=== PATIENT | male | born 1965 | race Caucasian/White ===

== ENCOUNTER 2019-11-11 22:00 | Emergency (ER) | payer MEDICAID, SELFPAY ==
[2019-11-11 22:01] VITALS: BP 131/78; PULSE 96; RESP 18; TEMP 36.6; O2SAT 98; BMI 27.3
[2019-11-11 22:26] VITALS: BP 113/76; PULSE 88; RESP 16; TEMP 36.8; O2SAT 99
--- NOTE | 2019-11-11 22:40 | ED.VIS.GEN ---
History of Present Illness Chief Complaint: Cellulitis Detail of Chief Complaint: Left leg wound Informant: Patient, Family Onset: Days Context: Gradual Onset Current Severity: Moderate Maximum Severity: Moderate Narrative: Patient presents secondary to left leg wound. He had a mechanical fall on November 07. He states he has a bad left hip and uses crutches to get around. He caught his foot on the carpet and fell. He had a large contusion with swelling to the medial left lower leg. This formed a blister that then popped today. He has 2 areas of skin sloughing. No significant erythema. He states the fluid that drained out of the blister was clear and water like. He denies fever or chills. - Past Medical History (1) GERD (gastroesophageal reflux disease) Status: Chronic (2) Gouty arthritis Status: Chronic Past Medical History - Allergies and Home Meds Allergies/Adverse Reactions: Allergies No Known Allergies Allergy (Verified 11/11/19 22:04) Prior records reviewed: Yes Surgical History: - - Recent debridement of a nonhealing wound on his left lower extremity at the [facility] with placement of wound VAC. Lives: Spouse/ Significant Other Smoking Status: Never smoker - Family History Maternal Family History: Reports: - - His mother has rheumatoid arthritis.cancer Review of Systems General: Denies: Chills, Fever Eyes: Denies: Visual changes - bilaterally ENT: Denies: Bilateral ear pain Cardiovascular: Denies: Chest pain Respiratory: Denies: Dyspnea, Cough Gastrointestinal: Denies: Abdominal pain, Nausea, Vomiting, Diarrhea Genitourinary: Denies: Dysuria Musculoskeletal: Reports: Extremity Pain Skin: Reports: Wounds Neurological: Denies: Headache Hematologic: Reports: Easy bruising. Denies: Easy bleeding Allergy: Denies: Uticaria Physical Exam Vital Signs/Narrative: Vital Signs Temp Pulse Resp BP Pulse Ox 11/11/19 22:26 98.3 F 88 16 113/76 99 11/11/19 22:01 97.9 F 96 18 131/78 H 98 Inital Vital Signs reviewed: Yes General: Well nourished, Well developed Head: Normocephalic ENT: Moist mucous membranes Neck: Supple Cardiovascular: Regular rate, Regular rhythm Respiratory: No distress, CTA bilaterally Abdomen: Soft, Nontender Extremities: - - Hematoma noted to the medial left calf. 2 areas of skin sloughing from prior blister are noted. The more proximal wound is 2 x 5 cm, the more distal wound is 4 x 7 cm. No sign of cellulitis or surrounding infection at this time. Strong distal pulses are noted. Neurological: Alert, Oriented x3 Psychological: Normal affect Diagnostic/Tx/Re-eval - Medical Decision Making We discussed appropriate wound care. Wound will be cleansed and dressed here. He will be referred to wound center for follow-up. I will go ahead and start him on Bactrim and Keflex to help prevent infection. ED Disposition - Plan for ED Patient: Disposition: Home or Assisted Living Diagnosis: Hematoma, Skin avulsion Instructions: ED Hematoma, ED AVULSION LACERATION Prescriptions: Smz/Tmp Ds [Bactrim Ds] 1 tab PO BID #14 tab Transmission Status: Pending to [facility] #[facility] Cephalexin [Keflex] 500 mg PO Q6 #40 cap Transmission Status: Pending to [facility] Referrals: Kana Davis MD [STAFF PHYSICIAN] - Additional Instructions: Please follow-up at the wound center as discussed - [phone]
[2019-11-11] MEDS: Cephalexin 250 MG Capsule 500 MG PO (22:50)
[2019-11-11] MEDS: Smz/Tmp Ds Tablet 1 TABLET PO (22:50)
== END 2019-11-11 23:05 | disposition home or self-care (01) ==
LOC: ED 22:48
PROVIDERS: Emergency Provider Emergency Medicine
DX: S80.12XA Contusion of left lower leg, initial encounter (principal); S81.802A Unspecified open wound, left lower leg, initial encounter; W18.09XA Striking against other object with subsequent fall, initial encounter; Y93.9 Activity, unspecified; Y92.9 Unspecified place or not applicable; Y99.9 Unspecified external cause status; M10.9 Gout, unspecified; K21.9 Gastro-esophageal reflux disease without esophagitis; Z79.899 Other long term (current) drug therapy
CPT/HCPCS: 99283

== ENCOUNTER 2019-12-06 21:43 | Inpatient (IN) | payer MEDICAID, SELFPAY ==
[2019-12-06] VITALS (7 sets, daily range): BP systolic 102–113; BP diastolic 59–80; PULSE 96–117; RESP 16–20; TEMP 36.6–37.1; O2SAT 96–100; BMI 27.3
--- NOTE | 2019-12-06 22:10 | EKG12_ITS ---
Test Reason : WOUND Blood Pressure : / mmHG Vent. Rate : 098 BPM Atrial Rate : 098 BPM P-R Int : 144 ms QRS Dur : 082 ms QT Int : 376 ms P-R-T Axes : 042 -11 048 degrees QTc Int : 480 ms Normal sinus rhythm Nonspecific T wave abnormality Prolonged QT Abnormal ECG Confirmed by MIGUEL A LAFLEUR, GATITO ([id number]), television news video editor FLORIAN CRUZ ([id number]) on 12/08/2019 1:55:22 PM Referred By: FERCHO Confirmed By:ARSENIO GRADY MD
[2019-12-06 22:44] LABS: Absolute Lymphocyte Count 1.13 X10^3/uL (0.83-4.51); Absolute Neutrophil Count 11.1 X10^3/uL (2.0-7.7); Basophil# 0.06 X10^3/uL; Basophil% 0.4 % (0-1); Eosinophil# 0.08 X10^3/uL; Eosinophils% 0.6 % (0-5); Hematocrit 34.2 % (40-54); Hemoglobin 11.2 g/dL (13.0-16.5); Lymphocyte # 1.13 X10^3/ul (4.0); Lymphocyte % 8.4 % (19-41); Mean Corp Hgb Conc 32.7 g/dL (32-36); Mean Corpuscular Hgb 31.5 pg (27.0-32.0); Mean Corpuscular Volume 96.3 fL (80-94); Mean Platelet Vol. 10.3 fl (6.2-12.0); Monocyte# 0.97 X10^3/uL; Monocyte% 7.2 % (0-10); NRBC Flagged by Analyzer 0 % (0-5); Neutrophil # 11.08 X10^3/uL (2.7-7.7); Neutrophil % 82.7 % (47-70); Platelet Count 211 K/mm3 (150-450); RBC Distribution Width CV 15.4 % (11.6-14.6); RBC Distribution Width SD 55.2 fl (35.1-43.9); Red Blood Count 3.55 M/mm3 (4.6-6.2); White Blood Count 13.4 K/mm3 (4.4-11.0)
[2019-12-06 22:51] LABS: International Normalized Ratio 1.2
[2019-12-06 22:53] LABS: Partial Thromboplast Time 48.9 Seconds (24.1-36.2)
[2019-12-06 23:09] LABS: ALB/GLOB Ratio 0.6 RATIO (0.9-2.4); AST(SGOT) 10 U/L (15-37); Alanine Aminotransfer ALT/SGPT 9 U/L (16-61); Albumin, Serum 2.7 g/dL (3.2-5.0); Alkaline Phosphatase 78 U/L (45-117); Anion Gap 9 (5-15); BUN 23 mg/dL (7-18); BUN/Creat Ratio 8.6 RATIO (10-20); Calcium,Total 8.6 mg/dL (8.5-10.1); Chloride 105 mmol/L (98-107); Creatinine, Serum 2.67 mg/dL (0.70-1.30); EST Glomerular Filtration Rate 27 mL/min (>60); Est Glom Filt Rate - Afr Amer 32 mL/min (>60); Estimated Creatinine Clearance 31.26 ml/min; Globulin 4.5 g/dL (2.2-4.2); Glucose 110 mg/dL (74-106); Potassium 3.3 mmol/L (3.5-5.1); Protein, Total 7.2 g/dL (6.4-8.2); Sodium Level 135 mmol/L (136-145)
[2019-12-06 23:15] LABS: Lactic Acid 2.5 mmol/L (0.4-1.9)
[2019-12-06 23:16] LABS: Reflex Lactate? Y
--- NOTE | 2019-12-06 23:18 | HP.PCM_ITS ---
History of Present Illness Date of Admission: 12/06/19 Chief Complaint: left leg ulcer The patient is a 54 year old M with a past medical history of gout and arthritis of the hip. He was admitted through the ED on 12/06/2019 with a complaint of left leg ulcer. Patient states he fell off his wheelchair and injured his left leg about 3 weeks ago. He sustained a small bruise and came to the ED afterwards when he became a small ulcer. He states he was given oral antibiotics and sent home. However wound has progressively been getting bigger and formed a huge black eschar which he states has been breaking off and oozing pus. He has had swelling and pain of his right lower extremity. He denies any fever or chills, cough, chest pain, palpitations, dizziness, nausea vomiting. Review systems otherwise negative. He scheduled an appointment with the wound clinic for next week but said the pain was too severe so he decided to come in. In the ED, vitals showed temperature of 98.6 Fahrenheit with blood pressure of 106/80, pulse rate of 99 respiratory rate of 18. Pulse ox was 100% on room air. Chemis try showed sodium of 135 with potassium of 3.3 and creatinine of 2.67 with lactic acid of 2.5. Total bilirubin was 1.2 with AST and ALT of 10 and 9 respectively. CBC showed hemoglobin of 11.2 with WBC of 13.4 and platelets of 211. CT of the lower extremity without contrast was ordered and was pending. He has been admitted to be managed for cellulitis of the left lower extremity as well as YAHAIRA and lactic acidosis. [] Past Medical History Past Medical History (Chronic Problems): Chronic Problems GERD (gastroesophageal reflux disease) (Chronic) Anasarca (Chronic) Renal failure (Chronic) Hyperuricemia (Chronic) Non-healing wound of lower extremity (Chronic) Anemia (Chronic) History of hemorrhoids (Chronic) Obesity (BMI 30.0-34.9) (Chronic) Gouty arthritis (Chronic) Allergies No Known Allergies Allergy (Verified 11/11/19 22:04) Home Medications: Ambulatory Orders Medication Instructions Recorded Colchicine 0.6 mg PO X1 12/26/13 Gabapentin [Neurontin] 400 mg PO TIDCM 12/26/13 predniSONE tablet 10 mg PO BID 12/26/13 Cephalexin [Keflex] 500 mg PO Q6 #40 cap 11/11/19 Surgical History: - - Recent debridement of a nonhealing wound on his left lower extremity at the [facility] with placement of wound VAC. Psychiatric History: No pertinent psych hx Lives: Spouse/ Significant Other Smoking Status: Never smoker Tobacco Use: Non-smoker Alcohol: Occasional Drugs: None - *Family History Maternal History Items: - - His mother has rheumatoid arthritis.cancer Review of Systems Constitutional: Denies: Chills, Fever, Malaise, Weight Change, Fatigue Eyes: Denies: Blurred vision HEENT: Denies: Head Aches, Sinus Congestion, Sinus Drainage Cardiovascular: Denies: Chest Pain, Chest Pressure, Palpitations Respiratory: Denies: Cough, Shortness of Breath, Shortness of breath at rest, Shortness of breath upon exertion, Sputum production Gastrointestinal: Denies: Abdominal Pain, Nausea, Vomiting Genitourinary: Denies: Dysuria Musculoskeletal: Reports: Leg Pain. Denies: Joint Pain, Joint Tenderness Skin: Reports: Skin Changes, Wounds, - - ulcer of left lower extremity Neurological: Denies: Numbness, Tingling, Focal weakness Psychiatric: Denies: Anxiety, Depression, Homicidal Ideations, Suicidal Ideations Hematologic/ Lymphatic: Denies: Easy Bruising, Easy Bleeding VTE Information - Inpt Only VTE Present on Admission: No VTE Pharm Prophylaxis ordered?: Yes - Physical Exam Vitals/I&O's: Vital Signs Temp Pulse Resp BP Pulse Ox 98 F 98 20 H 106/80 100 12/06/19 22:46 12/06/19 23:15 12/06/19 23:15 12/06/19 23:15 12/06/19 23:15 Oxygen Delivery Method Room Air Weight: 185 lb Body Mass Index (BMI) 27.3 Intake and Output for Last 24 Hours 12/04/19 12/05/19 12/06/19 23:59 23:59 23:59 Intake Total 500 / 500 Balance 500 / 500 General: Alert, Oriented x3, Cooperative, No apparent distress HEENT: Atraumatic, PERRLA, EOMI, Normocephalic Oral: Dry Mucosa Neck: Supple, No JVD, Negative Carotid Bruits Lungs: Clear to auscultation, Normal air movement, No rhonchi, No wheeze, No rales Cardiovascular: Regular rate, Regular Rhythm, Normal S1, Normal S2, No murmurs Abdomen: Bowel Sounds Present, Soft, Non Tender, Non-Distended, No Hepato- splenomegaly Extremities: No edema, Capillary Refill Less than 3 Seconds Skin: - - left leg ulceration, measuring ~ 10cm x 10cm, swollen, with a huge thick black escar over ulcer. oozing pus. leg swollen Lymphatic: No Cervical, Supraclavicular, or Inguinal Adenopathy Neurological: Cranial nerves II-XII grossly intact, Neuro grossly intact, Motor Exam 5/5 strength throughout Psych/Mental Status: Normal Affect, Appropriate, Alert and oriented to time, place, person, mood and affect Laboratory Results 12/06/19 22:30: WBC 13.4 H, RBC 3.55 L, Hgb 11.2 L, Hct 34.2 L, MCV 96.3 H, MCH 31.5, MCHC 32.7, RDW Std Deviation 55.2 H, RDW Coeff of Estella 15.4 H, Plt Count 211, MPV 10.3, Immature Gran % (Auto) 0.700, Neut % (Auto) 82.7 H, Lymph % (Auto) 8.4 L, [place] % (Auto) 7.2, Eos % (Auto) 0.6, Baso % (Auto) 0.4, Absolute Neuts (auto) 11.1 H, Absolute Lymphs (auto) 1.13, Nucleated RBC % 0 12/06/19 22:30: PT 15.0 H, INR 1.2, APTT 48.9 H 12/06/19 22:30: Sodium 135 L, Potassium 3.3 L, Chloride 105, Carbon Dioxide 2 1.0, Anion Gap 9, BUN 23 H, Creatinine 2.67 H, Estim Creat Clear Calc 31.26, Est GFR (MDRD) Af Amer 32 L, Est GFR (MDRD) Non-Af 27 L, BUN/Creatinine Ratio 8.6 L , Glucose 110 H, Calcium 8.6, Total Bilirubin 1.20 H, AST 10 L, ALT 9 L, Alkaline Phosphatase 78, Total Protein 7.2, Albumin 2.7 L, Globulin 4.5 H, [place] min/Globulin Ratio 0.6 L 12/06/19 22:30: Lactic Acid 2.5 H* Assessment/Plan All Active Problems Heme + stool (Acute) Rheumatoid arthritis (Ruled-out) 54 y/o admitted with a complaitn of left leg swelling and ulceration 1. Sepsis due to LLE ulceration * Admit to PCU with telemetry. * Leg is necrotic with a thick black eschar and draining pus. * WBC is 13.4 with lactic acid of 2.5. He was not tachycardic or tachypneic at time of review though he had been earlier. * Get blood cultures and wound cultures. * Consult wound care and consult plastic surgery. * Start on IV vancomycin and Zosyn. * PT OT consults. CT of the lower extremity without contrast ordered and reading is pending. * 2. YAHAIRA: Creatinine is 2.67. Baseline is not known. Will check renal ultrasound and Samia. Hydrate gently with IV fluid normal saline. 3. Hypokalemia: Potassium is 3.3. Will replace and monitor. 4. Deranged liver enzymes: Total bilirubin is 1.2. AST and ALT are low at 10 and 9 respectively. Will trend. 5. History of gout: On colchicine. DVT prophylaxis: Lovenox Code Status: Full code * Patient counseled extensively about different types of CODE STATUS including full code, DNR CCA and DNR CCA. Patient elects to be full code. * Total [id number] time 17 minutes. * Inpatient E&M: 21661 Init Hosp L3 Procedures: 19139 Advncd Care Plan 30 Min
--- NOTE | 2019-12-06 23:32 | ED.DCSUM_ITS ---
- ER Visit Summary Date of Service: 12/06/19 Chief Complaint: Leg wound History of Present Illness: The patient is a 54 M with a leg wound on his left calf for several weeks. He tripped on his carpet and caught his leg open. He was planning to follow-up with wound care, but he is having a lot of drainage and the dressings are sticking. Physical Examination: Afebrile and vital signs unremarkable except for heart rate of 98 and a respiratory rate of 20. He has a large wound on his left calf. There is an area of palm sized necrosis with surrounding pus and foul-smelling discharge. No active bleeding. No tracking or streaking. He is neurovascular intact distally. Test Results: EKG showed sinus rhythm at a rate of 98 with nonspecific T wave changes. White count 13.4, hemoglobin 11.2. Sodium 135, potassium 3.3, glucose 110, BUN 23, creatinine 2.67, total bilirubin 1.2. Lactate 2.5. Cultures pending. Emergency Department Course and Treatment: Patient has a large wound which appears to be infected with some flap necrosis. Patient will need inpatient care for this. He does meet sepsis criteria. He was started on Zosyn and vancomycin. He has remained hemodynamically stable. The hospitalist was co ntacted for inpatient care. Admitting doctor requested a CT. Because of the patient's kidney function, this was performed without contrast. Results are pending. Treatment Plan: As above Disposition: Admission Impression: Left leg wound, sepsis This note was generated with [employer] dictation software. It may contain incorrect words, spelling, and punctuation that were not noted in review of the chart prior to signing ED Disposition - Plan for ED Patient: Referrals: Care Physician,No Primary [Primary Care Provider] -
[2019-12-07] VITALS (22 sets, daily range): BP systolic 94–116; BP diastolic 60–86; PULSE 73–102; RESP 16–18; TEMP 36.3–37; O2SAT 96–100; BMI 27.3
--- NOTE | 2019-12-07 00:05 | CT_ITS ---
STUDY: CT LEFT TIB-FIB WITHOUT CONTRAST REASON FOR EXAM: Male, 54 years old. RADIATION DOSAGE (If Supplied By Facility): CTDIvol = ( 15.35 ) mGy, DLP = ( 821.97 ) mGycm TECHNIQUE: Thin section transaxial imaging of the hip was obtained, with sagittal and coronal reconstructed images. Individualized dose optimization techniques were used for this CT. COMPARISON: None. FINDINGS: There is subcutaneous fluid collection at the medial aspect of the left calf measures 9 x 2.5 x 18 cm suggesting an abscess. There is no evidence of osteomyelitis. Degenerative disease about the knee and ankle joints. There is moderate atrophy of the calf muscles. CT/Extremity Lower without Contra IMPRESSION: There is subcutaneous fluid collection at the medial aspect of the left calf measures 9 x 2.5 x 18 cm suggesting an abscess. Electronically Signed: Maren Osei, at 1:44 EDT Tel , Service support ,
[2019-12-07] MEDS: Morphine 2 MG/ML Syringe IV ×3 (01:42→11:12)
--- NOTE | 2019-12-07 01:49 | PCM.RX.CS ---
Consult Pharmacy has been consulted to manage selected antiobiotic: Vancomycin Type of Consult: New start Suspected Infection: Sepsis Prior Doses of Antibiotics Received/Current Regimen: Medications Vancomycin HCl 1,250 mg/ (Sodium Chloride) 275 mls @ 167 mls/hr IV Q24H NEIL start 12/07/19 2100 Discontinued Medications given in ED Vancomycin HCl 1,250 mg/ (Dextrose) 275 mls @ 250 mls/hr IV X1 ONE Stop: 12/06/19 23:15 Last Admin: 12/06/19 23:21 Dose: 250 mls/hr Documented by: Labs: Sodium 135 mmol/L (136-145) L 12/06/19 22:30 Potassium 3.3 mmol/L (3.5-5.1) L 12/06/19 22:30 Chloride 105 mmol/L (98-107) 12/06/19 22:30 Carbon Dioxide 21.0 mmol/L (21.0-32.0) 12/06/19 22:30 Anion Gap 9 (5-15) 12/06/19 22:30 BUN 23 mg/dL (7-18) H 12/06/19 22:30 Creatinine 2.67 mg/dL (0.70-1.30) H 12/06/19 22:30 Est GFR (MDRD) Af Amer 32 mL/min (>60) L 12/06/19 22:30 Est GFR (MDRD) Non-Af 27 mL/min (>60) L 12/06/19 22:30 BUN/Creatinine Ratio 8.6 RATIO (10-20) L 12/06/19 22:30 Glucose 110 mg/dL (74-106) H 12/06/19 22:30 Weight used for dosin kg Estimated Creatinine Clearance: 31.2ml/min Goal Trough: 15-20 mcg/mL Pharmacy Plan for Drug Dosing: Pharmacy Service will continue to monitor and adjust dosing as required. Follow-Up Labs: Trough Vancomycin - draw 30 minutes before 3rd dose Labs to be done on [date and time ordered]: 12/08/19 7153
[2019-12-07] MEDS: 0.9% Normal Saline 1,000 ML 999 ML IV ×3 (01:51→04:05)
[2019-12-07] MEDS: oxyCODONE 5 MG Tablet 10 MG PO ×4 (02:47→22:40)
[2019-12-07 03:14] LABS: Absolute Neutrophil Count 7.6 X10^3/uL (2.0-7.7); Basophil# 0.03 X10^3/uL; Basophil% 0.3 % (0-1); Eosinophil# 0.08 X10^3/uL; Eosinophils% 0.9 % (0-5); Hematocrit 27.7 % (40-54); Hemoglobin 8.9 g/dL (13.0-16.5); Lymphocyte % 8.5 % (19-41); Mean Corp Hgb Conc 32.1 g/dL (32-36); Mean Corpuscular Hgb 31.2 pg (27.0-32.0); Mean Corpuscular Volume 97.2 fL (80-94); Mean Platelet Vol. 10.2 fl (6.2-12.0); Monocyte# 0.79 X10^3/uL; Monocyte% 8.4 % (0-10); NRBC Flagged by Analyzer 0 % (0-5); Neutrophil # 7.64 X10^3/uL (2.7-7.7); Neutrophil % 81.4 % (47-70); Platelet Count 157 K/mm3 (150-450); RBC Distribution Width CV 15.6 % (11.6-14.6); Red Blood Count 2.85 M/mm3 (4.6-6.2); White Blood Count 9.4 K/mm3 (4.4-11.0)
[2019-12-07 03:26] LABS: Anion Gap 7 (5-15); BUN 23 mg/dL (7-18); BUN/Creat Ratio 9.7 RATIO (10-20); Calcium,Total 7.6 mg/dL (8.5-10.1); Chloride 106 mmol/L (98-107); Creatinine, Serum 2.37 mg/dL (0.70-1.30); EST Glomerular Filtration Rate 30 mL/min (>60); Est Glom Filt Rate - Afr Amer 37 mL/min (>60); Estimated Creatinine Clearance 35.22 ml/min; Glucose 103 mg/dL (74-106); Potassium 3.2 mmol/L (3.5-5.1); Sodium Level 135 mmol/L (136-145)
[2019-12-07 03:38] LABS: Lactic Acid 0.9 mmol/L (0.4-1.9)
--- NOTE | 2019-12-07 03:52 | NURSING ---
Confirmed with hospitalist to perform basic dressing changes vs leaving wound open to air until Dr. Milton and wound care nurse can see pt. Verified adaptic and basic dressing change on admit. Change as necessary until dressing change orders placed by consulted physician.
--- NOTE | 2019-12-07 04:21 | NURSING ---
Wound measurements roughly 12cm in length. Width at top of wound 6cm and at bottom of wound 11cm
--- NOTE | 2019-12-07 05:59 | NURSING ---
Per hospitalist ok to go off of VSA for vitals at this point
--- NOTE | 2019-12-07 07:00 | US_ITS ---
STUDY: RENAL ULTRASOUND - COMPLETE REASON FOR EXAM: Male, 54 years old. YAHAIRA TECHNIQUE: Ultrasound evaluation of the kidneys was performed with real-time and static aparicio-scale imaging. COMPARISON: None. FINDINGS: RIGHT KIDNEY: Normal location of the right kidney, which is normal in size. The right kidney measures 11.4 cm x 5.2 cm x 4.6 cm. There is a normal cortex of the right kidney. The renal cortex measures 1.2 cm. There is no right renal mass or cyst. There are no right renal calculi. There is no right hydronephrosis. DISTAL RIGHT URETER: There is non-visualization of the distal right ureter. There is no demonstrated right ureterovesical junction calculus. There is a visualized right ureteral jet. LEFT KIDNEY: Normal location of the left kidney, which is normal in size. The left kidney measures 11.2 cm x 5.1 cm x 5.0 cm. There is a normal cortex of the left kidney. The renal cortex measures 1.1 cm. There is no left renal mass or cyst. There are no left renal calculi. There is no left hydronephrosis. DISTAL LEFT URETER: There is non-visualization of the distal left ureter. There is no demonstrated left ureterovesical junction calculus. There is a visualized left ureteral jet. Incidental note is made of splenomegaly. The spleen measures 15.6 cm x 5.5 cm x 5.6 cm. BLADDER: The distended urinary bladder has a volume of 81.8 ml. Bladder wall thickening measuring 6 mm. There is no demonstrated mass within the urinary bladder. There are no demonstrated bladder calculi. US/Kidney and Bladder IMPRESSION: Normal ultrasound of the kidneys. Bladder wall thickening although the bladder is not adequately distended. Incidental note is made of moderate degree of splenomegaly. Electronically Signed: Prasad Palomino, at 8:20 EDT , Service support ,
--- NOTE | 2019-12-07 07:39 | PCM.PN.HOSP ---
Vitals/I&O's: Vital Signs Temp Pulse Resp BP Pulse Ox 97.9 F 82 16 105/63 99 12/07/19 05:17 12/07/19 07:38 12/07/19 05:17 12/07/19 05:17 12/07/19 05:37 Oxygen Delivery Method Room Air Weight: 185 lb 3.013 oz Body Mass Index (BMI) 27.3 Intake and Output for Last 24 Hours 12/05/19 12/06/19 12/07/19 23:59 23:59 23:59 Intake Total 600 / 600 3675 / 3675 Output Total 700 / 700 Balance 600 / 600 2975 / 2975 Laboratory Results 12/06/19 22:30: WBC 13.4 H, RBC 3.55 L, Hgb 11.2 L, Hct 34.2 L, MCV 96.3 H, MCH 31.5, MCHC 32.7, RDW Std Deviation 55.2 H, RDW Coeff of Estella 15.4 H, Plt Count 211, MPV 10.3, Immature Gran % (Auto) 0.700, Neut % (Auto) 82.7 H, Lymph % (Auto) 8.4 L, [place] % (Auto) 7.2, Eos % (Auto) 0.6, Baso % (Auto) 0.4, Absolute Neuts (auto) 11.1 H, Absolute Lymphs (auto) 1.13, Nucleated RBC % 0 12/06/19 22:30: PT 15.0 H, INR 1.2, APTT 48.9 H 12/06/19 22:30: Sodium 135 L, Potassium 3.3 L, Chloride 105, Carbon Dioxide 21.0, Anion Gap 9, BUN 23 H, Creatinine 2.67 H, Estim Creat Clear Calc 31.26, Est GFR (MDRD) Af Amer 32 L, Est GFR (MDRD) Non-Af 27 L, BUN/Creatinine Ratio 8.6 L, Glucose 110 H, Calcium 8.6, Total Bilirubin 1.20 H, AST 10 L, ALT 9 L, Alkaline Phosphatase 78, Total Protein 7.2, Albumin 2.7 L, Globulin 4.5 H, Albumin/Globulin Ratio 0.6 L 12/06/19 22:30: Lactic Acid 2.5 H* 12/07/19 03:05: Lactic Acid 0.9 12/07/19 03:05: WBC 9.4, RBC 2.85 L, Hgb 8.9 L, Hct 27.7 L, MCV 97.2 H, MCH 31.2, MCHC 32.1, RDW Std Deviation 56.0 H, RDW Coeff of Estella 15.6 H, Plt Count 157, MPV 10.2, Immature Gran % (Auto) 0.500, Neut % (Auto) 81.4 H, Lymph % (Auto) 8.5 L, [place] % (Auto) 8.4, Eos % (Auto) 0.9, Baso % (Auto) 0.3, Absolute Neuts (auto) 7.6, Absolute Lymphs (auto) 0.80 L, Nucleated RBC % 0 12/07/19 03:05: Sodium 135 L, Potassium 3.2 L, Chloride 106, Carbon Dioxide 22.0, Anion Gap 7, BUN 23 H, Creatinine 2.37 H, Estim Creat Clear Calc 35.22, Est GFR (MDRD) Af Amer 37 L, Est GFR (MDRD) Non-Af 30 L, BUN/Creatinine Ratio 9.7 L, Glucose 103, Calcium 7.6 L Current Medications Acetaminophen (Tylenol) 650 mg PO Q6H PRN PRN PRN Reason: Pain Score 1-10/Temp > 100.7 F Colchicine (Colchicine) 0.6 mg PO Q2D [facility] Enoxaparin Sodium (Lovenox) 30 mg SC DAILY [facility] Gabapentin (Neurontin) 400 mg PO TIDCM [facility] Piperacillin Sod/Tazobactam (Sod 3.375 gm/ Sodium Chloride) 50 mls @ 12.5 mls/hr IV Q8 [facility] Last Admin: 12/07/19 05:28 Dose: 12.5 mls/hr Documented by: Vancomycin IV Pharmacy to Dose (1 ea/ Sodium Chloride) 500 mls @ 250 mls/hr IV X1 PRN; Protocol PRN Reason: Rx to Dose Sodium Chloride () 250 mls @ 15 mls/hr IV .[id number] PRN PRN Reason: Saline Flush Sodium Chloride () 250 mls @ 15 mls/hr IV .[id number] PRN PRN Reason: Additional IVPB Infusion Vancomycin HCl 1,250 mg/ (Sodium Chloride) 275 mls @ 167 mls/hr IV Q24H [facility] Morphine Sulfate () 2 mg IV Q3H PRN PRN PRN Reason: Pain Score 6-10/10 Last Admin: 12/07/19 05:11 Dose: 2 mg Documented by: Nutritional Formula (Lactose Free) (Ensure Enlive) 120 ml PO 4X/DAY NEIL Ondansetron HCl (Zofran) 4 mg IV Q8H PRN PRN PRN Reason: NAUSEA/VOMITING Oxycodone HCl (Oxyir) 10 mg PO Q4H PRN PRN PRN Reason: Pain Score 4-5/10 Last Admin: 12/07/19 06:47 Dose: 10 mg Documented by: Prednisone () 10 mg PO BIDCM [facility] Sodium Chloride () 10 - 40 ml IV UD PRN PRN Reason: SALINE FLUSH STROKE Vital Signs/Narrative: Vital Signs Temp Pulse Resp BP Pulse Ox 12/07/19 07:38 82 12/07/19 05:55 73 12/07/19 05:37 99 12/07/19 05:17 97.9 F 78 16 105/63 98 12/07/19 04:27 98 F 81 17 109/74 100 Medical Necessity - Tobacco Use Smoking Status: Never smoker Tobacco Use: Non-smoker Assessment/Plan All Active Problems Heme + stool (Acute) Rheumatoid arthritis (Ruled-out)
[2019-12-07 08:01] LABS: Magnesium 1.7 mg/dL (1.6-2.6); Phosphorus 2.9 mg/dL (2.5-4.9)
--- NOTE | 2019-12-07 11:02 | PCM.CONS.GEN ---
Problem List (1) Ulcer of left lower extremity with fat layer exposed Status: Acute (2) Cellulitis of left leg without foot Status: Acute (3) Sepsis Status: Acute (4) Eschar of lower leg Status: Acute (5) Peripheral vascular disease Status: Suspected Reason for Consult Date of Consultation: 12/07/19 Reason for Consultation: Left leg infected ulcer History of Present Illness: The patient is a 54 year old M was seen bedside today for a left leg infected eschar. Advanced imaging, CT scan, demonstrates a very large abscess and there is purulent drainage. This patient was septic upon admission. He relates he is slipped while he was using his crutches to ambulate in his home around November and scraped his leg on his wooden table. This was inflamed and turned into a draining wound with an ongoing scab. Part of the scab kept peeling back and he had drainage. This has progressively worsened over the last couple weeks and he started noticing some infection a couple days prior to coming to the hospital for admission. He was admitted and was found to be septic with elevated lactic acid. He was started on IV antibiotics. He has continued leg pain that is rated between an 8-10 out of 10. He feels fatigued and generally ill. He denies current nausea or vomiting. He does have a history of prior left foot wounds which was treated with infection management and a wound VAC. He is previously known to the wound care center setting. He denies claudication with ambulating however does not ambulate a significant degree. He denies rest burning, tingling, numbness. Past Medical History Past Medical History (Chronic Problems): Chronic Problems GERD (gastroesophageal reflux disease) (Chronic) Anasarca (Chronic) Renal failure (Chronic) Hyperuricemia (Chronic) Non-healing wound of lower extremity (Chronic) Anemia (Chronic) History of hemorrhoids (Chronic) Obesity (BMI 30.0-34.9) (Chronic) Gouty arthritis (Chronic) Allergies No Known Allergies Allergy (Verified 11/11/19 22:04) Home Medications: Ambulatory Orders Medication Instructions Recorded Colchicine 0.6 mg PO X1 12/26/13 Gabapentin [Neurontin] 400 mg PO TIDCM 12/26/13 predniSONE tablet 10 mg PO BID 12/26/13 Cephalexin [Keflex] 500 mg PO Q6 12/07/19 Surgical History: - - Recent debridement of a nonhealing wound on his left lower extremity at the [facility] with placement of wound VAC. Psychiatric History: No pertinent psych hx Lives: Spouse/ Significant Other Smoking Status: Never smoker Tobacco Use: Non-smoker Alcohol: Occasional Drugs: None - *Family History Maternal History Items: - - His mother has rheumatoid arthritis.cancer Review of Systems Constitutional: Denies: Chills, Fever Patient Problems: Active and Suspected Problems Ulcer of left lower extremity with fat layer exposed (Acute) Cellulitis of left leg without foot (Acute) Sepsis (Acute) Eschar of lower leg (Acute) Peripheral vascular disease (Suspected) - Physical Exam Vitals/I&O's: Vital Signs Temp Pulse Resp BP Pulse Ox 98.3 F 88 18 95/60 97 12/07/19 10:04 12/07/19 10:04 12/07/19 10:04 12/07/19 10:04 12/07/19 10:04 Oxygen Delivery Method Room Air Weight: 84 kg Body Mass Index (BMI) 27.3 Intake and Output for Last 24 Hours 12/05/19 12/06/19 12/07/19 23:59 23:59 23:59 Intake Total 600 / 600 3725 / 3725 Output Total 700 / 700 Balance 600 / 600 3025 / 3025 General: Alert, Oriented x3, Cooperative HEENT: Atraumatic Extremities: Capillary Refill Less than 3 Seconds - Left, Diminished Peripheral Pulses - Nonpalpable left DP and 1 out of 4 palpable PT, Edema, Tenderness - Pain with eschar and abscess manipulation left leg that is located to the medial head of the gastrocnemius muscle belly. This does not appear to extend into the popliteal space or distally into the ankle level. He has dorsal contraction of lesser toes and intrinsic minus muscle tone noted of the foot. The other compartments are soft to palpate. Negative Homans sign Skin: - - Large moist eschar with purulent drainage on expression and odor. The leg is warm to touch and there is edema and inflammation infection noted. There is deep probing not to bone. Musculoskeletal: Muscle Wasting, Tenderness Neurological: Sensory exam intact to light touch and pain Psych/Mental Status: Normal Affect, Appropriate Laboratory Results 12/06/19 22:30: WBC 13.4 H, RBC 3.55 L, Hgb 11.2 L, Hct 34.2 L, MCV 96.3 H, MCH 31.5, MCHC 32.7, RDW Std Deviation 55.2 H, RDW Coeff of Estella 15.4 H, Plt Count 211, MPV 10.3, Immature Gran % (Auto) 0.700, Neut % (Auto) 82.7 H, Lymph % (Auto) 8.4 L, [place] % (Auto) 7.2, Eos % (Auto) 0.6, Baso % (Auto) 0.4, Absolute Neuts (auto) 11.1 H, Absolute Lymphs (auto) 1.13, Nucleated RBC % 0 12/06/19 22:30: PT 15.0 H, INR 1.2, APTT 48.9 H 12/06/19 22:30: Sodium 135 L, Potassium 3.3 L, Chloride 105, Carbon Dioxide 21.0, Anion Gap 9, BUN 23 H, Creatinine 2.67 H, Estim Creat Clear Calc 31.26, Est GFR (MDRD) Af Amer 32 L, Est GFR (MDRD) Non-Af 27 L, BUN/Creatinine Ratio 8.6 L, Glucose 110 H, Calcium 8.6, Total Bilirubin 1.20 H, AST 10 L, ALT 9 L, Alkaline Phosphatase 78, Total Protein 7.2, Albumin 2.7 L, Globulin 4.5 H, Albumin/Globulin Ratio 0.6 L 12/06/19 22:30: Lactic Acid 2.5 H* 12/07/19 03:05: Lactic Acid 0.9 12/07/19 03:05: WBC 9.4, RBC 2.85 L, Hgb 8.9 L, Hct 27.7 L, MCV 97.2 H, MCH 31.2, MCHC 32.1, RDW Std Deviation 56.0 H, RDW Coeff of Estella 15.6 H, Plt Count 157, MPV 10.2, Immature Gran % (Auto) 0.500, Neut % (Auto) 81.4 H, Lymph % (Auto) 8.5 L, [place] % (Auto) 8.4, Eos % (Auto) 0.9, Baso % (Auto) 0.3, Absolute Neuts (auto) 7.6, Absolute Lymphs (auto) 0.80 L, Nucleated RBC % 0 12/07/19 03:05: Sodium 135 L, Potassium 3.2 L, Chloride 106, Carbon Dioxide 22.0, Anion Gap 7, BUN 23 H, Creatinine 2.37 H, Estim Creat Clear Calc 35.22, Est GFR (MDRD) Af Amer 37 L, Est GFR (MDRD) Non-Af 30 L, BUN/Creatinine Ratio 9.7 L, Glucose 103, Calcium 7.6 L 12/07/19 03:05: Phosphorus 2.9, Magnesium 1.7 Current Medications Acetaminophen (Tylenol) 650 mg PO Q6H PRN PRN PRN Reason: Pain Score 1-10/Temp > 100.7 F Al Hydroxide/Mg Hydroxide (Mylanta Ii) 30 ml PO Q4H PRN PRN PRN Reason: HEARTBURN Colchicine (Colchicine) 0.6 mg PO Q2D [facility] Enoxaparin Sodium (Lovenox) 30 mg SC DAILY [facility] Last Admin: 12/07/19 10:07 Dose: Not Given Documented by: Gabapentin (Neurontin) 400 mg PO TIDCM [facility] Piperacillin Sod/Tazobactam (Sod 3.375 gm/ Sodium Chloride) 50 mls @ 12.5 mls/hr IV Q8 [facility] Last Infusion: 12/07/19 09:30 Dose: Infused Documented by: Vancomycin IV Pharmacy to Dose (1 ea/ Sodium Chloride) 500 mls @ 250 mls/hr IV X1 PRN; Protocol PRN Reason: Rx to Dose Sodium Chloride () 250 mls @ 15 mls/hr IV .[id number] PRN PRN Reason: Saline Flush Sodium Chloride () 250 mls @ 15 mls/hr IV .[id number] PRN PRN Reason: Additional IVPB Infusion Vancomycin HCl 1,250 mg/ (Sodium Chloride) 275 mls @ 167 mls/hr IV Q24H [facility] Morphine Sulfate () 2 mg IV Q3H PRN PRN PRN Reason: Pain Score 6-10/10 Last Admin: 12/07/19 05:11 Dose: 2 mg Documented by: Nutritional Formula (Levi - [place] Flavor) 1 packet PO BIDCM [facility] Nutritional Formula (Lactose Free) (Ensure Enlive) 120 ml PO 4X/DAY [facility] Last Admin: 12/07/19 10:07 Dose: Not Given Documented by: Ondansetron HCl (Zofran) 4 mg IV Q8H PRN PRN PRN Reason: NAUSEA/VOMITING Oxycodone HCl (Oxyir) 10 mg PO Q4H PRN PRN PRN Reason: Pain Score 4-5/10 Last Admin: 12/07/19 06:47 Dose: 10 mg Documented by: Prednisone () 10 mg PO BIDCM [facility] Sodium Chloride () 10 - 40 ml IV UD PRN PRN Reason: SALINE FLUSH Assessment/Plan All Active Problems Ulcer of left lower extremity with fat layer exposed (Acute) Cellulitis of left leg without foot (Acute) Sepsis (Acute) Eschar of lower leg (Acute) Heme + stool (Acute) Rheumatoid arthritis (Ruled-out) Left leg abscess with infection Sepsis with elevated lactic acid Acute kidney injury Other comorbidities including gout, arthritis, obesity History of delayed healing Malnutrition suspected Peripheral vascular disease suspected I reviewed and discussed his case. He is afebrile. He had leukocytosis on admission of 13.4 which is decreased overnight. His lactic acid was 2.5 on admission. His x-rays did not demonstrate any osseous abnormalities or soft tissue emphysema. His CT of his leg did demonstrate a very large abscess measuring up to 18 cm in length. This is consistent with his clinical finding of moist bulky eschar with purulent drainage. I recommend surgically debriding this with incision and drainage and debridement of nonviable tissue. He last ate at 9:00 AM and this is considered an urgent case due to his constitutional findings on admission. The preoperative indication, planned procedure, possible benefits, risk, complications, and anticipated healing time management were discussed in detail with the patient. He understands and elects to proceed with surgery. He understands risk and complications may include but are not limited to following: Pain, swelling, scarring, need for further surgery, staged procedure, infection, delayed or nonhealing, loss of limb, function, life, blood clot, allergic reaction, chronic pain. No guarantees are made. Informed surgical consent need to be signed. He is n.p.o. at this time and his anticoagulation medication was already held this morning. I reviewed the case with anesthesiologist, Dr. Rahman. We will plan to do the surgery at 14 o'clock today. Case was discussed with Dr. Keita. Thank you for the consultation. Please do not hesitate to call if you have any questions. Hallie Pemberton DPM, [facility] [phone]
[2019-12-07] MEDS: Mag Hydrox/Al Hydrox/Simeth 30 ML UDC PO (11:11)
[2019-12-07] MEDS: predniSONE 10 MG Tablet PO ×2 (11:11→16:42)
[2019-12-07] MEDS: Gabapentin 400 MG Capsule PO ×2 (11:12→16:42)
[2019-12-07] MEDS: 0.9% Saline Lock 10 ML Syringe IV ×2 (11:15→20:55)
[2019-12-07 11:18] LABS: Urine Sodium 27 mmol/L (Not Establ.)
--- NOTE | 2019-12-07 12:18 | PCM.PROGNOTE ---
<Jania Mast - Last Filed: 12/07/19 12:44> Patient Problems: Active and Suspected Problems Ulcer of left lower extremity with fat layer exposed (Acute) Cellulitis of left leg without foot (Acute) Sepsis (Acute) Eschar of lower leg (Acute) Peripheral vascular disease (Suspected) Subjective: Patient seen and examined. Denies fever, chills. Complains of left lower extremity pain. Denies other current complaints. - Physical Exam Vitals/I&O's: Vital Signs Temp Pulse Resp BP Pulse Ox 98.3 F 88 18 95/60 97 12/07/19 10:04 12/07/19 10:04 12/07/19 10:04 12/07/19 10:04 12/07/19 10:04 Oxygen Delivery Method Room Air Weight: 185 lb 3.013 oz Body Mass Index (BMI) 27.3 Intake and Output for Last 24 Hours 12/05/19 12/06/19 12/07/19 23:59 23:59 23:59 Intake Total 600 / 600 4065 / 4065 Output Total 700 / 700 Balance 600 / 600 3365 / 3365 General: Alert, Oriented x3, Cooperative HEENT: Atraumatic, PERRLA, EOMI, Normocephalic Neck: Supple, No JVD, Negative Carotid Bruits Lungs: Clear to auscultation, Normal air movement Cardiovascular: Regular rate, No murmurs Abdomen: Bowel Sounds Present, Soft, Non Tender Extremities: No clubbing, No cyanosis, No edema, Capillary Refill Less than 3 Seconds Skin: No rashes, No breakdown, - - Left lower extremity abscess with surrounding cellulitis. Dressing intact. Musculoskeletal: No Tenderness to Palpation of Joints or Extremities Neurological: Cranial nerves II-XII grossly intact, Neuro grossly intact Psych/Mental Status: Normal Affect, Appropriate Laboratory Results 12/06/19 22:30: WBC 13.4 H, RBC 3.55 L, Hgb 11.2 L, Hct 34.2 L, MCV 96.3 H, MCH 31.5, MCHC 32.7, RDW Std Deviation 55.2 H, RDW Coeff of Estella 15.4 H, Plt Count 211, MPV 10.3, Immature Gran % (Auto) 0.700, Neut % (Auto) 82.7 H, Lymph % (Auto) 8.4 L, [place] % (Auto) 7.2, Eos % (Auto) 0.6, Baso % (Auto) 0.4, Absolute Neuts (auto) 11.1 H, Absolute Lymphs (auto) 1.13, Nucleated RBC % 0 12/06/19 22:30: PT 15.0 H, INR 1.2, APTT 48.9 H 12/06/19 22:30: Sodium 135 L, Potassium 3.3 L, Chloride 105, Carbon Dioxide 21.0, Anion Gap 9, BUN 23 H, Creatinine 2.67 H, Estim Creat Clear Calc 31.26, Est GFR (MDRD) Af Amer 32 L, Est GFR (MDRD) Non-Af 27 L, BUN/Creatinine Ratio 8.6 L, Glucose 110 H, Calcium 8.6, Total Bilirubin 1.20 H, AST 10 L, ALT 9 L, Alkaline Phosphatase 78, Total Protein 7.2, Albumin 2.7 L, Globulin 4.5 H, Albumin/Globulin Ratio 0.6 L 12/06/19 22:30: Lactic Acid 2.5 H* 12/07/19 03:05: Lactic Acid 0.9 12/07/19 03:05: WBC 9.4, RBC 2.85 L, Hgb 8.9 L, Hct 27.7 L, MCV 97.2 H, MCH 31.2, MCHC 32.1, RDW Std Deviation 56.0 H, RDW Coeff of Estella 15.6 H, Plt Count 157, MPV 10.2, Immature Gran % (Auto) 0.500, Neut % (Auto) 81.4 H, Lymph % (Auto) 8.5 L, [place] % (Auto) 8.4, Eos % (Auto) 0.9, Baso % (Auto) 0.3, Absolute Neuts (auto) 7.6, Absolute Lymphs (auto) 0.80 L, Nucleated RBC % 0 12/07/19 03:05: Sodium 135 L, Potassium 3.2 L, Chloride 106, Carbon Dioxide 22.0, Anion Gap 7, BUN 23 H, Creatinine 2.37 H, Estim Creat Clear Calc 35.22, Est GFR (MDRD) Af Amer 37 L, Est GFR (MDRD) Non-Af 30 L, BUN/Creatinine Ratio 9.7 L, Glucose 103, Calcium 7.6 L 12/07/19 03:05: Phosphorus 2.9, Magnesium 1.7 12/07/19 10:49: Urine Creatinine 94.80 12/07/19 10:49: Ur Random Sodium 27 12/07/19 11:31: MRSA (PCR) Pending 12/07/19 11:31: S.aureus Protein A PCR Pending, MRSA (PCR) Pending Current Medications Acetaminophen (Tylenol) 650 mg PO Q6H PRN PRN PRN Reason: Pain Score 1-10/Temp > 100.7 F Al Hydroxide/Mg Hydroxide (Mylanta Ii) 30 ml PO Q4H PRN PRN PRN Reason: HEARTBURN Last Admin: 12/07/19 11:11 Dose: 30 ml Documented by: Colchicine (Colchicine) 0.6 mg PO Q2D [facility] Enoxaparin Sodium (Lovenox) 30 mg SC DAILY [facility] Last Admin: 12/07/19 10:07 Dose: Not Given Documented by: Gabapentin (Neurontin) 400 mg PO TIDCM [facility] Last Admin: 12/07/19 11:12 Dose: 400 mg Documented by: Piperacillin Sod/Tazobactam (Sod 3.375 gm/ Sodium Chloride) 50 mls @ 12.5 mls/hr IV Q8 [facility] Last Infusion: 12/07/19 09:30 Dose: Infused Documented by: Vancomycin IV Pharmacy to Dose (1 ea/ Sodium Chloride) 500 mls @ 250 mls/hr IV X1 PRN; Protocol PRN Reason: Rx to Dose Sodium Chloride () 250 mls @ 15 mls/hr IV .[id number] PRN PRN Reason: Saline Flush Sodium Chloride () 250 mls @ 15 mls/hr IV .[id number] PRN PRN Reason: Additional IVPB Infusion Vancomycin HCl 1,250 mg/ (Sodium Chloride) 275 mls @ 167 mls/hr IV Q24H [facility] Morphine Sulfate () 2 mg IV Q3H PRN PRN PRN Reason: Pain Score 6-10/10 Last Admin: 12/07/19 11:12 Dose: 2 mg Documented by: Nutritional Formula (Levi - [place] Flavor) 1 packet PO BIDCM [facility] Nutritional Formula (Lactose Free) (Ensure Enlive) 120 ml PO 4X/DAY [facility] Last Admin: 12/07/19 10:07 Dose: Not Given Documented by: Ondansetron HCl (Zofran) 4 mg IV Q8H PRN PRN PRN Reason: NAUSEA/VOMITING Oxycodone HCl (Oxyir) 10 mg PO Q4H PRN PRN PRN Reason: Pain Score 4-5/10 Last Admin: 12/07/19 06:47 Dose: 10 mg Documented by: Prednisone () 10 mg PO BIDCM [facility] Last Admin: 12/07/19 11:11 Dose: 10 mg Documented by: Sodium Chloride () 10 - 40 ml IV UD PRN PRN Reason: SALINE FLUSH Last Admin: 12/07/19 11:15 Dose: 10 ml Documented by: Medical Necessity - Tobacco Use Smoking Status: Never smoker Tobacco Use: Non-smoker Assessment/Plan All Active Problems Ulcer of left lower extremity with fat layer exposed (Acute) Cellulitis of left leg without foot (Acute) Sepsis (Acute) Eschar of lower leg (Acute) Heme + stool (Acute) Rheumatoid arthritis (Ruled-out) 1. Sepsis secondary to left lower extremity abscess with cellulitis-failed outpatient treatment with oral antibiotic. Lower extremity CT showing left calf abscess. To undergo I&D by podiatry. Continue IV Zosyn and IV vancomycin. Blood cultures pending. Obtain culture from I&D. Wound RN consult. Leukocytosis resolved. Afebrile. 2. Acute kidney injury on chronic kidney disease stage III-IV fluids, trend BMP. Renal ultrasound pending. FENA 0.5%, suggesting prerenal. 3. Hypokalemia-replace per protocol, trend BMP. 4. History of gout- on colchicine DVT prophylaxis-Lovenox subcu This patient was seen by ANTONI Rutherford under the supervision of Dr. Keita. <Bobby Keita - Last Filed: 12/07/19 13:46> Subjective: Patient does not fever, chills, tachypnea or hypoxia. 3-week history of left calf ulcer which is gotten bigger. Blackish eschar and open area draining purulent and foul order. Objective: Physical exam General: Alert, Oriented x3, Cooperative HEENT: Atraumatic, PERRLA, EOMI, Normocephalic Oral: No Gingival or Mucosal Lesions/ Ulcerations Neck: Supple, No JVD, Negative Carotid Bruits Lungs: Air entry equal in bilateral lung bases. No crepitation/rhonchi Cardiovascular: Regular rate, Regular Rhythm, Normal S1, Normal S2, No murmurs Abdomen: Bowel Sounds Present, Soft, Non Tender, Non-Distended : No renal angle tenderness. No suprapubic tenderness. Extremities: No edema, Capillary Refill Less than 3 Seconds Skin: Large ulcer about 12 cm in length in the left posterior lateral leg. Of part of ulcer covered with black, necrotic eschar and part foul-smelling draining purulent material. Fluctuant on exam, suggestive of underlying abscess. Musculoskeletal: No Tenderness to Palpation of Joints or Extremities. Old scar in the left foot. Neurological: Cranial nerves II-XII grossly intact, Deep Tendon Reflexes 2+/4 and Symmetrical, Neuro grossly intact Psych/Mental Status: Normal Affect, Appropriate. - Physical Exam Vitals/I&O's: Vital Signs Temp Pulse Resp BP Pulse Ox 98.3 F 88 18 95/60 97 12/07/19 10:04 12/07/19 10:04 12/07/19 10:04 12/07/19 10:04 12/07/19 10:04 Oxygen Delivery Method Room Air Weight: 185 lb 3.013 oz Body Mass Index (BMI) 27.3 Intake and Output for Last 24 Hours 12/05/19 12/06/19 12/07/19 23:59 23:59 23:59 Intake Total 600 / 600 4065 / 4065 Output Total 700 / 700 Balance 600 / 600 3365 / 3365 Laboratory Results 12/06/19 22:30: WBC 13.4 H, RBC 3.55 L, Hgb 11.2 L, Hct 34.2 L, MCV 96.3 H, MCH 31.5, MCHC 32.7, RDW Std Deviation 55.2 H, RDW Coeff of Estella 15.4 H, Plt Count 211, MPV 10.3, Immature Gran % (Auto) 0.700, Neut % (Auto) 82.7 H, Lymph % (Auto) 8.4 L, [place] % (Auto) 7.2, Eos % (Auto) 0.6, Baso % (Auto) 0.4, Absolute Neuts (auto) 11.1 H, Absolute Lymphs (auto) 1.13, Nucleated RBC % 0 12/06/19 22:30: PT 15.0 H, INR 1.2, APTT 48.9 H 12/06/19 22:30: Sodium 135 L, Potassium 3.3 L, Chloride 105, Carbon Dioxide 21.0, Anion Gap 9, BUN 23 H, Creatinine 2.67 H, Estim Creat Clear Calc 31.26, Est GFR (MDRD) Af Amer 32 L, Est GFR (MDRD) Non-Af 27 L, BUN/Creatinine Ratio 8.6 L, Glucose 110 H, Calcium 8.6, Total Bilirubin 1.20 H, AST 10 L, ALT 9 L, Alkaline Phosphatase 78, Total Protein 7.2, Albumin 2.7 L, Globulin 4.5 H, Albumin/Globulin Ratio 0.6 L 12/06/19 22:30: Lactic Acid 2.5 H* 12/07/19 03:05: Lactic Acid 0.9 12/07/19 03:05: WBC 9.4, RBC 2.85 L, Hgb 8.9 L, Hct 27.7 L, MCV 97.2 H, MCH 31.2, MCHC 32.1, RDW Std Deviation 56.0 H, RDW Coeff of Estella 15.6 H, Plt Count 157, MPV 10.2, Immature Gran % (Auto) 0.500, Neut % (Auto) 81.4 H, Lymph % (Auto) 8.5 L, [place] % (Auto) 8.4, Eos % (Auto) 0.9, Baso % (Auto) 0.3, Absolute Neuts (auto) 7.6, Absolute Lymphs (auto) 0.80 L, Nucleated RBC % 0 12/07/19 03:05: Sodium 135 L, Potassium 3.2 L, Chloride 106, Carbon Dioxide 22.0, Anion Gap 7, BUN 23 H, Creatinine 2.37 H, Estim Creat Clear Calc 35.22, Est GFR (MDRD) Af Amer 37 L, Est GFR (MDRD) Non-Af 30 L, BUN/Creatinine Ratio 9.7 L, Glucose 103, Calcium 7.6 L 12/07/19 03:05: Phosphorus 2.9, Magnesium 1.7 12/07/19 03:21: Albumin 2.2 L 12/07/19 10:49: Urine Creatinine 94.80 12/07/19 10:49: Ur Random Sodium 27 12/07/19 11:31: MRSA (PCR) Negative 12/07/19 11:31: S.aureus Protein A PCR Pending, MRSA (PCR) Pending 12/07/19 12:25: COVID-19 (LILY) Negative Current Medications Acetaminophen (Tylenol) 650 mg PO Q6H PRN PRN PRN Reason: Pain Score 1-10/Temp > 100.7 F Al Hydroxide/Mg Hydroxide (Mylanta Ii) 30 ml PO Q4H PRN PRN PRN Reason: HEARTBURN Last Admin: 12/07/19 11:11 Dose: 30 ml Documented by: Colchicine (Colchicine) 0.6 mg PO Q2D [facility] Enoxaparin Sodium (Lovenox) 30 mg SC DAILY [facility] Last Admin: 12/07/19 10:07 Dose: Not Given Documented by: Gabapentin (Neurontin) 400 mg PO TIDCM [facility] Last Admin: 12/07/19 12:20 Dose: Not Given Documented by: Piperacillin Sod/Tazobactam (Sod 3.375 gm/ Sodium Chloride) 50 mls @ 12.5 mls/hr IV Q8 [facility] Last Infusion: 12/07/19 09:30 Dose: Infused Documented by: Vancomycin IV Pharmacy to Dose (1 ea/ Sodium Chloride) 500 mls @ 250 mls/hr IV X1 PRN; Protocol PRN Reason: Rx to Dose Sodium Chloride () 250 mls @ 15 mls/hr IV .[id number] PRN PRN Reason: Saline Flush Sodium Chloride () 250 mls @ 15 mls/hr IV .[id number] PRN PRN Reason: Additional IVPB Infusion Vancomycin HCl 1,250 mg/ (Sodium Chloride) 275 mls @ 167 mls/hr IV Q24H [facility] Morphine Sulfate () 2 mg IV Q3H PRN PRN PRN Reason: Pain Score 6-10/10 Last Admin: 12/07/19 11:12 Dose: 2 mg Documented by: Nutritional Formula (Levi - [place] Flavor) 1 packet PO BIDCM [facility] Nutritional Formula (Lactose Free) (Ensure Enlive) 120 ml PO 4X/DAY [facility] Last Admin: 12/07/19 10:07 Dose: Not Given Documented by: Ondansetron HCl (Zofran) 4 mg IV Q8H PRN PRN PRN Reason: NAUSEA/VOMITING Oxycodone HCl (Oxyir) 10 mg PO Q4H PRN PRN PRN Reason: Pain Score 4-5/10 Last Admin: 12/07/19 06:47 Dose: 10 mg Documented by: Prednisone () 10 mg PO BIDCM [facility] Last Admin: 12/07/19 11:11 Dose: 10 mg Documented by: Sodium Chloride () 10 - 40 ml IV UD PRN PRN Reason: SALINE FLUSH Last Admin: 12/07/19 11:15 Dose: 10 ml Documented by: Assessment/Plan This patient was seen in conjunction with Jania COLLIER. I have independently interviewed and examined the patient and reviewed pertinent history, examination findings, laboratory and plan of management. I have reviewed the note and agree with the documented findings with the few additional points. In brief, patient is 54 we will continue treatment with history of gout on colchicine admitted with sepsis secondary to left lower extremity abscess and cellulitis. CT of lower extremity shows 9 x 2.5 x 18 cm open abscess in left calf. No evidence of osteomyelitis. Degenerative disease left ankle and knee joints. Moderate atrophy of calf muscles. Plastic surgeon, Dr. Milton was consulted. I called but could not get the answer back. Due to the urgency of the incision and drainage, python developer, Dr. Pemberton consulted. Patient plan for I and D at 2 PM. Continue IV Zosyn and vancomycin. Leukocytosis and lactic acidosis resolved Acute kidney injury on CKD stage III: acute kidney resistive of prerenal. IV fluid. 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 I have discussed my assessment with Jania COLLIER and orders have been reviewed. Inpatient E&M: 57150 Subs Hosp L2
[2019-12-07 13:06] LABS: Albumin, Serum 2.2 g/dL (3.2-5.0)
[2019-12-07 13:34] LABS: Probe Check PASS; Specimen Processing Control PASS
[2019-12-07 13:35] LABS: M R Staph aureus DNA By PCR Negative (Negative); Probe Check PASS; Specimen Processing Control PASS
--- NOTE | 2019-12-07 15:06 | PCM.OPRPT ---
Problem List (1) Ulcer of left lower extremity with fat layer exposed Status: Acute (2) Cellulitis of left leg without foot Status: Acute (3) Sepsis Status: Acute (4) Eschar of lower leg Status: Acute (5) Peripheral vascular disease Status: Suspected Report of Operation Date of Procedure: 12/07/19 Pre-Operative Diagnosis: infected left leg ulcer with abscess Post-Operative Diagnosis: infected left leg ulcer with abscess / hematoma Surgery/Procedure Performed:: left leg ulcer excisional debridement of subcutaneous tissue and incision and drainage Description of Surgical Findings:: hemostatis: anatomic dissection, no tourniquet utilized cultures sent materials:3-0 silk complications: none The patient tolerated the procedure and anesthesia well. He was transported to the PACU with vitals stable and vascular status intact to the left lower extremity. After drainage and debridement, additional purulence or odor were not noted. Post operative orders were entered electronically. used car renovator: none - surgeon: Hallie Pemberton DPM Type of Anesthesia:: General Specimen's removed: microbiology soft tissue post debridement left leg: aerobic, anearobic, acid fast, fungal, MRSA PCR Estimated Blood Loss (mL): < 150 mL Description of Procedure: Indications: This 54-year-old male with significant past medical history of recurrent gout, chronic steroid use, obesity, h/o chronic wounds, acute kidney injury was admitted for infected left leg abscess and ulcer with sepsis. At the time of admission he had leukocytosis and elevated lactic acid. The onset of the ulcer was one month ago after he sustained a leg impact injury at his house when he lost his balance while walking with crutches and fell into his end table. It failed to get better, had a progressive scab formation, and he began developing generalized fatigue and illness three days ago. He has a necrotic eschar that is boggy, fluctuant, odorous, and with adjacent edema and calor. CT scan identifies an ulcer with abscess and fluid collection to the posterior medial leg that is superficial to the muscular compartment. He also had a previous recurrent left leg ulcer with delayed healing. He is on antibiotics and is in the progressive care unit at this time. His PT pulse is palpable and his DP is not palpable. The preoperative indications, planned procedure, possible benefits, risks, complications, and anticipated healing time and management were discussed in detail with the patient. No guarantees were made. He understands and elects to proceed with surgery at this time. Surgical consent and limb were signed. He understands complications may include the following but are not limited to: continued infection, pain, scar formation, chronic pain, delayed or non healing, loss of sensation, loss of function, loss of limb or life, allergic reaction, blood clot, need for further surgery. I answered all of his questions. He also understands there is an inherent risk of COVID-19 while having a procedure done at the hospital during this time of pandemic. He understands safety precautions will be maintained and the relative community risk is low however there is still a risk. The surgical consent and limb were signed. Preoperative optimization with hospitalist service is appreciated. Procedure in detail: The patient was transported to the operating room via cart and placed on the operating table in the supine position. Final verification of the patient, surgery, and limb designation was performed via the timeout procedure. Additional antibiotics were held until the culture was obtained post debridement. A tourniquet was placed in case needed, but was not utilized. Left lower extremity was prepped and draped in the usual aseptic manner. The procedure began in the following manner: Attention was first directed to the posterior medial leg. Clinically the ulcer measured 10 cm x 8.5 cm x 1 cm deep at proximal margin and was 85% moist boggy eschar. A fifteen blade scalpel was used to debride the eschar. Additional hand and instrument dissection was used to remove partially dried copious infected hematoma from the anterior and posterior subcutaneous layers of the leg. A versa jet on setting 8 was used at this time to perform subcutaneous excisional debridement to excise fibrous tissue, devitalized subcutaneous tissue, biofilm, and slough. Greater saphenous vein was encountered and tied with silk and electrocauterized. No pulsatile bleeding was noted. Copious saline irrigation was performed. At this time, clean instruments, adjacent drapes, and gloves were applied. A clean tissue sample was obtained and sent to microbiology for aerobic, anaerobic, acid-fast, fungal and mrsa pcr testing. Electrocauterization and pressure was used to control any remaining dermal bleeding. Post debridement measurement was 12 cm x 10 cm x 2.4 cm. There was no longer any purulence, hematoma, odor, or necrotic tissue. Capillary fill time was less than 3 seconds to all remaining digits of the left foot at the end of this case. Gel foam was applied. A dressing consisting of betadine soaked gauze, dry gauze, kerlix, abdominal pads, and SAGE wrap were applied. After procedure: The patient tolerated the procedure and anesthesia well. He was transported to recovery area in stable condition and with vascular status intact to the left lower extremity. To reduce excessive walking activity. Nutritional supplementation to optimize healing has been ordered. He was advised to keep his dressing clean and intact. He will intermittently elevate and ice for pain and edema management. Additional vascular screening will be implemented once he stabilizes and he will resume a comprehensive wound healing plan. He will continue IV antibiotics while on the floor; vancomycin and zosyn. I recommend holding his anticoagulation medication until dressing change with reevaluation. Additional wound care or a vac will be considered pending his continued progress. His post operative orders are entered electronically. Hallie Pemberton DPM, [facility] [place] Grafts/Implants Used: none - Complications none - Admit VTE Documentation VTE Present on Admission: No VTE Mechan Device Prophylaxis: SCD's VTE Pharm Prophylaxis ordered?: Yes
[2019-12-07] MEDS: Lactated Ringers 1,000 ML 40 ML IV (15:38)
[2019-12-07 16:34] LABS: M R Staph aureus DNA By PCR Negative (Negative); Probe Check PASS; Specimen Processing Control PASS; Staph aureus DNA By PCR NEGATIVE (Negative)
[2019-12-07] MEDS: Acetaminophen 325 MG Tablet 650 MG PO (22:40)
[2019-12-08] VITALS (9 sets, daily range): BP systolic 105–120; BP diastolic 70–79; PULSE 55–77; RESP 16; TEMP 36.6–36.8; O2SAT 94–98
[2019-12-08] MEDS: Acetaminophen 325 MG Tablet 650 MG PO (05:33)
[2019-12-08] MEDS: oxyCODONE 5 MG Tablet 10 MG PO ×3 (05:34→21:48)
[2019-12-08 05:37] LABS: Hematocrit 26.3 % (40-54); Hemoglobin 8.2 g/dL (13.0-16.5); Mean Corp Hgb Conc 31.2 g/dL (32-36); Mean Corpuscular Hgb 30.9 pg (27.0-32.0); Mean Corpuscular Volume 99.2 fL (80-94); Mean Platelet Vol. 10.5 fl (6.2-12.0); Platelet Count 165 K/mm3 (150-450); RBC Distribution Width CV 15.6 % (11.6-14.6); RBC Distribution Width SD 56.5 fl (35.1-43.9); Red Blood Count 2.65 M/mm3 (4.6-6.2)
[2019-12-08 05:52] LABS: Anion Gap 6 (5-15); BUN 27 mg/dL (7-18); BUN/Creat Ratio 14.8 RATIO (10-20); Calcium,Total 8.4 mg/dL (8.5-10.1); Chloride 113 mmol/L (98-107); Creatinine, Serum 1.83 mg/dL (0.70-1.30); EST Glomerular Filtration Rate 41 mL/min (>60); Est Glom Filt Rate - Afr Amer 50 mL/min (>60); Estimated Creatinine Clearance 45.61 ml/min; Glucose 183 mg/dL (74-106); Potassium 4.7 mmol/L (3.5-5.1); Sodium Level 138 mmol/L (136-145)
[2019-12-08] MEDS: Gabapentin 400 MG Capsule PO ×3 (08:47→17:09)
[2019-12-08] MEDS: predniSONE 10 MG Tablet PO ×2 (08:47→17:09)
[2019-12-08] MEDS: 0.9% Saline Lock 10 ML Syringe IV (11:48)
[2019-12-08] MEDS: Morphine 2 MG/ML Syringe 1 MG IV (11:49)
--- NOTE | 2019-12-08 12:08 | PCM.PROGNOTE ---
Patient Problems: Active and Suspected Problems Abscess of left leg (Acute) Ulcer of left lower extremity with fat layer exposed (Acute) Cellulitis of left leg without foot (Acute) Sepsis (Acute) Eschar of lower leg (Acute) Peripheral vascular disease (Suspected) Subjective: 54-year-old male was seen postoperative day #1 left leg incision and drainage with widespread debridement of infected hematoma/abscess. He reports he is feeling much better he denies fever, chill, nausea, vomiting. His calf pain is also decreased at the procedure site. - Physical Exam Vitals/I&O's: Vital Signs Temp Pulse Resp BP Pulse Ox 97.9 F 64 16 105/70 96 12/08/19 08:39 12/08/19 08:39 12/08/19 08:39 12/08/19 08:39 12/08/19 08:39 Oxygen Flow Rate (L/min) 2 Oxygen Delivery Method Room Air Weight: 84 kg Body Mass Index (BMI) 27.3 Intake and Output for Last 24 Hours 12/06/19 12/07/19 12/08/19 23:59 23:59 23:59 Intake Total 600 / 600 5328.67 / 5328.67 550 / 550 Output Total 1000 / 1000 Balance 600 / 600 4328.67 / 4328.67 550 / 550 General: Alert, Oriented x3, Cooperative HEENT: Atraumatic Extremities: No cyanosis, Capillary Refill Less than 3 Seconds, No Calf Tenderness - Negative Vega sign left, Diminished Peripheral Pulses, Edema - Decreased Skin: Ulcer/ Wound - Odor has resolved and there is no purulence, erythema, streaking noted. Upon dressing removal, removal of Gelfoam, and saline irrigation the wound bed is granular. There is no additional purulence or hematogenous dried coagulated material expressed from the wound margins and adjacent compartmental areas. His skin is atrophic and hairless adjacent. Musculoskeletal: Muscle Wasting, Tenderness - Tenderness with wound manipulation. The compartments are soft to palpation left lower extremity. Neurological: - - Normal epicritic sensation is not intact to light touch Psych/Mental Status: Normal Affect, Appropriate Microbiology Past 72 Hours 12/07/19 14:40 Tissue - Leg, Left Wound Culture - Preliminary No growth-Final to follow Laboratory Results 12/07/19 03:21: Albumin 2.2 L 12/07/19 11:31: MRSA (PCR) Negative 12/07/19 11:31: S.aureus Protein A PCR Cancelled, MRSA (PCR) Cancelled 12/07/19 12:25: COVID-19 (LILY) Negative 12/07/19 14:40: S.aureus Protein A PCR NEGATIVE, MRSA (PCR) Negative 12/08/19 05:20: WBC 4.0 L, RBC 2.65 L, Hgb 8.2 L, Hct 26.3 L, MCV 99.2 H, MCH 30.9, MCHC 31.2 L, RDW Std Deviation 56.5 H, RDW Coeff of Estella 15.6 H, Plt Count 165, MPV 10.5 12/08/19 05:20: Sodium 138, Potassium 4.7, Chloride 113 H, Carbon Dioxide 19.0 L, Anion Gap 6, BUN 27 H, Creatinine 1.83 H, Estim Creat Clear Calc 45.61, Est GFR (MDRD) Af Amer 50 L, Est GFR (MDRD) Non-Af 41 L, BUN/Creatinine Ratio 14.8, Glucose 183 H, Calcium 8.4 L Current Medications Acetaminophen (Tylenol) 650 mg PO Q6H PRN PRN PRN Reason: Pain Score 1-10/Temp > 100.7 F Last Admin: 12/08/19 05:33 Dose: 650 mg Documented by: Al Hydroxide/Mg Hydroxide (Mylanta Ii) 30 ml PO Q4H PRN PRN PRN Reason: HEARTBURN Last Admin: 12/07/19 11:11 Dose: 30 ml Documented by: Colchicine (Colchicine) 0.6 mg PO Q2D [facility] Last Admin: 12/08/19 08:47 Dose: 0.6 mg Documented by: Diphenhydramine HCl (Benadryl Liquid) 12.5 mg PO TID PRN PRN PRN Reason: ALLERGIES/ITCHING Gabapentin (Neurontin) 400 mg PO TIDCM [facility] Last Admin: 12/08/19 11:55 Dose: 400 mg Documented by: Piperacillin Sod/Tazobactam (Sod 3.375 gm/ Sodium Chloride) 50 mls @ 12.5 mls/hr IV Q8 [facility] Last Admin: 12/08/19 05:33 Dose: 12.5 mls/hr Documented by: Vancomycin IV Pharmacy to Dose (1 ea/ Sodium Chloride) 500 mls @ 250 mls/hr IV X1 PRN; Protocol PRN Reason: Rx to Dose Sodium Chloride () 250 mls @ 15 mls/hr IV .[id number] PRN PRN Reason: Saline Flush Sodium Chloride () 250 mls @ 15 mls/hr IV .[id number] PRN PRN Reason: Additional IVPB Infusion Vancomycin HCl 1,250 mg/ (Sodium Chloride) 275 mls @ 167 mls/hr IV Q24H [facility] Last Infusion: 12/07/19 22:40 Dose: Infused Documented by: Morphine Sulfate () 2 mg IV Q3H PRN PRN PRN Reason: Pain Score 6-10/10 Last Admin: 12/07/19 11:12 Dose: 2 mg Documented by: Nutritional Formula (Levi - [place] Flavor) [facility] Last Admin: 12/08/19 08:47 Dose: 1 packet Documented by: Nutritional Formula (Lactose Free) (Ensure Enlive) 120 ml PO 4X/DAY [facility] Last Admin: 12/08/19 08:58 Dose: 120 ml Documented by: Ondansetron HCl (Zofran) 4 mg IV Q8H PRN PRN PRN Reason: NAUSEA/VOMITING Oxycodone HCl (Oxyir) 10 mg PO Q4H PRN PRN PRN Reason: Pain Score 4-5/10 Last Admin: 12/08/19 05:34 Dose: 10 mg Documented by: [facility] () [facility] Last Admin: 12/08/19 08:47 Dose: 10 mg Documented by: Sodium Chloride () 10 - 40 ml IV UD PRN PRN Reason: SALINE FLUSH Last Admin: 12/08/19 11:48 Dose: 10 ml Documented by: Medical Necessity - Tobacco Use Smoking Status: Never smoker Tobacco Use: Non-smoker Assessment/Plan All Active Problems Abscess of left leg (Acute) Ulcer of left lower extremity with fat layer exposed (Acute) Cellulitis of left leg without foot (Acute) Sepsis (Acute) Eschar of lower leg (Acute) Heme + stool (Acute) Rheumatoid arthritis (Ruled-out) Post operative day #1 left leg incision and drainage of widespread debridement secondary to left leg abscess/infected hematoma Sepsis resolving Acute kidney injury improving Other comorbidities including gout, arthritis, obesity History of delayed healing Malnutrition suspected Peripheral vascular disease suspected I reviewed and discussed his case. He is afebrile. He had leukocytosis on admission of 13.4 and this is now resolved; white blood cell count 4.0. His post debridement culture results are pending. He is on vancomycin and Zosyn at this time and this will be narrowed as we get additional culture results. The dressing was reapplied with Adaptic, wet to dry gauze dressing, abdominal pad, Kerlix, and [place] wrap. A wound VAC will be initiated tomorrow; 150 mmHg continuous. It is okay for him to resume anticoagulation medication. To keep pressure directly off of the ulcer seat by being mindful of how he is laying in bed. To follow-up with the wound healing center after discharge. Medical management per primary team is appreciated. Podiatry will continue to follow him while in house. Please do not hesitate to call if you have any questions. Hallie Pemberton DPM, [facility] [phone]
--- NOTE | 2019-12-08 12:40 | PCM.PROGNOTE ---
<Jania Mast - Last Filed: 12/08/19 12:48> Patient Problems: Active and Suspected Problems Abscess of left leg (Acute) Ulcer of left lower extremity with fat layer exposed (Acute) Cellulitis of left leg without foot (Acute) Sepsis (Acute) Eschar of lower leg (Acute) Peripheral vascular disease (Suspected) Subjective: Patient seen and examined. Reports improvement in left lower extremity pain. Denies fever, chills. Denies other symptoms or complaints. - Physical Exam Vitals/I&O's: Vital Signs Temp Pulse Resp BP Pulse Ox 97.9 F 64 16 105/70 96 12/08/19 08:39 12/08/19 08:39 12/08/19 08:39 12/08/19 08:39 12/08/19 08:39 Oxygen Flow Rate (L/min) 2 Oxygen Delivery Method Room Air Weight: 185 lb 3.013 oz Body Mass Index (BMI) 27.3 Intake and Output for Last 24 Hours 12/06/19 12/07/19 12/08/19 23:59 23:59 23:59 Intake Total 600 / 600 5328.67 / 5328.67 550 / 550 Output Total 1000 / 1000 Balance 600 / 600 4328.67 / 4328.67 550 / 550 General: Alert, Oriented x3, Cooperative HEENT: Atraumatic, PERRLA, EOMI, Normocephalic Neck: Supple, No JVD, Negative Carotid Bruits Lungs: Clear to auscultation, Normal air movement Cardiovascular: Regular rate, Regular Rhythm, Normal S1, Normal S2, No murmurs Abdomen: Bowel Sounds Present, Soft, Non Tender, Non-Distended Extremities: No clubbing, No cyanosis, No edema, Capillary Refill Less than 3 Seconds Skin: - - Left lower extremity postop dressing intact Musculoskeletal: No Tenderness to Palpation of Joints or Extremities Neurological: Cranial nerves II-XII grossly intact, Neuro grossly intact Psych/Mental Status: Normal Affect, Appropriate Microbiology Past 72 Hours 12/07/19 14:40 Tissue - Leg, Left Wound Culture - Preliminary No growth-Final to follow Laboratory Results 12/07/19 03:21: Albumin 2.2 L 12/07/19 11:31: MRSA (PCR) Negative 12/07/19 11:31: S.aureus Protein A PCR Cancelled, MRSA (PCR) Cancelled 12/07/19 12:25: COVID-19 (LILY) Negative 12/07/19 14:40: S.aureus Protein A PCR NEGATIVE, MRSA (PCR) Negative 12/08/19 05:20: WBC 4.0 L, RBC 2.65 L, Hgb 8.2 L, Hct 26.3 L, MCV 99.2 H, MCH 30.9, MCHC 31.2 L, RDW Std Deviation 56.5 H, RDW Coeff of Estella 15.6 H, Plt Count 165, MPV 10.5 12/08/19 05:20: Sodium 138, Potassium 4.7, Chloride 113 H, Carbon Dioxide 19.0 L, Anion Gap 6, BUN 27 H, Creatinine 1.83 H, Estim Creat Clear Calc 45.61, Est GFR (MDRD) Af Amer 50 L, Est GFR (MDRD) Non-Af 41 L, BUN/Creatinine Ratio 14.8, Glucose 183 H, Calcium 8.4 L Current Medications Acetaminophen (Tylenol) 650 mg PO Q6H PRN PRN PRN Reason: Pain Score 1-10/Temp > 100.7 F Last Admin: 12/08/19 05:33 Dose: 650 mg Documented by: Al Hydroxide/Mg Hydroxide (Mylanta Ii) 30 ml PO Q4H PRN PRN PRN Reason: HEARTBURN Last Admin: 12/07/19 11:11 Dose: 30 ml Documented by: Colchicine (Colchicine) 0.6 mg PO Q2D [facility] Last Admin: 12/08/19 08:47 Dose: 0.6 mg Documented by: Diphenhydramine HCl (Benadryl Liquid) 12.5 mg PO TID PRN PRN PRN Reason: ALLERGIES/ITCHING Gabapentin (Neurontin) 400 mg PO TIDCM [facility] Last Admin: 12/08/19 11:55 Dose: 400 mg Documented by: Piperacillin Sod/Tazobactam (Sod 3.375 gm/ Sodium Chloride) 50 mls @ 12.5 mls/hr IV Q8 [facility] Last Admin: 12/08/19 05:33 Dose: 12.5 mls/hr Documented by: Vancomycin IV Pharmacy to Dose (1 ea/ Sodium Chloride) 500 mls @ 250 mls/hr IV X1 PRN; Protocol PRN Reason: Rx to Dose Sodium Chloride () 250 mls @ 15 mls/hr IV .[id number] PRN PRN Reason: Saline Flush Sodium Chloride () 250 mls @ 15 mls/hr IV .[id number] PRN PRN Reason: Additional IVPB Infusion Vancomycin HCl 1,250 mg/ (Sodium Chloride) 275 mls @ 167 mls/hr IV Q24H [facility] Last Infusion: 12/07/19 22:40 Dose: Infused Documented by: Morphine Sulfate () 2 mg IV Q3H PRN PRN PRN Reason: Pain Score 6-10/10 Last Admin: 12/07/19 11:12 Dose: 2 mg Documented by: Nutritional Formula ([facility]i - [place] Flavor) [facility] Last Admin: 12/08/19 08:47 Dose: 1 packet Documented by: Nutritional Formula (Lactose Free) (Ensure Enlive) 120 ml PO 4X/DAY [facility] Last Admin: 12/08/19 08:58 Dose: 120 ml Documented by: Ondansetron HCl (Zofran) 4 mg IV Q8H PRN PRN PRN Reason: NAUSEA/VOMITING Oxycodone HCl (Oxyir) 10 mg PO Q4H PRN PRN PRN Reason: Pain Score 4-5/10 Last Admin: 12/08/19 05:34 Dose: 10 mg Documented by: [facility] () [facility] Last Admin: 12/08/19 08:47 Dose: 10 mg Documented by: Sodium Chloride () 10 - 40 ml IV UD PRN PRN Reason: SALINE FLUSH Last Admin: 12/08/19 11:48 Dose: 10 ml Documented by: Medical Necessity - Tobacco Use Smoking Status: Never smoker Tobacco Use: Non-smoker Assessment/Plan All Active Problems Abscess of left leg (Acute) Ulcer of left lower extremity with fat layer exposed (Acute) Cellulitis of left leg without foot (Acute) Sepsis (Acute) Eschar of lower leg (Acute) Heme + stool (Acute) Rheumatoid arthritis (Ruled-out) 1. Sepsis secondary to left lower extremity abscess/infected hematoma with cellulitis-failed outpatient treatment with oral antibiotic. Lower extremity CT showing left calf abscess. Patient underwent I&D with excisional debridement 12/07/[address] Pemberton. Continue IV Zosyn and IV vancomycin. Blood cultures and wound cultures pending. Wound RN consult. Leukocytosis resolved. Afebrile. Plan for wound VAC placement tomorrow with outpatient follow-up at wound center. 2. Acute kidney injury on chronic kidney disease stage III- improving following IV fluids, trend BMP. FENA 0.5%, suggesting prerenal. Renal ultrasound normal. 3. Hypokalemia-replaced per protocol, trend BMP. 4. History of gout- on colchicine DVT prophylaxis-Lovenox subcu when ok per podiatry This patient was seen by ANTONI Rutherford under the supervision of Dr. Jessica. <Candelario Jessica - Last Filed: 12/08/19 14:13> Subjective: Feels much better. - Physical Exam Vitals/I&O's: Vital Signs Temp Pulse Resp BP Pulse Ox 36.8 C 68 16 109/73 97 12/08/19 13:55 12/08/19 13:55 12/08/19 13:55 12/08/19 13:55 12/08/19 13:55 Oxygen Flow Rate (L/min) 2 Oxygen Delivery Method Room Air Weight: 84 kg Body Mass Index (BMI) 27.3 Intake and Output for Last 24 Hours 12/06/19 12/07/19 12/08/19 23:59 23:59 23:59 Intake Total 600 / 600 5328.67 / 5328.67 600 / 600 Output Total 1000 / 1000 Balance 600 / 600 4328.67 / 4328.67 600 / 600 General: Alert, Cooperative HEENT: Atraumatic, Normocephalic Skin: - Neurological: Cranial nerves II-XII grossly intact, Neuro grossly intact Microbiology Past 72 Hours 12/07/19 14:40 Tissue - Leg, Left Gram Stain - Final 12/07/19 14:40 Tissue - Leg, Left Wound Culture - Preliminary No growth-Final to follow Laboratory Results 12/07/19 11:31: S.aureus Protein A PCR Cancelled, MRSA (PCR) Cancelled 12/07/19 14:40: S.aureus Protein A PCR NEGATIVE, MRSA (PCR) Negative 12/08/19 05:20: WBC 4.0 L, RBC 2.65 L, Hgb 8.2 L, Hct 26.3 L, MCV 99.2 H, MCH 30.9, MCHC 31.2 L, RDW Std Deviation 56.5 H, RDW Coeff of Estella 15.6 H, Plt Count 165, MPV 10.5 12/08/19 05:20: Sodium 138, Potassium 4.7, Chloride 113 H, Carbon Dioxide 19.0 L, Anion Gap 6, BUN 27 H, Creatinine 1.83 H, Estim Creat Clear Calc 45.61, Est GFR (MDRD) Af Amer 50 L, Est GFR (MDRD) Non-Af 41 L, BUN/Creatinine Ratio 14.8, Glucose 183 H, Calcium 8.4 L Current Medications Acetaminophen (Tylenol) 650 mg PO Q6H PRN PRN PRN Reason: Pain Score 1-10/Temp > 100.7 F Last Admin: 12/08/19 05:33 Dose: 650 mg Documented by: Al Hydroxide/Mg Hydroxide (Mylanta Ii) 30 ml PO Q4H PRN PRN PRN Reason: HEARTBURN Last Admin: 12/07/19 11:11 Dose: 30 ml Documented by: Colchicine (Colchicine) 0.6 mg PO Q2D [facility] Last Admin: 12/08/19 08:47 Dose: 0.6 mg Documented by: Diphenhydramine HCl (Benadryl Liquid) 12.5 mg PO TID PRN PRN PRN Reason: ALLERGIES/ITCHING Gabapentin (Neurontin) 400 mg PO TIDCM [facility] Last Admin: 12/08/19 11:55 Dose: 400 mg Documented by: Piperacillin Sod/Tazobactam (Sod 3.375 gm/ Sodium Chloride) 50 mls @ 12.5 mls/hr IV Q8 [facility] Last Admin: 12/08/19 14:01 Dose: 12.5 mls/hr Documented by: Vancomycin IV Pharmacy to Dose (1 ea/ Sodium Chloride) 500 mls @ 250 mls/hr IV X1 PRN; Protocol PRN Reason: Rx to Dose Sodium Chloride () 250 mls @ 15 mls/hr IV .[id number] PRN PRN Reason: Saline Flush Sodium Chloride () 250 mls @ 15 mls/hr IV .[id number] PRN PRN Reason: Additional IVPB Infusion Vancomycin HCl 1,250 mg/ (Sodium Chloride) 275 mls @ 167 mls/hr IV Q24H [facility] Last Infusion: 12/07/19 22:40 Dose: Infused Documented by: Morphine Sulfate () 2 mg IV Q3H PRN PRN PRN Reason: Pain Score 6-10/10 Last Admin: 12/07/19 11:12 Dose: 2 mg Documented by: Nutritional Formula (Levi - [place] Flavor) [facility] Last Admin: 12/08/19 08:47 Dose: 1 packet Documented by: Nutritional Formula (Lactose Free) (Ensure Enlive) 120 ml PO 4X/DAY [facility] Last Admin: 12/08/19 14:01 Dose: 120 ml Documented by: Ondansetron HCl (Zofran) 4 mg IV Q8H PRN PRN PRN Reason: NAUSEA/VOMITING Oxycodone HCl (Oxyir) 10 mg PO Q4H PRN PRN PRN Reason: Pain Score 4-5/10 Last Admin: 12/08/19 05:34 Dose: 10 mg Documented by: [facility] () [facility] Last Admin: 12/08/19 08:47 Dose: 10 mg Documented by: Sodium Chloride () 10 - 40 ml IV UD PRN PRN Reason: SALINE FLUSH Last Admin: 12/08/19 11:48 Dose: 10 ml Documented by: Assessment/Plan Patient seen and examined independently. Data reviewed. I agree with the above note by the nurse practitioner. 1. LLE cellulitis and abscess. S/P I+D on 12/06. Continue pip/tazo and vanc. Follow up cultures Inpatient E&M: 27329 Subs Hosp L2
--- NOTE | 2019-12-08 12:53 | DCINST_ITS ---
Discharge Activity: May Shower, - - shower bag, keep wound site dry and clean Weight Bearing Status: Weight bearing as tolerated - limit excessive ambulation Keep extremity elevated above heart level: Left Leg Call your doctor if your incision/area has: Continuous Slow Oozing, Sudden I ncreased Bleeding, Increased Pain/ Swelling, Increased Redness, Foul Smelling Discharge Call your doctor if you observe: Fever of 101 or Higher, Calf discomfort, Uncontrolled pain Cleanse incision/area with: Keep Dressing Clean & Dry Additional Dressing/Incision Instructions:: wound vac (150 mmHg) three times / week ; continuous Instructions: Sepsis, Understanding Sepsis Additional Instructions: You will need to have an updated non invasive vascular study completed in the outpatient setting. We will help you get this scheduled when you follow up at the wound care center. Allergies/Adverse Reactions: Allergies No Known Allergies Allergy (Verified 11/11/19 22:04) Medications to take at Discharge Colchicine 0.6 mg PO X1 12/26/13 Gabapentin [Neurontin] 400 mg PO TIDCM 12/26/13 predniSONE tablet 10 mg PO BID 12/26/13 Cephalexin [Keflex] 500 mg PO Q6 12/07/19 Primary Care Physician: Care Physician,No Primary [Primary Care Provider] - Test Results: Test results from this visit will be discussed in further detail at your follow- up appointment, if applicable. Please Follow Up With: Clinic,Wound - Call Dr. Pemberton soonyao if concerns at [phone] When: next week at Wound care center. [phone] Proposed Discharge Date: 12/09/19
--- NOTE | 2019-12-08 13:01 | NURSING ---
Dr Pemberton had been in to change post op dressing to the left lower leg. plan is for wound VAC placement tomorrow according to nursing note. will leave dressing in place and will most likely place the wound VAC tomorrow.
--- NOTE | 2019-12-08 15:33 | CASEMGMT ---
RN CM CHEMICAL ANALYTICAL SAMPLER CM to room to meet with patient for initial transition planning/care coordination assessment. RN EM introduced self and role at [facility]. Pt voices understanding and consents to assessment at this time. Pt resting in bed in no distress at this time. Pt is A/O at this time and answers all questions appropriately. Care providers, pharmacy, and demographics verified/updated at this time. PCP: No PCP. Provided w/list of local PCP's. States he would Dr Garcia. Coroner made aware to inquire if Dr Garcia is taking new pt's. Specialists: Dr Chávez for arthritis in [place]. Had an appt @ Wound clinic scheduled for tomorrow. States he was informed it was changed to 12/16. Preferred Pharmacy: [facility] Insurance: [employer] Prescription Benefit: Yes Living Will/HPOA: Does not have either. LNOK: , [employer] Living Arrangements: Lives w/his Ivelisse in mobile home. 5 steps to enter. Independent w/ADL's and IADL's prior to admission. works full-time. Transportation: DME: States has the following DME: crutches, walker. Pt states no need for further DME at this time. HHC/SNF: [facility] and has had HHC in the past about 6 yrs ago for wound vac care. Pt does not want to go to SNF, he wishes to have HHC for wound vac care. Provided w/list of local HHC agencies that are in Network w[facility]. Pt states he wishes to talk with his before deciding on what agency he wants. Pt wishes to return home w/HHC for Wound vac care and states has no concerns with going home at time of discharge. CM to follow for further discharge planning/needs. Pt did become tearful after assessment completed. Pt states he just found out there is a leak in his trailer and it is difficult to not be home to help take care of things. PLAN: Home w/[facility] for Wound vac care Tati COWART RN, CM
[2019-12-08 21:47] LABS: Vancomycin, Trough Level 10.5 ug/mL (5.0-15.0)
--- NOTE | 2019-12-08 22:19 | PCM.RX.CS ---
Consult Pharmacy has been consulted to manage selected antiobiotic: Vancomycin Type of Consult: Follow-up Labs: Sodium 138 mmol/L (136-145) 12/08/19 05:20 Potassium 4.7 mmol/L (3.5-5.1) 12/08/19 05:20 Chloride 113 mmol/L (98-107) H 12/08/19 05:20 Carbon Dioxide 19.0 mmol/L (21.0-32.0) L 12/08/19 05:20 Anion Gap 6 (5-15) 12/08/19 05:20 BUN 27 mg/dL (7-18) H 12/08/19 05:20 Creatinine 1.83 mg/dL (0.70-1.30) H 12/08/19 05:20 Est GFR (MDRD) Af Amer 50 mL/min (>60) L 12/08/19 05:20 Est GFR (MDRD) Non-Af 41 mL/min (>60) L 12/08/19 05:20 BUN/Creatinine Ratio 14.8 RATIO (10-20) 12/08/19 05:20 Glucose 183 mg/dL (74-106) H 12/08/19 05:20 Vancomycin Trough 10.5 ug/mL (5.0-15.0) 12/08/19 20:34 Microbiology: Microbiology 12/07/19 14:40 Tissue - Leg, Left Gram Stain - Final 12/07/19 14:40 Tissue - Leg, Left Wound Culture - Preliminary No growth-Final to follow 12/07/19 14:40 Tissue - Leg, Left Anaerobic Culture - Preliminary No growth in 48 hours. Goal Trough: 15-20 mcg/mL Pharmacy Plan for Drug Dosing: Pharmacy Service will continue to monitor and adjust dosing as required. TROUGH 10.5. NEW DOSE 1750MG Q24H Follow-Up Labs: Trough Vancomycin Labs to be done on [date and time ordered]: 12/09 @ 2200
[2019-12-09 03:04] VITALS: PULSE 89
[2019-12-09 03:31] VITALS: BP 121/77; PULSE 78; RESP 18; TEMP 36.8; O2SAT 98
[2019-12-09] MEDS: Morphine 2 MG/ML Syringe IV (03:34)
[2019-12-09] MEDS: 0.9% Saline Lock 10 ML Syringe IV (03:34)
[2019-12-09 05:57] LABS: Hematocrit 23.7 % (40-54); Hemoglobin 7.5 g/dL (13.0-16.5); Mean Corp Hgb Conc 31.6 g/dL (32-36); Mean Corpuscular Hgb 32.1 pg (27.0-32.0); Mean Corpuscular Volume 101.3 fL (80-94); Mean Platelet Vol. 10.8 fl (6.2-12.0); Platelet Count 138 K/mm3 (150-450); RBC Distribution Width CV 15.3 % (11.6-14.6); RBC Distribution Width SD 57.1 fl (35.1-43.9); Red Blood Count 2.34 M/mm3 (4.6-6.2); White Blood Count 4.2 K/mm3 (4.4-11.0)
[2019-12-09 06:08] LABS: Anion Gap 4 (5-15); BUN 31 mg/dL (7-18); Calcium,Total 8.5 mg/dL (8.5-10.1); Chloride 113 mmol/L (98-107); Creatinine, Serum 1.41 mg/dL (0.70-1.30); EST Glomerular Filtration Rate 55 mL/min (>60); Est Glom Filt Rate - Afr Amer 67 mL/min (>60); Glucose 128 mg/dL (74-106); Potassium 4.6 mmol/L (3.5-5.1); Sodium Level 141 mmol/L (136-145)
[2019-12-09 07:00] VITALS: PULSE 77
[2019-12-09] MEDS: predniSONE 10 MG Tablet PO (08:09)
[2019-12-09] MEDS: Gabapentin 400 MG Capsule PO ×2 (08:10→11:28)
[2019-12-09 09:30] VITALS: BP 110/70; PULSE 63; RESP 18; TEMP 37; O2SAT 100
--- NOTE | 2019-12-09 10:07 | PN_ITS ---
Subjective: Patient is a 54 year old male s/p left leg I&D POD2. Pt reports improvement in pain and application of wound vac without issue. Pt denies N/F/V/C/CP/SOB. - Physical Exam Vitals/I&O's: Vital Signs Temp Pulse Resp BP Pulse Ox 98.6 F 63 18 110/70 100 12/09/19 09:30 12/09/19 09:30 12/09/19 09:30 12/09/19 09:30 12/09/19 09:30 Oxygen Flow Rate (L/min) 2 Oxygen Delivery Method Room Air Weight: 84 kg Body Mass Index (BMI) 27.3 Intake and Output for Last 24 Hours 12/07/19 12/08/19 12/09/19 23:59 23:59 23:59 Intake Total 5328.67 / 5328.67 1679.25 / 1679.25 432.00 / 432.00 Output Total 1000 / 1000 200 / 200 900 / 900 Balance 4328.67 / 4328.67 1479.25 / 1479.25 -468.00 / -468.00 General: Alert, Oriented x3, Cooperative HEENT: Atraumatic Extremities: No cyanosis, Capillary Refill Less than 3 Seconds, No Calf Tenderness - negative rodger sign, Tenderness - decrease Skin: Ulcer/ Wound - left leg with wound vac on with good seal covered with compressive dressing Musculoskeletal: Muscle Wasting, Tenderness - at wound site Neurological: - - Normal epicritic sensation is not intact to light touch Psych/Mental Status: Normal Affect, Appropriate Microbiology Past 72 Hours 12/06/19 22:35 Blood Culture (Wb) - Anticubital Right Blood Culture - Preliminary No growth in 48 hours. 12/06/19 22:30 Blood Culture (Wb) - Right Wrist Blood Culture - Preliminary No growth in 48 hours. 12/07/19 14:40 Tissue - Leg, Left Gram Stain - Final 12/07/19 14:40 Tissue - Leg, Left Wound Culture - Preliminary No growth-Final to follow 12/07/19 14:40 Tissue - Leg, Left Anaerobic Culture - Preliminary No growth in 48 hours. Laboratory Results 12/08/19 20:34: Vancomycin Trough 10.5 12/09/19 05:45: WBC 4.2 L, RBC 2.34 L, Hgb 7.5 L, Hct 23.7 L, MCV 101.3 H, MCH 32.1 H, MCHC 31.6 L, RDW Std Deviation 57.1 H, RDW Coeff of Estella 15.3 H, Plt Count 138 L, MPV 10.8 12/09/19 05:45: Sodium 141, Potassium 4.6, Chloride 113 H, Carbon Dioxide 24.0, Anion Gap 4 L, BUN 31 H, Creatinine 1.41 H, Estim Creat Clear Calc 59.20, Est GFR (MDRD) Af Amer 67, Est GFR (MDRD) Non-Af 55 L, BUN/Creatinine Ratio 22.0 H, Glucose 128 H, Calcium 8.5 Current Medications Acetaminophen (Tylenol) 650 mg PO Q6H PRN PRN PRN Reason: Pain Score 1-10/Temp > 100.7 F Last Admin: 12/08/19 05:33 Dose: 650 mg Documented by: Al Hydroxide/Mg Hydroxide (Mylanta Ii) 30 ml PO Q4H PRN PRN PRN Reason: HEARTBURN Last Admin: 12/07/19 11:11 Dose: 30 ml Documented by: Colchicine (Colchicine) 0.6 mg PO Q2D [facility] Last Admin: 12/08/19 08:47 Dose: 0.6 mg Documented by: Diphenhydramine HCl (Benadryl Liquid) 12.5 mg PO TID PRN PRN PRN Reason: ALLERGIES/ITCHING Gabapentin (Neurontin) 400 mg PO TIDCM [facility] Last Admin: 12/09/19 08:10 Dose: 400 mg Documented by: Piperacillin Sod/Tazobactam (Sod 3.375 gm/ Sodium Chloride) 50 mls @ 12.5 mls/hr IV Q8 [facility] Last Infusion: 12/09/19 09:55 Dose: Infused Documented by: Vancomycin IV Pharmacy to Dose (1 ea/ Sodium Chloride) 500 mls @ 250 mls/hr IV X1 PRN; Protocol PRN Reason: Rx to Dose Sodium Chloride () 250 mls @ 15 mls/hr IV .[id number] PRN PRN Reason: Saline Flush Last Infusion: 12/09/19 02:49 Dose: 0 mls/hr Documented by: Sodium Chloride () 250 mls @ 15 mls/hr IV .[id number] PRN PRN Reason: Additional IVPB Infusion Vancomycin HCl 1,750 mg/ (Sodium Chloride) 535 mls @ 250 mls/hr IV Q24H [facility] Last Infusion: 12/09/19 00:41 Dose: Infused Documented by: Morphine Sulfate () 2 mg IV Q3H PRN PRN PRN Reason: Pain Score 6-10/10 Last Admin: 12/09/19 03:34 Dose: 2 mg Documented by: Nutritional Formula (Levi - [place] Flavor) 1 packet PO BIDCM [facility] Last Admin: 12/09/19 10:03 Dose: 1 packet Documented by: Nutritional Formula (Lactose Free) (Ensure Enlive) 120 ml PO 4X/DAY [facility] Last Admin: 12/09/19 10:03 Dose: 120 ml Documented by: Ondansetron HCl (Zofran) 4 mg IV Q8H PRN PRN PRN Reason: NAUSEA/VOMITING Oxycodone HCl (Oxyir) 10 mg PO Q4H PRN PRN PRN Reason: Pain Score 4-5/10 Last Admin: 12/08/19 21:48 Dose: 10 mg Documented by: Prednisone () 10 mg PO BIDCM [facility] Last Admin: 12/09/19 08:09 Dose: 10 mg Documented by: Sodium Chloride () 10 - 40 ml IV UD PRN PRN Reason: SALINE FLUSH Last Admin: 12/09/19 03:34 Dose: 20 ml Documented by: Medical Necessity - Tobacco Use Smoking Status: Never smoker Tobacco Use: Non-smoker Assessment/Plan All Active Problems Abscess of left leg (Acute) Ulcer of left lower extremity with fat layer exposed (Acute) Cellulitis of left leg without foot (Acute) Sepsis (Acute) Eschar of lower leg (Acute) Heme + stool (Acute) Rheumatoid arthritis (Ruled-out) I reviewed and discussed his case. He is afebrile. He had leukocytosis on admission of 13.4 and this is now resolved. His post debridement culture results are pending. He is on vancomycin and Zosyn at this time and this will be narrowed as we get additional culture results. The wound vac has been applied. Patient states he has had wound vac to this leg before and is familiar with the equipment and had no problems during the application. 150mmhg continuous. Patient is to keep pressure directly off of the ulcer/wound vac by being mindful of how he is laying in bed. To follow-up with the wound healing center after discharge. Medical management per primary team is appreciated. Podiatry will continue to follow him while in house. Please do not hesitate to call if you have any questions.
--- NOTE | 2019-12-09 10:08 | CASEMGMT ---
Addendum entered by Yasmin Osuna 12/09/19 12:49: 1230 Call back from [facility] and they state they can take pt at this time. [facility] updated on pt wound clinic appt on 12/17/2019 and voice no further questions/concerns/needs at this time. Pt/ updated on [facility] at this time, voice understanding. Pt/ voice no further questions/concerns/needs at this time. Pt is just waiting on wound vac approval at this time. Jose RAO updated on all, voices understanding. Daivd RAO CM Addendum entered by Yasmin Osuna 12/09/19 12:48: 1145 Message left with [facility] to see if they can accept pt at this time. David RAO CM Original Note: Per Naina, wound RN, pt states that he and his would like [place] for [facility] SN for wound vac/care at this time. Call to [place] to notify of referral and referral faxed at this time. Per therapy notes, therapy does not recommend therapy for pt at this time. David RAO CM
[2019-12-09 11:00] VITALS: PULSE 81
--- NOTE | 2019-12-09 11:13 | PCM.DC ---
- Discharge Diagnoses Current Active Problems: Current Active and Chronic Problems Abscess of left leg (Acute) Ulcer of left lower extremity with fat layer exposed (Acute) Cellulitis of left leg without foot (Acute) Sepsis (Acute) Eschar of lower leg (Acute) You will use the following diet at home:: No restrictions Discharge Activity: May Shower, - - shower bag, keep wound site dry and clean Weight Bearing Status: Weight bearing as tolerated - limit excessive ambulation Keep extremity elevated above heart level: Left Leg Call your doctor if your incision/area has: Continuous Slow Oozing, Sudden Increased Bleeding, Increased Pain/ Swelling, Increased Redness, Foul Smelling Discharge Call your doctor if you observe: Fever of 101 or Higher, Calf discomfort, Uncontrolled pain Cleanse incision/area with: Keep Dressing Clean & Dry Additional Dressing/Incision Instructions:: wound vac (150 mmHg) three times / week ; continuous Instructions: Sepsis, Understanding Sepsis Allergies/Adverse Reactions: Allergies No Known Allergies Allergy (Verified 11/11/19 22:04) Medications to take at Discharge Colchicine 0.6 mg PO X1 12/26/13 Gabapentin [Neurontin] 400 mg PO TIDCM 12/26/13 predniSONE tablet 10 mg PO BID 12/26/13 Amox/Clavulanate Tablet [Augmentin Tablet] 875 mg PO Q12H #14 tab 12/09/19 The following prescriptions were given: Amox/Clavulanate Tablet [Augmentin Tablet] 875 mg PO Q12H #14 tab Transmission Status: Sent to [facility] Primary Care Physician: Care Physician,No Primary [Primary Care Provider] - Please follow up with your Primary Care Physician in: 1 Week Test Results: Test results from this visit will be discussed in further detail at your follow-up appointment, if applicable. Please Follow Up With: Clinic,Wound - Call Dr. Pemberton sooner if concerns at [phone] When: next week at Wound care center. [phone] Proposed Discharge Date: 12/09/19
[2019-12-09 11:16] VITALS: BP 110/70; PULSE 63; RESP 18; TEMP 37; O2SAT 100
--- NOTE | 2019-12-09 11:16 | DS.PCM_ITS ---
<Jania Mast - Last Filed: 12/09/19 11:28> Discharge Date and Diagnosis Date of Admission: 12/06/19 Date of Discharge: 12/09/19 - Primary Discharge Diagnosis Acute Problems: Active Problems 1. Sepsis secondary to left lower extremity abscess/infected hematoma with cellulitis-failed outpatient treatment with oral antibiotic. 2. Acute kidney injury on chronic kidney disease stage III 3. Hypokalemia 4. History of gout 5. Chronic macrocytic anemia Suspected Problems: Suspected Problems Peripheral vascular disease (Suspected) - Secondary Discharge Diagnosis Chronic Problems: Chronic Problems GERD (gastroesophageal reflux disease) (Chronic) Anasarca (Chronic) Renal failure (Chronic) Hyperuricemia (Chronic) Non-healing wound of lower extremity (Chronic) Anemia (Chronic) History of hemorrhoids (Chronic) Obesity (BMI 30.0-34.9) (Chronic) Gouty arthritis (Chronic) Hospital Course and Treatment Imaging Results: Diagnostic Data Lower Extremity CT 12/07/19 00:05 IMPRESSION: There is subcutaneous fluid collection at the medial aspect of the left calf measures 9 x 2.5 x 18 cm suggesting an abscess. Electronically Signed: Maren Osei, at 1:44 EDT Tel , Service support , Renal Ultrasound 12/07/19 07:00 IMPRESSION: Normal ultrasound of the kidneys. Bladder wall thickening although the bladder is not adequately distended. Incidental note is made of moderate degree of splenomegaly. Electronically Signed: Prasad Palomino, at 8:20 EDT , Service support , Consultations 12/07/19 01:17 Consult: Onc/Wound/needle bar molder Routine Comment: Dr. Pemberton- podiatry Operations: - - I&D with excisional debridement 12/07/2019 Procedures: None Summary of Care Provided: The patient is a 54 year old M admitted 12/06/2019 due to left leg ulcer. 1. Sepsis secondary to left lower extremity abscess/infected hematoma with cellulitis-failed outpatient treatment with oral antibiotic. Lower extremity CT showing left calf abscess. Patient underwent I&D with excisional debridement 12/07/[address] Pemberton. IV Zosyn and IV vancomycin during admission. Wound and blood cultures show no growth. DC on Augmentin to complete course of antibiotic therapy. Follow at wound center for wound VAC/dressing changes. 2. Acute kidney injury on chronic kidney disease stage III- YAHAIRA resolved, renal function at baseline. FENA 0.5%, suggesting prerenal. Renal ultrasound normal. 3. Hypokalemia-replaced per protocol, trend BMP. 4. History of gout- on colchicine 5. Chronic macrocytic anemia-slightly below baseline, expected outcome secondary to surgery. Outpatient follow-up for chronic anemia work-up. General: Alert, Oriented x3, Cooperative HEENT: Atraumatic, PERRLA, EOMI, Normocephalic Neck: Supple, No JVD, Negative Carotid Bruits Lungs: Clear to auscultation, Normal air movement Cardiovascular: Regular rate, Regular Rhythm, Normal S1, Normal S2, No murmurs Abdomen: Bowel Sounds Present, Soft, Non Tender, Non-Distended Extremities: No clubbing, No cyanosis, No edema, Capillary Refill Less than 3 Seconds Skin: - - Left lower extremity postop dressing intact Musculoskeletal: No Tenderness to Palpation of Joints or Extremities Neurological: Cranial nerves II-XII grossly intact, Neuro grossly intact Psych/Mental Status: Normal Affect, Appropriate Patient seen and examined prior to discharge. Physical assessment as noted above. Patient is stable for discharge with follow up recommendations as noted above. This patient was seen by ANTONI Rutherford under the supervision of Dr. Jessica. - Physical Exam Vitals/I&O's: Vital Signs Temp Pulse Resp BP Pulse Ox 98.6 F 63 18 110/70 100 12/09/19 09:30 12/09/19 09:30 12/09/19 09:30 12/09/19 09:30 12/09/19 09:30 Oxygen Flow Rate (L/min) 2 Oxygen Delivery Method Room Air Weight: 185 lb 3.013 oz Body Mass Index (BMI) 27.3 Intake and Output for Last 24 Hours 12/07/19 12/08/19 12/09/19 23:59 23:59 23:59 Intake Total 5328.67 / 5328.67 1679.25 / 1679.25 432.00 / 432.00 Output Total 1000 / 1000 200 / 200 900 / 900 Balance 4328.67 / 4328.67 1479.25 / 1479.25 -468.00 / -468.00 Microbiology Past 72 Hours 12/06/19 22:35 Blood Culture (Wb) - Anticubital Right Blood Culture - Preliminary No growth in 48 hours. 12/06/19 22:30 Blood Culture (Wb) - Right Wrist Blood Culture - Preliminary No growth in 48 hours. 12/07/19 14:40 Tissue - Leg, Left Gram Stain - Final 12/07/19 14:40 Tissue - Leg, Left Wound Culture - Preliminary No growth-Final to follow 12/07/19 14:40 Tissue - Leg, Left Anaerobic Culture - Preliminary No growth in 48 hours. Laboratory Results 12/08/19 20:34: Vancomycin Trough 10.5 12/09/19 05:45: WBC 4.2 L, RBC 2.34 L, Hgb 7.5 L, Hct 23.7 L, MCV 101.3 H, MCH 32.1 H, MCHC 31.6 L, RDW Std Deviation 57.1 H, RDW Coeff of Estella 15.3 H, Plt Count 138 L, MPV 10.8 12/09/19 05:45: Sodium 141, Potassium 4.6, Chloride 113 H, Carbon Dioxide 24.0, Anion Gap 4 L, BUN 31 H, Creatinine 1.41 H, Estim Creat Clear Calc 59.20, Est GFR (MDRD) Af Amer 67, Est GFR (MDRD) Non-Af 55 L, BUN/Creatinine Ratio 22.0 H, Glucose 128 H, Calcium 8.5 Current Medications Acetaminophen (Tylenol) 650 mg PO Q6H PRN PRN PRN Reason: Pain Score 1-10/Temp > 100.7 F Last Admin: 12/08/19 05:33 Dose: 650 mg Documented by: Al Hydroxide/Mg Hydroxide (Mylanta Ii) 30 ml PO Q4H PRN PRN PRN Reason: HEARTBURN Last Admin: 12/07/19 11:11 Dose: 30 ml Documented by: Colchicine (Colchicine) 0.6 mg PO Q2D NEIL Last Admin: 12/08/19 08:47 Dose: 0.6 mg Documented by: Diphenhydramine HCl (Benadryl Liquid) 12.5 mg PO TID PRN PRN PRN Reason: ALLERGIES/ITCHING Gabapentin (Neurontin) 400 mg PO TIDCM [facility] Last Admin: 12/09/19 08:10 Dose: 400 mg Documented by: Piperacillin Sod/Tazobactam (Sod 3.375 gm/ Sodium Chloride) 50 mls @ 12.5 mls/hr IV Q8 [facility] Last Infusion: 12/09/19 09:55 Dose: Infused Documented by: Vancomycin IV Pharmacy to Dose (1 ea/ Sodium Chloride) 500 mls @ 250 mls/hr IV X1 PRN; Protocol PRN Reason: Rx to Dose Sodium Chloride () 250 mls @ 15 mls/hr IV .[id number] PRN PRN Reason: Saline Flush Last Infusion: 12/09/19 02:49 Dose: 0 mls/hr Documented by: Sodium Chloride () 250 mls @ 15 mls/hr IV .[id number] PRN PRN Reason: Additional IVPB Infusion Vancomycin HCl 1,750 mg/ (Sodium Chloride) 535 mls @ 250 mls/hr IV Q24H [facility] Last Infusion: 12/09/19 00:41 Dose: Infused Documented by: Morphine Sulfate () 2 mg IV Q3H PRN PRN PRN Reason: Pain Score 6-10/10 Last Admin: 12/09/19 03:34 Dose: 2 mg Documented by: Nutritional Formula (Levi - [place] Flavor) 1 packet PO BIDCM [facility] Last Admin: 12/09/19 10:03 Dose: 1 packet Documented by: Nutritional Formula (Lactose Free) (Ensure Enlive) 120 ml PO 4X/DAY [facility] Last Admin: 12/09/19 10:03 Dose: 120 ml Documented by: Ondansetron HCl (Zofran) 4 mg IV Q8H PRN PRN PRN Reason: NAUSEA/VOMITING Oxycodone HCl (Oxyir) 10 mg PO Q4H PRN PRN PRN Reason: Pain Score 4-5/10 Last Admin: 12/08/19 21:48 Dose: 10 mg Documented by: Prednisone () 10 mg PO BIDCM [facility] Last Admin: 12/09/19 08:09 Dose: 10 mg Documented by: Sodium Chloride () 10 - 40 ml IV UD PRN PRN Reason: SALINE FLUSH Last Admin: 12/09/19 03:34 Dose: 20 ml Documented by: Discharge Diet: No Restrictions Discharge Activity: May Shower, - - shower bag, keep wound site dry and clean Weight Bearing Status: Weight bearing as tolerated - limit excessive ambulation Keep extremity elevated above heart level: Left Leg Call your doctor if your incision/area has: Continuous Slow Oozing, Sudden Increased Bleeding, Increased Pain/ Swelling, Increased Redness, Foul Smelling Discharge Call your doctor if you observe: Fever of 101 or Higher, Calf discomfort, Uncontrolled pain Cleanse incision/area with: Keep Dressing Clean & Dry Additional Dressing/Incision Instructions:: wound vac (150 mmHg) three times / week ; continuous Home Medications: Medications to take at Discharge Colchicine 0.6 mg PO MOWE 12/26/13 Gabapentin [Neurontin] 400 mg PO TIDCM 12/26/13 predniSONE tablet 10 mg PO BID 12/26/13 Amox/Clavulanate Tablet [Augmentin Tablet] 875 mg PO Q12H #14 tab 12/09/19 Following Prescriptions Were Given to Patient: Amox/Clavulanate Tablet [Augmentin Tablet] 875 mg PO Q12H #14 tab Transmission Status: Received by Lydia #30 Primary Care Physician: Care Physician,No Primary [Primary Care Provider] - Please follow up with your Primary Care Physician in: 1 Week Please Follow Up With: Clinic,Wound - Call Dr. Pemberton sooner if concerns at [phone] When: next week at Wound care center. [phone] Patient Instructions: Sepsis, Understanding Sepsis Additional Instructions: You will need to have an updated non invasive vascular study completed in the outpatient setting. We will help you get this scheduled when you follow up at the wound care center. Disposition: Home with Home Health Minutes spent on discharge:: 35 Patient Condition:: Stable Medical Necessity - Tobacco Use Smoking Status: Never smoker Tobacco Use: Non-smoker Meaningful Use Info Meaningful Use Diagnoses (Choose all that apply): None applicable <Candelario Jessica - Last Filed: 12/09/19 14:12> Discharge Date and Diagnosis - Secondary Discharge Diagnosis Chronic Problems: Chronic Problems GERD (gastroesophageal reflux disease) (Chronic) Anasarca (Chronic) Renal failure (Chronic) Hyperuricemia (Chronic) Non-healing wound of lower extremity (Chronic) Anemia (Chronic) History of hemorrhoids (Chronic) Obesity (BMI 30.0-34.9) (Chronic) Gouty arthritis (Chronic) Hospital Course and Treatment Consultations 12/07/19 01:17 Consult: Onc/Wound/needle bar molder Routine Comment: Operations: - Procedures: None Summary of Care Provided: Patient seen and examined independently. Data reviewed. I agree with the above note by the nurse practitioner. The patient is a 54 year old M presents with sepsis and due to abscess and infected hematoma of left calf. I+D performed on 12/06. Wound vac initiated 12/08 and will continue with for 1 month. Patient to be discharged with 1 more week of amoxicillin/CA. [] - Physical Exam Vitals/I&O's: Vital Signs Temp Pulse Resp BP Pulse Ox 37.0 C 63 18 110/70 100 12/09/19 11:16 12/09/19 11:16 12/09/19 11:16 12/09/19 11:16 12/09/19 11:16 Oxygen Flow Rate (L/min) 2 Oxygen Delivery Method Room Air Weight: 84 kg Body Mass Index (BMI) 27.3 Intake and Output for Last 24 Hours 12/07/19 12/08/19 12/09/19 23:59 23:59 23:59 Intake Total 5328.67 / 5328.67 1679.25 / 1679.25 432.00 / 432.00 Output Total 1000 / 1000 200 / 200 900 / 900 Balance 4328.67 / 4328.67 1479.25 / 1479.25 -468.00 / -468.00 General: Alert, No apparent distress HEENT: Atraumatic, Normocephalic Microbiology Past 72 Hours 12/06/19 22:35 Blood Culture (Wb) - Anticubital Right Blood Culture - Preliminary No growth in 48 hours. 12/06/19 22:30 Blood Culture (Wb) - Right Wrist Blood Culture - Preliminary No growth in 48 hours. 12/07/19 14:40 Tissue - Leg, Left Gram Stain - Final 12/07/19 14:40 Tissue - Leg, Left Wound Culture - Preliminary No growth-Final to follow 12/07/19 14:40 Tissue - Leg, Left Anaerobic Culture - Preliminary No growth in 48 hours. Laboratory Results 12/08/19 20:34: Vancomycin Trough 10.5 12/09/19 05:45: WBC 4.2 L, RBC 2.34 L, Hgb 7.5 L, Hct 23.7 L, MCV 101.3 H, MCH 32.1 H, MCHC 31.6 L, RDW Std Deviation 57.1 H, RDW Coeff of Estella 15.3 H, Plt Count 138 L, MPV 10.8 12/09/19 05:45: Sodium 141, Potassium 4.6, Chloride 113 H, Carbon Dioxide 24.0, Anion Gap 4 L, BUN 31 H, Creatinine 1.41 H, Estim Creat Clear Calc 59.20, Est GFR (MDRD) Af Amer 67, Est GFR (MDRD) Non-Af 55 L, BUN/Creatinine Ratio 22.0 H, Glucose 128 H, Calcium 8.5 Current Medications Acetaminophen (Tylenol) 650 mg PO Q6H PRN PRN PRN Reason: Pain Score 1-10/Temp > 100.7 F Last Admin: 12/08/19 05:33 Dose: 650 mg Documented by: Al Hydroxide/Mg Hydroxide (Mylanta Ii) 30 ml PO Q4H PRN PRN PRN Reason: HEARTBURN Last Admin: 12/07/19 11:11 Dose: 30 ml Documented by: Colchicine (Colchicine) 0.6 mg PO Q2D [facility] Last Admin: 12/08/19 08:47 Dose: 0.6 mg Documented by: Diphenhydramine HCl (Benadryl Liquid) 12.5 mg PO TID PRN PRN PRN Reason: ALLERGIES/ITCHING Gabapentin (Neurontin) 400 mg PO TIDCM [facility] Last Admin: 12/09/19 11:28 Dose: 400 mg Documented by: Piperacillin Sod/Tazobactam (Sod 3.375 gm/ Sodium Chloride) 50 mls @ 12.5 mls/hr IV Q8 [facility] Last Infusion: 12/09/19 09:55 Dose: Infused Documented by: Vancomycin IV Pharmacy to Dose (1 ea/ Sodium Chloride) 500 mls @ 250 mls/hr IV X1 PRN; Protocol PRN Reason: Rx to Dose Sodium Chloride () 250 mls @ 15 mls/hr IV .[id number] PRN PRN Reason: Saline Flush Last Infusion: 12/09/19 02:49 Dose: 0 mls/hr Documented by: Sodium Chloride () 250 mls @ 15 mls/hr IV .[id number] PRN PRN Reason: Additional IVPB Infusion Vancomycin HCl 1,750 mg/ (Sodium Chloride) 535 mls @ 250 mls/hr IV Q24H [facility] Last Infusion: 12/09/19 00:41 Dose: Infused Documented by: Morphine Sulfate () 2 mg IV Q3H PRN PRN PRN Reason: Pain Score 6-10/10 Last Admin: 12/09/19 03:34 Dose: 2 mg Documented by: Nutritional Formula (Levi - [place] Flavor) 1 packet PO BIDCM [facility] Last Admin: 12/09/19 10:03 Dose: 1 packet Documented by: Nutritional Formula (Lactose Free) (Ensure Enlive) 120 ml PO 4X/DAY [facility] Last Admin: 12/09/19 10:03 Dose: 120 ml Documented by: Ondansetron HCl (Zofran) 4 mg IV Q8H PRN PRN PRN Reason: NAUSEA/VOMITING Oxycodone HCl (Oxyir) 10 mg PO Q4H PRN PRN PRN Reason: Pain Score 4-5/10 Last Admin: 12/08/19 21:48 Dose: 10 mg Documented [facility]: [facility] () [facility] Last Admin: 12/09/19 08:09 Dose: 10 mg Documented by: Sodium Chloride () 10 - 40 ml IV UD PRN PRN Reason: SALINE FLUSH Last Admin: 12/09/19 03:34 Dose: 20 ml Documented by: Discharge Diet: No Restrictions Discharge Activity: May Shower, - Weight Bearing Status: Weight bearing as tolerated Keep extremity elevated above heart level: Left Leg Call your doctor if your incision/area has: Continuous Slow Oozing, Sudden Increased Bleeding, Increased Pain/ Swelling, Increased Redness, Foul Smelling Discharge Call your doctor if you observe: Fever of 101 or Higher, Calf discomfort, Uncontrolled pain Cleanse incision/area with: Keep Dressing Clean & Dry Disposition: Home with Home Health Patient Condition:: Stable Medical Necessity - Tobacco Use Smoking Status: Never smoker Tobacco Use: Non-smoker Meaningful Use Info Meaningful Use Diagnoses (Choose all that apply): None applicable Inpatient E&M: 37400 Disch Hosp
--- NOTE | 2019-12-09 11:18 | NURSING ---
wound photo: left posteromedial lower leg
--- NOTE | 2019-12-09 12:09 | PHA.DC.MC ---
Pharmacy Service has performed discharge medication reconciliation and counseling for this patient. 1. AMOXICILLIN/CLAVULANATE 875/125MG PO Q12 X 7 DAYS The patient's discharge medication list was reviewed for discrepancies and discrepancies were resolved. Confirmed that the patient takes colchicine on Mondays and Wednesdays. Updated home medication list. Home Medications Colchicine 0.6 mg PO MOWE 12/26/13 Gabapentin [Neurontin] 400 mg PO TIDCM 12/26/13 predniSONE tablet 10 mg PO BID 12/26/13 Amox/Clavulanate Tablet [Augmentin Tablet] 875 mg PO Q12H #14 tab 12/09/19 The patient was counseled on the following discharge medications and changes in medications for homegoing were reviewed. The Reason for Use, instructions for use, and potential side effects were reviewed for all new medications. The patient's questions regarding all of their medications were answered. The patient was able to verbally demonstrate an understanding of their discharge medications.
--- NOTE | 2019-12-09 14:29 | NURSING ---
Pt switched over to the home VAC. proof of delivery form signed and sent back to [facility]. pt and deny questions. pt has had wound VAC in the past.
--- NOTE | 2019-12-10 16:00 | CASEMGMT ---
JALEN STRICKLAND Discharge Follow-up Phone Call: ALEXA: Tejas Strata: 3 Call Date: 12/10/19 Discharge Date: 12/09/19 Time of Call: 1600 Duration: 3 min Admitting Diagnosis: cellulitis LLE JALEN STRICKLAND completed follow-up phone call after recent hospitalization. Patient states he is doing fine. Patient had no questions regarding discharge instructions. Patient was able to fill prescription without any issues. Patient states [facility] called and will be out in the morning to change wound vac. Patient had no further questions or concerns at this time.
== END 2019-12-09 14:36 | disposition home health service (06) | DRG 720 ==
LOC: ED 22:32 → PCU 12-07 01:00
PROVIDERS: Anesthesiology; Internal Medicine; Nurse Practitioner Family; Podiatrist; Admitting Provider Student in an Organized Health Care Education/Training Program; Emergency Provider Emergency Medicine
PROC: 0JBP0ZZ Excision of Left Lower Leg Subcutaneous Tissue and Fascia, Open Approach (ICD-10-PCS; principal; 2019-12-07 02:00)
DX: A41.9 Sepsis, unspecified organism (principal); L97.222 Non-pressure chronic ulcer of left calf with fat layer exposed; L02.416 Cutaneous abscess of left lower limb; L03.116 Cellulitis of left lower limb; N17.9 Acute kidney failure, unspecified; N18.3 Chronic kidney disease, stage 3 (moderate); I73.9 Peripheral vascular disease, unspecified; E87.6 Hypokalemia; E87.2 Acidosis; M10.9 Gout, unspecified; M17.12 Unilateral primary osteoarthritis, left knee; M19.072 Primary osteoarthritis, left ankle and foot; K21.9 Gastro-esophageal reflux disease without esophagitis; S80.12XS Contusion of left lower leg, sequela; W01.190S Fall on same level from slipping, tripping and stumbling with subsequent striking against furniture, sequela; E66.9 Obesity, unspecified; Z68.27 Body mass index [BMI] 27.0-27.9, adult; Z72.0 Tobacco use; Z79.52 Long term (current) use of systemic steroids; Z79.899 Other long term (current) drug therapy
CPT/HCPCS: 36415; 73700; 76770; 80048; 80053; 80202; 82040; 82570; 83605; 83735; 84100; 84300; 85025; 85027; 85610; 85730; 87040; 87070; 87075; 87077; 87102; 87186; 87205; 87206; 87635; 87640; 87641; 93005; 94762; 94799; 97110; 97161; 97166; 97530; 99285; J7030; J7040; J7050; J7120; A4216; J2405; U0003

== ENCOUNTER 2019-12-31 13:45 | Outpatient (RCR) | payer MEDICAID, SELFPAY ==
[2019-12-07 12:56] VITALS: BMI 27.3
[2019-12-17 13:13] VITALS: BP 134/77; PULSE 95; RESP 16; TEMP 36.9; BMI 27.3
--- NOTE | 2019-12-17 22:27 | PN.PCM_ITS ---
(1) Ulcer of left lower extremity with fat layer exposed Status: Chronic Current Visit: Yes Code(s): L97.922 - Non-pressure chronic ulcer of unspecified part of left lower leg with fat layer exposed (2) Cellulitis of left leg without foot Status: Resolved Current Visit: Yes Code(s): L03.116 - Cellulitis of left lower limb (3) Kidney disease Status: Acute Current Visit: Yes Code(s): N28.9 - Disorder of kidney and ureter, unspecified (4) Peripheral vascular disease Status: Suspected Current Visit: Yes Code(s): I73.9 - Peripheral vascular disease, unspecified (5) Non-healing wound of lower extremity Status: Chronic Current Visit: Yes Code(s): S81.809A - Unspecified open wound, unspecified lower leg, initial encounter (6) Obesity (BMI 30.0-34.9) Status: Chronic Current Visit: Yes Code(s): E66.9 - Obesity, unspecified (7) Venous insufficiency Status: Chronic Current Visit: Yes Code(s): I87.2 - Venous insufficiency (chronic) (peripheral) Type of Wound Date of Service: 12/17/19 Chief Complaint: ulcer left leg History of Wound: This 54 year old male presents to the wound center giving a history of chronic wound to his left leg following injury he sustained around 11-06-2019 when he tripped and stumbled into a coffee table. This ulcer site progressively worsened and eventually turned black with odor and purulent drainage. He presented to [facility] and had an incision and drainage with aggressive wound debridement performed on 12-07-2019. He was treated with IV antibiotics and was later discharged home with a wound VAC. His claudication potential intermittent sensations. He also has a history of a left foot ulcer that had delayed healing many years ago. He denies fever, chill, nausea, vomiting, diarrhea today. He continues on antibiotics as recommended by infectious disease. Progress of Wound: Improving - Physical Exam Vital Signs Temp Pulse Resp BP 98.5 F 95 16 134/77 H 12/17/19 13:13 12/17/19 13:13 12/17/19 13:13 12/17/19 13:13 General: Alert, Oriented x3, Cooperative, No apparent distress HEENT: Atraumatic Extremities: No cyanosis, Capillary Refill Less than 3 Seconds, No Calf Tenderness - Negative Elizabeth and Vega sign. Compartments are soft to palpate left. No bogginess or fluctuance on palpation, Diminished Peripheral Pulses - 2 out of 4 DP pulse in 1 out of 4 PT pulse left lower extremity, Edema Skin: Ulcer/ Wound - No purulence, erythema, streaking, odor, infection, eschar, or necrosis or maceration. The ulcer bed is granular and there is no longer any visualized muscular fascia or undermining along the anterior margin. Wound Measurements and Assessment WC - Nurse 1 - General Ulcer Measurement Start: 12/17/19 13:11 Freq: Status: Active Protocol: Activity Type Activity Date Activity User E-Sign Co-Sign Detail Recorded Client Recorded Date Recorded By Document 12/17/19 13:13 [facility] [id number] 12/17/19 13:27 [facility] 12/17/19 13:13 Wound Center Nurse 1 [Ulcer Assessment] #3- L MEDIAL LE -Combined with other wound No -Current Size (cm) - Length 11.4 -Current Size (cm) - Width 7.9 -Current Size (cm) - Depth 0.7 -Total Square Cm 90.06 -Date of Last Picture (Recall this 12/17/19 field) -Photo Taken Yes -Epithelialization None Present -Tunneling No -Undermining/Tunneling Yes -Undermining/Tunneling Starts (O' 2 clock) -Undermining/Tunneling Ends (O'clock) 3 -Maximum Distance (cm) 1.7 -Circular Undermining No -Exudate Amt Medium -Exudate Type Serous -Wound Margin Distinct, Outline Attached -Granulation Amt Large (67-100%) -Granulation Quality Pale,[place] -Slough/Fibrin Yes -Necrosis Amt Small (1-33%) -Necrotic Tissue Type Adherent Slough -Texture (Cammy-wound Skin Appearance) Assessed, Scarring -Moisture (Cammy-wound Skin Appearance Assessed ) -Color (Cammy-wound Skin Appearance) Assessed -Temperature (Cammy-wound Skin No Abnormality Appearance) (Pt Warm) -Tenderness on Palpation (Cammy-wound No Skin Appearance) -Ulcer Cleansing soapy water -Foul Odor after Cleansing No -Anesthetic Used 4% Lidocaine Solution [Edema Assessment] -Lower Limb Edema Present Yes -Left Calf (cm) 38 -Left Ankle (cm) 23.2 WC - Nurse 2 - General Ulcer CM Notes Start: 12/17/19 13:11 Freq: Status: Active Protocol: Activity Type Activity Date Activity User E-Sign Co-Sign Detail Recorded Client Recorded Date Recorded By Document 12/17/19 13:53 [id number] 12/17/19 13:54 12/17/19 13:53 Wound Center Nurse 2 [Procedure/Treatment] #3- L MEDIAL LE -Time 13:54 -Correct Patient Yes -Correct Side, Site, Position Yes -Correct Procedure Yes -Procedure Performed Yes -Type of Procedure Debridement -Clinical Debridement Subcutaneous -Post Debridement Size (cm) - Length 11.5 -Post Debridement Size (cm) - Width 8 -Post Debridement Size (cm) - Depth 0.7 -Total Square (cm) 92.0 -Wound/Ulcer Outcome Not Healed -Ulcer Cleansing Rinsed/ Irrigated with Saline -Foul Odor after Cleansing No -Bioengineered Tissue No -Bleeding Controlled with Pressure -Offloading No -Treatment Response Procedure Tolerated Well [See Physician Procedure note for Specifics] Pain Scale: 0-10 Numeric [Pain] -Is Patient Pain Free? Yes Musculoskeletal: No Tenderness to Palpation of Joints or Extremities, Muscle Wasting Neurological: Sensory exam intact to light touch and pain Psych/Mental Status: Normal Affect, Appropriate Debridement Note Post-Debridement Measurements/Treatment WC - Nurse 2 - General Ulcer CM Notes Start: 12/17/19 13:11 Freq: Status: Active Protocol: Activity Type Activity Date Activity User E-Sign Co-Sign Detail Recorded Client Recorded Date Recorded By Document 12/17/19 13:53 [facility] [id number] 12/17/19 13:54 12/17/19 13:53 Wound Center Nurse 2 #3- L MEDIAL LE -Time 13:54 -Correct Patient Yes -Correct Side, Site, Position Yes -Correct Procedure Yes -Procedure Performed Yes -Type of Procedure Debridement -Clinical Debridement Subcutaneous -Post Debridement Size (cm) - Length 11.5 -Post Debridement Size (cm) - Width 8 -Post Debridement Size (cm) - Depth 0.7 -Total Square (cm) 92.0 -Wound/Ulcer Outcome Not Healed -Ulcer Cleansing Rinsed/ Irrigated with Saline -Foul Odor after Cleansing No -Bioengineered Tissue No -Bleeding Controlled with Pressure -Offloading No -Treatment Response Procedure Tolerated Well Pain Scale: 0-10 Numeric Is Patient Pain Free? Yes Wound debrided: leg Laterality: Right Type of Debridement: Excisional debridement Anesthesia Used: 5% Lidocaine Gel Depth: in the subcutaneous layer Percentage of wound debrided: 100 Instrument Used: 7mm curette Tissue Removed: fibrous, devitalized subcutaneous, biofilm, slough Severity: Fat Layer Exposed Amount of bleeding with debridement: Mild Bleeding Controlled with: Pressure Patient tolerated procedure well Assessment/Plan Active Problems Ulcer of left lower extremity with fat layer exposed (Chronic) Kidney disease (Acute) Venous insufficiency (Chronic) Non-healing wound of lower extremity (Chronic) Obesity (BMI 30.0-34.9) (Chronic) Assessment: Left leg ulcer with fat layer exposed. Resolved cellulitis and recent abscess the operating room drainage and debridement. Lower extremity edema. Peripheral vascular disease suspected. Obesity. Renal disease. Chronic delayed wound healing left leg Plan: I reviewed and discussed his case. He recently had surgical intervention at [facility] as noted on 12-07-2019. He has a resulting healthy noninfected ulceration to the left leg with a history of delayed healing. Subcutaneous excisional debridement was performed as noted in the clinical panel. He was advised to change the dressing with a wound VAC every at least every 72 hours on 150 mmHg continuous. To keep pressure off the ulcer site by avoiding direct pressure laying on the site. To control edema with a Tubigrip. To elevate limbs at rest. To avoid idle standing or sitting. To perform muscular contraction hourly while awake. To avoid excessive salt in the diet. These things will help reduce his edema. I recommend evaluating for venous insufficiency with a Doppler exam with reflux. He also has atrophic and hairless skin and history of delayed ulcer healing. He has some questionable claudication symptoms however does not ambulate a significant degree. I recommend screening with a noninvasive vascular arterial study as well. To complete antibiotic course. I do not recommend additional antibiotics. His cultures from his most recent hospital admission were noted. His labs from within the past 2 weeks are also noted from his recent hospital admission. He has delayed healing and risk factors, I recommend application of an advanced wound healing product such as TheraSkin. The indication, benefits, anticipated application, healing time and management were reviewed. He understands elects to proceed forward. Prior authorization will be initiated. To return to the wound healing center in 1 week or call sooner if he has any questions, concerns, or return of infection symptoms. I answered all his questions. He also relates his electricity may be turned off and requested medical note recommending continuation so he can use his wound VAC. He was advised to have the paperwork faxed over to the office so I can complete this medical statement.
[2019-12-24 13:06] VITALS: BP 134/95; PULSE 100; RESP 16; TEMP 36.4; BMI 27.3
--- NOTE | 2019-12-24 16:04 | PN.PCM_ITS ---
(1) Ulcer of left lower extremity with fat layer exposed Status: Chronic Current Visit: Yes Code(s): L97.922 - Non-pressure chronic ulcer of unspecified part of left lower leg with fat layer exposed (2) Cellulitis of left leg without foot Status: Resolved Current Visit: Yes Code(s): L03.116 - Cellulitis of left lower limb (3) Kidney disease Status: Acute Current Visit: Yes Code(s): N28.9 - Disorder of kidney and ureter, unspecified (4) Peripheral vascular disease Status: Suspected Current Visit: Yes Code(s): I73.9 - Peripheral vascular disease, unspecified (5) Non-healing wound of lower extremity Status: Chronic Current Visit: Yes Qualifiers: Encounter type: subsequent encounter Laterality: left Qualified Code(s): S81.802D - Unspecified open wound, left lower leg, subsequent encounter Code(s): S81.809A - Unspecified open wound, unspecified lower leg, initial encounter (6) Obesity (BMI 30.0-34.9) Status: Chronic Current Visit: Yes Code(s): E66.9 - Obesity, unspecified (7) Venous insufficiency Status: Chronic Current Visit: Yes Code(s): I87.2 - Venous insufficiency (chronic) (peripheral) Type of Wound Date of Service: 12/24/19 Chief Complaint: ulcer left leg History of Wound: This 54 year old male presents to the wound center giving a history of chronic wound to his left leg following injury he sustained around 11-06-2019 when he tripped and stumbled into a coffee table. This ulcer site progressively worsened and eventually turned black with odor and purulent drainage. He presented to [facility] and had an incision and drainage with aggressive wound debridement performed on 12-07-2019. He was treated with IV antibiotics and was later discharged home with a wound VAC. His claudication potential intermittent sensations. He also has a history of a left foot ulcer that had delayed healing many years ago. He denies fever, chill, nausea, vomiting, diarrhea today. He continues on antibiotics as recommended by infectious disease. He is here for application of TheraSkin. Progress of Wound: Improving - Physical Exam Vital Signs Temp Pulse Resp BP 97.5 F L 100 16 134/95 H 12/24/19 13:06 12/24/19 13:06 12/24/19 13:06 12/24/19 13:06 General: Alert, Oriented x3, Cooperative, No apparent distress Extremities: No cyanosis, Capillary Refill Less than 3 Seconds, No Calf Tenderness, Diminished Peripheral Pulses, Edema, - - Compartments soft Skin: Ulcer/ Wound - No purulence, erythema, streaking, odor, infection. Continued granulation tissue noted. The adjacent skin is hairless and atrophic. There is no deep tissue exposure or necrosis seen Wound Measurements and Assessment WC - Nurse 1 - General Ulcer Measurement Start: 12/17/19 13:11 Freq: Status: Active Protocol: Activity Type Activity Date Activity User E-Sign Co-Sign Detail Recorded Client Recorded Date Recorded By Document 12/24/19 13:06 [facility] [id number] 12/24/19 13:12 [facility] 12/24/19 13:06 Wound Center Nurse 1 [Ulcer Assessment] #3- L MEDIAL LE -Combined with other wound No -Current Size (cm) - Length 12.4 -Current Size (cm) - Width 8 -Current Size (cm) - Depth 0.3 -Total Square Cm 99.2 -Photo Taken No -Epithelialization Small 1-33% -Tunneling No -Tunneling Position (O'clock) 2 -Tunneling Distance (cm) 0.5 -Undermining/Tunneling No -Circular Undermining No -Exudate Amt Small -Exudate Type Serosanguineous -Wound Margin Distinct, Outline Attached -Granulation Amt Large (67-100%) -Granulation Quality Red -Slough/Fibrin Yes -Necrosis Amt Small (1-33%) -Necrotic Tissue Type Adherent Slough -Texture (Cammy-wound Skin Appearance) Assessed, Scarring -Moisture (Cammy-wound Skin Appearance Assessed, ) Maceration -Color (Cammy-wound Skin Appearance) Assessed,Palor -Temperature (Cammy-wound Skin No Abnormality Appearance) (Pt Warm) -Tenderness on Palpation (Cammy-wound Yes Skin Appearance) -Ulcer Cleansing soapy water -Foul Odor after Cleansing No -Anesthetic Used 4% Lidocaine Solution [Edema Assessment] -Lower Limb Edema Present Yes -Left Calf (cm) 38.2 -Left Ankle (cm) 24 WC - Nurse 2 - General Ulcer CM Notes Start: 12/23/19 19:43 Freq: Status: Active Protocol: Activity Type Activity Date Activity User E-Sign Co-Sign Detail Recorded Client Recorded Date Recorded By Document 12/24/19 13:25 [id number] 12/24/19 13:32 12/24/19 13:25 Wound Center Nurse 2 [Procedure/Treatment] #3- L MEDIAL LE -Time 13:26 -Correct Patient Yes -Correct Side, Site, Position Yes -Correct Procedure Yes -Procedure Performed Yes -Type of Procedure Debridement -Clinical Debridement Subcutaneous -Tissue Removed Subcutaneous -Post Debridement (cm) - Length 12.5 -Post Debridement (cm) - Width 8 -Post Debridement (cm) - Depth 0.3 -Total Square (Post) (cm) 100.0 -Area of Debridement (cm) - Length 12.5 -Area of Debridement (cm) - Width 8 -Total Square (Area) (cm) 100.0 -Tunneling No -Undermining/Tunneling No -Circular Undermining No -Wound/Ulcer Outcome Not Healed -Ulcer Cleansing Rinsed/ Irrigated with Saline -Foul Odor after Cleansing No -Bioengineered Tissue Yes -Type of Bioengineered Tissue Theraskin -Expiration Date 02/14/24 -Product Lot Number [id number] -Percent Used 100 -Saline Lot Number [id number] -Bleeding Controlled with Pressure -Offloading No -Treatment Response Procedure Tolerated Well -Debridement - Subq, 1st 20sq cm Yes -Debridement, SubQ, ea addt'l 20sq cm 4 or part thereof -Apply Skin Sub - 1st 25 sq cm - Legs 1 -Apply Skin Sub - each addt'l 25 sq 1 cm - Legs -Theraskin (per sq cm) 39 [See Physician Procedure note for Specifics] Pain Scale: 0-10 Numeric [Pain] -Is Patient Pain Free? Yes - Nurse 3 - General Ulcer D/C NN Start: 12/23/19 19:43 Freq: Status: Active Protocol: Activity Type Activity Date Activity User E-Sign Co-Sign Detail Recorded Client Recorded Date Recorded By Document 12/24/19 13:39 [facility] [id number] 12/24/19 13:41 [facility] 12/24/19 13:39 Wound Care Nurse 3 [Wound Dressing] #3- L MEDIAL LE -Foul Odor after Cleansing No -Negative Pressure Wound Therapy Continue -Setting (mmHg) 150 -Negative Pressure is Continuous -Other Dressing theraskin per dr lane -NPWT Application Charge ($) NPWT > 50 sq cm [Compression Applied] Left -Other pts own single layer tubigrip applied [Post Procedure Tolerated] -Treatment Response Procedure Tolerated Well Pain Scale: 0-10 Numeric [Pain] -Is Patient Pain Free? Yes WC - Visit Discharge [Visit Discharge Information] -Discharge Condition Stable -Ambulatory Status Ambulatory, Crutches -Transportation Private Auto -Accompanied by [Facility Notification] -Facility Type Home Health Musculoskeletal: No Tenderness to Palpation of Joints or Extremities, Tenderness - Mild tenderness with ulcer debridement and manipulation Neurological: Sensory exam intact to light touch and pain Psych/Mental Status: Normal Affect, Appropriate, Anxious, Restless Debridement Note Post-Debridement Measurements/Treatment WC - Nurse 2 - General Ulcer CM Notes Start: 12/23/19 19:43 Freq: Status: Active Protocol: Activity Type Activity Date Activity User E-Sign Co-Sign Detail Recorded Client Recorded Date Recorded By Document 12/24/19 13:25 CASE [id number] 12/24/19 13:32 CASE 12/24/19 13:25 Wound Center Nurse 2 #3- L MEDIAL LE -Time 13:26 -Correct Patient Yes -Correct Side, Site, Position Yes -Correct Procedure Yes -Procedure Performed Yes -Type of Procedure Debridement -Clinical Debridement Subcutaneous -Tissue Removed Subcutaneous -Post Debridement (cm) - Length 12.5 -Post Debridement (cm) - Width 8 -Post Debridement (cm) - Depth 0.3 -Total Square (Post) (cm) 100.0 -Area of Debridement (cm) - Length 12.5 -Area of Debridement (cm) - Width 8 -Total Square (Area) (cm) 100.0 -Tunneling No -Undermining/Tunneling No -Circular Undermining No -Wound/Ulcer Outcome Not Healed -Ulcer Cleansing Rinsed/ Irrigated with Saline -Foul Odor after Cleansing No -Bioengineered Tissue Yes -Type of Bioengineered Tissue Theraskin -Expiration Date 02/14/24 -Product Lot Number [id number] -Percent Used 100 -Saline Lot Number [id number] -Bleeding Controlled with Pressure -Offloading No -Treatment Response Procedure Tolerated Well -Debridement - Subq, 1st 20sq cm Yes -Debridement, SubQ, ea addt'l 20sq cm 4 or part thereof -Apply Skin Sub - 1st 25 sq cm - Legs 1 -Apply Skin Sub - each addt'l 25 sq cm 1 - Legs -Theraskin (per sq cm) 39 Pain Scale: 0-10 Numeric Is Patient Pain Free? Yes - Nurse 3 - General Ulcer D/C NN Start: 12/23/19 19:43 Freq: Status: Active Protocol: Activity Type Activity Date Activity User E-Sign Co-Sign Detail Recorded Client Recorded Date Recorded By Document 12/24/19 13:39 [facility] [id number] 12/24/19 13:41 [facility] 12/24/19 13:39 Wound Care Nurse 3 #3- L MEDIAL LE -Foul Odor after Cleansing No -Negative Pressure Wound Therapy Continue -Setting (mmHg) 150 -Negative Pressure is Continuous -Other Dressing theraskin per dr lane -NPWT Application Charge ($) NPWT > 50 sq cm Left -Other pts own single layer tubigrip applied Treatment Response Procedure Tolerated Well Pain Scale: 0-10 Numeric Is Patient Pain Free? Yes WC - Visit Discharge Discharge Condition Stable Ambulatory Status Ambulatory, Crutches Transportation Private Auto Accompanied by Facility Type Home Health Wound debrided: leg Laterality: Left Type of Debridement: Excisional debridement Anesthesia Used: 5% Lidocaine Gel Depth: in the subcutaneous layer Percentage of wound debrided: 100 Instrument Used: #15 blade Tissue Removed: fibrous, devitalized subcutaneous, biofilm, slough Severity: Fat Layer Exposed Amount of bleeding with debridement: Mild Bleeding Controlled with: Pressure Patient tolerated procedure well Assessment/Plan Active Problems Ulcer of left lower extremity with fat layer exposed (Chronic) Kidney disease (Acute) Venous insufficiency (Chronic) Non-healing wound of lower extremity (Chronic) Obesity (BMI 30.0-34.9) (Chronic) Assessment: Left leg ulcer with fat layer exposed. Resolved cellulitis and recent abscess the operating room drainage and debridement. Lower extremity edema. Peripheral vascular disease suspected. Obesity. Renal disease. Chronic delayed wound healing left leg Plan: I reviewed and discussed his case. He recently had surgical intervention at [facility] as noted on 12-07-2019. He has a resulting healthy noninfected ulceration to the left leg with a history of delayed healing. Subcutaneous excisional debridement was performed as noted in the clinical panel. I recommend application of advanced wound healing product, TheraSkin, which is a donated cadaver tissue. The indications, benefits, anticipated application, and anticipated serial healing and management was reviewed. Verbal consent was obtained and this was applied per standard protocol. This was secured in place with Dermabond and Steri-Strips and a wound veil. Secondarily a wound VAC was applied. He was advised to keep the wound VAC intact until next week on 150 mmHg continuous. To keep pressure off the ulcer site by avoiding direct pressure laying on the site. To control edema with a Tubigrip. To elevate limbs at rest. To avoid idle standing or sitting. To perform muscular contraction hourly while awake. To avoid excessive salt in the diet. These things will help reduce his edema. I recommend evaluating for venous insufficiency with a Doppler exam with reflux. He also has atrophic and hairless skin and history of delayed ulcer healing. He has some questionable claudication symptoms however does not ambulate a significant degree. I recommend screening with a noninvasive vascular arterial study as well. He is scheduled to have this done next Sunday and he was advised to proceed forward. To complete antibiotic course. I do not recommend additional antibiotics. His cultures from his most recent hospital admission were noted. His labs from within the past 2 weeks are also noted from his recent hospital admission. He did not get these completed yet and relates he will go this upcoming Sunday. He relates he is unable to go to the hospital get this done today. He has delayed healing and risk factors. To return to the wound healing center in 1 week or call sooner if he has any questions, concerns, or return of infection symptoms. I answered all his questions.
--- NOTE | 2019-12-31 10:03 | VDLE_ITS ---
Reason For Study: Edema RIGHT LEFT CFV is compressible, spontaneous, phasic, CFV is compressible, spontaneous, phasic, competent and demonstrates normal competent, and demonstrates normal augmentation. augmentation. FV is compressible, spontaneous, phasic, FV is compressible, spontaneous, phasic, competent and demonstrates normal competent and demonstrates normal augmentation. augmentation. POP V is compressible, spontaneous, phasic, POP V is compressible, spontaneous, phasic, competent and demonstrates normal competent and demonstrates normal augmentation. augmentation. T/P Trunk is compressible. T/P Trunk is compressible. PTV is compressible. PTV is compressible. RT PerV is compressible. LT PerV is compressible. SFJ is competent and measures 0.68 x 0.71 cm. SFJ is INCOMPETENT and measures 0.68 x 0.70 GSV proximal thigh measures 0.60 x 0.72 cm. cm. GSV at knee measures 0.44 x 0.50 cm. GSV proximal thigh measures 0.68 x 0.70 cm. GSV is competent throughout. GSV at knee measures 0.58 x 0.61 cm. ASV distal thigh is INCOMPETENT for greater GSV is competent throughout. than 0.5 seconds and measures 0.37 x 0.39 cm. SSV at junction is competent and measures SSV at junction is competent and measures 0.30 x 0.31 cm. 0.35 x 0.36 cm. Procedure Exam performed in department. Unale to visualized left prox-mid calf veins due to woundvac. A preliminary report was called and/or faxed to . Interpretation Summary Deep veins of the lower extremities are bilaterally patent and compressible segmentally. There is no evidence of deep vein thrombosis on either side. Valvular competence appears intact within the proximal deep venous systems bilaterally. The great saphenous veins appear bilaterally patent and compressible segmentally. The right sapheno-femoral junction is competent . The left sapheno-femoral junction is incompetent . Valvular competence appears to be intact segmentally within the great saphenous veins bilaterally. Small saphenous veins are patent and competent bilaterally. The accessory saphenous vein in the right distal thigh is incompetent. Ordering Physician: Hallie Pemberton Performed By: Yasmin Hill RVT
--- NOTE | 2019-12-31 10:04 | ART_ITS ---
Reason For Study: PVD Procedure A bilateral lower extremity continuous wave Doppler with analog waveform analysis,segmental pressures,and ankle brachial indexes without exercise. Left Segmental Pressures Left brachial= 118mmHg. Left posterior tibial artery = 131mmHg. Left dorsalis pedis artery = 119mmHg. Left digit = 112 mmHg. The left dorsalis pedis waveforms are triphasic. The left posterior tibial artery waveforms are triphasic. Right Segmental Pressures Right brachial= 113mmHg. Right posterior tibial artery = 140mmHg. Right dorsalis pedis artery = 129mmHg. Right digit = 110 mmHg. The right dorsalis pedis waveforms are triphasic. The right posterior tibial artery waveforms are triphasic. Indices The right ankle brachial index by the dorsalis pedis is 1.09. The right ankle brachial index by the posterior tibial artery is 1.19. The right digital-brachial index is 0.93. The left ankle brachial index by the dorsalis pedis is 1.01. The left ankle brachial index by the posterior tibial artery is 1.11. The left digital-brachial index is 0.95. Interpretation Summary Triphasic Doppler waveforms are noted at ankle level bilaterally. Pulse-volume recordings appear satisfactory at all levels bilaterally. Resting ankle-brachial indices are normal bilaterally. Digital-brachial indices are normal bilaterally. There is no evidence of significant arterial occlusive disease in the lower extremities bilaterally. Ordering Physician: Hallie Pemberton Performed By: Yasmin Hill RVT and Student
[2019-12-31 12:00] LABS: Erythrocyte Sedimentation Rate 32 mm/hr (0-20)
[2019-12-31 12:07] LABS: Absolute Lymphocyte Count 1.07 X10^3/uL (0.83-4.51); Absolute Neutrophil Count 4.2 X10^3/uL (2.0-7.7); Basophil# 0.02 X10^3/uL; Basophil% 0.3 % (0-1); Eosinophil# 0.13 X10^3/uL; Eosinophils% 2.2 % (0-5); Hematocrit 30.7 % (40-54); Hemoglobin 9.5 g/dL (13.0-16.5); Lymphocyte # 1.07 X10^3/ul (4.0); Lymphocyte % 18.3 % (19-41); Mean Corp Hgb Conc 30.9 g/dL (32-36); Mean Corpuscular Hgb 31.3 pg (27.0-32.0); Mean Platelet Vol. 10.5 fl (6.2-12.0); Monocyte# 0.43 X10^3/uL; Monocyte% 7.3 % (0-10); NRBC Flagged by Analyzer 0 % (0-5); Neutrophil # 4.19 X10^3/uL (2.7-7.7); Neutrophil % 71.6 % (47-70); Platelet Count 152 K/mm3 (150-450); RBC Distribution Width CV 16.4 % (11.6-14.6); RBC Distribution Width SD 61.1 fl (35.1-43.9); Red Blood Count 3.04 M/mm3 (4.6-6.2); White Blood Count 5.9 K/mm3 (4.4-11.0)
[2019-12-31 12:29] LABS: ALB/GLOB Ratio 0.8 RATIO (0.9-2.4); AST(SGOT) 21 U/L (15-37); Alanine Aminotransfer ALT/SGPT 16 U/L (16-61); Alkaline Phosphatase 63 U/L (45-117); Anion Gap 6 (5-15); BUN 13 mg/dL (7-18); BUN/Creat Ratio 9.8 RATIO (10-20); Calcium,Total 8.5 mg/dL (8.5-10.1); Chloride 110 mmol/L (98-107); Creatinine, Serum 1.33 mg/dL (0.70-1.30); EST Glomerular Filtration Rate 59 mL/min (>60); Est Glom Filt Rate - Afr Amer 72 mL/min (>60); Estimated Creatinine Clearance 62.76 ml/min; Globulin 3.8 g/dL (2.2-4.2); Glucose 84 mg/dL (74-106); Potassium 4.3 mmol/L (3.5-5.1); Protein, Total 6.8 g/dL (6.4-8.2); Sodium Level 139 mmol/L (136-145)
[2019-12-31 12:47] LABS: Hemoglobin A1c < 3.8 % (3.8-5.6)
[2019-12-31 13:54] VITALS: BP 124/78; PULSE 76; RESP 22; TEMP 36.6; BMI 27.3
--- NOTE | 2019-12-31 15:07 | PCM.WC.PN ---
(1) Ulcer of left lower extremity with fat layer exposed Status: Chronic Current Visit: Yes Code(s): L97.922 - Non-pressure chronic ulcer of unspecified part of left lower leg with fat layer exposed (2) Cellulitis of left leg without foot Status: Resolved Current Visit: Yes Code(s): L03.116 - Cellulitis of left lower limb (3) Kidney disease Status: Acute Current Visit: Yes Code(s): N28.9 - Disorder of kidney and ureter, unspecified (4) Peripheral vascular disease Status: Ruled-out Current Visit: Yes Code(s): I73.9 - Peripheral vascular disease, unspecified (5) Non-healing wound of lower extremity Status: Chronic Current Visit: Yes Qualifiers: Encounter type: subsequent encounter Laterality: left Qualified Code(s): S81.802D - Unspecified open wound, left lower leg, subsequent encounter Code(s): S81.809A - Unspecified open wound, unspecified lower leg, initial encounter (6) Obesity (BMI 30.0-34.9) Status: Chronic Current Visit: Yes Code(s): E66.9 - Obesity, unspecified (7) Venous insufficiency Status: Suspected Current Visit: Yes Code(s): I87.2 - Venous insufficiency (chronic) (peripheral) Type of Wound Date of Service: 12/31/19 Chief Complaint: ulcer left leg History of Wound: This 54 year old male presents to the wound center giving a history of chronic wound to his left leg following injury he sustained around 11-06-2019 when he tripped and stumbled into a coffee table. This ulcer site progressively worsened and eventually turned black with odor and purulent drainage. He presented to [facility] and had an incision and drainage with aggressive wound debridement performed on 12-07-2019. He was treated with IV antibiotics and was later discharged home with a wound VAC. He had advanced healing product, TheraSkin applied last week and kept this clean and intact. He denies fever, chill, nausea, vomiting. He had noninvasive vascular studies and labs updated I would like to review the results today. Progress of Wound: Improving - Physical Exam Vital Signs Temp Pulse Resp BP 98 F 76 22 H 124/78 H 12/31/19 13:54 12/31/19 13:54 12/31/19 13:54 12/31/19 13:54 General: Alert, Oriented x3, Cooperative, No apparent distress HEENT: Atraumatic Extremities: No cyanosis, Capillary Refill Less than 3 Seconds, No Calf Tenderness - Compartments soft. Negative Elizabeth and Vega signs, Diminished Peripheral Pulses, Edema Skin: Ulcer/ Wound - No purulence, erythema, streaking, odor, infection. The peripheral skin is hairless and atrophic. The ulcer depth is decreased. The distal aspect of the ulcer has TheraSkin in place and this continues to incorporate in nicely. The proximal aspect has progressive granulation formation. There is no undermining, necrosis, or deep tissue exposure Wound Measurements and Assessment WC - Nurse 1 - General Ulcer Measurement Start: 12/17/19 13:11 Freq: Status: Active Protocol: Activity Type Activity Date Activity User E-Sign Co-Sign Detail Recorded Client Recorded Date Recorded By Document 12/31/19 13:54 JERRY [id number] 12/31/19 14:02 DL 12/31/19 13:54 Wound Center Nurse 1 [Ulcer Assessment] #3- L MEDIAL LE -Current Size (cm) - Length 0.1 -Current Size (cm) - Width 0.1 -Current Size (cm) - Depth 0.1 -Total Square Cm 0.01 -Photo Taken No -Exudate Amt Small -Exudate Type Serosanguineous -Texture (Cammy-wound Skin Appearance) No Abnormality -Moisture (Cammy-wound Skin Appearance Weeping ) -Color (Cammy-wound Skin Appearance) Hemosiderin Staining -Temperature (Cammy-wound Skin No Abnormality Appearance) (Pt Warm) -Tenderness on Palpation (Cammy-wound Yes Skin Appearance) -Ulcer Cleansing Rinsed/ Irrigated with Saline -Foul Odor after Cleansing No WC - Nurse 2 - General Ulcer CM Notes Start: 12/23/19 19:43 Freq: Status: Active Protocol: Activity Type Activity Date Activity User E-Sign Co-Sign Detail Recorded Client Recorded Date Recorded By Document 12/31/19 14:22 CASE [id number] 12/31/19 14:27 CASE 12/31/19 14:22 Wound Center Nurse 2 [Procedure/Treatment] -Time 14:22 -Correct Patient Yes -Correct Side, Site, Position Yes -Correct Procedure Yes -Procedure Performed Yes -Type of Procedure Debridement -Clinical Debridement Subcutaneous -Tissue Removed Subcutaneous -Post Debridement (cm) - Length 12.5 -Post Debridement (cm) - Width 7.2 -Post Debridement (cm) - Depth 0.3 -Total Square (Post) (cm) 90.00 -Area of Debridement (cm) - Length 7.5 -Area of Debridement (cm) - Width 6.0 -Total Square (Area) (cm) 45.00 -Tunneling No -Undermining/Tunneling No -Circular Undermining No -Wound/Ulcer Outcome Not Healed -Ulcer Cleansing Rinsed/ Irrigated with Saline -Foul Odor after Cleansing No -Bioengineered Tissue Yes -Type of Bioengineered Tissue Theraskin -Expiration Date 07/06/24 -Product Lot Number [id number] -Percent Used 100 -Saline Lot Number [id number] -Bleeding Controlled with Pressure -Offloading No -Treatment Response Procedure Tolerated Well -Debridement - Subq, 1st 20sq cm No -Debridement, SubQ, ea addt'l 20sq cm 2 or part thereof -Theraskin (per sq cm) 39 [See Physician Procedure note for Specifics] Pain Scale: 0-10 Numeric [Pain] -Is Patient Pain Free? Yes - Nurse 3 - General Ulcer D/C NN Start: 12/23/19 19:43 Freq: Status: Active Protocol: Activity Type Activity Date Activity User E-Sign Co-Sign Detail Recorded Client Recorded Date Recorded By Document 12/31/19 14:34 [id number] 12/31/19 14:36 RB 12/31/19 14:34 Wound Care Nurse 3 [Wound Dressing] #3- L MEDIAL LE -Negative Pressure Wound Therapy Continue -Setting (mmHg) 150 -Negative Pressure is Continuous -NPWT Application Charge ($) NPWT > 50 sq cm [Compression Applied] Left -Size of Tubigrip Used Size D -Size D ($) 1 [Post Procedure Tolerated] -Treatment Response Procedure Tolerated Well Pain Scale: 0-10 Numeric [Pain] -Is Patient Pain Free? Yes - Visit Discharge [Visit Discharge Information] -Discharge Condition Stable -Transportation Private Auto -Medication Reconcilliation completed No & provided to patient/care provider -Clinical Summary of Care Provided Yes Musculoskeletal: No Tenderness to Palpation of Joints or Extremities, Muscle Wasting Neurological: Sensory exam intact to light touch and pain Psych/Mental Status: Normal Affect, Appropriate Debridement Note Post-Debridement Measurements/Treatment - Nurse 2 - General Ulcer CM Notes Start: 12/23/19 19:43 Freq: Status: Active Protocol: Activity Type Activity Date Activity User E-Sign Co-Sign Detail Recorded Client Recorded Date Recorded By Document 12/24/19 13:25 [id number] 12/24/19 13:32 Document 12/31/19 14:22 [id number] 12/31/19 14:27 12/24/19 12/31/19 13:25 14:22 Wound Center Nurse 2 #3- L MEDIAL LE -Time 13:26 14:22 -Correct Patient Yes Yes -Correct Side, Site, Position Yes Yes -Correct Procedure Yes Yes -Procedure Performed Yes Yes -Type of Procedure Debridement Debridement -Clinical Debridement Subcutaneous Subcutaneous -Tissue Removed Subcutaneous Subcutaneous -Post Debridement (cm) - Length 12.5 12.5 -Post Debridement (cm) - Width 8 7.2 -Post Debridement (cm) - Depth 0.3 0.3 -Total Square (Post) (cm) 100.0 90.00 -Area of Debridement (cm) - Length 12.5 7.5 -Area of Debridement (cm) - Width 8 6.0 -Total Square (Area) (cm) 100.0 45.00 -Tunneling No No -Undermining/Tunneling No No -Circular Undermining No No -Wound/Ulcer Outcome Not Healed Not Healed -Ulcer Cleansing Rinsed/ Rinsed/ Irrigated with Irrigated with Saline Saline -Foul Odor after Cleansing No No -Bioengineered Tissue Yes Yes -Type of Bioengineered Tissue Theraskin Theraskin -Expiration Date 02/14/24 07/06/24 -Product Lot Number [id number] -Percent Used 100 100 -Saline Lot Number [id number] -Bleeding Controlled with Pressure Pressure -Offloading No No -Treatment Response Procedure Procedure Tolerated Well Tolerated Well -Debridement - Subq, 1st 20sq cm Yes No -Debridement, SubQ, ea addt'l 20sq cm 4 2 or part thereof -Apply Skin Sub - 1st 100 sq cm - Legs 1 -Theraskin (per sq cm) 39 39 Pain Scale: 0-10 Numeric Is Patient Pain Free? Yes Yes WC - Nurse 3 - General Ulcer D/C NN Start: 12/23/19 19:43 Freq: Status: Active Protocol: Activity Type Activity Date Activity User E-Sign Co-Sign Detail Recorded Client Recorded Date Recorded By Document 12/24/19 13:39 [facility] [id number] 12/24/19 13:41 [facility] Document 12/31/19 14:34 [id number] 12/31/19 14:36 12/24/19 12/31/19 13:39 14:34 Wound Care Nurse 3 #3- L MEDIAL LE -Foul Odor after Cleansing No -Negative Pressure Wound Therapy Continue Continue -Setting (mmHg) 150 150 -Negative Pressure is Continuous Continuous -Other Dressing theraskin per dr lane -NPWT Application Charge ($) NPWT > 50 sq cm NPWT > 50 sq cm Left -Size of Tubigrip Used Size D -Size D ($) 1 -Other pts own single layer tubigrip applied Treatment Response Procedure Procedure Tolerated Well Tolerated Well Pain Scale: 0-10 Numeric Is Patient Pain Free? Yes Yes WC - Visit Discharge Discharge Condition Stable Stable Ambulatory Status Ambulatory, Crutches Transportation Private Auto Private Auto Accompanied by Medication Reconcilliation completed & No provided to patient/care provider Clinical Summary of Care Provided Yes Facility Type [facility] Wound debrided: leg Laterality: Right Type of Debridement: Excisional debridement Anesthesia Used: 5% Lidocaine Gel Depth: in the subcutaneous layer Percentage of wound debrided: 100 Instrument Used: #15 blade Tissue Removed: fibrous, devitalized subcutaneous, biofilm, slough Severity: Fat Layer Exposed Amount of bleeding with debridement: Mild Bleeding Controlled with: Pressure Patient tolerated procedure well Assessment/Plan Active Problems Ulcer of left lower extremity with fat layer exposed (Chronic) Kidney disease (Acute) Non-healing wound of lower extremity (Chronic) Obesity (BMI 30.0-34.9) (Chronic) Assessment: Left leg ulcer with fat layer exposed. Resolved cellulitis and recent abscess the operating room drainage and debridement. Lower extremity edema. Venous insufficiency suspected and Doppler results pending. Peripheral vascular disease not detected with noninvasive vascular studies reviewed. Obesity. Renal disease. Chronic delayed wound healing left leg Plan: I reviewed and discussed his case. He recently had surgical intervention at [facility] as noted on 12-07-2019. He has a resulting healthy noninfected ulceration to the left leg with a history of delayed healing. Subcutaneous excisional debridement was performed as noted in the clinical panel to the proximal portion of the ulcer bed. The distal ulcer has a TheraSkin, advanced wound healing product, in place and this is incorporating well. This was left intact until next week. I recommend application of advanced wound healing product, TheraSkin, which is a donated cadaver tissue. The indications, benefits, anticipated application, and anticipated serial healing and management was reviewed. Verbal consent was obtained and this was applied per standard protocol to the proximal aspect of this ulcer site. This was secured in place with Dermabond and Steri-Strips and a wound veil. Secondarily a wound VAC was applied. He was advised to keep the wound VAC intact until next week on 150 mmHg continuous. To keep pressure off the ulcer site by avoiding direct pressure laying on the site. To control edema with a Tubigrip. To elevate limbs at rest. To avoid idle standing or sitting. To perform muscular contraction hourly while awake. To avoid excessive salt in the diet. These things will help reduce his edema. I recommend evaluating for venous insufficiency with a Doppler exam with reflux. He relates this test has been completed however it is not viewable in the electronic health record system yet. This was received after clinic and was reviewed as the following: Incompetent SF J on the left lower extremity and the left proximal mid calf veins were not evaluated due to the wound VAC placement. Also has some incompetent findings noted on the contralateral right lower extremity. A venous specialist referral will be considered at follow-up. The results will be requested and reviewed upon receipt. He also has atrophic and hairless skin and history of delayed ulcer healing. He has some questionable claudication symptoms however does not ambulate a significant degree. I recommend screening with a noninvasive vascular arterial study as well. He has triphasic waveforms and normal ABIs. He completed a course of antibiotics. His cultures from his most recent hospital admission were noted. His labs from within the past 2 weeks are also noted from his recent hospital admission. His labs are reviewed today and it is noted his hemoglobin A1c level is not elevated. He does not have leukocytosis. His ESR was 32 and C-reactive protein was 100. His albumin level 3.0. He has delayed healing and risk factors. To return to the wound healing center in 1 week or call sooner if he has any questions, concerns, or return of infection symptoms. I answered all his questions.
== END 2020-01-05 23:59 ==
LOC: WC 13:45
PROVIDERS: Referring Provider Podiatrist; Visit Provider Podiatrist
DX: I87.2 Venous insufficiency (chronic) (peripheral) (principal); L97.822 Non-pressure chronic ulcer of other part of left lower leg with fat layer exposed; N28.9 Disorder of kidney and ureter, unspecified; E66.9 Obesity, unspecified; I73.9 Peripheral vascular disease, unspecified; R60.0 Localized edema
CPT/HCPCS: 11042; 11045; 15271; 15272; 15273; 36415; 80053; 83036; 85025; 85652; 86140; 93923; 93970; 97606; 99213; Q4121; G0463

== ENCOUNTER 2020-02-04 14:45 | Outpatient (RCR) | payer MEDICAID, SELFPAY ==
[2020-01-06 00:18] VITALS: BP 124/78; PULSE 76; RESP 22; TEMP 36.6
[2020-01-07 14:57] VITALS: BP 107/67; PULSE 86; RESP 16; TEMP 37; BMI 27.3
--- NOTE | 2020-01-07 15:01 | WC ---
THERASKIN LEFT IN PLACE
--- NOTE | 2020-01-07 22:25 | PCM.WC.PN ---
(1) Ulcer of left lower extremity with fat layer exposed Status: Chronic Code(s): L97.922 - Non-pressure chronic ulcer of unspecified part of left lower leg with fat layer exposed (2) Non-healing wound of lower extremity Status: Chronic Qualifiers: Encounter type: subsequent encounter Laterality: left Qualified Code(s): S81.802D - Unspecified open wound, left lower leg, subsequent encounter Code(s): S81.809A - Unspecified open wound, unspecified lower leg, initial encounter (3) Cellulitis of left leg without foot Status: Resolved Code(s): L03.116 - Cellulitis of left lower limb Type of Wound Date of Service: 01/07/20 Chief Complaint: ulcer left leg History of Wound: This 54 year old male presents to the wound center giving a history of chronic wound to his left leg following injury he sustained around 11-06-2019 when he tripped and stumbled into a coffee table. This ulcer site progressively worsened and eventually turned black with odor and purulent drainage. He presented to [facility] and had an incision and drainage with aggressive wound debridement performed on 12-07-2019. He was treated with IV antibiotics and was later discharged home with a wound VAC. He had advanced healing product, TheraSkin applied last week and kept this clean and intact. He denies fever, chill, nausea, vomiting. He kept advanced product TheraSkin and wound VAC in place. Progress of Wound: Improving - Physical Exam Vital Signs Temp Pulse Resp BP 98.6 F 86 16 107/67 01/07/20 14:57 01/07/20 14:57 01/07/20 14:57 01/07/20 14:57 General: Alert, Oriented x3, Cooperative Extremities: No cyanosis, Capillary Refill Less than 3 Seconds, No Calf Tenderness, Diminished Peripheral Pulses, Edema - Mild Skin: Ulcer/ Wound - No purulence, erythema, string, odor, infection. There is skin advanced cadaveric skin graft is intact without disruption. Upon debridement of the distal half of the wound bed there is healthy bleeding granular tissue. There is no longer any exposed fascial tissue. Hemostasis was controlled., - - Adjacent skin is hairless and atrophic Wound Measurements and Assessment WC - Nurse 1 - General Ulcer Measurement Start: 01/07/20 14:57 Freq: Status: Active Protocol: Activity Type Activity Date Activity User E-Sign Co-Sign Detail Recorded Client Recorded Date Recorded By Document 01/07/20 14:57 [facility] [id number] 01/07/20 15:01 [facility] 01/07/20 14:57 Wound Center Nurse 1 [Ulcer Assessment] #3- L MEDIAL LE -Combined with other wound No -Current Size (cm) - Length 0.1 -Current Size (cm) - Width 0.1 -Current Size (cm) - Depth 0.1 -Total Square Cm 0.01 - Nurse 2 - General Ulcer CM Notes Start: 01/07/20 14:57 Freq: Status: Active Protocol: Activity Type Activity Date Activity User E-Sign Co-Sign Detail Recorded Client Recorded Date Recorded By Document 01/07/20 15:14 [id number] 01/07/20 15:21 01/07/20 15:14 Wound Center Nurse 2 [Procedure/Treatment] -Time 15:15 -Correct Patient Yes -Correct Side, Site, Position Yes -Correct Procedure Yes -Procedure Performed Yes -Type of Procedure Debridement -Clinical Debridement Subcutaneous -Tissue Removed Subcutaneous -Post Debridement (cm) - Length 8.0 -Post Debridement (cm) - Width 6.4 -Post Debridement (cm) - Depth 0.2 -Total Square (Post) (cm) 51.20 -Area of Debridement (cm) - Length 8.0 -Area of Debridement (cm) - Width 6.4 -Total Square (Area) (cm) 51.20 -Tunneling No -Undermining/Tunneling No -Circular Undermining No -Wound/Ulcer Outcome Not Healed -Ulcer Cleansing Rinsed/ Irrigated with Saline -Foul Odor after Cleansing No -Bioengineered Tissue Yes -Type of Bioengineered Tissue Theraskin -Expiration Date 07/07/24 -Product Lot Number [id number] -Percent Used 100 -Saline Lot Number [id number] -Bleeding Controlled with Pressure -Offloading No -Treatment Response Procedure Tolerated Well -Debridement - Subq, 1st 20sq cm No -Apply Skin Sub - 1st 25 sq cm - Legs 1 -Apply Skin Sub - each addt'l 25 sq 2 cm - Legs -Theraskin (per sq cm) 39 [See Physician Procedure note for Specifics] Pain Scale: 0-10 Numeric [Pain] -Is Patient Pain Free? Yes - Nurse 3 - General Ulcer D/C NN Start: 01/07/20 14:57 Freq: Status: Active Protocol: Activity Type Activity Date Activity User E-Sign Co-Sign Detail Recorded Client Recorded Date Recorded By Document 01/07/20 15:32 [facility] [id number] 01/07/20 15:34 [facility] 01/07/20 15:32 Wound Care Nurse 3 [Wound Dressing] #3- L MEDIAL LE -Foul Odor after Cleansing No -Negative Pressure Wound Therapy Continue -Setting (mmHg) 150 -Negative Pressure is Continuous -Primary Dressing Applied Other -Other Dressing theraskin per dr lane -NPWT Application Charge ($) NPWT > 50 sq cm [Compression Applied] Left -Other applied own tubigrip [Post Procedure Tolerated] -Treatment Response Procedure Tolerated Well Pain Scale: 0-10 Numeric [Pain] -Is Patient Pain Free? Yes - Visit Discharge [Visit Discharge Information] -Discharge Condition Stable -Ambulatory Status Ambulatory, Crutches -Transportation Private Auto [Facility Notification] -Facility Type Home Health Musculoskeletal: Muscle Wasting, Tenderness - Mild with ulcer manipulation Neurological: Sensory exam intact to light touch and pain Psych/Mental Status: Normal Affect, Appropriate Debridement Note Post-Debridement Measurements/Treatment - Nurse 2 - General Ulcer CM Notes Start: 01/07/20 14:57 Freq: Status: Active Protocol: Activity Type Activity Date Activity User E-Sign Co-Sign Detail Recorded Client Recorded Date Recorded By Document 01/07/20 15:14 [id number] 01/07/20 15:21 01/07/20 15:14 Wound Center Nurse 2 #3- L MEDIAL LE -Time 15:15 -Correct Patient Yes -Correct Side, Site, Position Yes -Correct Procedure Yes -Procedure Performed Yes -Type of Procedure Debridement -Clinical Debridement Subcutaneous -Tissue Removed Subcutaneous -Post Debridement (cm) - Length 8.0 -Post Debridement (cm) - Width 6.4 -Post Debridement (cm) - Depth 0.2 -Total Square (Post) (cm) 51.20 -Area of Debridement (cm) - Length 8.0 -Area of Debridement (cm) - Width 6.4 -Total Square (Area) (cm) 51.20 -Tunneling No -Undermining/Tunneling No -Circular Undermining No -Wound/Ulcer Outcome Not Healed -Ulcer Cleansing Rinsed/ Irrigated with Saline -Foul Odor after Cleansing No -Bioengineered Tissue Yes -Type of Bioengineered Tissue Theraskin -Expiration Date 07/07/24 -Product Lot Number [id number] -Percent Used 100 -Saline Lot Number [id number] -Bleeding Controlled with Pressure -Offloading No -Treatment Response Procedure Tolerated Well -Debridement - Subq, 1st 20sq cm No -Apply Skin Sub - 1st 25 sq cm - Legs 1 -Apply Skin Sub - each addt'l 25 sq cm 2 - Legs -Theraskin (per sq cm) 39 Pain Scale: 0-10 Numeric Is Patient Pain Free? Yes - Nurse 3 - General Ulcer D/C NN Start: 01/07/20 14:57 Freq: Status: Active Protocol: Activity Type Activity Date Activity User E-Sign Co-Sign Detail Recorded Client Recorded Date Recorded By Document 01/07/20 15:32 [facility] [id number] 01/07/20 15:34 [facility] 01/07/20 15:32 Wound Care Nurse 3 #3- L MEDIAL LE -Foul Odor after Cleansing No -Negative Pressure Wound Therapy Continue -Setting (mmHg) 150 -Negative Pressure is Continuous -Primary Dressing Applied Other -Other Dressing theraskin per dr lane -NPWT Application Charge ($) NPWT > 50 sq cm Left -Other applied own tubigrip Treatment Response Procedure Tolerated Well Pain Scale: 0-10 Numeric Is Patient Pain Free? Yes - Visit Discharge Discharge Condition Stable Ambulatory Status Ambulatory, Crutches Transportation Private [facility] Facility Type Home Health Wound debrided: leg Laterality: Left Type of Debridement: Excisional debridement Anesthesia Used: 5% Lidocaine Gel Depth: in the subcutaneous layer Percentage of wound debrided: 100 Instrument Used: #15 blade, Forceps Tissue Removed: fibrous, devitalized subcutaneous, biofilm, slough Severity: Fat Layer Exposed Amount of bleeding with debridement: Mild Bleeding Controlled with: Pressure Patient tolerated procedure well Assessment/Plan Assessment: Left leg ulcer with fat layer exposed. Resolved cellulitis and recent abscess the operating room drainage and debridement. Lower extremity edema. Venous insufficiency suspected and Doppler results pending. Peripheral vascular disease not detected with noninvasive vascular studies reviewed. Obesity. Renal disease. Chronic delayed wound healing left leg Plan: I reviewed and discussed his case. He recently had surgical intervention at [facility] as noted on 12-07-2019. He has a resulting healthy noninfected ulceration to the left leg with a history of delayed healing. Subcutaneous excisional debridement was performed as noted in the clinical panel to the proximal portion of the ulcer bed. The distal and proximal aspects of the ulcer has a TheraSkin, advanced wound healing product, in place and this is incorporating well. This proximal portion will left intact until next week. I recommend application of advanced wound healing product, TheraSkin, which is a donated cadaver tissue and reapplication to the distal half of the ulcer bed. The indications, benefits, anticipated application, and anticipated serial healing and management was reviewed. Verbal consent was obtained and this was applied per standard protocol to the proximal aspect of this ulcer site. This was secured in place with Dermabond and Steri-Strips and a wound veil. Secondarily a wound VAC was applied. He was advised to keep the wound VAC intact until next week on 150 mmHg continuous. To keep pressure off the ulcer site by avoiding direct pressure laying on the site. To control edema with a Tubigrip. To elevate limbs at rest. To avoid idle standing or sitting. To perform muscular contraction hourly while awake. To avoid excessive salt in the diet. These things will help reduce his edema. I recommend evaluating for venous insufficiency with a Doppler exam with reflux. This was reviewed as the following: Incompetent SF J on the left lower extremity and the left proximal mid calf veins were not evaluated due to the wound VAC placement. Also has some incompetent findings noted on the contralateral right lower extremity. A venous specialist referral will be considered at follow-up. The results will be requested and reviewed upon receipt. He also has atrophic and hairless skin and history of delayed ulcer healing. He has some questionable claudication symptoms however does not ambulate a significant degree. I recommend screening with a noninvasive vascular arterial study as well. He has triphasic waveforms and normal ABIs. He completed a course of antibiotics. His cultures from his most recent hospital admission were noted. His labs from within the past 2 weeks are also noted from his recent hospital admission. His labs are reviewed today and it is noted his hemoglobin A1c level is not elevated. He does not have leukocytosis. His ESR was 32 and C-reactive protein was 100. His albumin level 3.0. He has delayed healing and risk factors. To return to the wound healing center in 1 week or call sooner if he has any questions, concerns, or return of infection symptoms. I answered all his questions.
[2020-01-14 14:29] VITALS: BP 143/96; PULSE 63; RESP 16; TEMP 36.3; BMI 27.3
--- NOTE | 2020-01-14 14:37 | WC ---
theraskin left in place for md to remove
--- NOTE | 2020-01-14 16:02 | PCM.WC.PN ---
(1) Ulcer of left lower extremity with fat layer exposed Status: Chronic Current Visit: Yes Code(s): L97.922 - Non-pressure chronic ulcer of unspecified part of left lower leg with fat layer exposed (2) Non-healing wound of lower extremity Status: Chronic Current Visit: Yes Qualifiers: Encounter type: subsequent encounter Laterality: left Qualified Code(s): S81.802D - Unspecified open wound, left lower leg, subsequent encounter Code(s): S81.809A - Unspecified open wound, unspecified lower leg, initial encounter (3) Cellulitis of left leg without foot Status: Resolved Current Visit: Yes Code(s): L03.116 - Cellulitis of left lower limb Type of Wound Date of Service: 01/14/20 Chief Complaint: ulcer left leg History of Wound: This 54 year old male presents to the wound center giving a history of chronic wound to his left leg following injury he sustained around 11-06-2019 when he tripped and stumbled into a coffee table. This ulcer site progressively worsened and eventually turned black with odor and purulent drainage. He presented to [facility] and had an incision and drainage with aggressive wound debridement performed on 12-07-2019. He was treated with IV antibiotics and was later discharged home with a wound VAC. He had advanced healing product, TheraSkin applied last week and kept this clean and intact. He denies fever, chill, nausea, vomiting. He kept advanced product TheraSkin and wound VAC in place. Progress of Wound: Improving - Physical Exam Vital Signs Temp Pulse Resp BP 97.4 F L 63 16 143/96 H 01/14/20 14:29 01/14/20 14:29 01/14/20 14:29 01/14/20 14:29 General: Alert, Oriented x3, Cooperative Extremities: No cyanosis, Capillary Refill Less than 3 Seconds, No Calf Tenderness, Diminished Peripheral Pulses, Edema Skin: Ulcer/ Wound - No purulence, erythema, streaking, odor, infection. Continue reduction ulcer depth and peripheral epithelialization continue. The remaining ulcer bed at the proximal aspect is granulating in well and the donated cadaver graft has incorporated excellent. There is no necrosis or deep tissue exposure Wound Measurements and Assessment WC - Nurse 1 - General Ulcer Measurement Start: 01/07/20 14:57 Freq: Status: Active Protocol: Activity Type Activity Date Activity User E-Sign Co-Sign Detail Recorded Client Recorded Date Recorded By Document 01/14/20 14:29 [facility] [id number] 01/14/20 14:37 [facility] 01/14/20 14:29 Wound Center Nurse 1 [Ulcer Assessment] #3- L MEDIAL LE -Combined with other wound No -Current Size (cm) - Length 0.1 -Current Size (cm) - Width 0.1 -Current Size (cm) - Depth 0.1 -Total Square Cm 0.01 [Edema Assessment] -Lower Limb Edema Present Yes -Left Calf (cm) 34.3 -Left Ankle (cm) 22.2 WC - Nurse 2 - General Ulcer CM Notes Start: 01/07/20 14:57 Freq: Status: Active Protocol: Activity Type Activity Date Activity User E-Sign Co-Sign Detail Recorded Client Recorded Date Recorded By Document 01/14/20 14:51 [id number] 01/14/20 14:59 01/14/20 14:51 Wound Center Nurse 2 [Procedure/Treatment] #3- L MEDIAL LE -Time 14:51 -Correct Patient Yes -Correct Side, Site, Position Yes -Correct Procedure Yes -Procedure Performed Yes -Type of Procedure Debridement -Clinical Debridement Subcutaneous -Tissue Removed Subcutaneous -Post Debridement (cm) - Length 10.0 -Post Debridement (cm) - Width 4.3 -Post Debridement (cm) - Depth 0.1 -Total Square (Post) (cm) 43.00 -Area of Debridement (cm) - Length 10 -Area of Debridement (cm) - Width 4.3 -Total Square (Area) (cm) 43.0 -Tunneling No -Undermining/Tunneling No -Circular Undermining No -Wound/Ulcer Outcome Not Healed -Ulcer Cleansing Rinsed/ Irrigated with Saline -Foul Odor after Cleansing No -Bioengineered Tissue Yes -Type of Bioengineered Tissue Theraskin -Expiration Date 07/18/24 -Product Lot Number [id number] -Percent Used 100 -Saline Lot Number [id number] -Bleeding Controlled with Pressure -Offloading No -Treatment Response Procedure Tolerated Well -Debridement - Subq, 1st 20sq cm No -Debridement, SubQ, ea addt'l 20sq cm 0 or part thereof -Apply Skin Sub - 1st 25 sq cm - Legs 1 -Apply Skin Sub - 1st 25 sq cm - Feet 1 -Theraskin (per sq cm) 39 [See Physician Procedure note for Specifics] Pain Scale: 0-10 Numeric [Pain] -Is Patient Pain Free? Yes - Nurse 3 - General Ulcer D/C NN Start: 01/07/20 14:57 Freq: Status: Active Protocol: Activity Type Activity Date Activity User E-Sign Co-Sign Detail Recorded Client Recorded Date Recorded By Document 01/14/20 15:09 [facility] [id number] 01/14/20 15:11 [facility] 01/14/20 15:09 Wound Care Nurse 3 [Wound Dressing] #3- L MEDIAL LE -Primary Dressing Applied Other -Other Dressing THERASKIN PER DR SHETH -Other Covering WOUND VAC APPLIED PER Anabela TITUS RN -NPWT Application Charge ($) NPWT </= 50 sq cm [Compression Applied] Left -Tubular Bandage Single Layer -Size of Tubigrip Used Size D -Size D ($) 1 [Post Procedure Tolerated] -Treatment Response Procedure Tolerated Well Pain Scale: 0-10 Numeric [Pain] -Is Patient Pain Free? Yes - Visit Discharge [Visit Discharge Information] -Discharge Condition Stable -Ambulatory Status Ambulatory, Crutches -Transportation Private Auto -Accompanied by Musculoskeletal: No Tenderness to Palpation of Joints or Extremities, Muscle Wasting Neurological: Sensory exam intact to light touch and pain, - Debridement Note Post-Debridement Measurements/Treatment - Nurse 2 - General Ulcer CM Notes Start: 01/07/20 14:57 Freq: Status: Active Protocol: Activity Type Activity Date Activity User E-Sign Co-Sign Detail Recorded Client Recorded Date Recorded By Document 01/07/20 15:14 [id number] 01/07/20 15:21 Document 01/14/20 14:51 [id number] 01/14/20 14:59 01/07/20 01/14/20 15:14 14:51 Wound Center Nurse 2 #3- L MEDIAL LE -Time 15:15 14:51 -Correct Patient Yes Yes -Correct Side, Site, Position Yes Yes -Correct Procedure Yes Yes -Procedure Performed Yes Yes -Type of Procedure Debridement Debridement -Clinical Debridement Subcutaneous Subcutaneous -Tissue Removed Subcutaneous Subcutaneous -Post Debridement (cm) - Length 8.0 10.0 -Post Debridement (cm) - Width 6.4 4.3 -Post Debridement (cm) - Depth 0.2 0.1 -Total Square (Post) (cm) 51.20 43.00 -Area of Debridement (cm) - Length 8.0 10 -Area of Debridement (cm) - Width 6.4 4.3 -Total Square (Area) (cm) 51.20 43.0 -Tunneling No No -Undermining/Tunneling No No -Circular Undermining No No -Wound/Ulcer Outcome Not Healed Not Healed -Ulcer Cleansing Rinsed/ Rinsed/ Irrigated with Irrigated with Saline Saline -Foul Odor after Cleansing No No -Bioengineered Tissue Yes Yes -Type of Bioengineered Tissue Theraskin Theraskin -Expiration Date 07/07/24 07/18/24 -Product Lot Number [id number] -Percent Used 100 100 -Saline Lot Number [id number] -Bleeding Controlled with Pressure Pressure -Offloading No No -Treatment Response Procedure Procedure Tolerated Well Tolerated Well -Debridement - Subq, 1st 20sq cm No No -Debridement, SubQ, ea addt'l 20sq cm 0 or part thereof -Apply Skin Sub - 1st 25 sq cm - Legs 1 1 -Apply Skin Sub - each addt'l 25 sq cm 2 - Legs -Apply Skin Sub - 1st 25 sq cm - Feet 1 -Theraskin (per sq cm) 39 39 Pain Scale: 0-10 Numeric Is Patient Pain Free? Yes Yes - Nurse 3 - General Ulcer D/C NN Start: 01/07/20 14:57 Freq: Status: Active Protocol: Activity Type Activity Date Activity User E-Sign Co-Sign Detail Recorded Client Recorded Date Recorded By Document 01/07/20 15:32 [facility] [id number] 01/07/20 15:34 [facility] Document 01/14/20 15:09 [facility] [id number] 01/14/20 15:11 [facility] 01/07/20 01/14/20 15:32 15:09 Wound Care Nurse 3 #3- L MEDIAL LE -Foul Odor after Cleansing No -Negative Pressure Wound Therapy Continue -Setting (mmHg) 150 -Negative Pressure is Continuous -Primary Dressing Applied Other Other -Other Dressing theraskin per [place]ER[place] PER dr domingo SHETH -Other Covering WOUND VAC APPLIED PER Anabela TITUS RN -NPWT Application Charge ($) NPWT > 50 sq cm NPWT </= 50 sq cm Left -Tubular Bandage Single Layer -Size of Tubigrip Used Size D -Size D ($) 1 -Other applied own tubigrip Treatment Response Procedure Procedure Tolerated Well Tolerated Well Pain Scale: 0-10 Numeric Is Patient Pain Free? Yes Yes WC - Visit Discharge Discharge Condition Stable Stable Ambulatory Status Ambulatory, Ambulatory, Crutches Crutches Transportation Private Auto Private Auto Accompanied by Facility Type Home Health Wound debrided: leg (proximal portion) Laterality: Left Type of Debridement: Excisional debridement Anesthesia Used: 5% Lidocaine Gel Depth: in the subcutaneous layer Percentage of wound debrided: 100 Instrument Used: #15 blade Tissue Removed: fibrous, devitalized subcutaneous, biofilm, slough Severity: Fat Layer Exposed Amount of bleeding with debridement: Mild Bleeding Controlled with: Pressure Patient tolerated procedure well Assessment/Plan Active Problems Ulcer of left lower extremity with fat layer exposed (Chronic) Non-healing wound of lower extremity (Chronic) Assessment: Left leg ulcer with fat layer exposed. Resolved cellulitis and recent abscess the operating room drainage and debridement. Lower extremity edema. Venous insufficiency suspected and Doppler results pending. Peripheral vascular disease not detected with noninvasive vascular studies reviewed. Obesity. Renal disease. Chronic delayed wound healing left leg Plan: I reviewed and discussed his case. He recently had surgical intervention at [facility] as noted on 12-07-2019. He has a resulting healthy noninfected ulceration to the left leg with a history of delayed healing. Subcutaneous excisional debridement was performed as noted in the clinical panel to the proximal portion of the ulcer bed. The distal proximal aspects of the ulcer has a TheraSkin, advanced wound healing product, in place and this is incorporating well. This proximal portion will left intact until next week also. I recommend application of advanced wound healing product, TheraSkin, which is a donated cadaver tissue and reapplication to the proximal half of the ulcer bed. The indications, benefits, anticipated application, and anticipated serial healing and management was reviewed. Verbal consent was obtained and this was applied per standard protocol to the proximal aspect of this ulcer site. This was secured in place with Dermabond and Steri-Strips and a wound veil. Secondarily a wound VAC was applied. He was advised to keep the wound VAC intact until next week on 150 mmHg continuous. To keep pressure off the ulcer site by avoiding direct pressure laying on the site. To control edema with a Tubigrip. To elevate limbs at rest. To avoid idle standing or sitting. To perform muscular contraction hourly while awake. To avoid excessive salt in the diet. These things will help reduce his edema. I recommend evaluating for venous insufficiency with a Doppler exam with reflux. This was reviewed as the following: Incompetent SF J on the left lower extremity and the left proximal mid calf veins were not evaluated due to the wound VAC placement. Also has some incompetent findings noted on the contralateral right lower extremity. A venous specialist referral will be considered at follow-up. The results will be requested and reviewed upon receipt. He also has atrophic and hairless skin and history of delayed ulcer healing. He has some questionable claudication symptoms however does not ambulate a significant degree. I recommend screening with a noninvasive vascular arterial study as well. He has triphasic waveforms and normal ABIs. He completed a course of antibiotics. His cultures from his most recent hospital admission were noted. His labs from within the past 2 weeks are also noted from his recent hospital admission. His labs are reviewed today and it is noted his hemoglobin A1c level is not elevated. He does not have leukocytosis. His ESR was 32 and C-reactive protein was 100. His albumin level 3.0. He has delayed healing and risk factors. To return to the wound healing center in 1 week or call sooner if he has any questions, concerns, or return of infection symptoms. I answered all his questions.
[2020-01-22 10:31] VITALS: BP 123/87; PULSE 95; RESP 16; TEMP 36.4; BMI 27.3
[2020-01-28 14:48] VITALS: BP 122/75; PULSE 80; RESP 16; TEMP 36.7; BMI 27.3
[2020-01-28 15:46] VITALS: BP 125/75; PULSE 80; RESP 18
--- NOTE | 2020-01-28 16:07 | PN.PCM_ITS ---
(1) Ulcer of left lower extremity with fat layer exposed Status: Chronic Current Visit: Yes Code(s): L97.922 - Non-pressure chronic ulcer of unspecified part of left lower leg with fat layer exposed (2) Non-healing wound of lower extremity Status: Chronic Current Visit: Yes Qualifiers: Encounter type: subsequent encounter Laterality: left Qualified Code(s): S81.802D - Unspecified open wound, left lower leg, subsequent encounter Code(s): S81.809A - Unspecified open wound, unspecified lower leg, initial encou nter (3) Cellulitis of left leg without foot Status: Resolved Current Visit: Yes Code(s): L03.116 - Cellulitis of left lower limb (4) Venous insufficiency (chronic) (peripheral) Status: Chronic Current Visit: Yes Code(s): I87.2 - Venous insufficiency (chronic) (peripheral) Type of Wound Date of Service: 01/28/20 Chief Complaint: ulcer left leg History of Wound: This 54 year old male presents to the wound center giving a history of chronic wound to his left leg following injury he sustained around 11-06-2019 when he tripped and stumbled into a coffee table. This ulcer site progressively worsened and eventually turned black with odor and purulent drainage. He presented to [facility] and had an incision and drainage with aggressive wound debridement performed on 12-07-2019. He was treated with IV antibiotics and was later discharged home with a wound VAC. He had advanced healing product, TheraSkin applied last week and kept this clean and intact. He denies fever, chill, nausea, vomiting. He is with his today. Progress of Wound: Improving - Physical Exam Vital Signs Temp Pulse Resp BP 98.1 F 80 18 125/75 H 01/28/20 14:48 01/28/20 15:46 01/28/20 15:46 01/28/20 15:46 General: Alert, Oriented x3, Cooperative, No apparent distress HEENT: Atraumatic Extremities: No cyanosis, Capillary Refill Less than 3 Seconds, No Calf Tenderness - Negative Elizabeth and Vega sign, Edema, Peripheral Pulses Normal Skin: Ulcer/ Wound - No purulence, erythema, streaking, deep tissue exposure or infection. There is an odor noted with the wound VAC however not after debridement., - - His skin is hairless and atrophic. The ulcer has significant reduced size with peripheral epithelialization Wound Measurements and Assessment WC - Nurse 1 - General Ulcer Measurement Start: 01/07/20 14:57 Freq: Status: Active Protocol: Activity Type Activity Date Activity User E-Sign Co-Sign Detail Recorded Client Recorded Date Recorded By Document 01/28/20 14:48 [facility] [id number] 01/28/20 14:59 [facility] 01/28/20 14:48 Wound Center Nurse 1 [Ulcer Assessment] #3- L MEDIAL LE -Combined with other wound No -Current Size (cm) - Length 10.6 -Current Size (cm) - Width 5.6 -Current Size (cm) - Depth 0.1 -Total Square Cm 59.36 -Photo Taken No -Epithelialization Small 1-33% -Tunneling No -Undermining/Tunneling No -Circular Undermining No -Exudate Amt Medium -Exudate Type Serosanguineous -Wound Margin Distinct, Outline Attached -Granulation Amt Large (67-100%) -Granulation Quality Red -Slough/Fibrin Yes -Necrosis Amt Small (1-33%) -Necrotic Tissue Type Adherent Slough -Texture (Cammy-wound Skin Appearance) Assessed, Scarring -Moisture (Cammy-wound Skin Appearance Assessed ) -Color (Cammy-wound Skin Appearance) Assessed -Temperature (Cammy-wound Skin No Abnormality Appearance) (Pt Warm) -Tenderness on Palpation (Cammy-wound No Skin Appearance) -Ulcer Cleansing soapy water -Foul Odor after Cleansing No -Anesthetic Used 4% Lidocaine Solution [Edema Assessment] -Lower Limb Edema Present Yes -Left Calf (cm) 35 -Left Ankle (cm) 22.2 - Nurse 2 - General Ulcer CM Notes Start: 01/07/20 14:57 Freq: Status: Active Protocol: Activity Type Activity Date Activity User E-Sign Co-Sign Detail Recorded Client Recorded Date Recorded By Document 01/28/20 15:26 [id number] 01/28/20 15:28 01/28/20 15:26 Wound Center Nurse 2 [Procedure/Treatment] #3- L MEDIAL LE -Time 15:27 -Correct Patient Yes -Correct Side, Site, Position Yes -Correct Procedure Yes -Procedure Performed Yes -Type of Procedure Debridement -Clinical Debridement Subcutaneous -Tissue Removed Subcutaneous -Post Debridement (cm) - Length 10.6 -Post Debridement (cm) - Width 5.8 -Post Debridement (cm) - Depth 0.1 -Total Square (Post) (cm) 61.48 -Area of Debridement (cm) - Length 10.6 -Area of Debridement (cm) - Width 5.8 -Total Square (Area) (cm) 61.48 -Tunneling No -Undermining/Tunneling No -Circular Undermining No -Wound/Ulcer Outcome Not Healed -Ulcer Cleansing Rinsed/ Irrigated with Saline -Foul Odor after Cleansing No -Bioengineered Tissue Yes -Type of Bioengineered Tissue Theraskin -Expiration Date 02/08/24 -Product Lot Number [id number] -Percent Used 100 -Saline Lot Number [id number] -Bleeding Controlled with Pressure -Offloading No -Treatment Response Procedure Tolerated Well -Debridement - Subq, 1st 20sq cm No -Apply Skin Sub - 1st 25 sq cm - Legs 1 -Apply Skin Sub - each addt'l 25 sq 2 cm - Legs -Theraskin (per sq cm) 39 [See Physician Procedure note for Specifics] Pain Scale: 0-10 Numeric [Pain] -Is Patient Pain Free? Yes - Nurse 3 - General Ulcer D/C NN Start: 01/07/20 14:57 Freq: Status: Active Protocol: Activity Type Activity Date Activity User E-Sign Co-Sign Detail Recorded Client Recorded Date Recorded By Document 01/28/20 15:46 RB [id number] 01/28/20 15:48 RB 01/28/20 15:46 Wound Care Nurse 3 [Wound Dressing] #3- L MEDIAL LE -Negative Pressure Wound Therapy Continue -Setting (mmHg) 150 -Negative Pressure is Continuous -Other Dressing abd under tubing -NPWT Application Charge ($) NPWT > 50 sq cm [Compression Applied] Left -Tubular Bandage Single Layer -Size of Tubigrip Used Size E -Size E ($) 1 Vital Signs [Pulse] -Pulse Rate (60-100) 80 -Pulse Location Monitor [Respirations] -Respiratory Rate (12-18) 18 -Respiratory rate source Observation [Blood Pressure] -Blood Pressure (90/60-120/80) 125/75 H -Blood Pressure Mean (mm Hg) 91 -Source Monitor -Position Semi-Fowlers Pain Scale: 0-10 Numeric [Pain] -Is Patient Pain Free? Yes Teaching: Wound Center [Wound Center Education] (Items with an * have Printed Materials Available- Please identify what is given to patient under the Teaching materials given to patient and caregiver Section. Control Swelling with Leg Elevation -Person Taught Patient, Significant Other -Teaching Method Discussion -Response to teaching Reinforcement needed WC - Visit Discharge [Visit Discharge Information] -Discharge Condition Stable -Ambulatory Status Ambulatory, Crutches -Transportation Private Auto -Medication Reconcilliation completed No & provided to patient/care provider -Clinical Summary of Care Provided Yes Musculoskeletal: No Tenderness to Palpation of Joints or Extremities, Muscle Wasting Neurological: - - Lack of normal epicritic sensation to light touch to the ulcer site Psych/Mental Status: Normal Affect, Appropriate Debridement Note Post-Debridement Measurements/Treatment - Nurse 2 - General Ulcer CM Notes Start: 01/07/20 14:57 Freq: Status: Active Protocol: Activity Type Activity Date Activity User E-Sign Co-Sign Detail Recorded Client Recorded Date Recorded By Document 01/07/20 15:14 [id number] 01/07/20 15:21 Document 01/14/20 14:51 [id number] 01/14/20 14:59 Document 01/28/20 15:26 [id number] 01/28/20 15:28 01/07/20 01/14/20 01/28/20 15:14 14:51 15:26 Wound Center Nurse 2 #3- L MEDIAL LE -Time 15:15 14:51 15:27 -Correct Patient Yes Yes Yes -Correct Side, Site, Position Yes Yes Yes -Correct Procedure Yes Yes Yes -Procedure Performed Yes Yes Yes -Type of Procedure Debridement Debridement Debridement -Clinical Debridement Subcutaneous Subcutaneous Subcutaneous -Tissue Removed Subcutaneous Subcutaneous Subcutaneous -Post Debridement (cm) - Length 8.0 10.0 10.6 -Post Debridement (cm) - Width 6.4 4.3 5.8 -Post Debridement (cm) - Depth 0.2 0.1 0.1 -Total Square (Post) (cm) 51.20 43.00 61.48 -Area of Debridement (cm) - Length 8.0 10 10.6 -Area of Debridement (cm) - Width 6.4 4.3 5.8 -Total Square (Area) (cm) 51.20 43.0 61.48 -Tunneling No No No -Undermining/Tunneling No No No -Circular Undermining No No No -Wound/Ulcer Outcome Not Healed Not Healed Not Healed -Ulcer Cleansing Rinsed/ Rinsed/ Rinsed/ Irrigated with Irrigated with Irrigated with Saline Saline Saline -Foul Odor after Cleansing No No No -Bioengineered Tissue Yes Yes Yes -Type of Bioengineered Tissue Theraskin Theraskin Theraskin -Expiration Date 07/07/24 07/18/24 02/08/24 -Product Lot Number [id number] -Percent Used 100 100 100 -Saline Lot Number [id number] -Bleeding Controlled with Pressure Pressure Pressure -Offloading No No No -Treatment Response Procedure Procedure Procedure Tolerated Well Tolerated Well Tolerated Well -Debridement - Subq, 1st 20sq cm No No No -Debridement, SubQ, ea addt'l 20sq cm 0 or part thereof -Apply Skin Sub - 1st 25 sq cm - Legs 1 1 1 -Apply Skin Sub - each addt'l 25 sq cm 2 2 - Legs -Apply Skin Sub - 1st 25 sq cm - Feet 1 -Theraskin (per sq cm) 39 39 39 Pain Scale: 0-10 Numeric Is Patient Pain Free? Yes Yes Yes - Nurse 3 - General Ulcer D/C NN Start: 01/07/20 14:57 Freq: Status: Active Protocol: Activity Type Activity Date Activity User E-Sign Co-Sign Detail Recorded Client Recorded Date Recorded By Document 01/07/20 15:32 [facility] [id number] 01/07/20 15:34 [facility] Document 01/14/20 15:09 [facility] [id number] 01/14/20 15:11 [facility] Document 01/22/20 10:31 DL [id number] 01/22/20 10:45 DL Document 01/28/20 15:46 RB [id number] 01/28/20 15:48 RB 01/07/20 01/14/20 01/22/20 15:32 15:09 10:31 Wound Care Nurse 3 #3- L MEDIAL LE -Ulcer Cleansing soapy wter -Foul Odor after Cleansing No No -Negative Pressure Wound Therapy Continue -Setting (mmHg) 150 -Negative Pressure is Continuous -Primary Dressing Applied Other Other -Other Dressing theraskin per THERASKIN PER dr domingo SHETH -Other Covering WOUND VAC APPLIED PER Anabela TITUS RN -NPWT Application Charge ($) NPWT > 50 sq cm NPWT </= 50 sq NPWT > 50 sq cm cm Left -Tubular Bandage Single Layer -Size of Tubigrip Used Size D -Size D ($) 1 -Size E ($) -Other applied own applied pts own tubigrip single layer tubigrip Treatment Response Procedure Procedure Procedure Tolerated Well Tolerated Well Tolerated Well Pain Scale: 0-10 Numeric Is Patient Pain Free? Yes Yes Yes Vital Signs Pulse Rate (60-100) Pulse Location Respiratory Rate (12-18) Respiratory rate source Blood Pressure (90/60-120/80) Blood Pressure Mean (mm Hg) Source Position Teaching: Wound Center Control Swelling with Leg Elevation -Person Taught -Teaching Method -Response to teaching WC - Visit Discharge Discharge Condition Stable Stable Stable Ambulatory Status Ambulatory, Ambulatory, Ambulatory Crutches Crutches Transportation Private Auto Private Auto Private Auto Accompanied by Medication Reconcilliation completed & provided to patient/care provider Clinical Summary of Care Provided Facility Type Home Health 01/28/20 15:46 Wound Care Nurse 3 #3- L MEDIAL LE -Ulcer Cleansing -Foul Odor after Cleansing -Negative Pressure Wound Therapy Continue -Setting (mmHg) 150 -Negative Pressure is Continuous -Primary Dressing Applied -Other Dressing abd under tubing -Other Covering -NPWT Application Charge ($) NPWT > 50 sq cm Left -Tubular Bandage Single Layer -Size of Tubigrip Used Size E -Size D ($) -Size E ($) 1 -Other Treatment Response Pain Scale: 0-10 Numeric Is Patient Pain Free? Yes Vital Signs Pulse Rate (60-100) 80 Pulse Location Monitor Respiratory Rate (12-18) 18 Respiratory rate source Observation Blood Pressure (90/60-120/80) 125/75 H Blood Pressure Mean (mm Hg) 91 Source Monitor Position Semi-Fowlers Teaching: Wound Center Control Swelling with Leg Elevation -Person Taught Patient, Significant Other -Teaching Method Discussion -Response to teaching Reinforcement needed WC - Visit Discharge Discharge Condition Stable Ambulatory Status Ambulatory, Crutches Transportation Private Auto Accompanied by Medication Reconcilliation completed & No provided to patient/care provider Clinical Summary of Care Provided Yes Facility Type Wound debrided: leg Laterality: Left Type of Debridement: Excisional debridement Anesthesia Used: 5% Lidocaine Gel Depth: in the subcutaneous layer Percentage of wound debrided: 100 Instrument Used: #15 blade Tissue Removed: fibrous, devitalized subcutaneous, biofilm, slough Severity: Fat Layer Exposed Amount of bleeding with debridement: Mild Bleeding Controlled with: Pressure Patient tolerated procedure well Assessment/Plan Active Problems Venous insufficiency (chronic) (peripheral) (Chronic) Ulcer of left lower extremity with fat layer exposed (Chronic) Non-healing wound of lower extremity (Chronic) Assessment: Left leg ulcer with fat layer exposed. Resolved cellulitis and recent abscess the operating room drainage and debridement. Lower extremity edema. Venous insufficiency suspected and Doppler results pending. Peripheral vascular disease not detected with noninvasive vascular studies reviewed. Obesity. Renal disease. Chronic delayed wound healing left leg Plan: I reviewed and discussed his case. He recently had surgical intervention at [facility] as noted on 12-07-2019. He has a resulting healthy noninfected ulceration to the left leg with a history of delayed healing. Subcutaneous excisional debridement was performed as noted in the clinical panel to the entire ulcer bed. The TheraSkin has incorporated well and serial debridement application was recommended today. I recommend application of advanced wound healing product, TheraSkin, which is a donated cadaver tissue and reapplication to the proximal half of the ulcer bed. The indications, benefits, anticipated application, and anticipated serial healing and management was reviewed. Verbal consent was obtained and this was applied per standard protocol to the entire ulcer site. This was secured in place with Dermabond and Steri-Strips and a wound veil. Secondarily a wound VAC was applied. He was advised to keep the wound VAC intact until next week on 150 mmHg continuous. To keep pressure off the ulcer site by avoiding direct pressure laying on the site. To control edema with a Tubigrip. To elevate limbs at rest. To avoid idle standing or sitting. To perform muscular contraction hourly while awake. To avoid excessive salt in the diet. These things will help reduce his edema. I recommend evaluating for venous insufficiency with a Doppler exam with reflux. This was reviewed as the following: incompetent SF J on the left lower extremity and the left proximal mid calf veins were not evaluated due to the wound VAC placement. He also has some incompetent findings noted on the contralateral right lower extremity. A venous specialist referral will be considered at follow-up. He also has atrophic and hairless skin and history of delayed ulcer healing. He has some questionable claudication symptoms however does not ambulate a significant degree. I recommend screening with a noninvasive vascular arterial study as well. He has triphasic waveforms and normal ABIs. He completed a course of antibiotics. His cultures from his most recent hospital admission were noted. His labs from his recent hospital admission are noted. His labs were previously reviewed and he did not have an elevated hemoglobin A1c. He does not have leukocytosis. His ESR was 32 and C-reactive protein was 100. His albumin level 3.0. He has delayed healing and risk factors. To return to the wound healing center in 1 week or call sooner if he has any questions, concerns, or return of infection symptoms. I answered all his questions.
[2020-02-04 15:04] VITALS: BP 128/84; PULSE 79; RESP 16; TEMP 35.8; BMI 27.3
--- NOTE | 2020-02-04 15:14 | WC ---
noelin left intact per cm instruction.
[2020-02-04 16:02] VITALS: BP 124/69; PULSE 72; RESP 16
--- NOTE | 2020-02-04 21:37 | PCM.WC.PN ---
(1) Ulcer of left lower extremity with fat layer exposed Status: Chronic Code(s): L97.922 - Non-pressure chronic ulcer of unspecified part of left lower leg with fat layer exposed (2) Non-healing wound of lower extremity Status: Chronic Qualifiers: Encounter type: subsequent encounter Laterality: left Qualified Code(s): S81.802D - Unspecified open wound, left lower leg, subsequent encounter Code(s): S81.809A - Unspecified open wound, unspecified lower leg, initial encounter Type of Wound Date of Service: 02/04/20 Chief Complaint: ulcer left leg History of Wound: This 54 year old male presents to the wound center giving a history of chronic wound to his left leg following injury he sustained around 11-06-2019 when he tripped and stumbled into a coffee table. This ulcer site progressively worsened and eventually turned black with odor and purulent drainage. He presented to [facility] and had an incision and drainage with aggressive wound debridement performed on 12-07-2019. He was treated with IV antibiotics and was later discharged home with a wound VAC. He had advanced healing product, TheraSkin applied last week and kept this clean and intact. He denies fever, chill, nausea, vomiting. He is with his today. Progress of Wound: Improving - Physical Exam Vital Signs Temp Pulse Resp BP 96.5 F L 72 16 124/69 H 02/04/20 15:04 02/04/20 16:02 02/04/20 16:02 02/04/20 16:02 General: Alert, Oriented x3, Cooperative, No apparent distress HEENT: Atraumatic Extremities: No cyanosis, Capillary Refill Less than 3 Seconds, No Calf Tenderness, Diminished Peripheral Pulses, Edema - Decreased Skin: Ulcer/ Wound - No purulence, erythema, streaking, odor, infection. The TheraSkin that was applied last week appears to be incorporating well and this was left intact. Ulcer size reduction is noted Wound Measurements and Assessment WC - Nurse 1 - General Ulcer Measurement Start: 01/07/20 14:57 Freq: Status: Active Protocol: Activity Type Activity Date Activity User E-Sign Co-Sign Detail Recorded Client Recorded Date Recorded By Document 02/04/20 15:04 [facility] [id number] 02/04/20 15:14 [facility] 02/04/20 15:04 Wound Center Nurse 1 [Ulcer Assessment] #3- L MEDIAL LE -Combined with other wound No -Current Size (cm) - Length 0.1 -Current Size (cm) - Width 0.1 -Current Size (cm) - Depth 0.1 -Total Square Cm 0.01 -Texture (Cammy-wound Skin Appearance) Assessed -Moisture (Cammy-wound Skin Appearance Assessed ) -Color (Cammy-wound Skin Appearance) Assessed [Edema Assessment] -Lower Limb Edema Present Yes -Left Calf (cm) 36.5 -Left Ankle (cm) 23.7 - Nurse 2 - General Ulcer CM Notes Start: 01/07/20 14:57 Freq: Status: Active Protocol: Activity Type Activity Date Activity User E-Sign Co-Sign Detail Recorded Client Recorded Date Recorded By Document 02/04/20 15:42 [id number] 02/04/20 15:43 02/04/20 15:42 Wound Center Nurse 2 [Procedure/Treatment] #3- L MEDIAL LE -Correct Patient No -Correct Side, Site, Position No -Correct Procedure No -Procedure Performed No -Wound/Ulcer Outcome Not Healed [See Physician Procedure note for Specifics] Pain Scale: 0-10 Numeric [Pain] -Is Patient Pain Free? Yes - Nurse 3 - General Ulcer D/C NN Start: 01/07/20 14:57 Freq: Status: Active Protocol: Activity Type Activity Date Activity User E-Sign Co-Sign Detail Recorded Client Recorded Date Recorded By Document 02/04/20 16:02 [facility] [id number] 02/04/20 16:03 [facility] 02/04/20 16:02 Wound Care Nurse 3 [Wound Dressing] #3- L MEDIAL LE -Negative Pressure Wound Therapy Continue -Setting (mmHg) 150 -Negative Pressure is Continuous -Primary Dressing Applied Other -Other Dressing theraskin maintained per dr lane -NPWT Application Charge ($) NPWT > 50 sq cm [Compression Applied] Left -Other applied pts own single layer tubi pit furnace melter [Post Procedure Tolerated] -Treatment Response Procedure Tolerated Well Vital Signs [Pulse] -Pulse Rate (60-100) 72 -Pulse Location Monitor [Respirations] -Respiratory Rate (12-18) 16 -Respiratory rate source Observation -Oxygen Delivery Method Room Air [Blood Pressure] -Blood Pressure (90/60-120/80) 124/69 H -Blood Pressure Mean (mm Hg) 87 -Source Monitor -Position Sitting -Blood Pressure Location Left Arm Pain Scale: 0-10 Numeric [Pain] -Is Patient Pain Free? No WC - Visit Discharge [Visit Discharge Information] -Discharge Condition Stable -Ambulatory Status Ambulatory, Crutches -Transportation Private Auto -Accompanied by Musculoskeletal: No Tenderness to Palpation of Joints or Extremities, Muscle Wasting, - - Compartments soft to palpate Neurological: Sensory exam intact to light touch and pain Psych/Mental Status: Normal Affect, Appropriate Debridement Note Post-Debridement Measurements/Treatment - Nurse 2 - General Ulcer CM Notes Start: 01/07/20 14:57 Freq: Status: Active Protocol: Activity Type Activity Date Activity User E-Sign Co-Sign Detail Recorded Client Recorded Date Recorded By Document 01/07/20 15:14 [id number] 01/07/20 15:21 Document 01/14/20 14:51 [id number] 01/14/20 14:59 Document 01/28/20 15:26 [id number] 01/28/20 15:28 Document 02/04/20 15:42 [id number] 02/04/20 15:43 01/07/20 01/14/20 01/28/20 15:14 14:51 15:26 Wound Center Nurse 2 #3- L MEDIAL LE -Time 15:15 14:51 15:27 -Correct Patient Yes Yes Yes -Correct Side, Site, Position Yes Yes Yes -Correct Procedure Yes Yes Yes -Procedure Performed Yes Yes Yes -Type of Procedure Debridement Debridement Debridement -Clinical Debridement Subcutaneous Subcutaneous Subcutaneous -Tissue Removed Subcutaneous Subcutaneous Subcutaneous -Post Debridement (cm) - Length 8.0 10.0 10.6 -Post Debridement (cm) - Width 6.4 4.3 5.8 -Post Debridement (cm) - Depth 0.2 0.1 0.1 -Total Square (Post) (cm) 51.20 43.00 61.48 -Area of Debridement (cm) - Length 8.0 10 10.6 -Area of Debridement (cm) - Width 6.4 4.3 5.8 -Total Square (Area) (cm) 51.20 43.0 61.48 -Tunneling No No No -Undermining/Tunneling No No No -Circular Undermining No No No -Wound/Ulcer Outcome Not Healed Not Healed Not Healed -Ulcer Cleansing Rinsed/ Rinsed/ Rinsed/ Irrigated with Irrigated with Irrigated with Saline Saline Saline -Foul Odor after Cleansing No No No -Bioengineered Tissue Yes Yes Yes -Type of Bioengineered Tissue Theraskin Theraskin Theraskin -Expiration Date 07/07/24 07/18/24 02/08/24 -Product Lot Number [id number] -Percent Used 100 100 100 -Saline Lot Number [id number] -Bleeding Controlled with Pressure Pressure Pressure -Offloading No No No -Treatment Response Procedure Procedure Procedure Tolerated Well Tolerated Well Tolerated Well -Debridement - Subq, 1st 20sq cm No No No -Debridement, SubQ, ea addt'l 20sq cm 0 or part thereof -Apply Skin Sub - 1st 25 sq cm - Legs 1 1 1 -Apply Skin Sub - each addt'l 25 sq cm 2 2 - Legs -Apply Skin Sub - 1st 25 sq cm - Feet 1 -Theraskin (per sq cm) 39 39 39 Pain Scale: 0-10 Numeric Is Patient Pain Free? Yes Yes Yes 02/04/20 15:42 Wound Center Nurse 2 #3- L [facility] LE -Time -Correct Patient No -Correct Side, Site, Position No -Correct Procedure No -Procedure Performed No -Type of Procedure -Clinical Debridement -Tissue Removed -Post Debridement (cm) - Length -Post Debridement (cm) - Width -Post Debridement (cm) - Depth -Total Square (Post) (cm) -Area of Debridement (cm) - Length -Area of Debridement (cm) - Width -Total Square (Area) (cm) -Tunneling -Undermining/Tunneling -Circular Undermining -Wound/Ulcer Outcome Not Healed -Ulcer Cleansing -Foul Odor after Cleansing -Bioengineered Tissue -Type of Bioengineered Tissue -Expiration Date -Product Lot Number -Percent Used -Saline Lot Number -Bleeding Controlled with -Offloading -Treatment Response -Debridement - Subq, 1st 20sq cm -Debridement, SubQ, ea addt'l 20sq cm or part thereof -Apply Skin Sub - 1st 25 sq cm - Legs -Apply Skin Sub - each addt'l 25 sq cm - Legs -Apply Skin Sub - 1st 25 sq cm - Feet -Theraskin (per sq cm) Pain Scale: 0-10 Numeric Is Patient Pain Free? Yes WC - Nurse 3 - General Ulcer D/C NN Start: 01/07/20 14:57 Freq: Status: Active Protocol: Activity Type Activity Date Activity User E-Sign Co-Sign Detail Recorded Client Recorded Date Recorded By Document 01/07/20 15:32 BM [id number] 01/07/20 15:34 BMF Document 01/14/20 15:09 BM [id number] 01/14/20 15:11 BMF Document 01/22/20 10:31 DL [id number] 01/22/20 10:45 DL Document 01/28/20 15:46 RB [id number] 01/28/20 15:48 RB Document 02/04/20 16:02 BM [id number] 02/04/20 16:03 BM 01/07/20 01/14/20 01/22/20 15:32 15:09 10:31 Wound Care Nurse 3 #3- L MEDIAL LE -Ulcer Cleansing soapy wter -Foul Odor after Cleansing No No -Negative Pressure Wound Therapy Continue -Setting (mmHg) 150 -Negative Pressure is Continuous -Primary Dressing Applied Other Other -Other Dressing theraskin per THERASKIN PER dr domingo LANE -Other Covering WOUND VAC APPLIED PER Anabela TITUS RN -NPWT Application Charge ($) NPWT > 50 sq cm NPWT </= 50 sq NPWT > 50 sq cm cm Left -Tubular Bandage Single Layer -Size of Tubigrip Used Size D -Size D ($) 1 -Size E ($) -Other applied own applied pts own tubigrip single layer tubigrip Treatment Response Procedure Procedure Procedure Tolerated Well Tolerated Well Tolerated Well Pain Scale: 0-10 Numeric Is Patient Pain Free? Yes Yes Yes Vital Signs Pulse Rate (60-100) Pulse Location Respiratory Rate (12-18) Respiratory rate source Oxygen Delivery Method Blood Pressure (90/60-120/80) Blood Pressure Mean (mm Hg) Source Position Blood Pressure Location Teaching: Wound Center Control Swelling with Leg Elevation -Person Taught -Teaching Method -Response to teaching WC - Visit Discharge Discharge Condition Stable Stable Stable Ambulatory Status Ambulatory, Ambulatory, Ambulatory Crutches Crutches Transportation Private Auto Private Auto Private Auto Accompanied by Medication Reconcilliation completed & provided to patient/care provider Clinical Summary of Care Provided Facility Type Home Health 01/28/20 02/04/20 15:46 16:02 Wound Care Nurse 3 #3- L MEDIAL LE -Ulcer Cleansing -Foul Odor after Cleansing -Negative Pressure Wound Therapy Continue Continue -Setting (mmHg) 150 150 -Negative Pressure is Continuous Continuous -Primary Dressing Applied Other -Other Dressing abd under theraskin tubing maintained per dr lane -Other Covering -NPWT Application Charge ($) NPWT > 50 sq cm NPWT > 50 sq cm Left -Tubular Bandage Single Layer -Size of Tubigrip Used Size E -Size D ($) -Size E ($) 1 -Other applied pts own single layer tubi pit furnace melter Treatment Response Procedure Tolerated Well Pain Scale: 0-10 Numeric Is Patient Pain Free? Yes No Vital Signs Pulse Rate (60-100) 80 72 Pulse Location Monitor Monitor Respiratory Rate (12-18) 18 16 Respiratory rate source Observation Observation Oxygen Delivery Method Room Air Blood Pressure (90/60-120/80) 125/75 H 124/69 H Blood Pressure Mean (mm Hg) 91 87 Source Monitor Monitor Position Semi-Fowlers Sitting Blood Pressure Location Left Arm Teaching: Wound Center Control Swelling with Leg Elevation -Person Taught Patient, Significant Other -Teaching Method Discussion -Response to teaching Reinforcement needed WC - Visit Discharge Discharge Condition Stable Stable Ambulatory Status Ambulatory, Ambulatory, Crutches Crutches Transportation Private Auto Private Auto Accompanied by Medication Reconcilliation completed & No provided to patient/care provider Clinical Summary of Care Provided Yes Facility Type No debridement was completed today - theraskin continues to incorporate Assessment/Plan Assessment: Left leg ulcer with fat layer exposed. Resolved cellulitis and recent abscess the operating room drainage and debridement. Lower extremity edema. Venous insufficiency suspected and Doppler results pending. Peripheral vascular disease not detected with noninvasive vascular studies reviewed. Obesity. Renal disease. Chronic delayed wound healing left leg Plan: I reviewed and discussed his case. He previously had surgical intervention at [facility] as noted on 12-07-2019. He has a resulting healthy noninfected ulceration to the left leg with a history of delayed healing. He had advanced product, TheraSkin applied last week and this is incorporating in well. Debridement was not performed today and this will be considered again next week. Additional application of TheraSkin will also be applied next week and the product was ordered. This is medically necessary for limb salvage. He was reassured no local signs of infection are noted today. Secondarily a wound VAC was applied. He was advised to keep the wound VAC intact until next week on 150 mmHg continuous. To keep pressure off the ulcer site by avoiding direct pressure laying on the site. To control edema with a Tubigrip. To elevate limbs at rest. To avoid idle standing or sitting. To perform muscular contraction hourly while awake. To avoid excessive salt in the diet. These things will help reduce his edema. I recommend evaluating for venous insufficiency with a Doppler exam with reflux. This was reviewed as the following: incompetent SF J on the left lower extremity and the left proximal mid calf veins were not evaluated due to the wound VAC placement. He also has some incompetent findings noted on the contralateral right lower extremity. A venous specialist referral will be considered at follow-up. He also has atrophic and hairless skin and history of delayed ulcer healing. He has some questionable claudication symptoms however does not ambulate a significant degree. I recommend screening with a noninvasive vascular arterial study as well. He has triphasic waveforms and normal ABIs. He completed a course of antibiotics. His cultures from his most recent hospital admission were noted. His labs from his recent hospital admission are noted. His labs were previously reviewed and he did not have an elevated hemoglobin A1c. He does not have leukocytosis. His ESR was 32 and C-reactive protein was 100. His albumin level 3.0. He has delayed healing and risk factors. To return to the wound healing center in 1 week or call sooner if he has any questions, concerns, or return of infection symptoms. I answered all his questions.
== END 2020-02-04 23:59 ==
LOC: WC 14:45
PROVIDERS: Referring Provider Podiatrist; Visit Provider Podiatrist
DX: I87.2 Venous insufficiency (chronic) (peripheral) (principal); L97.822 Non-pressure chronic ulcer of other part of left lower leg with fat layer exposed; E66.9 Obesity, unspecified; R60.0 Localized edema; S81.809A Unspecified open wound, unspecified lower leg, initial encounter; W01.190A Fall on same level from slipping, tripping and stumbling with subsequent striking against furniture, initial encounter; Y93.9 Activity, unspecified; Y92.9 Unspecified place or not applicable
CPT/HCPCS: 15271; 15272; 15275; 97605; 97606; 99213; Q4121; G0463

== ENCOUNTER 2020-03-03 13:45 | Outpatient (RCR) | payer MEDICAID, SELFPAY ==
[2020-02-05 00:22] VITALS: BP 124/69; PULSE 72; RESP 16; TEMP 35.8
[2020-02-12 10:04] VITALS: BP 144/85; PULSE 68; RESP 18; TEMP 36.9; BMI 27.3
[2020-02-12 11:16] VITALS: BP 128/76
--- NOTE | 2020-02-12 12:28 | PN.PCM_ITS ---
(1) Ulcer of left lower extremity with fat layer exposed Status: Chronic Current Visit: Yes Code(s): L97.922 - Non-pressure chronic ulcer of unspecified part of left lower leg with fat layer exposed (2) Venous insufficiency (chronic) (peripheral) Status: Chronic Current Visit: Yes Code(s): I87.2 - Venous insufficiency (chronic) (peripheral) (3) Peripheral vascular disease Status: Ruled-out Current Visit: Yes Code(s): I73.9 - Peripheral vascular disease, unspecified Type of Wound Date of Service: 02/12/20 Chief Complaint: ulcer left leg History of Wound: This 54 year old male presents to the wound center giving a history of chronic wound to his left leg following injury he sustained around 11-06-2019 when he tripped and stumbled into a coffee table. This ulcer site progressively worsened and eventually turned black with odor and purulent drainage. He presented to [facility] and had an incision and drainage with aggressive wound debridement performed on 12-07-2019. He was treated with IV antibiotics and was later discharged home with a wound VAC. He had advanced healing product, TheraSkin applied last week and kept this clean and intact. He denies fever, chill, nausea, vomiting. He is with his today. Progress of Wound: Courtesy Visit for Dr Pemberton. Patient denies any new concerns at this time. - Physical Exam Vital Signs Temp Pulse Resp BP 98.4 F 68 18 128/76 H 02/12/20 10:04 02/12/20 10:04 02/12/20 10:04 02/12/20 11:16 General: Alert, Oriented x3, Cooperative, No apparent distress HEENT: Atraumatic, Normocephalic Oral: Moist Mucosa Neck: Supple Extremities: No cyanosis Skin: Ulcer/ Wound Wound Measurements and Assessment WC - Nurse 1 - General Ulcer Measurement Start: 02/12/20 10:03 Freq: Status: Active Protocol: Activity Type Activity Date Activity User E-Sign Co-Sign Detail Recorded Client Recorded Date Recorded By Document 02/12/20 10:04 [facility] [id number] 02/12/20 10:14 [facility] 02/12/20 10:04 Wound Center Nurse 1 [Ulcer Assessment] #3- L MEDIAL LE -Combined with other wound No -Current Size (cm) - Length 10.4 -Current Size (cm) - Width 4.5 -Current Size (cm) - Depth 0.1 -Total Square Cm 46.80 -Photo Taken No -Epithelialization Medium 34-66% -Tunneling No -Undermining/Tunneling No -Circular Undermining No -Exudate Amt Small -Exudate Type Serosanguineous -Wound Margin Distinct, Outline Attached -Granulation Amt Large (67-100%) -Granulation Quality Red -Slough/Fibrin No -Necrosis Amt None Present (0 %) -Texture (Cammy-wound Skin Appearance) Assessed, Scarring -Moisture (Cammy-wound Skin Appearance Assessed, ) Maceration -Color (Cammy-wound Skin Appearance) Assessed,Palor -Temperature (Cammy-wound Skin No Abnormality Appearance) (Pt Warm) -Tenderness on Palpation (Cammy-wound No Skin Appearance) -Ulcer Cleansing soapy water -Foul Odor after Cleansing No -Anesthetic Used 4% Lidocaine Solution [Edema Assessment] -Lower Limb Edema Present Yes -Right Calf (cm) 34.4 -Right Ankle (cm) 21.6 WC - Nurse 2 - General Ulcer CM Notes Start: 02/12/20 10:03 Freq: Status: Active Protocol: Activity Type Activity Date Activity User E-Sign Co-Sign Detail Recorded Client Recorded Date Recorded By Document 02/12/20 10:28 MW [id number] 02/12/20 10:42 MW 02/12/20 10:28 Wound Center Nurse 2 [Procedure/Treatment] #3- L MEDIAL LE -Time 10:29 -Correct Patient Yes -Correct Side, Site, Position Yes -Correct Procedure Yes -Procedure Performed Yes -Type of Procedure Debridement -Clinical Debridement Subcutaneous -Tissue Removed Subcutaneous -Post Debridement (cm) - Length 10.5 -Post Debridement (cm) - Width 4.8 -Post Debridement (cm) - Depth 0.1 -Total Square (Post) (cm) 50.40 -Area of Debridement (cm) - Length 10.5 -Area of Debridement (cm) - Width 4.8 -Total Square (Area) (cm) 50.40 -Tunneling No -Undermining/Tunneling No -Circular Undermining No -Wound/Ulcer Outcome Not Healed -Ulcer Cleansing Rinsed/ Irrigated with Saline -Foul Odor after Cleansing No -Bioengineered Tissue Yes -Type of Bioengineered Tissue Theraskin -Expiration Date 08/06/24 -Product Lot Number [id number] -Percent Used 100 -Saline Lot Number [id number] -Bleeding Controlled with Pressure -Offloading No -Treatment Response Procedure Tolerated Well -Debridement - Subq, 1st 20sq cm No -Debridement, SubQ, ea addt'l 20sq cm 2 or part thereof -Theraskin (per sq cm) 39 [See Physician Procedure note for Specifics] Pain Scale: 0-10 Numeric [Pain] -Is Patient Pain Free? Yes - Nurse 3 - General Ulcer D/C NN Start: 02/12/20 10:03 Freq: Status: Active Protocol: Activity Type Activity Date Activity User E-Sign Co-Sign Detail Recorded Client Recorded Date Recorded By Document 02/12/20 11:16 RB [id number] 02/12/20 11:17 RB 02/12/20 11:16 Wound Care Nurse 3 [Wound Dressing] #3- L MEDIAL LE -Negative Pressure Wound Therapy Continue -Setting (mmHg) 150 -Negative Pressure is Continuous -NPWT Application Charge ($) NPWT > 50 sq cm Vital Signs [Blood Pressure] -Blood Pressure (90/60-120/80 mm Hg) 128/76 H -Blood Pressure Mean (mm Hg) 93 -Source Monitor -Position Semi-Fowlers -Blood Pressure Location Left Arm Pain Scale: 0-10 Numeric [Pain] -Is Patient Pain Free? Yes Teaching: Wound Center [Wound Center Education] (Items with an * have Printed Materials Available- Please identify what is given to patient under the Teaching materials given to patient and caregiver Section. Control Swelling with Leg Elevation -Person Taught Patient -Teaching Method Discussion -Response to teaching Verbalize understanding - Visit Discharge [Visit Discharge Information] -Discharge Condition Stable -Ambulatory Status Ambulatory -Transportation Private Auto -Medication Reconcilliation completed No & provided to patient/care provider -Clinical Summary of Care Provided Yes Musculoskeletal: No Muscle Wasting Neurological: Cranial nerves II-XII grossly intact Psych/Mental Status: Normal Affect Debridement Note Post-Debridement Measurements/Treatment - Nurse 2 - General Ulcer CM Notes Start: 02/12/20 10:03 Freq: Status: Active Protocol: Activity Type Activity Date Activity User E-Sign Co-Sign Detail Recorded Client Recorded Date Recorded By Document 02/12/20 10:28 MW [id number] 02/12/20 10:42 MW 10/08/20 10:28 Wound Center Nurse 2 #3- L MEDIAL LE -Time 10:29 -Correct Patient Yes -Correct Side, Site, Position Yes -Correct Procedure Yes -Procedure Performed Yes -Type of Procedure Debridement -Clinical Debridement Subcutaneous -Tissue Removed Subcutaneous -Post Debridement (cm) - Length 10.5 -Post Debridement (cm) - Width 4.8 -Post Debridement (cm) - Depth 0.1 -Total Square (Post) (cm) 50.40 -Area of Debridement (cm) - Length 10.5 -Area of Debridement (cm) - Width 4.8 -Total Square (Area) (cm) 50.40 -Tunneling No -Undermining/Tunneling No -Circular Undermining No -Wound/Ulcer Outcome Not Healed -Ulcer Cleansing Rinsed/ Irrigated with Saline -Foul Odor after Cleansing No -Bioengineered Tissue Yes -Type of Bioengineered Tissue Theraskin -Expiration Date 08/06/24 -Product Lot Number [id number] -Percent Used 100 -Saline Lot Number [id number] -Bleeding Controlled with Pressure -Offloading No -Treatment Response Procedure Tolerated Well -Debridement - Subq, 1st 20sq cm No -Debridement, SubQ, ea addt'l 20sq cm 2 or part thereof -Theraskin (per sq cm) 39 Pain Scale: 0-10 Numeric Is Patient Pain Free? Yes - Nurse 3 - General Ulcer D/C NN Start: 02/12/20 10:03 Freq: Status: Active Protocol: Activity Type Activity Date Activity User E-Sign Co-Sign Detail Recorded Client Recorded Date Recorded By Document 02/12/20 11:16 [id number] 02/12/20 11:17 RB 02/12/20 11:16 Wound Care Nurse 3 #3- L MEDIAL LE -Negative Pressure Wound Therapy Continue -Setting (mmHg) 150 -Negative Pressure is Continuous -NPWT Application Charge ($) NPWT > 50 sq cm Vital Signs Blood Pressure (90/60-120/80 mm Hg) 128/76 H Blood Pressure Mean (mm Hg) 93 Source Monitor Position Semi-Fowlers Blood Pressure Location Left Arm Pain Scale: 0-10 Numeric Is Patient Pain Free? Yes Teaching: Wound Center Control Swelling with Leg Elevation -Person Taught Patient -Teaching Method Discussion -Response to teaching Verbalize understanding - Visit Discharge Discharge Condition Stable Ambulatory Status Ambulatory Transportation Private Auto Medication Reconcilliation completed & No provided to patient/care provider Clinical Summary of Care Provided Yes Wound debrided: Left Leg ( medial ) Type of Debridement: Excisional debridement Anesthesia Used: 4% Lidocaine Solution Depth: Down to and including healthy tissue, in the subcutaneous layer Percentage of wound debrided: 100 Instrument Used: 7mm curette Tissue Removed: Devitalized tiissue Severity: Fat Layer Exposed Amount of bleeding with debridement: Mild Bleeding Controlled with: Pressure Patient tolerated procedure well Assessment/Plan Active Problems Venous insufficiency (chronic) (peripheral) (Chronic) Ulcer of left lower extremity with fat layer exposed (Chronic) Assessment: Left leg ulcer with fat layer exposed. Resolved cellulitis and recent abscess the operating room drainage and debridement. Lower extremity edema. Venous insufficiency suspected and Doppler results pending. Peripheral vascular disease not detected with noninvasive vascular studies reviewed. Obesity. Renal disease. Chronic delayed wound healing left leg Plan: Courtesy Visit for Dr. Pemberton. Gentle debridement done today. Following debridement, TheraSkin was applied using 100% of product. Dermabond to secure. Wound veil and Steri-Strips over top. Continue wound VAC at 150 mmHg. Leg elevation, increased protein intake, and other wound care measures to be continued. Follow-up in [address] Pemberton. His questions were answered and he was advised to call with any further questions or concerns. This note was generated with [employer] software. It may contain incorrect words, spelling, and punctuation that were not noted in checking the note before signing. [id number]: [id number] Skin sub graft trnk/arm/leg
[2020-02-18 11:48] VITALS: BP 122/80; PULSE 91; RESP 16; BMI 27.3
--- NOTE | 2020-02-18 13:25 | PCM.WC.PN ---
(1) Ulcer of left lower extremity with fat layer exposed Status: Chronic Code(s): L97.922 - Non-pressure chronic ulcer of unspecified part of left lower leg with fat layer exposed (2) Kidney disease Status: Chronic Code(s): N28.9 - Disorder of kidney and ureter, unspecified (3) Venous insufficiency Status: Chronic Code(s): I87.2 - Venous insufficiency (chronic) (peripheral) Type of Wound Date of Service: 02/18/20 Chief Complaint: ulcer left leg History of Wound: This 55 year old male presents to the wound center giving a history of chronic wound to his left leg following injury he sustained around 11-06-2019 when he tripped and stumbled into a coffee table. This ulcer site progressively worsened and eventually turned black with odor and purulent drainage. He presented to [facility] and had an incision and drainage with aggressive wound debridement performed on 12-07-2019. He was treated with IV antibiotics and was later discharged home with a wound VAC. He had advanced healing product, TheraSkin applied last week and kept this clean and intact. He denies fever, chill, nausea, vomiting. He is with his today. Progress of Wound: improving - Physical Exam Vital Signs Temp Pulse Resp BP 98.4 F 91 16 122/80 H 02/12/20 10:04 02/18/20 11:48 02/18/20 11:48 02/18/20 11:48 General: Alert, Oriented x3, Cooperative, No apparent distress Extremities: No cyanosis, Capillary Refill Less than 3 Seconds, No Calf Tenderness, Diminished Peripheral Pulses, Edema Skin: Ulcer/ Wound - No purulence, erythema, string, odor, infection. Adjacent skin is hairless and atrophic. There is skin that was applied last week is intact and incorporating well. There is no necrosis. Wound Measurements and Assessment WC - Nurse 1 - General Ulcer Measurement Start: 02/12/20 10:03 Freq: Status: Active Protocol: Activity Type Activity Date Activity User E-Sign Co-Sign Detail Recorded Client Recorded Date Recorded By Document 02/18/20 11:48 BMF [id number] 02/18/20 11:59 BMF 02/18/20 11:48 Wound Center Nurse 1 [Ulcer Assessment] #3- L MEDIAL LE -Combined with other wound No -Current Size (cm) - Length 8.5 -Current Size (cm) - Width 4 -Current Size (cm) - Depth 0.1 -Total Square Cm 34.0 -Photo Taken No -Epithelialization Medium 34-66% -Tunneling No -Undermining/Tunneling No -Circular Undermining No -Exudate Amt Medium -Exudate Type Serosanguineous -Wound Margin Distinct, Outline Attached -Granulation Amt Large (67-100%) -Granulation Quality Red -Slough/Fibrin Yes -Necrosis Amt Small (1-33%) -Necrotic Tissue Type Adherent Slough -Texture (Cammy-wound Skin Appearance) Assessed, Scarring -Moisture (Cammy-wound Skin Appearance Assessed ) -Color (Cammy-wound Skin Appearance) Assessed -Temperature (Cammy-wound Skin No Abnormality Appearance) (Pt Warm) -Tenderness on Palpation (Cammy-wound No Skin Appearance) -Ulcer Cleansing soapy water -Foul Odor after Cleansing No -Anesthetic Used 4% Lidocaine Solution [Edema Assessment] -Lower Limb Edema Present Yes -Left Calf (cm) 35.6 -Left Ankle (cm) 23.1 WC - Nurse 2 - General Ulcer CM Notes Start: 02/12/20 10:03 Freq: Status: Active Protocol: Activity Type Activity Date Activity User E-Sign Co-Sign Detail Recorded Client Recorded Date Recorded By Document 02/18/20 12:19 [id number] 02/18/20 12:19 02/18/20 12:19 Wound Center Nurse 2 [Procedure/Treatment] #3- L MEDIAL LE -Correct Patient No -Correct Side, Site, Position No -Correct Procedure No -Procedure Performed No -Circular Undermining No -Wound/Ulcer Outcome Not Healed [See Physician Procedure note for Specifics] Pain Scale: 0-10 Numeric [Pain] -Is Patient Pain Free? Yes - Nurse 3 - General Ulcer D/C NN Start: 02/12/20 10:03 Freq: Status: Active Protocol: Activity Type Activity Date Activity User E-Sign Co-Sign Detail Recorded Client Recorded Date Recorded By Document 02/18/20 12:50 BMF [id number] 02/18/20 12:50 BMF 02/18/20 12:50 Wound Care Nurse 3 [Wound Dressing] #3- L MEDIAL LE -Ulcer Cleansing Rinsed/ Irrigated with Saline -Foul Odor after Cleansing No -Negative Pressure Wound Therapy Continue -Setting (mmHg) 150 -Negative Pressure is Continuous -Primary Dressing Applied Other -Other Dressing theraskin left in place -NPWT Application Charge ($) NPWT </= 50 sq cm [Compression Applied] Left -Tubular Bandage Single Layer -Size of Tubigrip Used Size F -Size F ($) 1 [Post Procedure Tolerated] -Treatment Response Procedure Tolerated Well Pain Scale: 0-10 Numeric [Pain] -Is Patient Pain Free? Yes WC - Visit Discharge [Visit Discharge Information] -Discharge Condition Stable -Ambulatory Status Ambulatory, Crutches -Transportation Private Auto -Accompanied by Musculoskeletal: No Tenderness to Palpation of Joints or Extremities, Muscle Wasting, - - No bogginess or fluctuance on palpation Neurological: Sensory exam intact to light touch and pain Psych/Mental Status: Normal Affect, Appropriate Debridement Note Post-Debridement Measurements/Treatment WC - Nurse 2 - General Ulcer CM Notes Start: 02/12/20 10:03 Freq: Status: Active Protocol: Activity Type Activity Date Activity User E-Sign Co-Sign Detail Recorded Client Recorded Date Recorded By Document 02/12/20 10:28 MW [id number] 02/12/20 10:42 MW Document 02/18/20 12:19 JF [id number] 02/18/20 12:19 JF 02/12/20 02/18/20 10:28 12:19 Wound Center Nurse 2 #3- L MEDIAL LE -Time 10:29 -Correct Patient Yes No -Correct Side, Site, Position Yes No -Correct Procedure Yes No -Procedure Performed Yes No -Type of Procedure Debridement -Clinical Debridement Subcutaneous -Tissue Removed Subcutaneous -Post Debridement (cm) - Length 10.5 -Post Debridement (cm) - Width 4.8 -Post Debridement (cm) - Depth 0.1 -Total Square (Post) (cm) 50.40 -Area of Debridement (cm) - Length 10.5 -Area of Debridement (cm) - Width 4.8 -Total Square (Area) (cm) 50.40 -Tunneling No -Undermining/Tunneling No -Circular Undermining No No -Wound/Ulcer Outcome Not Healed Not Healed -Ulcer Cleansing Rinsed/ Irrigated with Saline -Foul Odor after Cleansing No -Bioengineered Tissue Yes -Type of Bioengineered Tissue Theraskin -Expiration Date 08/06/24 -Product Lot Number [id number] -Percent Used 100 -Saline Lot Number [id number] -Bleeding Controlled with Pressure -Offloading No -Treatment Response Procedure Tolerated Well -Debridement - Subq, 1st 20sq cm No -Apply Skin Sub - 1st 25 sq cm - Legs 1 -Apply Skin Sub - each addt'l 25 sq cm 2 - Legs -Theraskin (per sq cm) 39 Pain Scale: 0-10 Numeric Is Patient Pain Free? Yes Yes WC - Nurse 3 - General Ulcer D/C NN Start: 02/12/20 10:03 Freq: Status: Active Protocol: Activity Type Activity Date Activity User E-Sign Co-Sign Detail Recorded Client Recorded Date Recorded By Document 02/12/20 11:16 RB [id number] 02/12/20 11:17 RB Document 02/18/20 12:50 BMF [id number] 02/18/20 12:50 BMF 02/12/20 02/18/20 11:16 12:50 Wound Care Nurse 3 #3- L MEDIAL LE -Ulcer Cleansing Rinsed/ Irrigated with Saline -Foul Odor after Cleansing No -Negative Pressure Wound Therapy Continue Continue -Setting (mmHg) 150 150 -Negative Pressure is Continuous Continuous -Primary Dressing Applied Other -Other Dressing theraskin left in place -NPWT Application Charge ($) NPWT </= 50 sq NPWT </= 50 sq cm cm Left -Tubular Bandage Single Layer -Size of Tubigrip Used Size F -Size F ($) 1 Treatment Response Procedure Tolerated Well Vital Signs Blood Pressure (90/60-120/80) 128/76 H Blood Pressure Mean (mm Hg) 93 Source Monitor Position Semi-Fowlers Blood Pressure Location Left Arm Pain Scale: 0-10 Numeric Is Patient Pain Free? Yes Yes Teaching: Wound Center Control Swelling with Leg Elevation -Person Taught Patient -Teaching Method Discussion -Response to teaching Verbalize understanding WC - Visit Discharge Discharge Condition Stable Stable Ambulatory Status Ambulatory Ambulatory, Crutches Transportation Private Auto Private Auto Accompanied by Medication Reconcilliation completed & No provided to patient/care provider Clinical Summary of Care Provided Yes No debridement was completed today - theraskin continues to incorporate Assessment/Plan Active Problems Ulcer of left lower extremity with fat layer exposed (Chronic) Kidney disease (Chronic) Venous insufficiency (Chronic) Assessment: Left leg ulcer with fat layer exposed. Resolved cellulitis and recent abscess the operating room drainage and debridement. Lower extremity edema. Venous insufficiency suspected and Doppler results pending. Peripheral vascular disease not detected with noninvasive vascular studies reviewed. Obesity. Renal disease. Chronic delayed wound healing left leg Plan: I reviewed and discussed this case. The TheraSkin advanced wound healing product that was applied last week is incorporating well and was left intact. He is reassured no local signs of infection are noted. An additional wound veil and Steri-Strips were applied for security over top. Continue wound VAC at 150 mmHg. Leg elevation, increased protein intake, and other wound care measures to be continued. Follow-up in [address] Pemberton. His questions were answered and he was advised to call with any further questions or concerns. This note was generated with [employer] dictation software. It may contain incorrect words, spelling, and punctuation that were not noted in checking the note before signing.
[2020-02-25 14:34] VITALS: BP 122/83; PULSE 74; RESP 20; TEMP 36.2; BMI 27.3
[2020-02-25 15:45] VITALS: BP 122/80
--- NOTE | 2020-02-25 15:48 | PN.PCM_ITS ---
(1) Ulcer of left lower extremity with fat layer exposed Status: Chronic Code(s): L97.922 - Non-pressure chronic ulcer of unspecified part of left lower leg with fat layer exposed (2) Kidney disease Status: Chronic Code(s): N28.9 - Disorder of kidney and ureter, unspecified (3) Venous insufficiency Status: Chronic Code(s): I87.2 - Venous insufficiency (chronic) (peripheral) Type of Wound Date of Service: 02/25/20 Chief Complaint: ulcer left leg History of Wound: This 55 year old male presents to the wound center giving a history of chronic wound to his left leg following injury he sustained around 11-06-2019 when he tripped and stumbled into a coffee table. This ulcer site progressively worsened and eventually turned black with odor and purulent drainage. He presented to [facility] and had an incision and drainage with aggressive wound debridement performed on 12-07-2019. He was treated with IV antibiotics and was later discharged home with a wound VAC. He had advanced healing product, TheraSkin applied in a serial manner. He denies fever, chill, nausea, vomiting. He is with his today. Progress of Wound: improving - Physical Exam Vital Signs Temp Pulse Resp BP 97.1 F L 74 20 H 122/80 H 02/25/20 14:34 02/25/20 14:34 02/25/20 14:34 02/25/20 15:45 General: Alert, Oriented x3, Cooperative, No apparent distress HEENT: Atraumatic Extremities: No cyanosis, Capillary Refill Less than 3 Seconds, No Calf Tenderness, Diminished Peripheral Pulses, Edema Skin: Ulcer/ Wound - No purulence, erythema, streaking, odor, infection. Also reduction in size is noted and the ulcer bed is granular healthy. His skin in general is hairless and atrophic Wound Measurements and Assessment WC - Nurse 1 - General Ulcer Measurement Start: 02/12/20 10:03 Freq: Status: Active Protocol: Activity Type Activity Date Activity User E-Sign Co-Sign Detail Recorded Client Recorded Date Recorded By Document 02/25/20 14:34 DL [id number] 02/25/20 14:41 DL 02/25/20 14:34 Wound Center Nurse 1 [Ulcer Assessment] #3- L MEDIAL LE -Current Size (cm) - Length 8.2 -Current Size (cm) - Width 3.9 -Current Size (cm) - Depth 0.1 -Total Square Cm 31.98 -Photo Taken No -Exudate Amt Small -Exudate Type Serosanguineous -Wound Margin Distinct, Outline Attached -Granulation Amt Medium (34-66%) -Granulation Quality Red -Necrosis Amt Medium (34-66%) -Necrotic Tissue Type Adherent Slough -Structure Exposed N/A -Texture (Cammy-wound Skin Appearance) Scarring -Moisture (Cammy-wound Skin Appearance Dry/Scaly ) -Color (Cammy-wound Skin Appearance) Hemosiderin Staining -Tenderness on Palpation (Cammy-wound No Skin Appearance) -Ulcer Cleansing Wound Cleanser -Foul Odor after Cleansing Yes -Anesthetic Used 4% Lidocaine Solution [Edema Assessment] -Left Calf (cm) 36.2 -Left Ankle (cm) 22.8 WC - Nurse 2 - General Ulcer CM Notes Start: 02/12/20 10:03 Freq: Status: Active Protocol: Activity Type Activity Date Activity User E-Sign Co-Sign Detail Recorded Client Recorded Date Recorded By Document 02/25/20 15:12 CASE [id number] 02/25/20 15:16 CASE 02/25/20 15:12 Wound Center Nurse 2 [Procedure/Treatment] #3- L MEDIAL LE -Time 15:14 -Correct Patient Yes -Correct Side, Site, Position Yes -Correct Procedure Yes -Procedure Performed Yes -Type of Procedure Debridement -Clinical Debridement Subcutaneous -Tissue Removed Subcutaneous -Post Debridement (cm) - Length 8.3 -Post Debridement (cm) - Width 4.0 -Post Debridement (cm) - Depth 0.1 -Total Square (Post) (cm) 33.20 -Area of Debridement (cm) - Length 8.3 -Area of Debridement (cm) - Width 4.0 -Total Square (Area) (cm) 33.20 -Tunneling No -Undermining/Tunneling No -Circular Undermining No -Wound/Ulcer Outcome Not Healed -Ulcer Cleansing Rinsed/ Irrigated with Saline -Foul Odor after Cleansing No -Bioengineered Tissue Yes -Type of Bioengineered Tissue Theraskin -Expiration Date 04/27/24 -Product Lot Number [id number] -Percent Used 100 -Saline Lot Number [id number] -Bleeding Controlled with Pressure -Offloading No -Treatment Response Procedure Tolerated Well -Debridement - Subq, 1st 20sq cm No -Apply Skin Sub - 1st 25 sq cm - Legs 1 -Apply Skin Sub - each addt'l 25 sq 1 cm - Legs -Theraskin (per sq cm) 26 [See Physician Procedure note for Specifics] Pain Scale: 0-10 Numeric [Pain] -Is Patient Pain Free? Yes WC - Nurse 3 - General Ulcer D/C NN Start: 02/12/20 10:03 Freq: Status: Active Protocol: Activity Type Activity Date Activity User E-Sign Co-Sign Detail Recorded Client Recorded Date Recorded By Document 02/25/20 15:45 RB [id number] 02/25/20 15:47 RB 02/25/20 15:45 Wound Care Nurse 3 [Wound Dressing] #3- L MEDIAL LE -Negative Pressure Wound Therapy Continue -Setting (mmHg) 150 -Negative Pressure is Continuous -NPWT Application Charge ($) NPWT </= 50 sq cm [Compression Applied] Left -Tubular Bandage Single Layer -Size of Tubigrip Used Size E -Size E ($) 1 [Post Procedure Tolerated] -Treatment Response Procedure Tolerated Well Vital Signs [Blood Pressure] -Blood Pressure (90/60-120/80) 122/80 H -Blood Pressure Mean (mm Hg) 94 -Source Monitor -Position Sitting -Blood Pressure Location Left Arm Pain Scale: 0-10 Numeric [Pain] -Is Patient Pain Free? Yes Teaching: Wound Center [Wound Center Education] (Items with an * have Printed Materials Available- Please identify what is given to patient under the Teaching materials given to patient and caregiver Section. Control Swelling with Leg Elevation -Person Taught Patient -Teaching Method Discussion -Response to teaching Reinforcement needed WC - Visit Discharge [Visit Discharge Information] -Discharge Condition Stable -Ambulatory Status Ambulatory, Crutches -Transportation Private Auto -Medication Reconcilliation completed No & provided to patient/care provider -Clinical Summary of Care Provided Yes Musculoskeletal: No Tenderness to Palpation of Joints or Extremities, Muscle Wasting Neurological: Sensory exam intact to light touch and pain, - Psych/Mental Status: Normal Affect, Appropriate Debridement Note Post-Debridement Measurements/Treatment WC - Nurse 2 - General Ulcer CM Notes Start: 02/12/20 10:03 Freq: Status: Active Protocol: Activity Type Activity Date Activity User E-Sign Co-Sign Detail Recorded Client Recorded Date Recorded By Document 02/12/20 10:28 [id number] 02/12/20 10:42 MW Document 02/18/20 12:19 [id number] 02/18/20 12:19 JF Document 02/25/20 15:12 [id number] 02/25/20 15:16 JF 02/12/20 02/18/20 02/25/20 10:28 12:19 15:12 Wound Center Nurse 2 #3- L MEDIAL LE -Time 10:29 15:14 -Correct Patient Yes No Yes -Correct Side, Site, Position Yes No Yes -Correct Procedure Yes No Yes -Procedure Performed Yes No Yes -Type of Procedure Debridement Debridement -Clinical Debridement Subcutaneous Subcutaneous -Tissue Removed Subcutaneous Subcutaneous -Post Debridement (cm) - Length 10.5 8.3 -Post Debridement (cm) - Width 4.8 4.0 -Post Debridement (cm) - Depth 0.1 0.1 -Total Square (Post) (cm) 50.40 33.20 -Area of Debridement (cm) - Length 10.5 8.3 -Area of Debridement (cm) - Width 4.8 4.0 -Total Square (Area) (cm) 50.40 33.20 -Tunneling No No -Undermining/Tunneling No No -Circular Undermining No No No -Wound/Ulcer Outcome Not Healed Not Healed Not Healed -Ulcer Cleansing Rinsed/ Rinsed/ Irrigated with Irrigated with Saline Saline -Foul Odor after Cleansing No No -Bioengineered Tissue Yes Yes -Type of Bioengineered Tissue Theraskin Theraskin -Expiration Date 08/06/24 04/27/24 -Product Lot Number [id number] -Percent Used 100 100 -Saline Lot Number [id number] -Bleeding Controlled with Pressure Pressure -Offloading No No -Treatment Response Procedure Procedure Tolerated Well Tolerated Well -Debridement - Subq, 1st 20sq cm No No -Apply Skin Sub - 1st 25 sq cm - Legs 1 1 -Apply Skin Sub - each addt'l 25 sq cm 2 1 - Legs -Theraskin (per sq cm) 39 26 Pain Scale: 0-10 Numeric Is Patient Pain Free? Yes Yes Yes WC - Nurse 3 - General Ulcer D/C NN Start: 02/12/20 10:03 Freq: Status: Active Protocol: Activity Type Activity Date Activity User E-Sign Co-Sign Detail Recorded Client Recorded Date Recorded By Document 02/12/20 11:16 RB [id number] 02/12/20 11:17 RB Document 02/18/20 12:50 [facility] [id number] 02/18/20 12:50 [facility] Document 02/25/20 15:45 RB [id number] 02/25/20 15:47 RB 02/12/20 02/18/20 02/25/20 11:16 12:50 15:45 Wound Care Nurse 3 #3- L MEDIAL LE -Ulcer Cleansing Rinsed/ Irrigated with Saline -Foul Odor after Cleansing No -Negative Pressure Wound Therapy Continue Continue Continue -Setting (mmHg) 150 150 150 -Negative Pressure is Continuous Continuous Continuous -Primary Dressing Applied Other -Other Dressing theraskin left in place -NPWT Application Charge ($) NPWT </= 50 sq NPWT </= 50 sq NPWT </= 50 sq cm cm cm Left -Tubular Bandage Single Layer Single Layer -Size of Tubigrip Used Size F Size E -Size E ($) 1 -Size F ($) 1 Treatment Response Procedure Procedure Tolerated Well Tolerated Well Vital Signs Blood Pressure (90/60-120/80) 128/76 H 122/80 H Blood Pressure Mean (mm Hg) 93 94 Source Monitor Monitor Position Semi-Fowlers Sitting Blood Pressure Location Left Arm Left Arm Pain Scale: 0-10 Numeric Is Patient Pain Free? Yes Yes Yes Teaching: Wound Center Control Swelling with Leg Elevation -Person Taught Patient Patient -Teaching Method Discussion Discussion -Response to teaching Verbalize Reinforcement understanding needed WC - Visit Discharge Discharge Condition Stable Stable Stable Ambulatory Status Ambulatory Ambulatory, Ambulatory, Crutches Crutches Transportation Private Auto Private Auto Private Auto Accompanied by Medication Reconcilliation completed & No No provided to patient/care provider Clinical Summary of Care Provided Yes Yes Wound debrided: leg Laterality: Left Type of Debridement: Excisional debridement Anesthesia Used: 5% Lidocaine Gel Depth: in the subcutaneous layer Percentage of wound debrided: 100 Instrument Used: #15 blade Tissue Removed: fibrous, devitalized subcutaneous, biofilm, slough Severity: Fat Layer Exposed Amount of bleeding with debridement: Mild Bleeding Controlled with: Pressure Patient tolerated procedure well Assessment/Plan Active Problems Ulcer of left lower extremity with fat layer exposed (Chronic) Kidney disease (Chronic) Venous insufficiency (Chronic) Assessment: Left leg ulcer with fat layer exposed. Resolved cellulitis and recent abscess the operating room drainage and debridement. Lower extremity edema. Venous insufficiency suspected and Doppler results pending. Peripheral vascular disease not detected with noninvasive vascular studies reviewed. Obesity. Renal disease. Chronic delayed wound healing left leg Plan: I reviewed and discussed this case. The TheraSkin advanced wound healing product that was applied again today according to her standard protocol after verbal consent was obtained and after subcutaneous excisional debridement was performed as noted in the clinical panel. This was secured in place with a wound veil and Steri-Strips. He is reassured no local signs of infection are noted. An additional wound veil and Steri-Strips were applied for security over top. Continue wound VAC at 150 mmHg. Leg elevation, increased protein intake, and other wound care measures to be continued. His questions were answered and he was advised to call with any further questions or concerns. To return to clinic in 1 week for an advanced skin product application check session. This note was generated with [email or web address] dictation software. It may contain incorrect words, spelling, and punctuation that were not noted in checking the note before signing.
[2020-03-03 13:56] VITALS: BP 122/81; PULSE 102; RESP 20; TEMP 35.9; BMI 27.3
--- NOTE | 2020-03-03 13:59 | WC ---
thera skin left in place and wound not measured at present d/t covered with wound veil and steristripps in place
--- NOTE | 2020-03-03 15:42 | PN.PCM_ITS ---
(1) Ulcer of left lower extremity with fat layer exposed Status: Chronic Code(s): L97.922 - Non-pressure chronic ulcer of unspecified part of left lower leg with fat layer exposed (2) Kidney disease Status: Chronic Code(s): N28.9 - Disorder of kidney and ureter, unspecified (3) Venous insufficiency Status: Chronic Code(s): I87.2 - Venous insufficiency (chronic) (peripheral) Type of Wound Date of Service: 03/03/20 Chief Complaint: ulcer left leg History of Wound: This 55 year old male presents to the wound center giving a history of chronic wound to his left leg following injury he sustained around 11-06-2019 when he tripped and stumbled into a coffee table. This ulcer site progressively worsened and eventually turned black with odor and purulent drainage. He presented to [facility] and had an incision and drainage with aggressive wound debridement performed on 12-07-2019. He was treated with IV antibiotics and was later discharged home with a wound VAC. He had advanced healing product, TheraSkin applied in a serial manner last week. He denies fever, chill, nausea, vomiting. He is with his today. Progress of Wound: improving - Physical Exam Vital Signs Temp Pulse Resp BP 96.7 F L 102 H 20 H 122/81 H 03/03/20 13:56 03/03/20 13:56 03/03/20 13:56 03/03/20 13:56 General: Alert, Oriented x3, Cooperative, No apparent distress HEENT: Atraumatic Extremities: No cyanosis, Capillary Refill Less than 3 Seconds, No Calf Tenderness, Diminished Peripheral Pulses, Edema Skin: Ulcer/ Wound - No purulence, erythema, streaking, odor, infection. TheraSkin that was applied last week is incorporating well and is intact. The adjacent skin is hairless and atrophic and peripheral epithelialization continues to progress Wound Measurements and Assessment WC - Nurse 1 - General Ulcer Measurement Start: 02/12/20 10:03 Freq: Status: Active Protocol: Activity Type Activity Date Activity User E-Sign Co-Sign Detail Recorded Client Recorded Date Recorded By Document 03/03/20 13:56 DL [id number] 03/03/20 14:00 DL 03/03/20 13:56 Wound Center Nurse 1 [Ulcer Assessment] #3- L MEDIAL LE -Combined with other wound No -Texture (Cammy-wound Skin Appearance) Assessed -Moisture (Cammy-wound Skin Appearance Assessed ) -Color (Cammy-wound Skin Appearance) Assessed -Temperature (Cammy-wound Skin No Abnormality Appearance) (Pt Warm) -Tenderness on Palpation (Cammy-wound No Skin Appearance) [Edema Assessment] -Lower Limb Edema Present Yes -Left Calf (cm) 34 -Left Ankle (cm) 21 03/03/20 13:59 Wound Center by Chrissy Guaman skin left in place and wound not measured at present d/t covered with wound veil and steristripps in place Initialized on 03/03/20 13:59 - END OF NOTE WC - Nurse 2 - General Ulcer CM Notes Start: 02/12/20 10:03 Freq: Status: Active Protocol: Activity Type Activity Date Activity User E-Sign Co-Sign Detail Recorded Client Recorded Date Recorded By Document 03/03/20 14:16 [id number] 03/03/20 14:17 03/03/20 14:16 Wound Center Nurse 2 [Procedure/Treatment] #3- L MEDIAL LE -Correct Patient No -Correct Side, Site, Position No -Correct Procedure No -Procedure Performed No -Circular Undermining No -Wound/Ulcer Outcome Not Healed [See Physician Procedure note for Specifics] Pain Scale: 0-10 Numeric [Pain] -Is Patient Pain Free? Yes - Nurse 3 - General Ulcer D/C NN Start: 02/12/20 10:03 Freq: Status: Active Protocol: Activity Type Activity Date Activity User E-Sign Co-Sign Detail Recorded Client Recorded Date Recorded By Document 03/03/20 14:27 RB [id number] 03/03/20 14:29 03/03/20 14:27 Wound Care Nurse 3 [Wound Dressing] #3- L MEDIAL LE -Negative Pressure Wound Therapy Continue -Setting (mmHg) 150 -Negative Pressure is Continuous -Other Dressing therakin and adaptic intact -NPWT Application Charge ($) NPWT </= 50 sq cm [Compression Applied] Left -Tubular Bandage Single Layer -Size of Tubigrip Used Size E -Size E ($) 1 Pain Scale: 0-10 Numeric [Pain] -Is Patient Pain Free? Yes Teaching: Wound Center [Wound Center Education] (Items with an * have Printed Materials Available- Please identify what is given to patient under the Teaching materials given to patient and caregiver Section. Control Swelling with Leg Elevation -Person Taught Patient -Teaching Method Discussion -Response to teaching Verbalize understanding WC - Visit Discharge [Visit Discharge Information] -Discharge Condition Stable -Ambulatory Status Ambulatory -Transportation Private Auto -Medication Reconcilliation completed No & provided to patient/care provider -Clinical Summary of Care Provided Yes Musculoskeletal: No Tenderness to Palpation of Joints or Extremities, Muscle Wasting, - - Compartments soft to palpate Neurological: Sensory exam intact to light touch and pain Psych/Mental Status: Normal Affect, Appropriate Debridement Note Post-Debridement Measurements/Treatment WC - Nurse 2 - General Ulcer CM Notes Start: 02/12/20 10:03 Freq: Status: Active Protocol: Activity Type Activity Date Activity User E-Sign Co-Sign Detail Recorded Client Recorded Date Recorded By Document 02/12/20 10:28 MW [id number] 02/12/20 10:42 MW Document 02/18/20 12:19 JF [id number] 02/18/20 12:19 JF Document 02/25/20 15:12 [id number] 02/25/20 15:16 JF Document 03/03/20 14:16 [id number] 03/03/20 14:17 02/12/20 02/18/20 02/25/20 10:28 12:19 15:12 Wound Center Nurse 2 #3- L MEDIAL LE -Time 10:29 15:14 -Correct Patient Yes No Yes -Correct Side, Site, Position Yes No Yes -Correct Procedure Yes No Yes -Procedure Performed Yes No Yes -Type of Procedure Debridement Debridement -Clinical Debridement Subcutaneous Subcutaneous -Tissue Removed Subcutaneous Subcutaneous -Post Debridement (cm) - Length 10.5 8.3 -Post Debridement (cm) - Width 4.8 4.0 -Post Debridement (cm) - Depth 0.1 0.1 -Total Square (Post) (cm) 50.40 33.20 -Area of Debridement (cm) - Length 10.5 8.3 -Area of Debridement (cm) - Width 4.8 4.0 -Total Square (Area) (cm) 50.40 33.20 -Tunneling No No -Undermining/Tunneling No No -Circular Undermining No No No -Wound/Ulcer Outcome Not Healed Not Healed Not Healed -Ulcer Cleansing Rinsed/ Rinsed/ Irrigated with Irrigated with Saline Saline -Foul Odor after Cleansing No No -Bioengineered Tissue Yes Yes -Type of Bioengineered Tissue Theraskin Theraskin -Expiration Date 08/06/24 04/27/24 -Product Lot Number [id number] -Percent Used 100 100 -Saline Lot Number [id number] -Bleeding Controlled with Pressure Pressure -Offloading No No -Treatment Response Procedure Procedure Tolerated Well Tolerated Well -Debridement - Subq, 1st 20sq cm No No -Apply Skin Sub - 1st 25 sq cm - Legs 1 1 -Apply Skin Sub - each addt'l 25 sq cm 2 1 - Legs -Theraskin (per sq cm) 39 26 Pain Scale: 0-10 Numeric Is Patient Pain Free? Yes Yes Yes 03/03/20 14:16 Wound Center Nurse 2 #3- L MEDIAL LE -Time -Correct Patient No -Correct Side, Site, Position No -Correct Procedure No -Procedure Performed No -Type of Procedure -Clinical Debridement -Tissue Removed -Post Debridement (cm) - Length -Post Debridement (cm) - Width -Post Debridement (cm) - Depth -Total Square (Post) (cm) -Area of Debridement (cm) - Length -Area of Debridement (cm) - Width -Total Square (Area) (cm) -Tunneling -Undermining/Tunneling -Circular Undermining No -Wound/Ulcer Outcome Not Healed -Ulcer Cleansing -Foul Odor after Cleansing -Bioengineered Tissue -Type of Bioengineered Tissue -Expiration Date -Product Lot Number -Percent Used -Saline Lot Number -Bleeding Controlled with -Offloading -Treatment Response -Debridement - Subq, 1st 20sq cm -Apply Skin Sub - 1st 25 sq cm - Legs -Apply Skin Sub - each addt'l 25 sq cm - Legs -Theraskin (per sq cm) Pain Scale: 0-10 Numeric Is Patient Pain Free? Yes WC - Nurse 3 - General Ulcer D/C NN Start: 02/12/20 10:03 Freq: Status: Active Protocol: Activity Type Activity Date Activity User E-Sign Co-Sign Detail Recorded Client Recorded Date Recorded By Document 02/12/20 11:16 RB [id number] 02/12/20 11:17 RB Document 02/18/20 12:50 BMF [id number] 02/18/20 12:50 BMF Document 02/25/20 15:45 RB [id number] 02/25/20 15:47 RB Document 03/03/20 14:27 RB [id number] 03/03/20 14:29 RB 02/12/20 02/18/20 02/25/20 11:16 12:50 15:45 Wound Care Nurse 3 #3- L MEDIAL LE -Ulcer Cleansing Rinsed/ Irrigated with Saline -Foul Odor after Cleansing No -Negative Pressure Wound Therapy Continue Continue Continue -Setting (mmHg) 150 150 150 -Negative Pressure is Continuous Continuous Continuous -Primary Dressing Applied Other -Other Dressing theraskin left in place -NPWT Application Charge ($) NPWT </= 50 sq NPWT </= 50 sq NPWT </= 50 sq cm cm cm Left -Tubular Bandage Single Layer Single Layer -Size of Tubigrip Used Size F Size E -Size E ($) 1 -Size F ($) 1 Treatment Response Procedure Procedure Tolerated Well Tolerated Well Vital Signs Blood Pressure (90/60-120/80) 128/76 H 122/80 H Blood Pressure Mean (mm Hg) 93 94 Source Monitor Monitor Position Semi-Fowlers Sitting Blood Pressure Location Left Arm Left Arm Pain Scale: 0-10 Numeric Is Patient Pain Free? Yes Yes Yes Teaching: Wound Center Control Swelling with Leg Elevation -Person Taught Patient Patient -Teaching Method Discussion Discussion -Response to teaching Verbalize Reinforcement understanding needed WC - Visit Discharge Discharge Condition Stable Stable Stable Ambulatory Status Ambulatory Ambulatory, Ambulatory, Crutches Crutches Transportation Private Auto Private Auto Private Auto Accompanied by Medication Reconcilliation completed & No No provided to patient/care provider Clinical Summary of Care Provided Yes Yes 03/03/20 14:27 Wound Care Nurse 3 #3- L MEDIAL LE -Ulcer Cleansing -Foul Odor after Cleansing -Negative Pressure Wound Therapy Continue -Setting (mmHg) 150 -Negative Pressure is Continuous -Primary Dressing Applied -Other Dressing therakin and adaptic intact -NPWT Application Charge ($) NPWT </= 50 sq cm Left -Tubular Bandage Single Layer -Size of Tubigrip Used Size E -Size E ($) 1 -Size F ($) Treatment Response Vital Signs Blood Pressure (90/60-120/80) Blood Pressure Mean (mm Hg) Source Position Blood Pressure Location Pain Scale: 0-10 Numeric Is Patient Pain Free? Yes Teaching: Wound Center Control Swelling with Leg Elevation -Person Taught Patient -Teaching Method Discussion -Response to teaching Verbalize understanding WC - Visit Discharge Discharge Condition Stable Ambulatory Status Ambulatory Transportation Private Auto Accompanied by Medication Reconcilliation completed & No provided to patient/care provider Clinical Summary of Care Provided Yes No debridement was completed today - TheraSkin continues to incorporate Assessment/Plan Active Problems Ulcer of left lower extremity with fat layer exposed (Chronic) Kidney disease (Chronic) Venous insufficiency (Chronic) Assessment: Left leg ulcer with fat layer exposed. Resolved cellulitis and recent abscess the operating room drainage and debridement. Lower extremity edema. Venous insufficiency suspected and Doppler results pending. Peripheral vascular disease not detected with noninvasive vascular studies reviewed. Obesity. Renal disease. Chronic delayed wound healing left leg Plan: I reviewed and discussed this case. The TheraSkin advanced wound healing product that was applied last week was kept intact. The wound veil and Steri- Strips were reapplied to keep this protected. He was reassured no local signs of infection are noted. Continue wound VAC at 150 mmHg. Leg elevation, increased protein intake, and other wound care measures to be continued. His questions were answered and he was advised to call with any further questions or concerns. Progression from the wound VAC and TheraSkin will be considered next week in addition to daily soap and water wash. To continue with Tubigrip compression dressing for his venous insufficiency. He deferred vein specialist referral. To elevate limbs at rest above heart level. To avoid excessive salt in diet. To perform muscular pump contracture of the lower extremities hourly while awake. To return to clinic in 1 week for an advanced skin product application check session. This note was generated with [employer] dictation software. It may contain incorrect words, spelling, and punctuation that were not noted in checking the note before signing.
== END 2020-03-06 23:59 ==
LOC: WC 13:45
PROVIDERS: Referring Provider Podiatrist; Visit Provider Podiatrist
DX: I73.9 Peripheral vascular disease, unspecified (principal); I87.2 Venous insufficiency (chronic) (peripheral); L97.822 Non-pressure chronic ulcer of other part of left lower leg with fat layer exposed; R60.0 Localized edema; E66.9 Obesity, unspecified
CPT/HCPCS: 11045; 15271; 15272; 97605; 97606; 99212; Q4121; G0463

== ENCOUNTER 2020-03-31 14:15 | Outpatient (RCR) | payer MEDICAID, SELFPAY ==
[2020-03-07 00:13] VITALS: BP 122/81; PULSE 102; RESP 20; TEMP 35.9
[2020-03-10 15:35] VITALS: BP 135/83; PULSE 84; RESP 18; TEMP 35.7; BMI 27.3
[2020-03-10 15:50] VITALS: BP 134/78
--- NOTE | 2020-03-10 21:50 | PCM.WC.PN ---
(1) Ulcer of left lower extremity with fat layer exposed Status: Chronic Code(s): L97.922 - Non-pressure chronic ulcer of unspecified part of left lower leg with fat layer exposed (2) Venous insufficiency Status: Chronic Code(s): I87.2 - Venous insufficiency (chronic) (peripheral) Type of Wound Date of Service: 03/10/20 Chief Complaint: ulcer left leg History of Wound: This 55 year old male presents to the wound center giving a history of chronic wound to his left leg following injury he sustained around 11-06-2019.He had an incision and drainage with aggressive wound debridement performed on 12-07-2019. He was treated with IV antibiotics and was later discharged home with a wound VAC. He had advanced healing product, TheraSkin applied in a serial manner and he has been using wound vac therapy. He denies fever, chill, nausea, vomiting. He is with his today. Progress of Wound: improving - Physical Exam Vital Signs Temp Pulse Resp BP 96.3 F L 84 18 134/78 H 03/10/20 15:35 03/10/20 15:35 03/10/20 15:35 03/10/20 15:50 General: Alert, Oriented x3, Cooperative, No apparent distress HEENT: Atraumatic Extremities: No cyanosis, Capillary Refill Less than 3 Seconds, No Calf Tenderness, Diminished Peripheral Pulses, Edema Skin: Ulcer/ Wound - Progressive peripheral epithelialization is noted in the wound bed is granular and healthy. Wound Measurements and Assessment WC - Nurse 1 - General Ulcer Measurement Start: 03/10/20 15:35 Freq: Status: Active Protocol: Activity Type Activity Date Activity User E-Sign Co-Sign Detail Recorded Client Recorded Date Recorded By Document 03/10/20 15:35 [facility] [id number] 03/10/20 15:39 [facility] 03/10/20 15:35 Wound Center Nurse 1 [Ulcer Assessment] #3- L MEDIAL LE -Combined with other wound No -Current Size (cm) - Length 8.3 -Current Size (cm) - Width 3.0 -Current Size (cm) - Depth 0.1 -Total Square Cm 24.90 -Photo Taken No -Epithelialization Small 1-33% -Tunneling No -Undermining/Tunneling No -Circular Undermining No -Exudate Amt Medium -Exudate Type Serosanguineous -Wound Margin Flat & Intact -Granulation Quality Red -Slough/Fibrin Yes -Necrosis Amt Medium (34-66%) -Necrotic Tissue Type Adherent Slough -Structure Exposed N/A -Texture (Cammy-wound Skin Appearance) Assessed -Moisture (Cammy-wound Skin Appearance Dry/Scaly ) -Color (Cammy-wound Skin Appearance) Assessed -Temperature (Cammy-wound Skin No Abnormality Appearance) (Pt Warm) -Ulcer Cleansing Wound Cleanser -Anesthetic Used 4% Lidocaine Solution [Edema Assessment] -Lower Limb Edema Present Yes -Left Calf (cm) 34.5 -Left Ankle (cm) 20.4 WC - Nurse 2 - General Ulcer CM Notes Start: 03/10/20 15:35 Freq: Status: Active Protocol: Activity Type Activity Date Activity User E-Sign Co-Sign Detail Recorded Client Recorded Date Recorded By Document 03/10/20 15:46 CASE [id number] 03/10/20 15:47 CASE 03/10/20 15:46 Wound Center Nurse 2 [Procedure/Treatment] #3- L MEDIAL LE -Time 15:46 -Correct Patient Yes -Correct Side, Site, Position Yes -Correct Procedure Yes -Procedure Performed Yes -Type of Procedure Debridement -Clinical Debridement Subcutaneous -Tissue Removed Subcutaneous -Post Debridement (cm) - Length 8.3 -Post Debridement (cm) - Width 3.1 -Post Debridement (cm) - Depth 0.1 -Total Square (Post) (cm) 25.73 -Area of Debridement (cm) - Length 8.3 -Area of Debridement (cm) - Width 3.1 -Total Square (Area) (cm) 25.73 -Tunneling No -Undermining/Tunneling No -Circular Undermining No -Wound/Ulcer Outcome Not Healed -Ulcer Cleansing Rinsed/ Irrigated with Saline -Foul Odor after Cleansing No -Bioengineered Tissue No -Bleeding Controlled with Pressure -Offloading No -Treatment Response Procedure Tolerated Well -Debridement - Subq, 1st 20sq cm Yes -Debridement, SubQ, ea addt'l 20sq cm 1 or part thereof [See Physician Procedure note for Specifics] Pain Scale: 0-10 Numeric [Pain] -Is Patient Pain Free? Yes DO - Nurse 3 - General Ulcer D/C NN Start: 03/10/20 15:35 Freq: Status: Active Protocol: Activity Type Activity Date Activity User E-Sign Co-Sign Detail Recorded Client Recorded Date Recorded By Document 03/10/20 15:50 [id number] 03/10/20 15:53 03/10/20 15:50 Wound Care Nurse 3 [Wound Dressing] #3- L MEDIAL LE -Ulcer Cleansing Rinsed/ Irrigated with Saline -Foul Odor after Cleansing No -Primary Dressing Applied Aquacel AG 4x4 -Primary Dressing Covered/Secured Dry Gauze & with Roll Gauze, Secured with Tape -Aquacel AG 4x4 2 [Compression Applied] Left -Tubular Bandage Single Layer -Size of Tubigrip Used Size F -Size F ($) 1 Vital Signs [Blood Pressure] -Blood Pressure (90/60-120/80) 134/78 H -Blood Pressure Mean (mm Hg) 96 -Source Monitor -Position Sitting -Blood Pressure Location Right Arm Pain Scale: 0-10 Numeric [Pain] -Is Patient Pain Free? Yes Musculoskeletal: No Tenderness to Palpation of Joints or Extremities, Muscle Wasting Neurological: Sensory exam intact to light touch and pain, - Psych/Mental Status: Normal Affect, Appropriate Debridement Note Post-Debridement Measurements/Treatment WC - Nurse 2 - General Ulcer CM Notes Start: 03/10/20 15:35 Freq: Status: Active Protocol: Activity Type Activity Date Activity User E-Sign Co-Sign Detail Recorded Client Recorded Date Recorded By Document 03/10/20 15:46 [id number] 03/10/20 15:47 03/10/20 15:46 Wound Center Nurse 2 #3- L MEDIAL LE -Time 15:46 -Correct Patient Yes -Correct Side, Site, Position Yes -Correct Procedure Yes -Procedure Performed Yes -Type of Procedure Debridement -Clinical Debridement Subcutaneous -Tissue Removed Subcutaneous -Post Debridement (cm) - Length 8.3 -Post Debridement (cm) - Width 3.1 -Post Debridement (cm) - Depth 0.1 -Total Square (Post) (cm) 25.73 -Area of Debridement (cm) - Length 8.3 -Area of Debridement (cm) - Width 3.1 -Total Square (Area) (cm) 25.73 -Tunneling No -Undermining/Tunneling No -Circular Undermining No -Wound/Ulcer Outcome Not Healed -Ulcer Cleansing Rinsed/ Irrigated with Saline -Foul Odor after Cleansing No -Bioengineered Tissue No -Bleeding Controlled with Pressure -Offloading No -Treatment Response Procedure Tolerated Well -Debridement - Subq, 1st 20sq cm Yes -Debridement, SubQ, ea addt'l 20sq cm 1 or part thereof Pain Scale: 0-10 Numeric Is Patient Pain Free? Yes WC - Nurse 3 - General Ulcer D/C NN Start: 03/10/20 15:35 Freq: Status: Active Protocol: Activity Type Activity Date Activity User E-Sign Co-Sign Detail Recorded Client Recorded Date Recorded By Document 03/10/20 15:50 [id number] 03/10/20 15:53 03/10/20 15:50 Wound Care Nurse 3 #3- L MEDIAL LE -Ulcer Cleansing Rinsed/ Irrigated with Saline -Foul Odor after Cleansing No -Primary Dressing Applied Aquacel AG 4x4 -Primary Dressing Covered/Secured with Dry Gauze & Roll Gauze, Secured with Tape -Aquacel AG 4x4 2 Left -Tubular Bandage Single Layer -Size of Tubigrip Used Size F -Size F ($) 1 Vital Signs Blood Pressure (90/60-120/80) 134/78 H Blood Pressure Mean (mm Hg) 96 Source Monitor Position Sitting Blood Pressure Location Right Arm Pain Scale: 0-10 Numeric Is Patient Pain Free? Yes Wound debrided: leg Laterality: Left Type of Debridement: Excisional debridement Anesthesia Used: 5% Lidocaine Gel Depth: in the subcutaneous layer Percentage of wound debrided: 100 Instrument Used: #15 blade Tissue Removed: fibrous, devitalized subcutaneous, biofilm, slough Severity: Fat Layer Exposed Amount of bleeding with debridement: Mild Bleeding Controlled with: Pressure Patient tolerated procedure well Assessment/Plan Active Problems Ulcer of left lower extremity with fat layer exposed (Chronic) Venous insufficiency (Chronic) Assessment: Left leg ulcer with fat layer exposed. Resolved cellulitis and recent abscess the operating room drainage and debridement. Lower extremity edema. Venous insufficiency suspected and Doppler results pending. Peripheral vascular disease not detected with noninvasive vascular studies reviewed. Obesity. Renal disease. Chronic delayed wound healing left leg Plan: I reviewed and discussed this case. The TheraSkin advanced wound healing product that was applied has incorporated well and the ulcer site was debrided today with a 15 blade scalpel as noted in the clinical panel. I recommend washing this area daily with Dial soap and water and change the dressing with Aquacel Ag. I recommend discontinuation, temporary hold, of the wound VAC. Reapplication versus discontinuation will be considered pending his continued progress. He was reassured no local signs of infection are noted. Continue wound VAC at 150 mmHg. Leg elevation, increased protein intake, and other wound care measures to be continued. His questions were answered and he was advised to call with any further questions or concerns. Progression from the wound VAC and TheraSkin will be considered next week in addition to daily soap and water wash. To continue with Tubigrip compression dressing for his venous insufficiency. He deferred vein specialist referral. To elevate limbs at rest above heart level. To avoid excessive salt in diet. To perform muscular pump contracture of the lower extremities hourly while awake. To return to clinic in 1 week. This note was generated with [employer] dictation software. It may contain incorrect words, spelling, and punctuation that were not noted in checking the note before signing.
[2020-03-17 14:26] VITALS: BP 147/99; PULSE 121; RESP 18; TEMP 35.7; BMI 27.3
[2020-03-17 14:45] VITALS: BP 147/95
--- NOTE | 2020-03-17 15:18 | PCM.WC.PN ---
(1) Ulcer of left lower extremity with fat layer exposed Status: Chronic Code(s): L97.922 - Non-pressure chronic ulcer of unspecified part of left lower leg with fat layer exposed (2) Venous insufficiency Status: Chronic Code(s): I87.2 - Venous insufficiency (chronic) (peripheral) Type of Wound Date of Service: 03/17/20 Chief Complaint: ulcer left leg History of Wound: This 55 year old male presents to the wound center giving a history of chronic wound to his left leg following injury he sustained around 11-06-2019.He had an incision and drainage with aggressive wound debridement performed on 12-07-2019. He was treated with IV antibiotics and was later discharged home with a wound VAC. He had advanced healing product, TheraSkin applied in a serial manner and he has been using wound vac therapy. This past week he is change dressing with Aquacel AG foam and wash his leg with Dial soap. He denies fever, chill, vomiting. He has some intermittent night nausea. He is with his today. Progress of Wound: improving - Physical Exam Vital Signs Temp Pulse Resp BP 96.3 F L 121 H 18 147/95 H 03/17/20 14:26 03/17/20 14:26 03/17/20 14:26 03/17/20 14:45 General: Alert, Oriented x3, Cooperative, No apparent distress HEENT: Atraumatic Extremities: No cyanosis, Capillary Refill Less than 3 Seconds, No Calf Tenderness, Diminished Peripheral Pulses, Edema Skin: Ulcer/ Wound - Granular superficial wound with decreased width. Atrophic thin adjacent skin. No purulence or odor streaking Wound Measurements and Assessment WC - Nurse 1 - General Ulcer Measurement Start: 03/10/20 15:35 Freq: Status: Active Protocol: Activity Type Activity Date Activity User E-Sign Co-Sign Detail Recorded Client Recorded Date Recorded By Document 03/17/20 14:26 [facility] [id number] 03/17/20 14:28 [facility] 03/17/20 14:26 Wound Center Nurse 1 [Ulcer Assessment] #3- L MEDIAL LE -Combined with other wound No -Current Size (cm) - Length 6.6 -Current Size (cm) - Width 3.7 -Current Size (cm) - Depth 0.1 -Total Square Cm 24.42 -Photo Taken No -Epithelialization Small 1-33% -Tunneling No -Undermining/Tunneling No -Circular Undermining No -Exudate Amt Medium -Exudate Type Serosanguineous -Wound Margin Distinct, Outline Attached -Granulation Amt Medium (34-66%) -Granulation Quality Red -Slough/Fibrin Yes -Necrosis Amt Medium (34-66%) -Necrotic Tissue Type Adherent Slough -Texture (Cammy-wound Skin Appearance) Assessed, Scarring -Moisture (Cammy-wound Skin Appearance Assessed ) -Color (Cammy-wound Skin Appearance) Assessed -Temperature (Cammy-wound Skin No Abnormality Appearance) (Pt Warm) -Tenderness on Palpation (Cammy-wound No Skin Appearance) -Ulcer Cleansing Rinsed/ Irrigated with Saline -Foul Odor after Cleansing No -Anesthetic Used 4% Lidocaine Solution DO - Nurse 2 - General Ulcer CM Notes Start: 03/10/20 15:35 Freq: Status: Active Protocol: Activity Type Activity Date Activity User E-Sign Co-Sign Detail Recorded Client Recorded Date Recorded By Document 03/17/20 14:30 CASE [id number] 03/17/20 14:32 [facility]SAE 03/17/20 14:30 Wound Center Nurse 2 [Procedure/Treatment] -Time 14:31 -Correct Patient Yes -Correct Side, Site, Position Yes -Correct Procedure Yes -Procedure Performed Yes -Type of Procedure Debridement -Clinical Debridement Subcutaneous -Tissue Removed Subcutaneous -Post Debridement (cm) - Length 6.6 -Post Debridement (cm) - Width 3.8 -Post Debridement (cm) - Depth 0.1 -Total Square (Post) (cm) 25.08 -Area of Debridement (cm) - Length 6.6 -Area of Debridement (cm) - Width 3.8 -Total Square (Area) (cm) 25.08 -Tunneling No -Undermining/Tunneling No -Circular Undermining No -Wound/Ulcer Outcome Not Healed -Ulcer Cleansing Rinsed/ Irrigated with Saline -Foul Odor after Cleansing No -Bioengineered Tissue No -Bleeding Controlled with Pressure -Offloading No -Treatment Response Procedure Tolerated Well -Debridement - Subq, 1st 20sq cm Yes -Debridement, SubQ, ea addt'l 20sq cm 1 or part thereof [See Physician Procedure note for Specifics] Pain Scale: 0-10 Numeric [Pain] -Is Patient Pain Free? Yes DO - Nurse 3 - General Ulcer D/C NN Start: 03/10/20 15:35 Freq: Status: Active Protocol: Activity Type Activity Date Activity User E-Sign Co-Sign Detail Recorded Client Recorded Date Recorded By Document 03/17/20 14:45 RB [id number] 03/17/20 14:47 RB 03/17/20 14:45 Wound Care Nurse 3 [Wound Dressing] #3- L MEDIAL LE -Other Dressing aquacel ag -Primary Dressing Covered/Secured Dry Gauze,Dry with Gauze & Roll Gauze,Secured with Tape [Post Procedure Tolerated] -Treatment Response Procedure Tolerated Well Vital Signs [Blood Pressure] -Blood Pressure (90/60-120/80) 147/95 H -Blood Pressure Mean (mm Hg) 112 -Source Monitor -Position Semi-Fowlers -Blood Pressure Location Left Arm Pain Scale: 0-10 Numeric [Pain] -Is Patient Pain Free? Yes Teaching: Wound Center [Wound Center Education] (Items with an * have Printed Materials Available- Please identify what is given to patient under the Teaching materials given to patient and caregiver Section. Dressing Your Wound -Person Taught Patient -Teaching Method Discussion -Response to teaching Verbalize understanding WC - Visit Discharge [Visit Discharge Information] -Discharge Condition Stable -Ambulatory Status Ambulatory -Transportation Private Auto -Medication Reconcilliation completed No & provided to patient/care provider -Clinical Summary of Care Provided Yes Musculoskeletal: No Tenderness to Palpation of Joints or Extremities, Muscle Wasting, - - Compartments soft to palpation with no bogginess or fluctuance. Neurological: Sensory exam intact to light touch and pain Psych/Mental Status: Normal Affect, Appropriate Debridement Note Post-Debridement Measurements/Treatment WC - Nurse 2 - General Ulcer CM Notes Start: 03/10/20 15:35 Freq: Status: Active Protocol: Activity Type Activity Date Activity User E-Sign Co-Sign Detail Recorded Client Recorded Date Recorded By Document 03/10/20 15:46 [id number] 03/10/20 15:47 Document 03/17/20 14:30 [id number] [id number] 03/17/20 14:32 JF 03/10/20 03/17/20 15:46 14:30 Wound Center Nurse 2 #3- L MEDIAL LE -Time 15:46 14:31 -Correct Patient Yes Yes -Correct Side, Site, Position Yes Yes -Correct Procedure Yes Yes -Procedure Performed Yes Yes -Type of Procedure Debridement Debridement -Clinical Debridement Subcutaneous Subcutaneous -Tissue Removed Subcutaneous Subcutaneous -Post Debridement (cm) - Length 8.3 6.6 -Post Debridement (cm) - Width 3.1 3.8 -Post Debridement (cm) - Depth 0.1 0.1 -Total Square (Post) (cm) 25.73 25.08 -Area of Debridement (cm) - Length 8.3 6.6 -Area of Debridement (cm) - Width 3.1 3.8 -Total Square (Area) (cm) 25.73 25.08 -Tunneling No No -Undermining/Tunneling No No -Circular Undermining No No -Wound/Ulcer Outcome Not Healed Not Healed -Ulcer Cleansing Rinsed/ Rinsed/ Irrigated with Irrigated with Saline Saline -Foul Odor after Cleansing No No -Bioengineered Tissue No No -Bleeding Controlled with Pressure Pressure -Offloading No No -Treatment Response Procedure Procedure Tolerated Well Tolerated Well -Debridement - Subq, 1st 20sq cm Yes Yes -Debridement, SubQ, ea addt'l 20sq cm 1 1 or part thereof Pain Scale: 0-10 Numeric Is Patient Pain Free? Yes Yes - Nurse 3 - General Ulcer D/C NN Start: 03/10/20 15:35 Freq: Status: Active Protocol: Activity Type Activity Date Activity User E-Sign Co-Sign Detail Recorded Client Recorded Date Recorded By Document 03/10/20 15:50 [id number] 03/10/20 15:53 Document 03/17/20 14:45 RB [id number] 03/17/20 14:47 RB 03/10/20 03/17/20 15:50 14:45 Wound Care Nurse 3 #3- L MEDIAL LE -Ulcer Cleansing Rinsed/ Irrigated with Saline -Foul Odor after Cleansing No -Primary Dressing Applied Aquacel AG 4x4 -Other Dressing aquacel ag -Primary Dressing Covered/Secured with Dry Gauze & Dry Gauze,Dry Roll Gauze, Gauze & Roll Secured with Gauze,Secured Tape with Tape -Aquacel AG 4x4 2 Left -Tubular Bandage Single Layer -Size of Tubigrip Used Size F -Size F ($) 1 Treatment Response Procedure Tolerated Well Vital Signs Blood Pressure (90/60-120/80) 134/78 H 147/95 H Blood Pressure Mean (mm Hg) 96 112 Source Monitor Monitor Position Sitting Semi-Fowlers Blood Pressure Location Right Arm Left Arm Pain Scale: 0-10 Numeric Is Patient Pain Free? Yes Yes Teaching: Wound Center Dressing Your Wound -Person Taught Patient -Teaching Method Discussion -Response to teaching Verbalize understanding WC - Visit Discharge Discharge Condition Stable Ambulatory Status Ambulatory Transportation Private Auto Medication Reconcilliation completed & No provided to patient/care provider Clinical Summary of Care Provided Yes Wound debrided: leg Laterality: Left Type of Debridement: Excisional debridement Anesthesia Used: 5% Lidocaine Gel Depth: in the subcutaneous layer Percentage of wound debrided: 100 Instrument Used: #15 blade Tissue Removed: fibrous, devitalized subcutaneous, biofilm, slough Severity: Fat Layer Exposed Amount of bleeding with debridement: Mild Bleeding Controlled with: Pressure Patient tolerated procedure well Assessment/Plan Active Problems Ulcer of left lower extremity with fat layer exposed (Chronic) Venous insufficiency (Chronic) Assessment: Left leg ulcer with fat layer exposed. Resolved cellulitis and recent abscess the operating room drainage and debridement. Lower extremity edema. Venous insufficiency suspected and Doppler results pending. Peripheral vascular disease not detected with noninvasive vascular studies reviewed. Obesity. Renal disease. Chronic delayed wound healing left leg Plan: I reviewed and discussed this case. The ulcer site was debrided today with a 15 blade scalpel as noted in the clinical panel. I recommend washing this area daily with Dial soap and water and change the dressing with Aquacel Ag. I recommend discontinuation, temporary hold, of the wound VAC. he was reassured no local signs of infection are noted. Leg elevation, increased protein intake, and other wound care measures to be continued. His questions were answered and he was advised to call with any further questions or concerns. To continue with Tubigrip compression dressing for his venous insufficiency. He deferred vein specialist referral. To elevate limbs at rest above heart level. To avoid excessive salt in diet. To perform muscular pump contracture of the lower extremities hourly while awake. To return to clinic in 1 week. This note was generated with [employer] dictation software. It may contain incorrect words, spelling, and punctuation that were not noted in checking the note before signing.
[2020-03-31 14:19] VITALS: BP 135/87; PULSE 99; RESP 18; TEMP 35.8; BMI 27.3
[2020-03-31 14:50] VITALS: BP 135/87
--- NOTE | 2020-03-31 20:15 | PN.PCM_ITS ---
(1) Ulcer of left lower extremity with fat layer exposed Status: Chronic Code(s): L97.922 - Non-pressure chronic ulcer of unspecified part of left lower leg with fat layer exposed (2) Venous insufficiency Status: Chronic Code(s): I87.2 - Venous insufficiency (chronic) (peripheral) Type of Wound Date of Service: 03/31/20 Chief Complaint: ulcer left leg History of Wound: This 55 year old male presents to the wound center giving a history of chronic wound to his left leg following injury he sustained around 11-06-2019.He had an incision and drainage with aggressive wound debridement performed on 12-07-2019. He was treated with IV antibiotics and was later discharged home with a wound VAC. He had advanced healing product, TheraSkin applied in a serial manner and he has been using wound vac therapy. This past week he is change dressing with Aquacel AG foam and wash his leg with Dial soap. He denies fever, chill, vomiting. He is with his today. Progress of Wound: improving - Physical Exam Vital Signs Temp Pulse Resp BP 96.5 F L 99 18 135/87 H 03/31/20 14:19 03/31/20 14:19 03/31/20 14:19 03/31/20 14:50 General: Alert, Oriented x3, Cooperative, No apparent distress HEENT: Atraumatic Extremities: No cyanosis, Capillary Refill Less than 3 Seconds, No Calf Tenderness, Diminished Peripheral Pulses, Edema Skin: Ulcer/ Wound - No purulence, erythema, streaking, odor, infection. Peripheral epithelialization is noted. And the ulcer is now very superficial. The adjacent skin is hairless and atrophic Wound Measurements and Assessment WC - Nurse 1 - General Ulcer Measurement Start: 03/10/20 15:35 Freq: Status: Active Protocol: Activity Type Activity Date Activity User E-Sign Co-Sign Detail Recorded Client Recorded Date Recorded By Document 03/31/20 14:19 DL [id number] 03/31/20 14:27 DL 03/31/20 14:19 Wound Center Nurse 1 [Ulcer Assessment] #3- L MEDIAL LE -Current Size (cm) - Length 6 -Current Size (cm) - Width 2.1 -Current Size (cm) - Depth 0.1 -Total Square Cm 12.6 -Photo Taken No -Exudate Amt Small -Exudate Type Serosanguineous -Wound Margin Distinct, Outline Attached -Granulation Amt Large (67-100%) -Granulation Quality Red -Necrosis Amt Small (1-33%) -Necrotic Tissue Type Adherent Slough -Structure Exposed N/A -Texture (Cammy-wound Skin Appearance) Scarring -Moisture (Cammy-wound Skin Appearance No Abnormality ) -Color (Cammy-wound Skin Appearance) Hemosiderin Staining,Rubor -Temperature (Cammy-wound Skin No Abnormality Appearance) (Pt Warm) -Tenderness on Palpation (Cammy-wound No Skin Appearance) -Ulcer Cleansing Rinsed/ Irrigated with Saline -Foul Odor after Cleansing No -Anesthetic Used 4% Lidocaine Solution DO - Nurse 2 - General Ulcer CM Notes Start: 03/10/20 15:35 Freq: Status: Active Protocol: Activity Type Activity Date Activity User E-Sign Co-Sign Detail Recorded Client Recorded Date Recorded By Document 03/31/20 14:33 CASE [id number] 03/31/20 14:33 CASE 03/31/20 14:33 Wound Center Nurse 2 [Procedure/Treatment] -Time 14:33 -Correct Patient Yes -Correct Side, Site, Position Yes -Correct Procedure Yes -Procedure Performed Yes -Type of Procedure Debridement -Clinical Debridement Subcutaneous -Tissue Removed Subcutaneous -Post Debridement (cm) - Length 6.0 -Post Debridement (cm) - Width 2.2 -Post Debridement (cm) - Depth 0.1 -Total Square (Post) (cm) 13.20 -Area of Debridement (cm) - Length 6.0 -Area of Debridement (cm) - Width 2.2 -Total Square (Area) (cm) 13.20 -Tunneling No -Undermining/Tunneling No -Circular Undermining No -Wound/Ulcer Outcome Not Healed -Ulcer Cleansing Rinsed/ Irrigated with Saline -Foul Odor after Cleansing No -Bioengineered Tissue No -Bleeding Controlled with Pressure -Offloading No -Type of Offloading Surgical Shoe -Treatment Response Procedure Tolerated Well -Debridement - Subq, 1st 20sq cm Yes [See Physician Procedure note for Specifics] Pain Scale: 0-10 Numeric [Pain] -Is Patient Pain Free? Yes DO - Nurse 3 - General Ulcer D/C NN Start: 03/10/20 15:35 Freq: Status: Active Protocol: Activity Type Activity Date Activity User E-Sign Co-Sign Detail Recorded Client Recorded Date Recorded By Document 03/31/20 14:50 [id number] 03/31/20 14:51 03/31/20 14:50 Wound Care Nurse 3 [Wound Dressing] #3- L MEDIAL LE -Ulcer Cleansing Rinsed/ Irrigated with Saline -Primary Dressing Applied Aquacel AG 4x4 -Primary Dressing Covered/Secured Dry Gauze,Dry with Gauze & Roll Gauze,Secured with Tape -Aquacel AG 4x4 1 [Compression Applied] Left -Tubular Bandage Single Layer -Size of Tubigrip Used Size E -Size E ($) 1 Vital Signs [Blood Pressure] -Blood Pressure (90/60-120/80) 135/87 H -Blood Pressure Mean (mm Hg) 103 -Source Monitor -Position Semi-Fowlers -Blood Pressure Location Left Arm Pain Scale: 0-10 Numeric [Pain] -Is Patient Pain Free? Yes WC - Visit Discharge [Visit Discharge Information] -Discharge Condition Stable -Ambulatory Status Ambulatory, Crutches -Transportation Private Auto -Medication Reconcilliation completed No & provided to patient/care provider -Clinical Summary of Care Provided Yes Musculoskeletal: No Tenderness to Palpation of Joints or Extremities, Muscle Was ting Neurological: Sensory exam intact to light touch and pain Psych/Mental Status: Normal Affect, Appropriate Debridement Note Post-Debridement Measurements/Treatment - Nurse 2 - General Ulcer CM Notes Start: 03/10/20 15:35 Freq: Status: Active Protocol: Activity Type Activity Date Activity User E-Sign Co-Sign Detail Recorded Client Recorded Date Recorded By Document 03/10/20 15:46 [id number] 03/10/20 15:47 Document 03/17/20 14:30 [id number] 03/17/20 14:32 Document 03/31/20 14:33 [id number] 03/31/20 14:33 03/10/20 03/17/20 03/31/20 15:46 14:30 14:33 Wound Center Nurse 2 #3- L MEDIAL LE -Time 15:46 14:31 14:33 -Correct Patient Yes Yes Yes -Correct Side, Site, Position Yes Yes Yes -Correct Procedure Yes Yes Yes -Procedure Performed Yes Yes Yes -Type of Procedure Debridement Debridement Debridement -Clinical Debridement Subcutaneous Subcutaneous Subcutaneous -Tissue Removed Subcutaneous Subcutaneous Subcutaneous -Post Debridement (cm) - Length 8.3 6.6 6.0 -Post Debridement (cm) - Width 3.1 3.8 2.2 -Post Debridement (cm) - Depth 0.1 0.1 0.1 -Total Square (Post) (cm) 25.73 25.08 13.20 -Area of Debridement (cm) - Length 8.3 6.6 6.0 -Area of Debridement (cm) - Width 3.1 3.8 2.2 -Total Square (Area) (cm) 25.73 25.08 13.20 -Tunneling No No No -Undermining/Tunneling No No No -Circular Undermining No No No -Wound/Ulcer Outcome Not Healed Not Healed Not Healed -Ulcer Cleansing Rinsed/ Rinsed/ Rinsed/ Irrigated with Irrigated with Irrigated with Saline Saline Saline -Foul Odor after Cleansing No No No -Bioengineered Tissue No No No -Bleeding Controlled with Pressure Pressure Pressure -Offloading No No No -Type of Offloading Surgical Shoe -Treatment Response Procedure Procedure Procedure Tolerated Well Tolerated Well Tolerated Well -Debridement - Subq, 1st 20sq cm Yes Yes Yes -Debridement, SubQ, ea addt'l 20sq cm 1 1 or part thereof Pain Scale: 0-10 Numeric Is Patient Pain Free? Yes Yes Yes WC - Nurse 3 - General Ulcer D/C NN Start: 03/10/20 15:35 Freq: Status: Active Protocol: Activity Type Activity Date Activity User E-Sign Co-Sign Detail Recorded Client Recorded Date Recorded By Document 03/10/20 15:50 [id number] 03/10/20 15:53 Document 03/17/20 14:45 RB [id number] 03/17/20 14:47 RB Document 03/31/20 14:50 RB [id number] 03/31/20 14:51 RB 03/10/20 03/17/20 03/31/20 15:50 14:45 14:50 Wound Care Nurse 3 #3- L MEDIAL LE -Ulcer Cleansing Rinsed/ Rinsed/ Irrigated with Irrigated with Saline Saline -Foul Odor after Cleansing No -Primary Dressing Applied Aquacel AG 4x4 Aquacel AG 4x4 -Other Dressing aquacel ag -Primary Dressing Covered/Secured with Dry Gauze & Dry Gauze,Dry Dry Gauze,Dry Roll Gauze, Gauze & Roll Gauze & Roll Secured with Gauze,Secured Gauze,Secured Tape with Tape with Tape -Aquacel AG 4x4 2 1 Left -Tubular Bandage Single Layer Single Layer -Size of Tubigrip Used Size F Size E -Size E ($) 1 -Size F ($) 1 Treatment Response Procedure Tolerated Well Vital Signs Blood Pressure (90/60-120/80) 134/78 H 147/95 H 135/87 H Blood Pressure Mean (mm Hg) 96 112 103 Source Monitor Monitor Monitor Position Sitting Semi-Fowlers Semi-Fowlers Blood Pressure Location Right Arm Left Arm Left Arm Pain Scale: 0-10 Numeric Is Patient Pain Free? Yes Yes Yes Teaching: Wound Center Dressing Your Wound -Person Taught Patient -Teaching Method Discussion -Response to teaching Verbalize understanding WC - Visit Discharge Discharge Condition Stable Stable Ambulatory Status Ambulatory Ambulatory, Crutches Transportation Private Auto Private Auto Medication Reconcilliation completed & No No provided to patient/care provider Clinical Summary of Care Provided Yes Yes Wound debrided: leg Laterality: Left Type of Debridement: Excisional debridement Anesthesia Used: 5% Lidocaine Gel Depth: in the subcutaneous layer Percentage of wound debrided: 100 Instrument Used: #15 blade Tissue Removed: fibrous, devitalized subcutaneous, biofilm, slough Severity: Fat Layer Exposed Amount of bleeding with debridement: Mild Bleeding Controlled with: Pressure Patient tolerated procedure well Assessment/Plan Active Problems Ulcer of left lower extremity with fat layer exposed (Chronic) Venous insufficiency (Chronic) Assessment: Left leg ulcer with fat layer exposed. Resolved cellulitis and recent abscess the operating room drainage and debridement. Lower extremity edema. Venous insufficiency suspected and Doppler results pending. Peripheral vascular disease not detected with noninvasive vascular studies reviewed. Obesity. Renal disease. Chronic delayed wound healing left leg Plan: I reviewed and discussed this case. The ulcer site was debrided today with a 15 blade scalpel as noted in the clinical panel. I recommend washing this area daily with Dial soap and water and change the dressing with Aquacel Ag. I recommend complete discontinuation of the wound VAC. He was reassured no local signs of infection are noted. Leg elevation, increased protein intake, and other wound care measures to be continued. His questions were answered and he was advised to call with any further questions or concerns. To continue with Tubigrip compression dressing for his venous insufficiency. He deferred vein specialist referral. To elevate limbs at rest above heart level. To avoid excessive salt in diet. To perform muscular pump contracture of the lower extremities hourly while awake. To return to clinic in 2 weeks. This note was generated with [employer] dictation software. It may contain incorrect words, spelling, and punctuation that were not noted in checking the note before signing.
== END 2020-04-05 23:59 ==
LOC: WC 14:15
PROVIDERS: Referring Provider Podiatrist; Visit Provider Podiatrist
DX: L97.822 Non-pressure chronic ulcer of other part of left lower leg with fat layer exposed (principal); I87.2 Venous insufficiency (chronic) (peripheral); R60.0 Localized edema; E66.9 Obesity, unspecified
CPT/HCPCS: 11042; 11045

== ENCOUNTER 2020-05-05 14:50 | Outpatient (RCR) | payer MEDICAID, SELFPAY ==
[2020-04-06 00:15] VITALS: BP 135/87; PULSE 99; RESP 18; TEMP 35.8
[2020-05-05 15:04] VITALS: BP 144/96; PULSE 115; RESP 18; TEMP 35.9; BMI 27.3
[2020-05-05 15:25] VITALS: BP 145/88
--- NOTE | 2020-05-05 15:26 | PCM.WC.PN ---
(1) Ulcer of left lower extremity with fat layer exposed Status: Chronic Code(s): L97.922 - Non-pressure chronic ulcer of unspecified part of left lower leg with fat layer exposed (2) Venous insufficiency Status: Chronic Code(s): I87.2 - Venous insufficiency (chronic) (peripheral) Type of Wound Date of Service: 05/05/20 Chief Complaint: ulcer left leg History of Wound: This 55 year old male presents to the wound center giving a history of chronic wound to his left leg following injury he sustained around 11-06-2019.He had an incision and drainage with aggressive wound debridement performed on 12-07-2019. He was treated with IV antibiotics and was later discharged home with a wound VAC. He had advanced healing product, TheraSkin applied in a serial manner and he has been using wound vac therapy. This past week he is change dressing with Aquacel AG foam and wash his leg with Dial soap. He denies fever, chill, vomiting. He is with his today. He has missed several appointments due to gout flareups and other medical issues not related to his leg. He proceeded with by keeping the wound clean and applying Aquacel Ag at home. Progress of Wound: improving - Physical Exam Vital Signs Temp Pulse Resp BP 96.7 F L 115 H 18 144/96 H 05/05/20 15:04 05/05/20 15:04 05/05/20 15:04 05/05/20 15:04 General: Alert, Oriented x3, Cooperative, No apparent distress Extremities: No cyanosis, Capillary Refill Less than 3 Seconds, No Calf Tenderness, Diminished Peripheral Pulses, Edema - Decreased Skin: Ulcer/ Wound - No purulence, erythema, streaking, odor, infection. Adjacent skin is hairless and atrophic. Significant peripheral epithelialization is noted. Wound Measurements and Assessment WC - Nurse 1 - General Ulcer Measurement Start: 05/05/20 15:04 Freq: Status: Active Protocol: Activity Type Activity Date Activity User E-Sign Co-Sign Detail Recorded Client Recorded Date Recorded By Document 05/05/20 15:04 RB [id number] 05/05/20 15:06 RB 05/05/20 15:04 Wound Center Nurse 1 [Ulcer Assessment] #3- L MEDIAL LE -Combined with other wound No -Current Size (cm) - Length 2 -Current Size (cm) - Width 0.5 -Current Size (cm) - Depth 0.1 -Total Square Cm 1.0 -Tunneling No -Undermining/Tunneling No -Circular Undermining No -Exudate Amt Small -Exudate Type Serosanguineous -Wound Margin Flat & Intact -Granulation Amt Medium (34-66%) -Granulation Quality [place] -Slough/Fibrin Yes -Necrosis Amt Small (1-33%) -Necrotic Tissue Type Adherent Slough -Structure Exposed N/A -Texture (Cammy-wound Skin Appearance) Scarring -Moisture (Cammy-wound Skin Appearance Assessed,Dry/ ) Scaly -Color (Cammy-wound Skin Appearance) Assessed -Temperature (Cammy-wound Skin No Abnormality Appearance) (Pt Warm) -Tenderness on Palpation (Cammy-wound No Skin Appearance) -Ulcer Cleansing Wound Cleanser -Foul Odor after Cleansing No -Anesthetic Used 4% Lidocaine Solution [Edema Assessment] -Lower Limb Edema Present Yes -Left Calf (cm) 37.5 -Left Ankle (cm) 24 WC - Nurse 2 - General Ulcer CM Notes Start: 05/05/20 15:04 Freq: Status: Active Protocol: Activity Type Activity Date Activity User E-Sign Co-Sign Detail Recorded Client Recorded Date Recorded By Document 05/05/20 15:14 CASE [id number] 05/05/20 15:16 CASE 05/05/20 15:14 Wound Center Nurse 2 [Procedure/Treatment] #3- L [facility] LE -Time 15:14 -Correct Patient Yes -Correct Side, Site, Position Yes -Correct Procedure Yes -Procedure Performed Yes -Type of Procedure Debridement -Clinical Debridement Subcutaneous -Tissue Removed Subcutaneous -Post Debridement (cm) - Length 1.6 -Post Debridement (cm) - Width 0.3 -Post Debridement (cm) - Depth 0.1 -Total Square (Post) (cm) 0.48 -Area of Debridement (cm) - Length 1.6 -Area of Debridement (cm) - Width 0.3 -Total Square (Area) (cm) 0.48 -Tunneling No -Undermining/Tunneling No -Circular Undermining No -Wound/Ulcer Outcome Not Healed -Ulcer Cleansing Rinsed/ Irrigated with Saline -Foul Odor after Cleansing No -Bioengineered Tissue No -Bleeding Controlled with Pressure -Offloading No -Treatment Response Procedure Tolerated Well -Debridement - Subq, 1st 20sq cm Yes [See Physician Procedure note for Specifics] Pain Scale: 0-10 Numeric [Pain] -Is Patient Pain Free? Yes Musculoskeletal: No Tenderness to Palpation of Joints or Extremities, Muscle Wasting Neurological: Sensory exam intact to light touch and pain, - Psych/Mental Status: Normal Affect, Appropriate Debridement Note Post-Debridement Measurements/Treatment WC - Nurse 2 - General Ulcer CM Notes Start: 05/05/20 15:04 Freq: Status: Active Protocol: Activity Type Activity Date Activity User E-Sign Co-Sign Detail Recorded Client Recorded Date Recorded By Document 05/05/20 15:14 CASE [id number] 05/05/20 15:16 CASE 05/05/20 15:14 Wound Center Nurse 2 #3- L MEDIAL LE -Time 15:14 -Correct Patient Yes -Correct Side, Site, Position Yes -Correct Procedure Yes -Procedure Performed Yes -Type of Procedure Debridement -Clinical Debridement Subcutaneous -Tissue Removed Subcutaneous -Post Debridement (cm) - Length 1.6 -Post Debridement (cm) - Width 0.3 -Post Debridement (cm) - Depth 0.1 -Total Square (Post) (cm) 0.48 -Area of Debridement (cm) - Length 1.6 -Area of Debridement (cm) - Width 0.3 -Total Square (Area) (cm) 0.48 -Tunneling No -Undermining/Tunneling No -Circular Undermining No -Wound/Ulcer Outcome Not Healed -Ulcer Cleansing Rinsed/ Irrigated with Saline -Foul Odor after Cleansing No -Bioengineered Tissue No -Bleeding Controlled with Pressure -Offloading No -Treatment Response Procedure Tolerated Well -Debridement - Subq, 1st 20sq cm Yes Pain Scale: 0-10 Numeric Is Patient Pain Free? Yes Wound debrided: medial posterior leg Laterality: Left Type of Debridement: Excisional debridement Anesthesia Used: 5% Lidocaine Gel Depth: in the subcutaneous layer Percentage of wound debrided: 100 Instrument Used: #15 blade Tissue Removed: fibrous, devitalized subcutaneous, biofilm, slough Severity: Fat Layer Exposed Amount of bleeding with debridement: Mild Bleeding Controlled with: Pressure Patient tolerated procedure well Assessment/Plan Active Problems Ulcer of left lower extremity with fat layer exposed (Chronic) Venous insufficiency (Chronic) Assessment: Left leg ulcer with fat layer exposed. Resolved cellulitis and recent abscess the operating room drainage and debridement. Lower extremity edema. Venous insufficiency suspected and Doppler results pending. Peripheral vascular disease not detected with noninvasive vascular studies reviewed. Obesity. Renal disease. Chronic delayed wound healing left leg Plan: I reviewed and discussed this case. The ulcer site was debrided today with a 15 blade scalpel as noted in the clinical panel. I recommend washing this area daily with Dial soap and water and change the dressing with Aquacel Ag. He was reassured no local signs of infection are noted. Leg elevation, increased protein intake, and other wound care measures to be continued. His questions were answered and he was advised to call with any further questions or concerns. To continue with Tubigrip compression dressing for his venous insufficiency. He deferred vein specialist referral. To elevate limbs at rest above heart level. To avoid excessive salt in diet. To perform muscular pump contracture of the lower extremities hourly while awake. To return to clinic in 2 weeks. This note was generated with [employer] dictation software. It may contain incorrect words, spelling, and punctuation that were not noted in checking the note before signing.
== END 2020-05-06 23:59 ==
LOC: WC 14:50
PROVIDERS: Referring Provider Podiatrist; Visit Provider Podiatrist
DX: L97.822 Non-pressure chronic ulcer of other part of left lower leg with fat layer exposed (principal); I87.2 Venous insufficiency (chronic) (peripheral); R60.0 Localized edema; M10.9 Gout, unspecified; E66.9 Obesity, unspecified; Z79.899 Other long term (current) drug therapy
CPT/HCPCS: 11042

== ENCOUNTER 2020-05-19 09:33 | Outpatient (RCR) | payer MEDICAID, SELFPAY ==
[2020-05-07 00:15] VITALS: BP 145/88; PULSE 115; RESP 18; TEMP 35.9
== END 2020-06-06 23:59 ==
LOC: WC 09:33
PROVIDERS: Referring Provider Podiatrist; Visit Provider Podiatrist
DX: Z09 Encounter for follow-up examination after completed treatment for conditions other than malignant neoplasm (principal)

== ENCOUNTER 2022-04-29 16:48 | Inpatient (IN) | payer MEDICAID, SELFPAY ==
[2022-04-29] VITALS (26 sets, daily range): BP systolic 61–190; BP diastolic 43–128; PULSE 76–106; RESP 12–98; TEMP 35.2–36.6; O2SAT 92–100; BMI 31.9
--- NOTE | 2022-04-29 17:02 | CT_ITS ---
INDICATION: altered mental status EXAMINATION: CT BRAIN - CT Head or Brain W/O Contrast Injection TECHNIQUE: Multiple axial images were obtained of the head without intravenous contrast. A radiation dose optimization technique was used for this scan. IV Contrast dosage and agent: None. RADIATION DOSAGE (If Supplied By Facility): CTDIvol = ( 47.06 ) mGy, DLP = ( 1815.94 ) mGycm COMPARISON: No relevant prior examinations for comparison FINDINGS: HEMISPHERES: 1. The cerebral parenchyma, ventricular system, subarachnoid spaces have normal configuration and density. There is a normal gyral pattern. There is normal rodriguez/white differentiation. No midline shift.. 2. Diffuse involutional changes are noted. Hemispheric white matter is within age-appropriate limits. 3. No intraparenchymal mass, hemorrhage, or acute territorial infarct. CEREBELLUM - BRAINSTEM: The cerebellum, brainstem, basilar and suprasellar cisterns have normal appearance. No Chiari malformation. PITUITARY: Infundibulum and pituitary have normal configuration. Midline structures appear normal. CSF SPACES: Mild prominence of extra-axial CSF space contributed by diffuse involutional change. No hydrocephalus. Basal cisterns are patent. VESSELS: 1. No significant vascular calcifications in the cavernous carotid vessels. 2. No hyperdense vascular signs noted.. ORBITS AND PARANASAL SINUSES: 1. Normal appearance of the bony orbits. Normal appearance of the globes and retrobulbar soft tissues.. 2. Paranasal sinuses are clear. 3. Tubing is present extending through the oral cavity. BONY ELEMENTS: Bony elements of the cranial vault, facial skeleton and skull base have normal appearance. SCALP AND SOFT TISSUES: Normal appearance of the soft tissues of the scalp and the visualized face OTHER: None ASPECTS Score for Acute Strokes: 10 CT/Brain/Head without Contrast IMPRESSION: 1. Diffuse involutional change versus early lobar atrophy given age. 2. No intracranial mass, hemorrhage or acute territorial infarct. 3. No radiographically significant sinus disease.. Electronically Signed: Adis Doe MD at 19:19 EST ,
--- NOTE | 2022-04-29 17:03 | EX.ED.DYSGE1 ---
HPI History of Present Illness Chief Complaint: Seizure Narrative Narrative: Very limited evaluation in this altered, unresponsive patient. Last seen normal this morning, presents here 1700 by EMS, report is that family who lives with him saw him have a seizure, and upon arrival here staff is checking his blood sugar and it is reading 17. According to the EMR he does not have a history of diabetes and there are no diabetes medications on his list. It is unknown how accurate all of this is there is no one else here to provide history at the time of my evaluation which was immediately upon notification by nursing staff. [facility] Medical History (Updated 04/30/22 @ 00:[address] Braydon Teixeira MD) Anemia GERD (gastroesophageal reflux disease) Gouty arthritis History of hemorrhoids Hyperuricemia Kidney disease Obesity (BMI 30.0-34.9) Ulcer of left lower extremity with fat layer exposed Venous insufficiency (chronic) (peripheral) Medical History unable to obtain Home Medications colchicine 0.6 mg capsule 0.6 mg PO MOWE gout 12/26/13 [History Last Taken Unknown] gabapentin 100 mg capsule 400 mg PO TIDCM GOUT 12/26/13 [History Last Taken 12/06/19] prednisone 5 mg tablet 10 mg PO BID Steroid 12/26/13 [History Last Taken 12/06/19] amoxicillin 875 mg-potassium clavulanate 125 mg tablet 875 mg PO Q12H #14 tabs 12/09/19 [Rx Last Taken Unknown] Allergy/AdvReac Type Severity Reaction Status Date / Time No Known Allergies Allergy Verified 04/29/22 16:48 Surgical History unable to obtain Social History Smoking Status: Never smoker ROS ROS ED Review of Systems ROS Unobtainable: due to mental status EXAM Physical Exam Const Vital Signs: 04/29/22 16:49 04/29/22 17:04 04/29/22 17:12 Temperature 96.2 F L 96.8 F L Temperature Source Temporal Core Pulse Rate 76 102 H Respiratory Rate 28 H 24 H Respiratory Effort Respiratory Depth Respiratory Pattern Blood Pressure 147/128 H 190/112 H Blood Pressure Mean 134 138 Blood Pressure Source Blood Pressure Position Blood Pressure Location Pulse Ox 92 Oxygen Delivery Method Nasal Cannula Nasal Cannula Oxygen Flow Rate (L/min) 2 2 Fraction of Inspired Oxygen (FIO2) 04/29/22 17:21 04/29/22 17:28 04/29/22 17:36 Temperature 97.3 F L Temperature Source Core Pulse Rate 104 H 99 Respiratory Rate 28 H 18 Respiratory Effort Respiratory Depth Respiratory Pattern Blood Pressure 63/43 L 61/47 L 63/45 L Blood Pressure Mean 49 51 51 Blood Pressure Source Blood Pressure Position Blood Pressure Location Pulse Ox 100 99 Oxygen Delivery Method Mechanical Ventilator Room Air Oxygen Flow Rate (L/min) Fraction of Inspired Oxygen (FIO2) 04/29/22 17:37 04/29/22 17:45 04/29/22 17:46 Temperature 97.4 F L 97.8 F Temperature Source Core Core Pulse Rate 103 H 101 H Respiratory Rate 22 H 18 Respiratory Effort Accessory Muscle Use Respiratory Depth Shallow Respiratory Pattern Tachypnea Blood Pressure 72/53 L 69/48 L Blood Pressure Mean 59 55 Blood Pressure Source Monitor Blood Pressure Position Supine Blood Pressure Location Right Arm Pulse Ox 92 Oxygen Delivery Method Nasal Cannula Mechanical Ventilator Oxygen Flow Rate (L/min) 4 Fraction of Inspired Oxygen (FIO2) 04/29/22 17:54 04/29/22 18:04 04/29/22 17:15 Temperature 97.8 F 97.0 F L Temperature Source Core Temporal Pulse Rate 106 H 100 103 H Respiratory Rate 18 14 14 Respiratory Effort Respiratory Depth Respiratory Pattern Normal Blood Pressure 75/56 L 82/62 L Blood Pressure Mean 62 68 Blood Pressure Source Monitor Blood Pressure Position Blood Pressure Location Pulse Ox 100 100 Oxygen Delivery Method Mechanical Ventilator Oxygen Flow Rate (L/min) Fraction of Inspired Oxygen (FIO2) 100 04/29/22 18:15 04/29/22 18:30 04/29/22 18:53 Temperature 96.1 F L 96.1 F L 95.8 F L Temperature Source Core Core Core Pulse Rate 91 97 94 Respiratory Rate 12 12 20 H Respiratory Effort Respiratory Depth Respiratory Pattern Blood Pressure 82/61 L 86/63 L 90/66 Blood Pressure Mean 68 70 74 Blood Pressure Source Blood Pressure Position Blood Pressure Location Pulse Ox 92 100 100 Oxygen Delivery Method Mechanical Ventilator Mechanical Ventilator Mechanical Ventilator Oxygen Flow Rate (L/min) Fraction of Inspired Oxygen (FIO2) 50 50 50 04/29/22 19:00 04/29/22 19:00 04/29/22 19:23 Temperature 95.4 F L Temperature Source Core Pulse Rate 93 101 H 93 Respiratory Rate 20 H 20 H 18 Respiratory Effort Respiratory Depth Respiratory Pattern Normal Blood Pressure 90/66 99/81 H Blood Pressure Mean 74 87 Blood Pressure Source Blood Pressure Position Blood Pressure Location Pulse Ox 100 100 100 Oxygen Delivery Method Mechanical Ventilator Mechanical Ventilator Oxygen Flow Rate (L/min) Fraction of Inspired Oxygen (FIO2) 45 04/29/22 19:53 04/29/22 20:23 04/29/22 20:30 Temperature 95.8 F L 95.8 F L 96.5 F L Temperature Source Core Core Core Pulse Rate 94 97 94 Respiratory Rate 18 98 H 20 H Respiratory Effort Respiratory Depth Respiratory Pattern Blood Pressure 115/71 93/71 101/78 Blood Pressure Mean 85 78 85 Blood Pressure Source Blood Pressure Position Blood Pressure Location Pulse Ox 100 99 100 Oxygen Delivery Method Mechanical Ventilator Mechanical Ventilator Mechanical Ventilator Oxygen Flow Rate (L/min) Fraction of Inspired Oxygen (FIO2) 04/29/22 21:00 04/29/22 21:30 04/29/22 21:39 Temperature 96.2 F L 96.6 F L Temperature Source Core Core Pulse Rate 99 88 94 Respiratory Rate 16 20 H 20 H Respiratory Effort Respiratory Depth Respiratory Pattern Normal Blood Pressure 97/78 104/78 Blood Pressure Mean 84 86 Blood Pressure Source Blood Pressure Position Blood Pressure Location Pulse Ox 99 100 100 Oxygen Delivery Method Mechanical Ventilator Mechanical Ventilator Oxygen Flow Rate (L/min) Fraction of Inspired Oxygen (FIO2) 45 04/29/22 22:00 04/29/22 22:30 04/29/22 23:19 Temperature 97.0 F L Temperature Source Core Pulse Rate 93 78 Respiratory Rate 16 20 H Respiratory Effort Respiratory Depth Respiratory Pattern Blood Pressure 97/71 101/78 Blood Pressure Mean 79 85 Blood Pressure Source Blood Pressure Position Blood Pressure Location Pulse Ox 100 100 Oxygen Delivery Method Room Air Mechanical Ventilator Oxygen Flow Rate (L/min) Fraction of Inspired Oxygen (FIO2) 30 04/29/22 23:00 04/29/22 23:31 Temperature 97.2 F L 97.7 F L Temperature Source Temporal Core Pulse Rate 98 96 Respiratory Rate 20 H 27 H Respiratory Effort Respiratory Depth Respiratory Pattern Blood Pressure 92/76 95/69 Blood Pressure Mean 81 77 Blood Pressure Source Blood Pressure Position Blood Pressure Location Pulse Ox 100 99 Oxygen Delivery Method Mechanical Ventilator Mechanical Ventilator Oxygen Flow Rate (L/min) Fraction of Inspired Oxygen (FIO2) 30 Positive well nourished, well developed and obese Constitutional Narrative: eyes open w/ movements, not responsive to commands/questions. Intermittently, rhythmically, saying an unintelligible sound, while turning his head and moving his eyes around but not moving any extremity. No tonic-clonic activity noted. General Appearance ED: well developed Nutritional Appearance: obese HEENT Reports dry mucous membranes normocephalic and atraumatic Mouth ED: Yes dry mucous membranes Mouth: dry mucous membranes Eyes PERRL and EOMs intact bilaterally Neck full ROM and supple Chest Wall inspection of chest normal and palpation of chest normal Resp normal respiratory effort and clear to auscultation bilaterally Cardio regular rate, regular rhythm and no murmurs Rate: Negative for tachycardic GI non-tender and non-distended GI Narrative: small reducible umbilical hernia, no apparent tenderness Auscultation: normoactive bowel sounds Palpation: soft Extremity normal to inspection General Extremety ED: Yes edema; Negative for pulses abnormal or tenderness General Extremity: edema bilateral lower extremity Details: severe; Negative for pulses abnormal Neuro [place] Coma Scale: document GCS findings Spontaneous None Incomprehensible 7 Skin no rashes or lesions noted and skin turgor normal Sepsis Attestation Sepsis Alert: Yes Sepsis Attestation: Agree w/Sepsis Date exam was performed: 04/29/22 Time exam was performed: 18:00 Possible Source of Sepsis: Unknown Sepsis Organ Dysfunction Criteria Present: SBP < 90 mmHg or MAP < 65 mmHg, Creatinine > 2.0 mg/dL, Lactic Acid > 2 mmol/L and New/Unexplained change in mental status Fluid Resuscitation Fluid resuscitation indicated?: Yes Fluid Resuscitation ordered: 30 ml/kg fluid bolus ordered Sepsis Note Date exam was performed: 04/29/22 Time exam was performed: 19:23 Sepsis Attestation: Sepsis re-evaluation was performed (MAP better after pressors) Response to fluids: Vasopressors started (Prior to end of bolus due to blood pressure extremely low and not responding to fluids) MDM MDM MDM Narrative Medical decision making narrative: At this time 0 is intact, however his GCS is 7 and I am watching him very closely as I have nursing give him 2 A of D50 in attempt to raise his blood sugar to see if that makes his GCS improve. It did not help and on recheck his blood sugar is 125 and said he is still doing the same rhythmic head movements. Therefore assuming this is seizure activity, I gave him 2 mg of Ativan simultaneously while setting up for intubation which was done see the procedure note. His blood pressure dropped significantly as a result of all of this, so simultaneously a central line was placed and he was started on Levophed while we were placing a central line, it was then switched over after I verified it with 1 view chest x-ray which shows good line placement and no PTX. The 1 view chest x-ray that we obtained after intubation shows good tube placement on my interpretation, I did not see anything else acute. However once I reviewed the radiology interpretation and it was apparent that there is probably a left retrocardiac infiltrate. He was sent for CT of the head which shows nothing acute, his lactate came back at 11, possibly due to seizure activity, also possibly due to being in septic shock which the rest of this is consistent with as it is his significant leukocytosis and hypotension. On Levophed, his pressure is better. I discussed with intensive care Dr. Bhatia who recommends we transfer him to higher level of care since we do not have continuous EEG capability here. I think that is reasonable as well. Family wanted us to try [facility] followed by [place], followed by [place], followed by [place]. We tried multiple [facility] and all of those [facility] sequentially, no one either had a bed or had the ability to do continuous EEG [place] weekend. I did end up finding a bed at the neuro intensive care unit at [place] in [place], accepted there by the measurement operator. Because of all of this, the patient was here for an extended period of time being cared for in the emergency department by myself and staff. His pressure steadily aye. He began to wake up and gag on the tube and grimace, but still is not moving his extremities. No purposeful movements. We monitored his blood sugar, it maintained in the 130 range, this is 4-5 hours after we kept him on a D5 half-normal saline drip at 100 cc/h which we will maintain in addition to his Levophed. He is on no sedatives at this time. Last blood pressure 101/78 with a heart rate of 78, he is afebrile and satting 100% on 45% FiO2 w/ MV: AC 20/450, PEEP 5. Repeating his ABG since he has been here for 6 hours total normal at this time. He has put out just under 1 cc/kg/h of urine, so after finishing his 30 cc/kg IV fluid bolus, I am starting him on normal saline at 200 cc/h. On reevaluating him clinically, he is occasionally turning his head and twitching at the mouth, but it is seldom, random, does not necessarily appear to be seizure activity. Clinically does not appear to be in status anymore, and since he is being transferred to a neuro ICU where EEG will be performed I am holding off on providing any further antiepileptics. We did attempt to fly him to [place] however air EMS is not flying due to weather, so we attempted to obtain ground mobile ICU arrives to transport. At this time, all local mobile ICU and regular EMS companies are declining to transfer him because of poor roads and low temperatures, apparently. It is 2300. Therefore I think it is best to admit him to our ICU until transport can be arranged for this patient that is excepted to a tertiary care center. Discussed with intensive care Dr. Bhatia here who is amenable to that. Repeat ABG reviewed, and looks good so I am not changing any of his ventilator settings except we can decrease his FiO2 to 30%. 7.33/32.4/150/17.1 on 45% FiO2 Doing more twitching of his mouth, and multidirectional nystagmus with his eyes. Discussed with the accepting physician Dr. Vázquez with [place] intensive care, she agrees with loading the patient with Keppra 60 mg/kg with a maximum of 4000, so we ordered the maximum, in addition to an order for hydrocortisone 100 mg since the patient appeared to be on prednisone and we do not know if he is on it chronically, he does appear to have lopez facies clinically and may or may not have adrenal insufficiency. Also adding a urine drug screen. Lab Data Attestation: I reviewed the patient's lab results. Labs: Laboratory Results - last 24 hr 04/29/22 04/29/22 04/29/22 16:10 16:55 16:55 WBC 25.6 H RBC 2.59 L Hgb 8.6 L Hct 27.7 L MCV 106.9 H MCH 33.2 H MCHC 31.0 L RDW Std Deviation 69.1 H RDW Coeff of Estella 17.4 H Plt Count 138 L MPV 10.6 Immature Gran % (Auto) 4.300 H Neut % (Auto) 87.9 H Lymph % (Auto) 1.6 L [place] % (Auto) 5.4 Eos % (Auto) 0.5 Baso % (Auto) 0.3 Absolute Neuts (auto) 22.5 H Absolute Lymphs (auto) 0.42 L Nucleated RBC % 0 Differential Comment SCANNED Anisocytosis 2+ Microcytosis 1+ Macrocytosis 1+ PT 16.4 H INR 1.4 APTT 33.3 Sodium Potassium Chloride Carbon Dioxide Anion Gap BUN Creatinine Estim Creat Clear Calc Est GFR (MDRD) Af Amer Est GFR (MDRD) Non-Af BUN/Creatinine Ratio Glucose Lactic Acid Calcium Total Bilirubin AST ALT Alkaline Phosphatase Total Creatine Kinase Total Protein Albumin Globulin Albumin/Globulin Ratio Triglycerides Urine Color Yellow Urine Clarity Clear Urine pH 6.0 Ur Specific [place] 1.015 Urine Protein 30 H Urine Glucose (UA) Normal Urine Ketones 5 H Urine Occult Blood Negative Urine Nitrite Negative Urine Bilirubin 1 H Urine Urobilinogen 1 H Ur Leukocyte Esterase 25 H Urine RBC 0 SEEN Urine WBC 0-5 SEEN Ur Squamous Epith Cells 0 SEEN Urine Bacteria 1+ Urine Mucus 0 SEEN POC Glucose 04/29/22 04/29/22 04/29/22 16:55 16:55 17:05 WBC RBC Hgb Hct MCV MCH MCHC RDW Std Deviation RDW Coeff of Estella Plt Count MPV Immature Gran % (Auto) Neut % (Auto) Lymph % (Auto) [place] % (Auto) Eos % (Auto) Baso % (Auto) Absolute Neuts (auto) Absolute Lymphs (auto) Nucleated RBC % Differential Comment Anisocytosis Microcytosis Macrocytosis PT INR APTT Sodium 138 Potassium 5.1 Chloride 103 Carbon Dioxide 15.0 L Anion Gap 20 H BUN 35 H Creatinine 3.72 H Estim Creat Clear Calc 21.65 Est GFR (MDRD) Af Amer 22 L Est GFR (MDRD) Non-Af 18 L BUN/Creatinine Ratio 9.4 L Glucose 32 L* Lactic Acid 11.5 H* Calcium 7.6 L Total Bilirubin 1.70 H AST 44 H ALT 26 Alkaline Phosphatase 127 H Total Creatine Kinase 281 Total Protein 5.7 L Albumin 2.4 L Globulin 3.3 Albumin/Globulin Ratio 0.7 L Triglycerides 130 Urine Color Urine Clarity Urine pH Ur Specific [place] Urine Protein Urine Glucose (UA) Urine Ketones Urine Occult Blood Urine Nitrite Urine Bilirubin Urine Urobilinogen Ur Leukocyte Esterase Urine RBC Urine WBC Ur Squamous Epith Cells Urine Bacteria Urine Mucus POC Glucose 04/29/22 04/29/22 04/29/22 17:12 18:15 19:23 WBC RBC Hgb Hct MCV MCH MCHC RDW Std Deviation RDW Coeff of Estella Plt Count MPV Immature Gran % (Auto) Neut % (Auto) Lymph % (Auto) [place] % (Auto) Eos % (Auto) Baso % (Auto) Absolute Neuts (auto) Absolute Lymphs (auto) Nucleated RBC % Differential Comment Anisocytosis Microcytosis Macrocytosis PT INR APTT Sodium Potassium Chloride Carbon Dioxide Anion Gap BUN Creatinine Estim Creat Clear Calc Est GFR (MDRD) Af Amer Est GFR (MDRD) Non-Af BUN/Creatinine Ratio Glucose Lactic Acid Calcium Total Bilirubin AST ALT Alkaline Phosphatase Total Creatine Kinase Total Protein Albumin Globulin Albumin/Globulin Ratio Triglycerides Urine Color Urine Clarity Urine pH Ur Specific [place] Urine Protein Urine Glucose (UA) Urine Ketones Urine Occult Blood Urine Nitrite Urine Bilirubin Urine Urobilinogen Ur Leukocyte Esterase Urine RBC Urine WBC Ur Squamous Epith Cells Urine Bacteria Urine Mucus POC Glucose 125 H 124 H 118 H 04/29/22 04/29/22 21:23 22:17 WBC RBC Hgb Hct MCV MCH MCHC RDW Std Deviation RDW Coeff of Estella Plt Count MPV Immature Gran % (Auto) Neut % (Auto) Lymph % (Auto) [place] % (Auto) Eos % (Auto) Baso % (Auto) Absolute Neuts (auto) Absolute Lymphs (auto) Nucleated RBC % Differential Comment Anisocytosis Microcytosis Macrocytosis PT INR APTT Sodium Potassium Chloride Carbon Dioxide Anion Gap BUN Creatinine Estim Creat Clear Calc Est GFR (MDRD) Af Amer Est GFR (MDRD) Non-Af BUN/Creatinine Ratio Glucose Lactic Acid 5.0 H* Calcium Total Bilirubin AST ALT Alkaline Phosphatase Total Creatine Kinase Total Protein Albumin Globulin Albumin/Globulin Ratio Triglycerides Urine Color Urine Clarity Urine pH Ur Specific [place] Urine Protein Urine Glucose (UA) Urine Ketones Urine Occult Blood Urine Nitrite Urine Bilirubin Urine Urobilinogen Ur Leukocyte Esterase Urine RBC Urine WBC Ur Squamous Epith Cells Urine Bacteria Urine Mucus POC Glucose 132 H ABG Data ABG results: ABG 04/29/22 04/29/22 04/29/22 18:22 18:29 23:10 Specimen Type ZABRINA ART ART Sample Site R Radial R Brach pH 7.19 L* 7.33 L Bicarbonate Actual 13.6 L 17.1 L Total CO2 15 18 Base Excess -15 L -9 L O2 Saturation 100 H 99 O2 % 100 45 ABG pCO2 35.9 32.4 L ABG pO2 240 H 150 H Michelet Test N/A VBG pH 7.12 L* VBG pO2 135 H VBG HCO3 12 L VBG Total CO2 14 L VBG O2 Sat (Calc) 98 H VBG Base Excess -17 L POC Mix VBG pCO2 Pt Tmp 38.4 L Respiration Rate 14 14 20 O2 Delivery Device Adult Vent Adult Vent Adult Vent Vent Mode AC AC Tidal Volume 450 450 POC PEEP 5 5 5 Crit Call To/Read Back Yes Yes Blood Gas Notified Whom kaylyn Radiography Diagnostic Testing: Clinical Impression(s) from Imaging Studies Brain CT 04/29/22 17:02 IMPRESSION: 1. Diffuse involutional change versus early lobar atrophy given age. 2. No intracranial mass, hemorrhage or acute territorial infarct. 3. No radiographically significant sinus disease.. Electronically Signed: Adis Doe MD at 19:19 EST , Chest X-Ray 04/29/22 17:20 IMPRESSION: 1. ET tube and NG tube projecting in normal position. 2. No evidence of congestive failure. 3. Mild basilar atelectasis however superimposed interstitial infiltrate at the LEFT lung base is a consideration. No consolidation or effusion. Electronically Signed: Adis Doe MD at 18:10 EST , Chest X-Ray 04/29/22 17:55 IMPRESSION: 1. Interval placement of a RIGHT IJ central venous catheter, tip is projecting in normal position in the region of the subazygos SVC approaching the venoatrial junction. 2. No pneumothorax. 3. Retrocardiac LEFT lower lobe interstitial infiltrate suspected. Remaining lung zones clear. 4. No congestive failure. Electronically Signed: Adis Doe MD at 18:23 EST , Rhythm Strip Rhythm Strip: Sinus Rhythm Rate: 90 Ectopy: None EKG Initial EKG: Attestation: I personally reviewed and interpreted this EKG as follows: Interpretation: Sinus Rhythm and No Acute Injury Pattern Comments: low voltage similar to prior; left malave axis similar to prior Prior: Unchanged Procedures Intubations Intubation Method: orotracheal Intubation Verification: Positive color change and Bilateral breath sounds confirmed Intubation Complications: no complications (Visualized passage of 8.0F ETT via glide scope 4 blade. Placement a 22 cm teeth, verified on 1 view chest x-ray my interpretation, good placement.) Other Procedures Procedure(s): Central line placement: Indication is septic shock/hypotension. Initially prepped and draped in sterile fashion attempting right subclavian vein due to speed of placement, but obesity precluded my ability to pass the catheter or obtain definitive central venous blood. Therefore we switched to the right jugular via ultrasound guidance, visualizing the catheter/needle passing into the jugular vein with nonpulsatile blood and passing via modified Seldinger technique, 20 cm catheter, chlorhexidine disc placed against the skin at the insertion site, sutured in place, verified all 3 ports anamika back dark red nonpulsatile blood and flushed easily, verified again by chest x-ray 1 view on my interpretation showing no pneumothorax and good placement of the catheter. Critical Care Time Critical Care Time: Yes Critical care time (excluding procedures): 75-104 minutes (80 minutes, not including procedure time), Including time spent:, Discussing w/Patient &/or Family/Paint Department Supervisor (Family who later arrived), Discussing w/Consultants, Arranging Admission or Transfer and Performing Direct Patient Care at Bedside Discharge Plan Triage Chief Complaint: Seizure ED Provider: Braydon Teixeira Dx/Rx/DC Orders Clinical Impression: Septic shock, Pneumonia, YAHAIRA (acute kidney injury), Status epilepticus, Hypoglycemia, Encephalopathy acute Primary Care Provider: Care Physician,No Primary Disposition Disposition: Acute Care Hospital Discharge Location: [facility]
[2022-04-29] MEDS: Dextrose 50%-Water 25 GM/50 ML DISP.SYRIN IV (17:05)
--- NOTE | 2022-04-29 17:16 | ED.RN ---
dr. patiño notified that no change in pt. after d50. states set up for intubation
[2022-04-29] MEDS: LORazepam 2 MG/ML Syringe IV (17:18)
[2022-04-29] MEDS: Etomidate 20 MG/10 ML Vial IV (17:18)
[2022-04-29] MEDS: Rocuronium Bromide 50 MG/5 ML Vial 70 MG IV (17:20)
--- NOTE | 2022-04-29 17:20 | RAD_ITS ---
INDICATION: ETT placement EXAMINATION/TECHNIQUE: X-RAY - XR Chest 1 View COMPARISON: 11/24/2013 FINDINGS: LIFE-SUPPORT AND LINES: 1. ET tube projects in normal position approximately 5 cm above the irma. 2. NG tube extends into the proximal stomach. 3. No pneumothorax. HEART AND VESSELS: Cardiac silhouette is unchanged, no evidence congestive failure. LUNGS AND PLEURAL SPACES: Patchy atelectasis at the lung bases with mild asymmetry greater at the LEFT base, suspicious of early interstitial infiltrate in the retrocardiac LEFT lower lobe. Remaining lung zones clear. No pulmonary mass is noted. MEDIASTINUM AND HILAR REGIONS: No masses adenopathy noted. No areas of calcification. Visualized upper airway is normal in position. BONY ELEMENTS: No acute bony changes noted. RAD/Chest 1 View (Portable) IMPRESSION: 1. ET tube and NG tube projecting in normal position. 2. No evidence of congestive failure. 3. Mild basilar atelectasis however superimposed interstitial infiltrate at the LEFT lung base is a consideration. No consolidation or effusion. Electronically Signed: Adis Doe MD at 18:10 EST ,
[2022-04-29 17:21] LABS: Mucous, Urine 0 SEEN /hpf (<or=2+); Red Blood Cells-Urine 0 SEEN /hpf (0-5); Squamous Epithelial Cells - UA 0 SEEN /hpf (0-5)
[2022-04-29 17:21] LABS: Absolute Lymphocyte Count 0.42 X10^3/uL (0.83-4.51); Absolute Neutrophil Count 22.5 X10^3/uL (2.0-7.7); Basophil# 0.07 X10^3/uL; Basophil% 0.3 % (0-1); Eosinophil# 0.14 X10^3/uL; Eosinophils% 0.5 % (0-5); Hematocrit 27.7 % (40-54); Hemoglobin 8.6 g/dL (13.0-16.5); Lymphocyte # 0.42 X10^3/ul (0.83-4.51); Lymphocyte % 1.6 % (19-41); Mean Corpuscular Hgb 33.2 pg (27.0-32.0); Mean Corpuscular Volume 106.9 fL (80-94); Mean Platelet Vol. 10.6 fl (6.2-12.0); Monocyte# 1.39 X10^3/uL; Monocyte% 5.4 % (0-10); NRBC Flagged by Analyzer 0 % (0-5); Neutrophil # 22.45 X10^3/uL (2.7-7.7); Neutrophil % 87.9 % (47-70); POSITIVE DIFFERENTIAL YES; POSITIVE MORPHOLOGY YES; Platelet Count 138 K/mm3 (150-450); RBC Distribution Width CV 17.4 % (11.6-14.6); RBC Distribution Width SD 69.1 fl (35.1-43.9); Red Blood Count 2.59 M/mm3 (4.6-6.2); White Blood Count 25.6 K/mm3 (4.4-11.0)
--- NOTE | 2022-04-29 17:22 | ED.RN ---
1720 DR. HARVEY AT BEDSIDE, MEDS FOR INTUBATION GIVEN. 1724- 8 TUB. [email or web address].
[2022-04-29 17:23] LABS: Color, Urine Yellow (Yellow); Glucose, Dipstick Normal (Normal); Ketone-Dipstick 5 mg/dl (Negative); Leukocyte Esterase-Dipstick 25 /ul (Negative); Nitrite-Dipstick Negative (Negative); Occult Blood-Urine Negative /ul (Negative); Protein-Dipstick 30 mg/dl (Negative); Specific Gravity, Urine 1.015 (1.002-1.030); Urine Clarity Clear (Clear); Urine Urobilinogen 1 mg/dl (Normal)
[2022-04-29 17:25] LABS: International Normalized Ratio 1.4; Prothrombin Time (Protime)PT. 16.4 SECONDS (11.7-14.9)
[2022-04-29 17:26] LABS: Differential Indicated SCAN CRITERIA MET; Partial Thromboplast Time 33.3 Seconds (24.1-36.2)
[2022-04-29 17:29] LABS: Urine Bilirubin Dipstick 1 mg/dL (Negative)
[2022-04-29 17:42] LABS: ALB/GLOB Ratio 0.7 RATIO (0.9-2.4); AST(SGOT) 44 U/L (15-37); Alanine Aminotransfer ALT/SGPT 26 U/L (16-61); Albumin, Serum 2.4 g/dL (3.2-5.0); Alkaline Phosphatase 127 U/L (45-117); Anion Gap 20 (5-15); BUN 35 mg/dL (7-18); BUN/Creat Ratio 9.4 RATIO (10-20); Calcium,Total 7.6 mg/dL (8.5-10.1); Chloride 103 mmol/L (98-107); Creatinine, Serum 3.72 mg/dL (0.70-1.30); EST Glomerular Filtration Rate 18 mL/min (>60); Est Glom Filt Rate - Afr Amer 22 mL/min (>60); Estimated Creatinine Clearance 21.65 ml/min; Globulin 3.3 g/dL (2.2-4.2); Glucose 32 mg/dL (74-106); Potassium 5.1 mmol/L (3.5-5.1); Protein, Total 5.7 g/dL (6.4-8.2); Sodium Level 138 mmol/L (136-145)
[2022-04-29 17:43] LABS: Lactic Acid 11.5 mmol/L (0.4-1.9)
[2022-04-29 17:47] LABS: Bacteria 1+ /hpf (None Seen); White Blood Cells 0-5 SEEN /hpf (0-5)
[2022-04-29] MEDS: Dext 5%-0.45% NS 1,000 ML 100 ML IV (17:53)
--- NOTE | 2022-04-29 17:55 | RAD_ITS ---
INDICATION: central line placement EXAMINATION/TECHNIQUE: X-RAY - XR Chest 1 View COMPARISON: Earlier same date at 5:27 PM, 04/29/2022 FINDINGS: LIFE-SUPPORT AND LINES: 1. ET tube and NG tube are unchanged. 2. Interval placement of RIGHT IJ catheter project along course the SVC, with the tip approaching the venoatrial junction. 3. No pneumothorax. HEART AND VESSELS: The cardiac silhouette, pulmonary vasculature have normal appearance. No evidence of congestive failure. LUNGS AND PLEURAL SPACES: Patchy atelectasis with mild asymmetry greater on LEFT than RIGHT suspicious of retrocardiac LEFT lower lobe infiltrate. Remaining lung zones clear. No pulmonary mass is noted. MEDIASTINUM AND HILAR REGIONS: No masses adenopathy noted. No areas of calcification. Visualized upper airway is normal in position. BONY ELEMENTS: No acute bony changes noted. RAD/CXR for Line Placement IMPRESSION: 1. Interval placement of a RIGHT IJ central venous catheter, tip is projecting in normal position in the region of the subazygos SVC approaching the venoatrial junction. 2. No pneumothorax. 3. Retrocardiac LEFT lower lobe interstitial infiltrate suspected. Remaining lung zones clear. 4. No congestive failure. Electronically Signed: Adis Doe MD at 18:23 EST ,
[2022-04-29 17:59] LABS: Anisocytosis 2+; Differential Comment SCANNED; Macrocytosis 1+; Microcytosis 1+
[2022-04-29 18:25] LABS: Blood Gas Specimen Type VEN; O2 Delivery Device Adult Vent; PEEP 5; RR 14; VBG BASE EXCESS -17 mmol/L (-1.0-3.5); VBG Bicarbonate 12 mmol/L (22-26); VBG PO2 135 mmHg (25-40); VBG SO2 98 % (50-70); VBG TCO2 14 mmol/L (23-33); VBG pCO2 38.4 mmHg (41-51); VBG pH 7.12 (7.32-7.42)
[2022-04-29 18:35] LABS: Base Excess -15 mmol/L (-2 to +2); Bicarbonate 13.6 mmol/L (22-26); Blood Gas Specimen Type ART; FI02 100; Mode AC; O2 Delivery Device Adult Vent; PEEP 5; PO2 240 mmHG (75-100); RR 14; SITE R Radial; SO2 100 % (95-99); Total Carbon Dioxide 15 mmol/L; Vt 450; pCO2 35.9 mmHg (35-45); pH 7.19 (7.35-7.45)
--- NOTE | 2022-04-29 18:55 | ED.RN ---
PATIENT PLACED IN BEAR WARMER FOR CORE TEMP LESS THAN 96.0
--- NOTE | 2022-04-29 19:05 | ED.RN ---
1730- VERBAL ORDER FOR 30ML/KG ORDER FOR IV FLUIDS TOTALING 2946ML.
--- NOTE | 2022-04-29 19:18 | ED.RN ---
attempted [facility] for transfer of patient at this time no accepting outside transfers
--- NOTE | 2022-04-29 19:30 | ED.RN ---
called [facility] derek for transfer beds are tight but will page doctor to see if willing to accept
[2022-04-29 19:45] LABS: Bedside Glucose 124 mg/dL (74-106)
[2022-04-29 19:45] LABS: Bedside Glucose 125 mg/dL (74-106)
[2022-04-29 19:45] LABS: Bedside Glucose 118 mg/dL (74-106)
--- NOTE | 2022-04-29 19:58 | ED.RN ---
derek has denied patient at this time due to no eeg 24 hr available
--- NOTE | 2022-04-29 19:59 | ED.RN ---
[facility] full and not accepting transfers at this time
--- NOTE | 2022-04-29 20:01 | ED.RN ---
[facility] not accepting icu transfers to due no staffed beds at this time
--- NOTE | 2022-04-29 20:10 | ED.RN ---
[facility] called for transfer they are paging out doctors to see if willing to accept patient
[2022-04-29 21:09] LABS: Reflex Lactate? Y
--- NOTE | 2022-04-29 21:37 | ED.RN ---
[facility] willing to accept patient to [facility] but at this time no beds unable to give an eta on bed status
--- NOTE | 2022-04-29 21:38 | ED.RN ---
[facility] called for transfer they will call back if there are beds open
[2022-04-29 21:46] LABS: CPK Total, Creatine Kinase 281 U/L (39-308); Triglycerides 130 mg/dL
--- NOTE | 2022-04-29 22:11 | ED.RN ---
ABBY mason on conference call with at this time
--- NOTE | 2022-04-29 22:15 | ED.RN ---
has declined patient at this time
--- NOTE | 2022-04-29 22:22 | ED.RN ---
Addendum entered by Lambert Goss 04/29/22 22:52: they have accepted patient at this time waiting for bed assignment at this time Original Note: [facility] called for transfer at this time
[2022-04-29 22:35] LABS: Bedside Glucose 132 mg/dL (74-106)
--- NOTE | 2022-04-29 22:44 | ED.RN ---
[facility] called for transport they declined due to weather
--- NOTE | 2022-04-29 22:56 | ED.RN ---
[facility] called for transport. they are not able to fly and mobile icu not able to transport at this time. they advised to call back in the morning
--- NOTE | 2022-04-29 22:58 | ED.RN ---
physicians called and declined the transport at this time unable to complete run till morning
--- NOTE | 2022-04-29 23:10 | ED.RN ---
[facility] has patient information and said call back in the morning at 7 am to check patient status and ability to transfer
[2022-04-29 23:15] LABS: Base Excess -9 mmol/L (-2 to +2); Bicarbonate 17.1 mmol/L (22-26); Blood Gas Specimen Type ART; FI02 45; Mode AC; O2 Delivery Device Adult Vent; PEEP 5; PO2 150 mmHG (75-100); RR 20; SITE R Brach; SO2 99 % (95-99); Total Carbon Dioxide 18 mmol/L; Vt 450; pCO2 32.4 mmHg (35-45); pH 7.33 (7.35-7.45)
--- NOTE | 2022-04-29 23:41 | PCM.HP.STD ---
HPI - General General Date of Admission: 04/29/22 Date of Service: 04/29/22 Chief Complaint: Fatigue, malaise, seizures. HPI Narrative The patient is a 57 y/o M w/ PMHx: Obesity, GERD, Chronic anemia, CKD stage III unclear subtype, Gout, PVD w/ chronic BL LE venous stasis disease w/ history of chronic stasis ulcers previously evaluated per Dr. Pemberton, from medication list potentially low dose chronic steroids of unclear etiology/use with visual appearance lopez facies who presents to the [facility] ED on 04/29/22 with history of several days of fatigue and malaise at home with no specific recent dyspnea, cough, fever, chills, urinary complaints per family however this is a secondary report with a witnessed seizure at home for the significant per EMS prompting eventual ED transition. Upon initial arrival patient was significantly altered and noted to have notable periods of apnea with concern for status with initial BS 17, corrected BS to 125 with GCS 7, given ativan-->intubated, became hypotensive with then initiation of NEP and start D51/2NS-->now to GCS T3 x 6 hours per discussion with ED physician. Work-up in the ED included initially T96.2, heart rate 76, BP 147/128, respiratory rate 28, 92% on 2 L nasal cannula eventually decompensating with unsafe airway with intubation required as well as significant hypotension with septic shock with blood pressures dropping to 60s over 40s requiring central line placement and pressor therapy, most recent vital signs included T97.2, heart rate 98, BP 92/76, respiratory rate 20, 100% mechanically ventilated with FiO2 down to 30%, CBC with WC 25.6, hemoglobin 8.6, MCV 106.9, platelet 138 with significant left shift and lymphopenia, coags unremarkable aside PT 16.4, most recent ABG with pH 7.33, bicarb 17.1, PCO2 32.4, PO2 150, VBG at 1822 initially with pH 7.12, PO2 135, bicarb 12, total CO2 14, O2 saturation 90% performed while intubated, CMP with carbon dioxide 15, anion gap 20, BUN/creatinine 35/3.72, glucose 32, lactic acid initially 11.5 with repeat 5.0, calcium 7.6, total bilirubin 1.70, AST/LT 44/26, alk phos 127, total creatinine kinase 281, hepatic profile otherwise not marked appearing, urinalysis with specific gravity 1.015, urine protein 30, urine glucose normal, urine ketone 5, urine occult blood negative, urine nitrite negative, leukocyte Estrace 25, no urine WC is or RBCs with 1+ urine bacteria, Bld Cx x 2 pending per ED, CT of the brain with diffuse involutional changes versus early lobar atrophy given age with no intracranial mass/hemorrhage or acute territorial infarct, chest x-ray with ET tube and NG tube in normal position with no evidence of any overload with mild basilar atelectasis however superimposed interstitial infiltrate at the lung base cannot be ruled out, repeat chest x-ray following central line placement with noted interval placement right IJ central venous catheter with tip in normal position in the region of the subazygous SVC approaching the vena atrial junction with no PE, retrocardiac left lower lobe interstitial infiltrate is now more suspicious. In the ED patient ministered 30 cc/kg septic shock protocol boluses and currently maintained on maintenance IV fluid normal saline 200 cc/h, administered Rocephin and azithromycin as well as rocuronium, etomidate and Ativan for intubation, maintained on norepinephrine. Patient did have propofol ordered but was never started per discussion with ED physician. Patient has been accepted at [facility]; however, no transport available secondary to weather conditions, declined by both air and ground with accepting OSH physician Dr. Gabriel, Neuro ICU Statistical Typist. [facility] Medical History (Updated 04/30/22 @ 03:[address] Katia Galeana MD) Chronic anemia CKD (chronic kidney disease), stage III GERD (gastroesophageal reflux disease) Gouty arthritis History of hemorrhoids Hyperuricemia Obesity (BMI 30.0-34.9) Ulcer of left lower extremity with fat layer exposed Venous insufficiency (chronic) (peripheral) Medical History unable to obtain Home Medications colchicine 0.6 mg capsule 0.6 mg PO MOWE gout 12/26/13 [History Last Taken Unknown] gabapentin 100 mg capsule 400 mg PO TIDCM GOUT 12/26/13 [History Last Taken 12/06/19] prednisone 5 mg tablet 10 mg PO BID Steroid 12/26/13 [History Last Taken 12/06/19] amoxicillin 875 mg-potassium clavulanate 125 mg tablet 875 mg PO Q12H #14 tabs 12/09/19 [Rx Last Taken Unknown] Allergy/AdvReac Type Severity Reaction Status Date / Time No Known Allergies Allergy Verified 04/29/22 16:48 Family History (Updated 04/30/22 @ 03:[address] Katia Galeana MD) Mother Rheumatoid arthritis Cancer Family History other other (Unclear paternal family history including HD, DM, CA.) Surgical History (Updated 04/30/22 @ 03:[address] Katia Galeana MD) History of surgery on lower extremity Surgical History unable to obtain Social History (Updated 04/30/22 @ 03:[address] Katia Galeana MD) household members: spouse Smoking Status: Never smoker alcohol intake: current alcohol intake frequency: holidays/special occasions only substance use type: does not use ROS Review of Systems ROS Unobtainable: due to endotracheal tube and due to mental status Vital Signs Vital Signs Vital Signs: 04/29/22 16:49 04/29/22 17:04 04/29/22 17:12 Temperature 96.2 F L 96.8 F L Temperature Source Temporal Core Pulse Rate 76 102 H Respiratory Rate 28 H 24 H Respiratory Effort Respiratory Depth Respiratory Pattern Blood Pressure 147/128 H 190/112 H Blood Pressure Mean 134 138 Blood Pressure Source Blood Pressure Position Blood Pressure Location Pulse Ox 92 Oxygen Delivery Method Nasal Cannula Nasal Cannula Oxygen Flow Rate (L/min) 2 2 Fraction of Inspired Oxygen (FIO2) 04/29/22 17:21 04/29/22 17:28 04/29/22 17:36 Temperature 97.3 F L Temperature Source Core Pulse Rate 104 H 99 Respiratory Rate 28 H 18 Respiratory Effort Respiratory Depth Respiratory Pattern Blood Pressure 63/43 L 61/47 L 63/45 L Blood Pressure Mean 49 51 51 Blood Pressure Source Blood Pressure Position Blood Pressure Location Pulse Ox 100 99 Oxygen Delivery Method Mechanical Ventilator Room Air Oxygen Flow Rate (L/min) Fraction of Inspired Oxygen (FIO2) 04/29/22 17:37 04/29/22 17:45 04/29/22 17:46 Temperature 97.4 F L 97.8 F Temperature Source Core Core Pulse Rate 103 H 101 H Respiratory Rate 22 H 18 Respiratory Effort Accessory Muscle Use Respiratory Depth Shallow Respiratory Pattern Tachypnea Blood Pressure 72/53 L 69/48 L Blood Pressure Mean 59 55 Blood Pressure Source Monitor Blood Pressure Position Supine Blood Pressure Location Right Arm Pulse Ox 92 Oxygen Delivery Method Nasal Cannula Mechanical Ventilator Oxygen Flow Rate (L/min) 4 Fraction of Inspired Oxygen (FIO2) 04/29/22 17:54 04/29/22 18:04 04/29/22 17:15 Temperature 97.8 F 97.0 F L Temperature Source Core Temporal Pulse Rate 106 H 100 103 H Respiratory Rate 18 14 14 Respiratory Effort Respiratory Depth Respiratory Pattern Normal Blood Pressure 75/56 L 82/62 L Blood Pressure Mean 62 68 Blood Pressure Source Monitor Blood Pressure Position Blood Pressure Location Pulse Ox 100 100 Oxygen Delivery Method Mechanical Ventilator Oxygen Flow Rate (L/min) Fraction of Inspired Oxygen (FIO2) 100 04/29/22 18:15 04/29/22 18:30 04/29/22 18:53 Temperature 96.1 F L 96.1 F L 95.8 F L Temperature Source Core Core Core Pulse Rate 91 97 94 Respiratory Rate 12 12 20 H Respiratory Effort Respiratory Depth Respiratory Pattern Blood Pressure 82/61 L 86/63 L 90/66 Blood Pressure Mean 68 70 74 Blood Pressure Source Blood Pressure Position Blood Pressure Location Pulse Ox 92 100 100 Oxygen Delivery Method Mechanical Ventilator Mechanical Ventilator Mechanical Ventilator Oxygen Flow Rate (L/min) Fraction of Inspired Oxygen (FIO2) 50 50 50 04/29/22 19:00 04/29/22 19:00 04/29/22 19:23 Temperature 95.4 F L Temperature Source Core Pulse Rate 93 101 H 93 Respiratory Rate 20 H 20 H 18 Respiratory Effort Respiratory Depth Respiratory Pattern Normal Blood Pressure 90/66 99/81 H Blood Pressure Mean 74 87 Blood Pressure Source Blood Pressure Position Blood Pressure Location Pulse Ox 100 100 100 Oxygen Delivery Method Mechanical Ventilator Mechanical Ventilator Oxygen Flow Rate (L/min) Fraction of Inspired Oxygen (FIO2) 45 04/29/22 19:53 04/29/22 20:23 04/29/22 20:30 Temperature 95.8 F L 95.8 F L 96.5 F L Temperature Source Core Core Core Pulse Rate 94 97 94 Respiratory Rate 18 98 H 20 H Respiratory Effort Respiratory Depth Respiratory Pattern Blood Pressure 115/71 93/71 101/78 Blood Pressure Mean 85 78 85 Blood Pressure Source Blood Pressure Position Blood Pressure Location Pulse Ox 100 99 100 Oxygen Delivery Method Mechanical Ventilator Mechanical Ventilator Mechanical Ventilator Oxygen Flow Rate (L/min) Fraction of Inspired Oxygen (FIO2) 04/29/22 21:00 04/29/22 21:30 04/29/22 21:39 Temperature 96.2 F L 96.6 F L Temperature Source Core Core Pulse Rate 99 88 94 Respiratory Rate 16 20 H 20 H Respiratory Effort Respiratory Depth Respiratory Pattern Normal Blood Pressure 97/78 104/78 Blood Pressure Mean 84 86 Blood Pressure Source Blood Pressure Position Blood Pressure Location Pulse Ox 99 100 100 Oxygen Delivery Method Mechanical Ventilator Mechanical Ventilator Oxygen Flow Rate (L/min) Fraction of Inspired Oxygen (FIO2) 45 04/29/22 22:00 04/29/22 22:30 04/29/22 23:19 Temperature 97.0 F L Temperature Source Core Pulse Rate 93 78 Respiratory Rate 16 20 H Respiratory Effort Respiratory Depth Respiratory Pattern Blood Pressure 97/71 101/78 Blood Pressure Mean 79 85 Blood Pressure Source Blood Pressure Position Blood Pressure Location Pulse Ox 100 100 Oxygen Delivery Method Room Air Mechanical Ventilator Oxygen Flow Rate (L/min) Fraction of Inspired Oxygen (FIO2) 30 04/29/22 23:00 04/29/22 23:31 Temperature 97.2 F L 97.7 F L Temperature Source Temporal Core Pulse Rate 98 96 Respiratory Rate 20 H 27 H Respiratory Effort Respiratory Depth Respiratory Pattern Blood Pressure 92/76 95/69 Blood Pressure Mean 81 77 Blood Pressure Source Blood Pressure Position Blood Pressure Location Pulse Ox 100 99 Oxygen Delivery Method Mechanical Ventilator Mechanical Ventilator Oxygen Flow Rate (L/min) Fraction of Inspired Oxygen (FIO2) 30 Weight Weight: 216 lb 7.903 oz Body Mass Index (BMI) 31.9 Physical Exam Narrative Physical Examination: General: Patient is intubated, not currently sedated, not alert, not oriented, laying in the ED bed, still having intermittent extremity jerking as well as bilateral eye nystagmus noted. Skin: Normal color, normal turgor, no icterus, no cyanosis except for notable bilateral lower extremity venous stasis skin changes. HEENT: AT/NC, EOM unable to be assessed, PERRLA, ongoing nystagmus noted, dry MM, lopez facies appearance, no carotid bruits or JVD noted; however, thickened neck makes evaluation difficult. Lungs: Notably coarse, rhonchorous, greater than right, symmetric rise, intubated, no rales or wheezing. Heart: Tachycardic with regular rhythm; no gallop, rub audible. Abdomen: Soft, obese, NTTP, ND, distant hypoactive BS, no HSM. Extremities: No cyanosis, no clubbing, no marked lower extremity pitting edema, chronic bilateral lower extremity venous stasis skin changes. Neurological: Patient is intubated, not currently sedated, not alert, not oriented, laying in the ED bed, still having intermittent extremity jerking as well as bilateral eye nystagmus noted, cognitive function not baseline intact; pupils equally reactive to light and accommodation, cranial nerves unable to be assessed well given intubated status and concern for ongoing status epilepticus, jerking extremities, nystagmus is noted. Psychiatric: Affect appears currently flat, no acute evidence of depressive or anxiety feelings. Results Lab / Micro Data Result Diagrams: 04/29/22 16:55 04/29/22 16:55 Labs: Laboratory Results - last 24 hr 04/29/22 16:10: Urine Color Yellow, Urine Clarity Clear, Urine pH 6.0, Ur Specific [place] 1.015, Urine Protein 30 H, Urine Glucose (UA) Normal, Urine Ketones 5 H, Urine Occult Blood Negative, Urine Nitrite Negative, Urine Bilirubin 1 H, Urine Urobilinogen 1 H, Ur Leukocyte Esterase 25 H, Urine RBC 0 SEEN, Urine WBC 0-5 SEEN, Ur Squamous Epith Cells 0 SEEN, Urine Bacteria 1+, Urine Mucus 0 SEEN 04/29/22 16:55: WBC 25.6 H, RBC 2.59 L, Hgb 8.6 L, Hct 27.7 L, MCV 106.9 H, MCH 33.2 H, MCHC 31.0 L, RDW Std Deviation 69.1 H, RDW Coeff of Estella 17.4 H, Plt Count 138 L, MPV 10.6, Immature Gran % (Auto) 4.300 H, Neut % (Auto) 87.9 H, Lymph % (Auto) 1.6 L, Bledsoe % (Auto) 5.4, Eos % (Auto) 0.5, Baso % (Auto) 0.3, Absolute Neuts (auto) 22.5 H, Absolute Lymphs (auto) 0.42 L, Nucleated RBC % 0, Differential Comment SCANNED, Anisocytosis 2+, Microcytosis 1+, Macrocytosis 1+ 04/29/22 16:55: PT 16.4 H, INR 1.4, APTT 33.3 04/29/22 16:55: Sodium 138, Potassium 5.1, Chloride 103, Carbon Dioxide 15.0 L, Anion Gap 20 H, BUN 35 H, Creatinine 3.72 H, Estim Creat Clear Calc 21.65, Est GFR (MDRD) Af Amer 22 L, Est GFR (MDRD) Non-Af 18 L, BUN/Creatinine Ratio 9.4 L, Glucose 32 L*, Calcium 7.6 L, Total Bilirubin 1.70 H, AST 44 H, ALT 26, Alkaline Phosphatase 127 H, Total Protein 5.7 L, Albumin 2.4 L, Globulin 3.3, Albumin/Globulin Ratio 0.7 L 04/29/22 16:55: Total Creatine Kinase 281, Triglycerides 130 04/29/22 17:05: Lactic Acid 11.5 H* 04/29/22 17:12: POC Glucose 125 H 04/29/22 18:15: POC Glucose 124 H 04/29/22 19:23: POC Glucose 118 H 04/29/22 21:23: Lactic Acid 5.0 H* 04/29/22 22:17: POC Glucose 132 H Micro: Microbiology 04/29/22 19:35 Interface Orders Rapid RSV (DFA) - Final 04/29/22 19:24 Nasal Secretion SARS-CoV-2 & FLU Antigen (Rapid) - Final ABG Data ABG results: ABG 04/29/22 04/29/22 04/29/22 18:22 18:29 23:10 Specimen Type ZABRINA ART ART Sample Site R Radial R Brach pH 7.19 L* 7.33 L Bicarbonate Actual 13.6 L 17.1 L Total CO2 15 18 Base Excess -15 L -9 L O2 Saturation 100 H 99 O2 % 100 45 ABG pCO2 35.9 32.4 L ABG pO2 240 H 150 H Michelet Test N/A VBG pH 7.12 L* VBG pO2 135 H VBG HCO3 12 L VBG Total CO2 14 L VBG O2 Sat (Calc) 98 H VBG Base Excess -17 L POC Mix VBG pCO2 Pt Tmp 38.4 L Respiration Rate 14 14 20 O2 Delivery Device Adult Vent Adult Vent Adult Vent Vent Mode AC AC Tidal Volume 450 450 POC PEEP 5 5 5 Crit Call To/Read Back Yes Yes Blood Gas Notified Whom kaylyn Rhythm Strip Rhythm Strip: Sinus Rhythm Rate: 90 Ectopy: None Radiology Impression Brain CT 04/29/22 17:02 IMPRESSION: 1. Diffuse involutional change versus early lobar atrophy given age. 2. No intracranial mass, hemorrhage or acute territorial infarct. 3. No radiographically significant sinus disease.. Electronically Signed: Adis Doe MD at 19:19 EST , Chest X-Ray 04/29/22 17:20 IMPRESSION: 1. ET tube and NG tube projecting in normal position. 2. No evidence of congestive failure. 3. Mild basilar atelectasis however superimposed interstitial infiltrate at the LEFT lung base is a consideration. No consolidation or effusion. Electronically Signed: Adis Doe MD at 18:10 EST , Chest X-Ray 04/29/22 17:55 IMPRESSION: 1. Interval placement of a RIGHT IJ central venous catheter, tip is projecting in normal position in the region of the subazygos SVC approaching the venoatrial junction. 2. No pneumothorax. 3. Retrocardiac LEFT lower lobe interstitial infiltrate suspected. Remaining lung zones clear. 4. No congestive failure. Electronically Signed: Adis Doe MD at 18:23 EST , Assessment & Plan Assessment/Plan (1) Septic shock: (2) Pneumonia: PLAN: Plan The patient is a 57 y/o M w/ PMHx: Obesity, GERD, Chronic anemia, CKD stage III unclear subtype, Gout, PVD w/ chronic BL LE venous stasis disease w/ history of chronic stasis ulcers previously evaluated per Dr. Pemberton, from medication list potentially low dose chronic steroids of unclear etiology/use with visual appearance lopez facies who presents to the [facility] ED on 04/29/22 with history of several days of fatigue and malaise at home with no specific recent dyspnea, cough, fever, chills, urinary complaints per family however this is a secondary report with a witnessed seizure at home for the significant per EMS prompting eventual ED transition. #1. Septic Shock secondary to Acute Respiratory Failure, Unsafe Airway secondary to LLL Pneumonia, complicated by #2, #3 with notable Lactic acidosis: Will admit to the ICU, continue intubated status, contact lens blocker consulted, awaiting transfer at [facility] in the neuro ICU where patient has been accepted; however no transport is available potentially into later in the day therefore in the interim we will maintain at [facility] ICU, will maintain on broad-spectrum antibiotic therapy with IV Zosyn and vancomycin with MRSA screen with de-escalation as able given severity of presentation, will have as needed albuterol, continue judicious fluids, trend lactic acid, continue norepinephrine, central line routine care, will request full respiratory panel, urine antigens and sputum culture, given potential chronic steroid usage although unable to obtain full history we will continue stress dose steroids. Bld cx x 2 obtained in the ED. #2. Acute Suspected Status Epilepticus secondary to Acute Hypoglycemia: Will continue D51/2 NS with continued blood sugar monitoring, hemoglobin A1c requested, TSH and magnesium requested, urine drug screen requested, per neuro contact lens blocker patient administered Keppra loading dose and will continue twice daily regimen following, will maintain on seizure precautions, [facility], [facility] brain requested, will request at least point EEG but current recommendation is 24-hour EEG with bed obtained at [facility] however no transport available. #3. Acute kidney injury on CKD stage III unclear subtype: Secondary to acute presentation as noted #1 with hypoperfusion with septic shock. Admission BUN/Cr 35/3.72, prior baseline creatinine noted to be previously primarily 1.4-1.8 although most recently 12/31/2019 was 1.33. Will hydrate, hold nephrotoxic medications and repeat chemistry in AM, obtain FeNa assessment and renal US. #4. Possible Chronic Steroid Usage: Noted in system chronic low dose BID steroids, lopez facies appearance, per discussion with ED physician will initiate stress dose steroids at this time and continue, Neuro ICU physician amenable. #5. Thrombocytopenia, suspected reactive: Admission platelet 138, baseline is normal however given acute presentation as noted suspect likely related to acute illness, will continue to trend CBC. #6. Chronic anemia, macrocytic: Admission hemoglobin 8.6, MCV 106.9, baseline prior appears similar, will obtain stool guaiac, iron panel, ferritin, folic acid and vitamin B12 to further assess. #7. Obesity: Weight loss and lifestyle changes encouraged. #8. DVT prophylaxis: SCDs, heparin. #9. CODE STATUS: Full code. Critical Care Time: 70 minutes, time from 23:20-00:30, were spent addressing patients acute presentation including septic shock, hypoglycemia, status epilepticus, YAHAIRA, review of all data in collaboration with care team. Charges/Coding Procedures Hospitalists Procedures: [id number]
[2022-04-30] VITALS (22 sets, daily range): BP systolic 69–109; BP diastolic 47–78; PULSE 83–108; RESP 14–31; TEMP 36.7–37.6; O2SAT 40–100; BMI 30.7
--- NOTE | 2022-04-30 01:03 | ED.RN ---
physicians ambulance called [facility] 9 am for transport
[2022-04-30] MEDS: Hydrocortisone Sod Succinate 100 MG/2 ML Vial IV ×2 (01:28→06:12)
[2022-04-30] MEDS: Dext 5%-0.45% NS 1,000 ML 100 ML IV (01:28)
[2022-04-30 02:11] LABS: Amphetamine Urine VISTA POSITIVE (<1000 ng/mL); Barbiturate Urine VISTA NEGATIVE (< 200 ng/mL); Benzodiazepine Urine VISTA NEGATIVE (< 200 ng/mL); Cocaine Urine VISTA NEGATIVE (< 300 ng/mL); Ecstacy Urine VISTA NEGATIVE (< 500 ng/mL); Methadone Urine VISTA NEGATIVE (< 300 ng/mL); PCP Urine VISTA NEGATIVE (< 25 ng/mL); THC Urine VISTA POSITIVE (< 50 ng/mL); Vista UDS pH Range 4
[2022-04-30] MEDS: Propofol 10MG/Ml 1,000 MG/100 ML Bottle 5.9 MG CONT INF (02:15)
[2022-04-30 02:21] LABS: Bedside Glucose 130 mg/dL (74-106)
[2022-04-30] MEDS: Sodium Bicarbonate 8.4% 50 ML Syringe 50 MEQ IV (02:24)
[2022-04-30 03:01] LABS: Bedside Glucose 116 mg/dL (74-106)
[2022-04-30 03:06] LABS: Urine Sodium 24 mmol/L (Not Establ.)
[2022-04-30] MEDS: Dext 5%-0.45% NS 1,000 ML 150 ML IV (03:07)
[2022-04-30 03:08] LABS: Amphetamine Urine VISTA POSITIVE (<1000 ng/mL); Barbiturate Urine VISTA NEGATIVE (< 200 ng/mL); Benzodiazepine Urine VISTA NEGATIVE (< 200 ng/mL); Cocaine Urine VISTA NEGATIVE (< 300 ng/mL); Ecstacy Urine VISTA NEGATIVE (< 500 ng/mL); Methadone Urine VISTA NEGATIVE (< 300 ng/mL); PCP Urine VISTA NEGATIVE (< 25 ng/mL); THC Urine VISTA POSITIVE (< 50 ng/mL); Vista UDS pH Range 4
[2022-04-30] MEDS: Chlorhexidine 15 ML PO (03:13)
--- NOTE | 2022-04-30 03:40 | PCM.RX.CS ---
Consult Pharmacy has been consulted to manage selected antiobiotic: Vancomycin Type of Consult: New start Suspected Infection: Sepsis Prior Doses of Antibiotics Received/Current Regimen: Medications Vancomycin HCl 750 mg/ Sodium (Chloride) 265 mls @ 250 mls/hr IV Q24H NEIL Vancomycin HCl 2,000 mg/ (Sodium Chloride) 540 mls @ 250 mls/hr IV X1 ONE Stop: 04/30/22 04:39 Last Admin: 04/30/22 03:05 Dose: 250 mls/hr Labs: Sodium 138 mmol/L (136-145) 04/29/22 16:55 Potassium 5.1 mmol/L (3.5-5.1) 04/29/22 16:55 Chloride 103 mmol/L (98-107) 04/29/22 16:55 Carbon Dioxide 15.0 mmol/L (21.0-32.0) L 04/29/22 16:55 Anion Gap 20 (5-15) H 04/29/22 16:55 BUN 35 mg/dL (7-18) H 04/29/22 16:55 Creatinine 3.72 mg/dL (0.70-1.30) H 04/29/22 16:55 Est GFR (MDRD) Af Amer 22 mL/min (>60) L 04/29/22 16:55 Est GFR (MDRD) Non-Af 18 mL/min (>60) L 04/29/22 16:55 BUN/Creatinine Ratio 9.4 RATIO (10-20) L 04/29/22 16:55 Glucose 32 mg/dL (74-106) L* 04/29/22 16:55 Microbiology: Microbiology 04/29/22 19:35 Interface Orders Rapid RSV (DFA) - Final 04/29/22 19:24 Nasal Secretion SARS-CoV-2 & FLU Antigen (Rapid) - Final Weight used for dosin.2 kg Estimated Creatinine Clearance: 21.7 Goal Trough: 15-20 mcg/mL Pharmacy Plan for Drug Dosing: Pharmacy Service will continue to monitor and adjust dosing as required. Follow-Up Labs: Trough Vancomycin Labs to be done on [date and time ordered]: 05/02/22 @[id number]
--- NOTE | 2022-04-30 04:19 | CON.PCM.CC_ITS ---
Assessment & Plan Assessment/Plan (1) Septic shock: PLAN: Plan RECOMMENDATIONS: 1. Wean FiO2 and PEEP to maintain oxygen saturations at or above 90%. 2. Continue Levophed to maintain a mean arterial pressure at or above 65 mmHg. 3. Continue Keppra as ordered. 4. Propofol and fentanyl for sedation. 5. Continue empiric antimicrobials. Obtain and send sputum for culture. 6. Continue stress dose steroids. 7. Continue appropriate ICU prophylaxis. 8. Await transfer to neuro ICU. IMPRESSIONS: 1. Encephalopathy with concern for status epilepticus The patient was initially admitted in an unresponsive state in the setting of profound hypoglycemia and witnessed seizure activity. He was ultimately intubated for airway protection. He does not appear to have a history of epilepsy. The patient has a pending transfer to a neuro intensive care unit in [place]. However, transportation is still pending. The patient has already been initiated on Keppra and remains on propofol for sedation. No further seizure activity has been noted. Recommend continuing generalized seizure precautions and as needed Ativan. Continue dextrose containing fluids for now. 2. Septic shock The patient presented with sepsis due to possible left lower lobe pneumonia with acute sepsis related organ dysfunction as evidenced by lactic acidemia, acute kidney injury, altered mentation and acute respiratory failure requiring invasive mechanical ventilatory support. The patient did receive supplemental IV fluids, but remained hemodynamically unstable, requiring the initiation of vasopressor support. Plan to continue Levophed to maintain a mean arterial pressure at or above 65 mmHg. Continue empiric antimicrobials, pending finalized culture results. Obtain and send sputum for culture. In addition to the aforementioned, the patient appears to be on chronic prednisone therapy, raising the possibility of underlying adrenal insufficiency. Accordingly, I agree with continuing stress dose steroids as well. 3. Acute on chronic kidney disease Likely prerenal in etiology in the setting of #2. The patient did receive IV fluids and will remain on vasopressor support to maintain hemodynamic stability. Continue to monitor urine output for now. No current indication for renal replacement therapy. 4. Obesity/thrombocytopenia/anemia Complicates care, management, recovery and prognosis. Continue to hold home medications. Agree with stress dose steroids. TIME: 34 minutes of critical care time, independent of procedures, was spent addressing the patient's encephalopathy, questionable status epilepticus, septic shock, acute on chronic kidney disease, review of all data and collaboration with the care team. HPI Consult Data Date of Consult: 05/01/22 HPI Narrative Reason for Consultation: Septic shock HPI Narrative: The patient is a 57-year-old male, with a history as outlined below, who presented to the emergency department on April 29 via EMS in an unresponsive state after developing seizure-like activity at home. In addition, the patient was noted to be profoundly hypoglycemic on arrival. The patient does not appear to have a documented history of diabetes mellitus. His outpatient medication list suggested a history of gout, neuropathy and chronic prednisone utilization of unclear reason. On presentation to the emergency department, the patient had a documented temperature of 96.8 ?F. He was tachycardic and tachypneic. Initial laboratory evaluation revealed a white blood cell count of 25,000. Platelet count was low at 138,000. INR was within normal limits at 1.4. Chemistry profile was notable for a bicarbonate of 15, anion gap of 20, BUN of 35 and creatinine of 3.72. The patient was hypoglycemic with a glucose of 32. Lactate was elevated at 11.5. Total bili was increased at 1.7. Urine analysis was unremarkable. Toxicology screen was positive for amphetamines and cannabinoids. CT head revealed diffuse involutional changes. The patient was ultimately intubated in the emergency department. A central venous catheter was placed. IV fluids were administered and the patient was initiated on Levophed. Over concerns for potential status epilepticus, the recommendation was made to transfer the patient to a neuro intensive care unit. Although the patient was accepted to [facility], there was no available ground or air transportation. Therefore, the patient was admitted to our medical intensive care unit, pending availability of transportation to the aforementioned neuro ICU. Overnight, the patient was again noted to have nystagmus and perioral twitching, for which the emergency department provider spoke with the neuro e commerce project manager, with recommendations to load the patient with Keppra. In addition, the patient was started on stress dose steroids over concerns for potential adrenal insufficiency. [facility] Medical History (Updated 04/30/22 @ 03:[address] Katia Galeana MD) Chronic anemia CKD (chronic kidney disease), stage III GERD (gastroesophageal reflux disease) Gouty arthritis History of hemorrhoids Hyperuricemia Obesity (BMI 30.0-34.9) Ulcer of left lower extremity with fat layer exposed Venous insufficiency (chronic) (peripheral) Medical History unable to obtain Allergy/AdvReac Type Severity Reaction Status Date / Time No Known Allergies Allergy Verified 04/29/22 16:48 Family History (Updated 04/30/22 @ 03:[address] Katia Galeana MD) Mother Rheumatoid arthritis Cancer Family History other Surgical History (Updated 04/30/22 @ 03:[address] Katia Galeana MD) History of surgery on lower extremity Surgical History unable to obtain Social History (Updated 04/30/22 @ 03:[address] Katia Galeana MD) household members: spouse Smoking Status: Never smoker alcohol intake: current alcohol intake frequency: holidays/special occasions only substance use type: does not use ROS Review of Systems ROS Unobtainable: due to endotracheal tube and due to mental status Physical Exam Const no apparent distress General Appearance: intubated and patient mechanically ventilated Nutritional Appearance: obese HEENT normocephalic and head/scalp atraumatic HEENT Narrative: [place] facies appearance Eyes PERRL and EOMs intact bilaterally Neck supple General: trachea midline and CVC in place Chest inspection of chest normal Resp normal respiratory effort Auscultation: Negative for rales, rhonchi or wheezes Cardio regular rate and regular rhythm GI normal to inspection, nondistended, normoactive bowel sounds Extremity General Extremity: Negative for clubbing or edema Skin General Skin Exam: venous stasis and dermatitis Neuro Sensorium / Orientation: sedated on vent Lab / Micro Data Result Diagrams: 04/30/22 04:15 04/30/22 04:15 Labs: Laboratory Results - last 24 hr 04/29/22 16:10: Urine Color Yellow, Urine Clarity Clear, Urine pH 6.0, Ur Specific [place] 1.015, Urine Protein 30 H, Urine Glucose (UA) Normal, Urine Ketones 5 H, Urine Occult Blood Negative, Urine Nitrite Negative, Urine Bilirubin 1 H, Urine Urobilinogen 1 H, Ur Leukocyte Esterase 25 H, Urine RBC 0 SEEN, Urine WBC 0-5 SEEN, Ur Squamous Epith Cells 0 SEEN, Urine Bacteria 1+, Urine Mucus 0 SEEN 04/29/22 16:10: Urine Opiates Screen NEGATIVE, Urine Methadone Screen NEGATIVE, Ur Barbiturates Screen NEGATIVE, Ur Phencyclidine Scrn NEGATIVE, Ur Amphetamines Screen POSITIVE H, MDMA (Ecstasy) Screen NEGATIVE, U Benzodiazepines Scrn NEGATIVE, Urine Cocaine Screen NEGATIVE, U Cannabinoids Screen POSITIVE H, Ur Drug Screen Comment 04/29/22 16:55: WBC 25.6 H, RBC 2.59 L, Hgb 8.6 L, Hct 27.7 L, MCV 106.9 H, MCH 33.2 H, MCHC 31.0 L, RDW Std Deviation 69.1 H, RDW Coeff of Estella 17.4 H, Plt Count 138 L, MPV 10.6, Immature Gran % (Auto) 4.300 H, Neut % (Auto) 87.9 H, Lymph % (Auto) 1.6 L, [place] % (Auto) 5.4, Eos % (Auto) 0.5, Baso % (Auto) 0.3, Absolute Neuts (auto) 22.5 H, Absolute Lymphs (auto) 0.42 L, Nucleated RBC % 0, Differential Comment SCANNED, Anisocytosis 2+, Microcytosis 1+, Macrocytosis 1+ 04/29/22 16:55: PT 16.4 H, INR 1.4, APTT 33.3 04/29/22 16:55: Sodium 138, Potassium 5.1, Chloride 103, Carbon Dioxide 15.0 L, Anion Gap 20 H, BUN 35 H, Creatinine 3.72 H, Estim Creat Clear Calc 21.65, Est GFR (MDRD) Af Amer 22 L, Est GFR (MDRD) Non-Af 18 L, BUN/Creatinine Ratio 9.4 L, Glucose 32 L*, Calcium 7.6 L, Total Bilirubin 1.70 H, AST 44 H, ALT 26, Alkaline Phosphatase 127 H, Total Protein 5.7 L, Albumin 2.4 L, Globulin 3.3, Albumin/Globulin Ratio 0.7 L 04/29/22 16:55: Total Creatine Kinase 281, Triglycerides 130 04/29/22 17:05: Lactic Acid 11.5 H* 04/29/22 17:12: POC Glucose 125 H 04/29/22 18:15: POC Glucose 124 H 04/29/22 19:23: POC Glucose 118 H 04/29/22 21:23: Lactic Acid 5.0 H* 04/29/22 22:17: POC Glucose 132 H 04/30/22 01:19: POC Glucose 130 H 04/30/22 02:15: Urine Opiates Screen NEGATIVE, Urine Methadone Screen NEGATIVE, Ur Barbiturates Screen NEGATIVE, Ur Phencyclidine Scrn NEGATIVE, Ur Amphetamines Screen POSITIVE H, MDMA (Ecstasy) Screen NEGATIVE, U Benzodiazepines Scrn NEGATIVE, Urine Cocaine Screen NEGATIVE, U Cannabinoids Screen POSITIVE H, Ur Drug Screen Comment 04/30/22 02:15: Ur Random Sodium 24, Urine Creatinine 236.00 04/30/22 02:41: POC Glucose 116 H Micro: Microbiology 04/29/22 19:35 Interface Orders Rapid RSV (DFA) - Final 04/29/22 19:24 Nasal Secretion SARS-CoV-2 & FLU Antigen (Rapid) - Final ABG Data ABG results: ABG 04/29/22 04/29/22 04/29/22 18:22 18:29 23:10 Specimen Type ZABRINA ART ART Sample Site R Radial R Brach pH 7.19 L* 7.33 L Bicarbonate Actual 13.6 L 17.1 L Total CO2 15 18 Base Excess -15 L -9 L O2 Saturation 100 H 99 O2 % 100 45 ABG pCO2 35.9 32.4 L ABG pO2 240 H 150 H Michelet Test N/A VBG pH 7.12 L* VBG pO2 135 H VBG HCO3 12 L VBG Total CO2 14 L VBG O2 Sat (Calc) 98 H VBG Base Excess -17 L POC Mix VBG pCO2 Pt Tmp 38.4 L Respiration Rate 14 14 20 O2 Delivery Device Adult Vent Adult Vent Adult Vent Vent Mode AC AC Tidal Volume 450 450 POC PEEP 5 5 5 Crit Call To/Read Back Yes Yes Blood Gas Notified Whom kaylyn Rhythm Strip Rhythm Strip: Sinus Rhythm Rate: 90 Ectopy: None Radiology Impression Brain CT 04/29/22 17:02 IMPRESSION: 1. Diffuse involutional change versus early lobar atrophy given age. 2. No intracranial mass, hemorrhage or acute territorial infarct. 3. No radiographically significant sinus disease.. Electronically Signed: Adis Doe MD at 19:19 EST , Chest X-Ray 04/29/22 17:20 IMPRESSION: 1. ET tube and NG tube projecting in normal position. 2. No evidence of congestive failure. 3. Mild basilar atelectasis however superimposed interstitial infiltrate at the LEFT lung base is a consideration. No consolidation or effusion. Electronically Signed: Adis Doe MD at 18:10 EST , Chest X-Ray 04/29/22 17:55 IMPRESSION: 1. Interval placement of a RIGHT IJ central venous catheter, tip is projecting in normal position in the region of the subazygos SVC approaching the venoatrial junction. 2. No pneumothorax. 3. Retrocardiac LEFT lower lobe interstitial infiltrate suspected. Remaining lung zones clear. 4. No congestive failure. Electronically Signed: Adis Doe MD at 18:23 EST , Charges/Coding Procedures Hospitalists Procedures: [id number] Critial Care 1st Hr
[2022-04-30] MEDS: 0.9% Saline Lock 10 ML Syringe IV (04:26)
[2022-04-30 04:31] LABS: Absolute Lymphocyte Count 0.17 X10^3/uL (0.83-4.51); Absolute Neutrophil Count 19.2 X10^3/uL (2.0-7.7); Basophil# 0.05 X10^3/uL; Basophil% 0.2 % (0-1); Hematocrit 25.9 % (40-54); Hemoglobin 7.8 g/dL (13.0-16.5); Lymphocyte # 0.17 X10^3/ul (0.83-4.51); Lymphocyte % 0.8 % (19-41); Mean Corp Hgb Conc 30.1 g/dL (32-36); Mean Corpuscular Hgb 31.7 pg (27.0-32.0); Mean Corpuscular Volume 105.3 fL (80-94); Mean Platelet Vol. 10.4 fl (6.2-12.0); Monocyte# 0.92 X10^3/uL; Monocyte% 4.4 % (0-10); NRBC Flagged by Analyzer 0.1 % (0-5); Neutrophil # 19.15 X10^3/uL (2.7-7.7); Neutrophil % 92.7 % (47-70); POSITIVE DIFFERENTIAL YES; POSITIVE MORPHOLOGY YES; Platelet Count 111 K/mm3 (150-450); RBC Distribution Width CV 17.2 % (11.6-14.6); RBC Distribution Width SD 66.8 fl (35.1-43.9); Red Blood Count 2.46 M/mm3 (4.6-6.2); White Blood Count 20.7 K/mm3 (4.4-11.0)
[2022-04-30 04:35] LABS: Ferritin 534 ng/mL (26-388); Iron 15 ug/dL (65-175); Iron Binding Capacity,Total 163 ug/dL (250-450); Magnesium 2.1 mg/dL (1.6-2.6); PERCENT IRON SATURATION 9.2 % (15.0-55.0)
[2022-04-30 04:45] LABS: Differential Indicated SCAN CRITERIA MET
[2022-04-30 06:04] LABS: ALB/GLOB Ratio 0.7 RATIO (0.9-2.4); AST(SGOT) 138 U/L (15-37); Alanine Aminotransfer ALT/SGPT 33 U/L (16-61); Albumin, Serum 1.8 g/dL (3.2-5.0); Alkaline Phosphatase 107 U/L (45-117); Anion Gap 10 (5-15); BUN 33 mg/dL (7-18); BUN/Creat Ratio 10.1 RATIO (10-20); Calcium,Total 5.9 mg/dL (8.5-10.1); Chloride 109 mmol/L (98-107); Creatinine, Serum 3.27 mg/dL (0.70-1.30); EST Glomerular Filtration Rate 21 mL/min (>60); Est Glom Filt Rate - Afr Amer 25 mL/min (>60); Estimated Creatinine Clearance 24.62 ml/min; Globulin 2.6 g/dL (2.2-4.2); Glucose 134 mg/dL (74-106); Potassium 4.6 mmol/L (3.5-5.1); Protein, Total 4.4 g/dL (6.4-8.2); Sodium Level 139 mmol/L (136-145); T4 Free Direct 1.09 ng/dL (0.76-1.46); Thyroid Stim Hormone (TSH) 1.87 uIU/mL (0.358-3.74)
[2022-04-30 06:15] LABS: M R Staph aureus DNA By PCR Negative (Negative); Probe Check PASS; Specimen Processing Control PASS
[2022-04-30 06:38] LABS: Anisocytosis 1+; Macrocytosis 2+; Platelet Estimate SLT DEC (ADEQ)
--- NOTE | 2022-04-30 06:50 | NURSING ---
transfer line called stating that pt will go to floor 4 [address], accepting dr lanny puente neuro critical care electric motor analyst, they wanted to know eta for pickling solution maker, they said they will call back with a specific room number. [phone]
--- NOTE | 2022-04-30 07:20 | NURSING ---
med flight called and update with pt status. they said they will page it out to their crew and will call us back if they can fly the pt out
[2022-04-30] MEDS: Calcium Gluconate 1 GM/10 ML Vial 3 GM IVP (07:45)
--- NOTE | 2022-04-30 07:47 | DCINST_ITS ---
Discharge Instructions Diet Discharge Diet: - (Intubated and sedated and currently n.p.o.) Activity Discharge Activity: - (Intubated and sedated ) Follow Up Care Test Results: Test results from this visit will be discussed in further detail at your follow- up appointment, if applicable. Discharge Plan Admission Admit Date/Time: 04/29/22 23:42 Primary Reason for Your Visit: Fatigue, malaise, seizures Attending Provider: Sharifa Gould Primary Care Provider: Care Physician,No Primary Consulting Providers: Zi Bhatia ; Katia Galeana Instructions Patient Instructions: ED Seizure New Onset Unknown ... Discharge Orders/Prescriptions Prescriptions: Discontinued prednisone 5 MG tablet 10 mg PO BID gabapentin 100 MG capsule 400 mg PO TIDCM colchicine 0.6 MG tablet 0.6 mg PO MOWE amoxicillin-pot clavulanate 875 MG tablet 875 mg PO Q12H Qty: 14 0RF Referrals / Follow Up: Care Physician,No Primary [Primary Care Provider] - Disposition Disposition (needs filled in before D/C Order can be placed): [facility]
[2022-04-30 07:54] LABS: Hemoglobin A1c < 3.8 % (3.8-5.6)
--- NOTE | 2022-04-30 07:54 | DS.PCM_ITS ---
Providers Date of Admission: 04/29/22 Date of Discharge: 04/30/22 Primary Care Physician: Katalina Primary Care Phys Consultations 04/30/22 01:44 Consult: Chain Forming Machine Operator / Pulmonary Medicine Routine Consulting Provider: Zi Bhatia Reason for Consult: Septic shock, PNA, YAHAIRA EMERGENT Consult: No MD Notified: Yes Date Notified: 04/30/22 Time Notified: 00:50 Method of Notification: ED Physician Initiated Reason For Visit: SEPTIC SHOCK, PNA,YAHAIRA, STATUS EPILEPTICUS, Diagnosis Discharge Diagnosis (1) Septic shock: Status: Acute Code(s): A41.9 - Sepsis, unspecified organism; R65.21 - Severe sepsis with septic shock Plan #1.? Septic Shock secondary to Acute Respiratory Failure, Unsafe Airway secondary to LLL Pneumonia #2.? Acute Suspected Status Epilepticus secondary to Acute Hypoglycemia #3.? Acute kidney injury on CKD stage III unclear subtype #4.? Possible Chronic Steroid Usage #5.? Thrombocytopenia, suspected reactive #6.? Chronic anemia, macrocytic #7.? Obesity Hospital Course Procedures Central line placement and Intubation Summary of Care Provided Minutes Spent on Discharge: 25 Hospital Course: The patient is a 57 y/o M w/ PMHx: Obesity, GERD, Chronic anemia, CKD stage III unclear subtype, Gout, PVD w/ chronic BL LE venous stasis disease w/ history of chronic stasis ulcers previously evaluated per Dr. Pemberton, from medication list potentially low dose chronic steroids of unclear etiology/use with visual appearance lopez facies who presents to the [facility] ED on 04/29/22 with history of several days of fatigue and malaise at home with no specific recent dyspnea, cough, fever, chills, urinary complaints per family however this is a secondary report with a witnessed seizure at home for the significant per EMS prompting eventual ED transition.? Upon initial arrival patient was significantly altered and noted to have notable periods of apnea with concern for status with initial BS 17, corrected BS to 125 with GCS 7, given ativan-->intubated, became hypotensive with then initiation of NEP and start D51/2NS-->then to GCS T3 x 6 hours in ED. Work-up in the ED included initially T96.2, heart rate 76, BP 147/128, respiratory rate 28, 92% on 2 L nasal cannula eventually decompensating with unsafe airway with intubation required as well as significant hypotension with septic shock with blood pressures dropping to 60s over 40s requiring central line placement and pressor therapy, most recent vital signs included T99, heart rate 83, BP 89/62, respiratory rate 24, 100% mechanically ventilated , CBC with WC 25.6, hemoglobin 8.6, MCV 106.9, platelet 138 with significant left shift and lymphopenia, coags unremarkable aside PT 16.4, most recent ABG with pH 7.33, bicarb 17.1, PCO2 32.4, PO2 150, VBG at 1822 initially with pH 7.12, PO2 135, bicarb 12, total CO2 14, O2 saturation 90% performed while intubated, CMP with carbon dioxide 15, anion gap 20, BUN/creatinine 35/3.72, glucose 32, lactic acid initially 11.5 with repeat 5.0, calcium 7.6 down to 5.9 given Caglc, total bilirubin 1.70, AST/LT 44/26, alk phos 127, total creatinine kinase 281, hepatic profile otherwise not marked appearing, urinalysis with specific gravity 1.015, urine protein 30, urine glucose normal, urine ketone 5, urine occult blood negative, urine nitrite negative, leukocyte Estrace 25, no urine WC is or RBCs with 1+ urine bacteria, Bld Cx x 2 pending per ED, CT of the brain with diffuse involutional changes versus early lobar atrophy given age with no intracranial mass/hemorrhage or acute territorial infarct, chest x-ray with ET tube and NG tube in normal position with no evidence of any overload with mild basilar atelectasis however superimposed interstitial infiltrate at the lung base cannot be ruled out, repeat chest x-ray following central line placement with noted interval placement right IJ central venous catheter with tip in normal position in the region of the subazygous SVC approaching the vena atrial junction with no PE, retrocardiac left lower lobe interstitial infiltrate is now more suspicious.? In the ED patient ministered 30 cc/kg septic shock protocol boluses and currently maintained on maintenance IV fluid normal saline 200 cc/h, administered Rocephin and azithromycin as well as rocuronium, etomidate and Ativan for intubation, maintained on norepinephrine. Patient has been accepted at [facility]; however, no transport had been available secondary to weather conditions, declined by both air and ground overnight with accepting OSH physician Dr. Gabriel, Neuro ICU Chain Forming Machine Operator. Since admission he has been maintained on norepinephrine, on Keppra IV every 12, propofol started, PPI drip, fentanyl, Zosyn, dextrose, Vanco. Started on stress dose steroids as well. Evaluated by janitorial account manager at our facility. This a.m. remains on critical drips and is intubated, has been accepted by air transport and will be transferred to [place] shortly. Physical Exam Const Constitutional Narrative: Intubated and sedated HEENT normocephalic HEENT Narrative: ET tube in place Eyes Eyes Narrative: No spontaneous opening of eyes Neck supple Resp Resp Narrative: Mechanically ventilated Cardio regular rate and regular rhythm GI soft to palpation and non-distended Extremity Extremity Narrative: 1+ bilateral lower extremity pitting edema Skin Skin Narrative: Scar noted on left calf Neuro Neuro Narrative: Intubated sedated, no overt seizure-like activity at this time Psych Psych Narrative: Unable to cooperate given intubated and sedated Weight / BMI Weight Weight: 94.2 kg Body Mass Index (BMI) 30.7 ABG / Lab / Microbiology Data Result Diagrams: 04/30/22 04:15 04/30/22 04:15 Laboratory: Laboratory Results - last 24 hr 04/29/22 16:10: Urine Color Yellow, Urine Clarity Clear, Urine pH 6.0, Ur Specific [place] 1.015, Urine Protein 30 H, Urine Glucose (UA) Normal, Urine Ketones 5 H, Urine Occult Blood Negative, Urine Nitrite Negative, Urine Bilirubin 1 H, Urine Urobilinogen 1 H, Ur Leukocyte Esterase 25 H, Urine RBC 0 SEEN, Urine WBC 0-5 SEEN, Ur Squamous Epith Cells 0 SEEN, Urine Bacteria 1+, Urine Mucus 0 SEEN 04/29/22 16:10: Urine Opiates Screen NEGATIVE, Urine Methadone Screen NEGATIVE, Ur Barbiturates Screen NEGATIVE, Ur Phencyclidine Scrn NEGATIVE, Ur Amphetamines Screen POSITIVE H, MDMA (Ecstasy) Screen NEGATIVE, U Benzodiazepines Scrn NEGATIVE, Urine Cocaine Screen NEGATIVE, U Cannabinoids Screen POSITIVE H, Ur Drug Screen Comment 04/29/22 16:55: WBC 25.6 H, RBC 2.59 L, Hgb 8.6 L, Hct 27.7 L, MCV 106.9 H, MCH 33.2 H, MCHC 31.0 L, RDW Std Deviation 69.1 H, RDW Coeff of Estella 17.4 H, Plt Count 138 L, MPV 10.6, Immature Gran % (Auto) 4.300 H, Neut % (Auto) 87.9 H, Lymph % (Auto) 1.6 L, [place] % (Auto) 5.4, Eos % (Auto) 0.5, Baso % (Auto) 0.3, Absolute Neuts (auto) 22.5 H, Absolute Lymphs (auto) 0.42 L, Nucleated RBC % 0, Differential Comment SCANNED, Anisocytosis 2+, Microcytosis 1+, Macrocytosis 1+ 04/29/22 16:55: PT 16.4 H, INR 1.4, APTT 33.3 04/29/22 16:55: Sodium 138, Potassium 5.1, Chloride 103, Carbon Dioxide 15.0 L, Anion Gap 20 H, BUN 35 H, Creatinine 3.72 H, Estim Creat Clear Calc 21.65, Est GFR (MDRD) Af Amer 22 L, Est GFR (MDRD) Non-Af 18 L, BUN/Creatinine Ratio 9.4 L, Glucose 32 L*, Calcium 7.6 L, Total Bilirubin 1.70 H, AST 44 H, ALT 26, Alkaline Phosphatase 127 H, Total Protein 5.7 L, Albumin 2.4 L, Globulin 3.3, Albumin/Globulin Ratio 0.7 L 04/29/22 16:55: Total Creatine Kinase 281, Triglycerides 130 04/29/22 16:55: Magnesium 2.1, Iron 15 L, TIBC 163 L, Iron Saturation 9.2 L, Ferritin 534 H 04/29/22 17:05: Lactic Acid 11.5 H* 04/29/22 17:12: POC Glucose 125 H 04/29/22 18:15: POC Glucose 124 H 04/29/22 19:23: POC Glucose 118 H 04/29/22 21:23: Lactic Acid 5.0 H* 04/29/22 22:17: POC Glucose 132 H 04/30/22 01:19: POC Glucose 130 H 04/30/22 02:15: Urine Opiates Screen NEGATIVE, Urine Methadone Screen NEGATIVE, Ur Barbiturates Screen NEGATIVE, Ur Phencyclidine Scrn NEGATIVE, Ur Amphetamines Screen POSITIVE H, MDMA (Ecstasy) Screen NEGATIVE, U Benzodiazepines Scrn NEGATIVE, Urine Cocaine Screen NEGATIVE, U Cannabinoids Screen POSITIVE H, Ur Drug Screen Comment 04/30/22 02:15: Ur Random Sodium 24, Urine Creatinine 236.00 04/30/22 02:41: POC Glucose 116 H 04/30/22 04:15: WBC 20.7 H, RBC 2.46 L, Hgb 7.8 L, Hct 25.9 L, MCV 105.3 H, MCH 31.7, MCHC 30.1 L, RDW Std Deviation 66.8 H, RDW Coeff of Estella 17.2 H, Plt Count 111 L, MPV 10.4, Immature Gran % (Auto) 1.900 H, Neut % (Auto) 92.7 H, Lymph % (Auto) 0.8 L, [place] % (Auto) 4.4, Eos % (Auto) 0.0, Baso % (Auto) 0.2, Absolute Neuts (auto) 19.2 H, Absolute Lymphs (auto) 0.17 L, Nucleated RBC % 0.1, Platelet Estimate SLT DEC, Anisocytosis 1+, Macrocytosis 2+ 04/30/22 04:15: Sodium 139, Potassium 4.6, Chloride 109 H, Carbon Dioxide 20.0 L , Anion Gap 10, BUN 33 H, Creatinine 3.27 H, Estim Creat Clear Calc 24.62, Est GFR (MDRD) Af Amer 25 L, Est GFR (MDRD) Non-Af 21 L, BUN/Creatinine Ratio 10.1, Glucose 134 H, Calcium 5.9 L*, Total Bilirubin 1.80 H, AST 138 H, ALT 33, Alkaline Phosphatase 107, Total Protein 4.4 L, Albumin 1.8 L, Globulin 2.6, [place] min/Globulin Ratio 0.7 L, Folate 4.20, TSH 1.87, Free T4 1.09 04/30/22 04:15: MRSA (PCR) Negative Microbiology: Microbiology 04/29/22 Unknown Urine Catheter - Catheter Legionella Antigen - Final 04/29/22 Unknown Urine Catheter - Catheter Streptococcus pneumoniae Antigen (M - Final 04/29/22 19:35 Interface Orders Rapid RSV (DFA) - Final 04/29/22 19:24 Nasal Secretion SARS-CoV-2 & FLU Antigen (Rapid) - Final ABG: ABG 04/29/22 04/29/22 04/29/22 18:22 18:29 23:10 Specimen Type ZABRINA ART ART Sample Site R Radial R Brach pH 7.19 L* 7.33 L Bicarbonate Actual 13.6 L 17.1 L Total CO2 15 18 Base Excess -15 L -9 L O2 Saturation 100 H 99 O2 % 100 45 ABG pCO2 35.9 32.4 L ABG pO2 240 H 150 H Michelet Test N/A VBG pH 7.12 L* VBG pO2 135 H VBG HCO3 12 L VBG Total CO2 14 L VBG O2 Sat (Calc) 98 H VBG Base Excess -17 L POC Mix VBG pCO2 Pt Tmp 38.4 L Respiration Rate 14 14 20 O2 Delivery Device Adult Vent Adult Vent Adult Vent Vent Mode AC AC Tidal Volume 450 450 POC PEEP 5 5 5 Crit Call To/Read Back Yes Yes Blood Gas Notified Whom kaylyn Radiography Diagnostic Testing: Radiology Impression Brain CT 04/29/22 17:02 IMPRESSION: 1. Diffuse involutional change versus early lobar atrophy given age. 2. No intracranial mass, hemorrhage or acute territorial infarct. 3. No radiographically significant sinus disease.. Electronically Signed: Adis Doe MD at 19:19 EST , Chest X-Ray 04/29/22 17:20 IMPRESSION: 1. ET tube and NG tube projecting in normal position. 2. No evidence of congestive failure. 3. Mild basilar atelectasis however superimposed interstitial infiltrate at the LEFT lung base is a consideration. No consolidation or effusion. Electronically Signed: Adis Doe MD at 18:10 EST , Chest X-Ray 04/29/22 17:55 IMPRESSION: 1. Interval placement of a RIGHT IJ central venous catheter, tip is projecting in normal position in the region of the subazygos SVC approaching the venoatrial junction. 2. No pneumothorax. 3. Retrocardiac LEFT lower lobe interstitial infiltrate suspected. Remaining lung zones clear. 4. No congestive failure. Electronically Signed: Adis Doe MD at 18:23 EST , D/C Instructions Discharge Diet: - (Intubated and sedated and currently n.p.o.) Meaningful Use Info Meaningful Use Diagnoses (Choose all that apply): None applicable Discharge Plan Admission Admit Date/Time: 04/29/22 23:42 Primary Reason for Your Visit: Fatigue, malaise, seizures Attending Provider: Sharifa Gould Primary Care Provider: Care Physician,No Primary Consulting Providers: Zi Bhatia ; Katia Galeana Instructions Patient Instructions: ED Seizure New Onset Unknown ... Discharge Orders/Prescriptions Prescriptions: Discontinued prednisone 5 MG tablet 10 mg PO BID gabapentin 100 MG capsule 400 mg PO TIDCM colchicine 0.6 MG tablet 0.6 mg PO MOWE amoxicillin-pot clavulanate 875 MG tablet 875 mg PO Q12H Qty: 14 0RF Referrals / Follow Up: Care Physician,No Primary [Primary Care Provider] - Disposition Disposition (needs filled in before D/C Order can be placed): Acute Care Hosp ital Charges/Coding Visit Charges Inpatient E&M: 07500 Disch Hosp
--- NOTE | 2022-04-30 09:10 | NURSING ---
Report given to transport team and left with patient, report called to RN at [place].
[2022-05-01 10:53] LABS: Vitamin B12 > 2000 pg/mL (211-911)
[2022-05-02 14:41] LABS: Bedside Glucose 17 mg/dL (74-106)
== END 2022-04-30 08:55 | disposition short-term general hospital (02) | DRG 720 ==
LOC: ED 22:56 → ICU 04-30 00:09
PROVIDERS: Admitting Provider Family Medicine; Emergency Provider Emergency Medicine; Visit Provider Internal Medicine
DX: A41.9 Sepsis, unspecified organism (principal); J96.00 Acute respiratory failure, unspecified whether with hypoxia or hypercapnia; R65.21 Severe sepsis with septic shock; G93.40 Encephalopathy, unspecified; G40.901 Epilepsy, unspecified, not intractable, with status epilepticus; E87.20 Acidosis, unspecified; D69.6 Thrombocytopenia, unspecified; E27.40 Unspecified adrenocortical insufficiency; J18.9 Pneumonia, unspecified organism; N17.9 Acute kidney failure, unspecified; N18.30 Chronic kidney disease, stage 3 unspecified; D53.9 Nutritional anemia, unspecified; E16.2 Hypoglycemia, unspecified; K21.9 Gastro-esophageal reflux disease without esophagitis; E66.9 Obesity, unspecified; Z79.52 Long term (current) use of systemic steroids; Z79.899 Other long term (current) drug therapy
CPT/HCPCS: 31500; 36600; 51702; 70450; 71045; 80053; 80307; 81001; 82550; 82570; 82607; 82728; 82746; 82803; 82962; 83036; 83540; 83550; 83605; 83735; 84300; 84439; 84443; 84478; 85025; 85610; 85730; 87040; 87086; 87428; 87449; 87633; 87641; 87807; 93005; 94002; 94003; 99251; 99285; J7030; J7040; J7050; A4216; G0463; J0610; J0696; J3010; J7799